=== PATIENT | female | born 1945 | race Caucasian/White ===

== ENCOUNTER 2024-08-15 17:37 | Inpatient (IN) | payer MEDICARE, SELFPAY ==
[2024-08-15] VITALS (21 sets, daily range): BP systolic 113–173; BP diastolic 64–103; PULSE 2–106; BMI 23.3
--- NOTE | 2024-08-15 14:10 | ED.GENMED ---
ED Provider Triage
<Arianna Albarado SPRING LAYER - Last Filed: 08/15/24 14:14>
-
Patient seen by provider in Triage?: Seen in Triage
Attestation: A medical screening examination has been initiated by a qualified medical provider. Based on the assessment performed at this time, it has been determined that an emergent medical condition may exist and the patient has been informed
that further medical evaluation and possible additional diagnostic testing may be needed.
HPI: 79-year-old female with history of COPD O2 4 L nasal cannula at home. Presents for shortness of breath over the past 2-3 weeks.
Pulse ox 95% at rest on 4 L. Moving from EMS stretcher to W/C desaturated to 80's
GENERAL: Alert , in no apparent distress
EYE: No visual abnormalities.
NECK: Trachea midline
ENT: No visible abnormalities.
LUNGS: Labored breathing. Lungs with diminished BS.
NEUROLOGICAL: Alert and oriented
SKIN: Skin intact. No visible changes.
MUSCULOSKELETAL: Moving extremities normally
PSYCH: Normal and appropriate interaction.
This is a medical evaluation conducted in person to initiate diagnostic evaluation and provide initial therapeutics. Please see further documentation by the treating clinician.
History of Present Illness
<Arianna Albarado SPRING LAYER - Last Filed: 08/15/24 14:14>
General
Chief Complaint: Breathing Problem
Time Seen by Provider: 08/15/24 14:31
<Petey Alcantar MD - Last Filed: 08/15/24 16:16>
General
Source: patient and family
Exam Limitations: clinical condition
Nursing documentation reviewed up to this point in time: agreed with
History of Present Illness
History of Present Illness:
79-year-old female with a past medical history of COPD, chronic respiratory failure on 4 L of home oxygen chronically presents to the emergency room for evaluation of shortness of breath. Patient reports progressive symptoms over the past 2 weeks.
Initially associated with cough but over the past few days increasing shortness of breath. Reports some tightness/heaviness in the chest as well. She also says she has had some mild dizziness. Apparently there was a plan to follow-up with PCP
today but daughter notes that she was markedly hypoxic which prompted ER visit.
Review of Systems
<Petey Alcantar MD - Last Filed: 08/15/24 16:16>
Review of Systems
Unable to obtain full review of systems at this time due to: due to acuity
All Other Systems: Not applicable
Phy Exam
<Petey Alcantar MD - Last Filed: 08/15/24 16:16>
Physical Exam
Physical Exam:
General: Awake, alert, anxious appearing and in moderate respiratory distress
Head: Normocephalic, atraumatic
Eyes: Conjunctiva normal
Throat: Airway intact, handling secretions
Neck: Trachea midline, supple without meningismus
Lungs: Patient is tachypneic speaking in one-word sentences, sitting straight upright, pursed lip breathing, tachypnea, hypoxic on normal 4 L; she diminished air movement, expiratory wheezing with prolonged expiratory phase
Heart: Tachycardia with regular rhythm, no murmurs, gallops, or rubs
Neuro: No gross deficits
Skin: no rash
Extremities: No edema in extremities, warm and well-perfused
Scores
<Petey Alcantar MD - Last Filed: 08/15/24 16:16>
Heart Failure Risk
Heart Failure Risk Score: Not Applicable
Heart Score for Chest Pain Patients
STEMI patient?: Not applicable
Withdrawal Assessment of Alcohol
Withdrawal Assessment Completed?: Not applicable
Course
<Arianna Albarado NP - Last Filed: 08/15/24 14:14>
Orders/Labs/Results
Orders:
Orders
08/15/24 14:10
Ipratropium/Albuterol Sulfate [Duoneb] 3 ml .ROUTE .STK-MED ONE
12/06/24 14:12
Electrocardiogram (*1) Urgent
Reason for Study: Shortness of Breath
EKG- Treatment ONCE
Ipratropium/Albuterol Sulfate [Duoneb] 3 ml INH R NOW STA
08/15/24 14:13
Ipratropium/Albuterol Sulfate [Duoneb] 3 ml INH R NOW ONE
08/15/24 14:32
MethylPREDNISolone PF [Solu-Medrol Pf] 125 mg IV NOW STA
CR Chest Portable - 1 View Urgent
Comment:
Reason For Exam: sob
Reason Study Needs to be Portable: Unable to Transport
Bipap [RESP] Urgent
Patient to use own unit?: No
Inspiratory Pressure (cm H2O): 12
Expiratory Pressure (cm H2O): 5
08/15/24 14:37
COVID-19 Antigen Urgent
Source: Nasal Swab
Complete Blood Count/With Diff Urgent
Comprehensive Metabolic Panel Urgent
Venous Blood Gas Urgent
%Oxygen/Room Air: 88
08/15/24 15:01
Influenza A+B Rapid Molecular Urgent
ALOK Source: Nasal Swab
Specimen Description:
08/15/24 15:12
Ipratropium/Albuterol Sulfate [Duoneb] 3 ml INH R NOW STA
08/15/24 15:18
Azithromycin 500 mg/250 ml [Zithromax Infusion] 500 mg in 250 ml IV NOW
CefTRIAXone [Rocephin] 1,000 mg IV NOW STA
Abnormal Lab Results
08/15/24
14:37
MCV 100.7 H fL
(81.0-99.0)
MCHC 30.3 L g/dL
(33.0-37.0)
Absolute Neuts (auto) 6.8 H 10^3/uL
(1.4-6.5)
Absolute Lymphs (auto) 1.0 L 10^3/uL
(1.2-3.4)
Absolute Monos (auto) 0.7 H 10^3/uL
(0.1-0.6)
Neutrophils % 76.7 H %
(42.2-75.2)
Lymphocytes % 11.6 L %
(20.5-51.1)
VBG pH 7.27 L
(7.32-7.43)
VBG pCO2 89 H* mmHg
(35-48)
VBG pO2 76 H mmHg
(30-50)
VBG HCO3 40.9 H mmol/L
(22-27)
Chloride 95 L mmol/L
(98-107)
Carbon Dioxide 36 H mmol/L
(22-30)
Creatinine 0.4 L mg/dL
(0.6-1.0)
Glucose 101 H mg/dl
(70-99)
08/15/24 14:37
08/15/24 14:37
Vital Signs
Initial and Last Documented VS:
Initial Vital Signs
Temp Pulse Resp BP Pulse Ox
36.8 C 123 26 134/85 96
08/15/24 14:04 08/15/24 14:04 08/15/24 14:04 08/15/24 14:04 08/15/24 14:04
Last Documented Vital Signs
Temp Pulse Resp BP Pulse Ox
36.8 C 101 20 125/66 94
08/15/24 14:04 08/15/24 16:00 08/15/24 16:00 08/15/24 15:01 08/15/24 16:00
<Petey Alcantar MD - Last Filed: 08/15/24 16:16>
Orders/Labs/Results
Orders:
Orders
08/15/24 14:10
Ipratropium/Albuterol Sulfate [Duoneb] 3 ml .ROUTE .STK-MED ONE
08/15/24 14:12
Electrocardiogram (*1) Urgent
Reason for Study: Shortness of Breath
EKG- Treatment ONCE
Ipratropium/Albuterol Sulfate [Duoneb] 3 ml INH R NOW STA
08/15/24 14:13
Ipratropium/Albuterol Sulfate [Duoneb] 3 ml INH R NOW ONE
08/15/24 14:32
MethylPREDNISolone PF [Solu-Medrol Pf] 125 mg IV NOW STA
CR Chest Portable - 1 View Urgent
Comment:
Reason For Exam: sob
Reason Study Needs to be Portable: Unable to Transport
Bipap [RESP] Urgent
Patient to use own unit?: No
Inspiratory Pressure (cm H2O): 12
Expiratory Pressure (cm H2O): 5
08/15/24 14:37
COVID-19 Antigen Urgent
Source: Nasal Swab
Complete Blood Count/With Diff Urgent
Comprehensive Metabolic Panel Urgent
Venous Blood Gas Urgent
%Oxygen/Room Air: 88
08/15/24 15:01
Influenza A+B Rapid Molecular Urgent
ALOK Source: Nasal Swab
Specimen Description:
08/15/24 15:12
Ipratropium/Albuterol Sulfate [Duoneb] 3 ml INH R NOW STA
08/15/24 15:18
Azithromycin 500 mg/250 ml [Zithromax Infusion] 500 mg in 250 ml IV NOW
CefTRIAXone [Rocephin] 1,000 mg IV NOW STA
Abnormal Lab Results
08/15/24
14:37
MCV 100.7 H fL
(81.0-99.0)
MCHC 30.3 L g/dL
(33.0-37.0)
Absolute Neuts (auto) 6.8 H 10^3/uL
(1.4-6.5)
Absolute Lymphs (auto) 1.0 L 10^3/uL
(1.2-3.4)
Absolute Monos (auto) 0.7 H 10^3/uL
(0.1-0.6)
Neutrophils % 76.7 H %
(42.2-75.2)
Lymphocytes % 11.6 L %
(20.5-51.1)
VBG pH 7.27 L
(7.32-7.43)
VBG pCO2 89 H* mmHg
(35-48)
VBG pO2 76 H mmHg
(30-50)
VBG HCO3 40.9 H mmol/L
(22-27)
Chloride 95 L mmol/L
(98-107)
Carbon Dioxide 36 H mmol/L
(22-30)
Creatinine 0.4 L mg/dL
(0.6-1.0)
Glucose 101 H mg/dl
(70-99)
08/15/24 14:37
08/15/24 14:37
Vital Signs
Initial and Last Documented VS:
Initial Vital Signs
Temp Pulse Resp BP Pulse Ox
36.8 C 123 26 134/85 96
08/15/24 14:04 08/15/24 14:04 08/15/24 14:04 08/15/24 14:04 08/15/24 14:04
Last Documented Vital Signs
Temp Pulse Resp BP Pulse Ox
36.8 C 101 20 125/66 94
08/15/24 14:04 08/15/24 16:00 08/15/24 16:00 08/15/24 15:01 08/15/24 16:00
<Petey Alcantar MD - Last Filed: 08/15/24 16:16>
MDM/Problems Addressed
Differential Diagnosis Includes:
COPD exacerbation, pneumonia, pneumothorax, PE
MDM/Problems Addressed:
79-year-old female presents for evaluation of progressive shortness of breath over the past 2 weeks. She presents in moderate respiratory distress as described above�tachycardia, tachypnea, increased work of breathing, increased oxygen requirement.
Exam as above. Call placed to respiratory to place patient on BiPAP. IV placed labs sent off including a CBC and a CMP, VBG. Swab for COVID and flu. Obtain stat chest x-ray and EKG. Treat with DuoNeb, steroids. Monitor very closely reassess
after the above.
Initial labs reviewed: CBC unremarkable, CMP shows hypercarbia; VBG shows respiratory acidosis with pCO2 of 89 and pH of 7.27. Fortunately patient is awake and alert and on clinical reassessment after BiPAP patient having increased air movement and
improved work of breathing. Will provide additional neb as she is still wheezing significantly. Chest x-ray reviewed and shows signs concerning for pneumonia on the left. Will cover with antibiotics. COVID and flu negative. Will admit for
continued treatment of acute on chronic respiratory failure with hypoxia and hypercarbia secondary to COPD exacerbation and pneumonia. Case discussed with hospitalist.
Chronic conditions affecting care:
COPD
Acute Exacerbation and/or Progression of Chronic Illness:
Acute COPD exacerbation managed as above
<Petey Alcantar MD - Last Filed: 08/15/24 16:16>
*Radiology
Radiology exam reviewed: preliminary read by ED provider and radiology read reviewed
*Pulse Oximetry
Patient hypoxic: yes
*EKG
Interpreted by ED Provider?: Yes
Heart Rate: 102
Rate: tachycardiac
Rhythm: sinus
Stephenson: normal axis
Interval: normal interval
QRS Pattern: normal QRS
Ischemia: no ischemia
*Critical Care Note
Total Time (30-74mins, 75-104mins- exclusive of procedures): 30
comment:
Critical care statement: A total of 30 minutes of critical care time was provided for this patient. This includes management of unstable vital signs, evaluation of the patient at bedside, frequent reassessment, discussion with
consultants/hospitalist, and review of pertinent medical records. This time was separate from time utilized to perform any aforementioned documented procedures
Data Reviewed
Source: patient, family and ambulance crew
<Petey Alcantar MD - Last Filed: 08/15/24 16:16>
Patient Management
Discussion with other providers: Hospitalist (Discussed with hospitalist)
Escalation/DeEscalation of care consider admission/obs:
Admission indicated
ED Attending Note
<Arianna Albarado NP - Last Filed: 08/15/24 14:14>
-
Portions of this chart may have been created with voice recognition software.� Occasional wrong word or��sound alike� substitutions may have occurred due to the inherent limitations of voice recognition software.
Discharge Plan
Departure
Patient Disposition: Admit
Date of Disposition: 08/15/24
Time of Disposition: 15:20
Admit to doctor: Jabier
Presentation/result/management discussed w/ accepting MD/DO: Hospitalist
Discharge Problem:
Acute respiratory failure with hypoxia and hypercapnia, Pneumonia, COPD exacerbation
Prescriptions:
No Action
aspirin 325 mg Tablet
650 mg PO TID
albuterol sulfate 90 mcg/actuation Hfa Aerosol Inhaler
2 puff INHALATION .SEE BELOW
Patient Comments:
08/15/2024: Per Pt and family, pt has been using Albuterol every 30 mins, and sometimes does 3-4 puffs at a time
fluticasone propionate [Flonase] 50 mcg/actuation Llewellyn,Suspension
2 spray INTRANASAL DAILY
Combivent Respimat 20-100 mcg/actuation Mist
1 puff INHALATION R QID
Patient Comments:
08/15/2024: Pt ran out of inhaler, physician gave her nebulizer (DuoNeb) in may, pt stated she did not like it. Began using rescue inhaler very often.
Interventions
Interventions:
*Risk Screen - Suicide Last Done: 08/15/24 14:04
*General Assessment Last Done: 08/15/24 15:02
*Neglect/Abuse Screening Last Done: 08/15/24 14:04
*ED COVID-19 Vaccine History Last Done: 08/15/24 15:02
ED- Cardiac Assessment Last Done: 08/15/24 14:43
ED- Pulmonary Assessment Last Done: 08/15/24 14:43
Discharge Date and Time
Print Language: UKRAINIAN
[2024-08-15] MEDS: DUONEB 3 ML INH ×3 (14:13→20:49)
[2024-08-15] MEDS: SOLU-MEDROL PF 125 MG IV (14:41)
[2024-08-15 14:59] LABS: % Basophils 0.4 % (0-2); % Eosinophils 2.8 % (0-6); % Immature Granulocytes 0.2 % (0-0.5); % Lymphocytes 11.6 % (20.5-51.1); % Monocytes 8.3 % (1.7-9.3); % Neutrophils 76.7 % (42.2-75.2); Absolute Eosinophils 0.3 10^3/uL (0-0.7); Absolute Monocytes 0.7 10^3/uL (0.1-0.6); Absolute Neutrophils 6.8 10^3/uL (1.4-6.5); Hematocrit 45.6 % (37.0-47.0); Hemoglobin 13.8 g/dL (12.0-16.0); Mean Corp Hgb Conc. 30.3 g/dL (33.0-37.0); Mean Corpuscular Hgb 30.5 pg (27.0-31.0); Mean Corpuscular Volume 100.7 fL (81.0-99.0); Mean Platelet Volume 9.4 fL (7.4-10.4); Nucleated Red Blood Cells % 0 %; Platelet Count 384 10^3/uL (130-400); Red Blood Cell Count 4.53 10^6/uL (4.20-5.40); Red Cell Dist. Width 13.2 % (11.5-14.5); Venous Blood Gas B.E. 9.9 mmol/L (-4 to +4); Venous Blood Gas HCO3 40.9 mmol/L (22-27); Venous Blood Gas O2 Sat % 96.2 %; Venous Blood Gas pH 7.27 (7.32-7.43); Venous Blood Gas pO2 76 mmHg (30-50); White Blood Cell Count 8.9 10^3/uL (4.8-10.8)
[2024-08-15 15:04] LABS: COVID-19 Antigen Negative (Negative); Venous Blood Gas O2 Therapy 88; Venous Blood Gas pCO2 89 mmHg (35-48)
[2024-08-15 15:06] LABS: ALT (SGPT) 12 U/L (0-35); AST (SGOT) 25 U/L (14-36); Albumin 3.7 g/dl (3.5-5.0); Alkaline Phosphatase 71 U/L (38-126); Blood Urea Nitrogen 12 mg/dl (7-17); Calcium 9.4 mg/dl (8.4-10.2); Chloride 95 mmol/L (98-107); Glucose 101 mg/dl (70-99); Potassium 4.1 mmol/L (3.5-5.1); Sodium 141 mmol/L (135-145); Total Bilirubin 0.2 mg/dl (0.2-1.3); Total Protein 7.1 g/dl (6.3-8.2); eGFR > 60.00
[2024-08-15 15:43] LABS: Carbon Dioxide 36 mmol/L (22-30)
[2024-08-15] MEDS: ROCEPHIN 1000 MG IV (15:48)
[2024-08-15] MEDS: ZITHROMAX INFUSION 250 IV (15:49)
--- NOTE | 2024-08-15 16:41 | CON.PUL ---
Addendum entered and electronically signed by Haja Oh MD 08/15/24 22:08:
Total time spent today was 78 minutes for this encounter. Time includes reviewing laboratory test/imaging results, reviewing pertinent medical records, obtaining and reviewing medical history, performing an appropriate exam, ordering medications,
tests and procedures. Time also includes documentation of this encounter, coordinating patient care and communicating with other healthcare professionals. Total time does not include separately billed tests performed on this date of service.
Original Note:
Consultation
Consultation Request
Date/Time Consultation Requested: 08/15/2024 - 1632
Date/Time Consultation Performed: 08/15/20241637
Requesting Provider: Dr. Morris
Performing Provider: Dr. Oh
Reason for Consultation: Acute hypoxia
Medical History
-
Chief Complaint: SOB + Cough
History of Present Illness:
79-year-old female with a past medical history of COPD on home oxygen at 4 L/min who presents with shortness of breath. SOB has been ongoing for about 2-3 weeks. Moving her from the EMS stretcher to the wheelchair resulted in desaturations to the
80s. She has been having a cough for the last few days and worsening SOB with chest tightness. She also has been having some dizziness. Her daughter recommended that the patient come to the ER. In the ER she was afebrile to 98.2 �F, tachycardic
to 123, tachypneic to 26 breaths/min, BP 134/85, and saturating 96% on 4 L/min. Blood gas showed acute on chronic respiratory failure with hypercapnia with pH 7.27 and pCO2 89. CXR shows a left lower lobe pneumonia with a suspected pleural
effusion. Patient was placed onto BiPAP in the ER, and was given ceftriaxone, Solu-Medrol 125 mg, DuoNebs and Zithromax. [facility] D[facility]/pulmonary service consulted to assess the patient and assist with disposition.
When I saw the patient she was resting in bed in no acute distress with her daughter, Emily, and her son-in-law, Eldon at bedside. Patient carries a history of COPD on 4-6 L/min [id number]. Her primary machine accountant is Dr. Romo with
[facility]. He also is acting as her PCP. She is currently on BiPAP 12/5cmH2O with VTe 350mL and PIP: 12 cmH2O.
The patient's been more short of breath since Thanksgiving with multiple other symptoms including lightheadedness, dizziness, headache, episodes of bladder incontinence, worsening nasal/chest congestion with increased cough for the last 2 days with
clear phlegm. Also not eating as much. At home her oxygen levels were 67% after Thanksgiving otherwise normally her saturations are in the high 80s/low 90s. She has nebulizers at home but apparently it was causing pain in her left mid scapular
region. She otherwise is on Trelegy 200mcg, and also is supposed to be using Combivent QID but it has been on backorder over the last few months. She also has prednisone at home if she needs it but she denies any recent use.
PMHx: COPD on home oxygen at 4 L/min, chronic rhinitis, eczema, multiple lung nodules (PET/CT was negative with no uptake in 2020), former tobacco smoker (last smoked a cigarette in April 2024)
PSHx: x 2
Past Medical History
Past Medical History: Other (Above as per HPI)
Past Surgical History: Other (Above as per HPI)
Social History
Tobacco: Former Smoker (Has still been smoking here in the air with last cigarette in April 2024; quit regularly smoking use in 2021 and previously was 1 PPD x 50 years; started smoking at age 16)
Alcohol: Occasional
Drug: None
Personal:
Living: Alone
Employment: Retired
Family History
Family History: Reviewed & Not Pertinent
Allergies / Home Medications
Allergies
Allergy/AdvReac Type Severity Reaction Status Date / Time
No Known Allergies Allergy Verified 08/15/24 14:06
Home Medications
�Medication �Instructions �Recorded �Confirmed �Last Taken �Type
albuterol sulfate 90 mcg/actuation 2 puff inhalation .SEE BELOW 08/15/24 08/15/24 Unknown History
aerosol inhaler
aspirin 325 mg tablet 650 mg PO TID 08/15/24 08/15/24 08/15/24 History
fluticasone propionate 50 2 spray intranasal DAILY 08/15/24 08/15/24 Unknown History
mcg/actuation nasal
spray,suspension
ipratropium 20 mcg-albuterol 100 1 puff inhalation R QID 08/15/24 08/15/24 2 Months Ago History
mcg/actuation mist for inhalation ~06/15/24
(Combivent Respimat)
Review of Systems
-
History Source: Patient
All other systems: Negative unless noted
Vitals / Labs / Diagnostic Testing
Vital Signs
Temp Pulse Resp BP Pulse Ox
98.2 F 105 20 118/68 94
08/15/24 14:04 08/15/24 16:32 08/15/24 16:00 08/15/24 16:32 08/15/24 16:00
Lab Data
08/15/24 14:37
08/15/24 14:37
Microbiology
08/15/24 15:01 Nasal Swab Influenza Types A & B (JOE) - Final
Negative for Influenza A & B, NAAT
Negative results must be combined with clinical observations
and patient history.
Nucleic Acid Amplification test (NAAT)performed on the
[employer] platform.
Diagnostic Testing:
Physical Exam
-
HEENT: Normocephalic and Anicteric
Cardiovascular: Rub (negative) and Peripheral Edema (negative)
Respiratory: Wheeze (negative), Rales (negative), Rhonchi (negative) and Other (On BiPAP via full facemask; grossly diminished breath sounds bilaterally)
GI: Soft, Non Distended, Non Tender and Normal Bowel Sounds
Neurology: AO x 3 and Tremors (negative)
Skin: Warm and Dry
General: Respiratory Distress (negative), Comfortable, Fever (negative) and Chills (negative)
Assessment
-
Assessment: 79-year-old female with a past medical history of COPD on home oxygen at 4 L/min who presents with shortness of breath. SOB has been ongoing for about 2-3 weeks. Moving her from the EMS stretcher to the wheelchair resulted in
desaturations to the 80s. She has been having a cough for the last few days and worsening SOB with chest tightness. She also has been having some dizziness. Her daughter recommended that the patient come to the ER. In the ER she was afebrile to
98.2 �F, tachycardic to 123, tachypneic to 26 breaths/min, BP 134/85, and saturating 96% on 4 L/min. Blood gas showed acute on chronic respiratory failure with hypercapnia with pH 7.27 and pCO2 89. CXR shows a left lower lobe pneumonia with a
suspected pleural effusion. Patient was placed onto BiPAP in the ER, and was given ceftriaxone, Solu-Medrol 125 mg, DuoNebs and Zithromax. [facility]/pulmonary service consulted to assess the patient and assist with disposition.
Chronic conditions SKIVER HEEL TAP: COPD on Trelegy 200mcg + home oxygen at 4-6 L/min ATC, chronic rhinitis, eczema, multiple lung nodules (PET/CT was negative with no uptake in 2020), former tobacco smoker (last smoked a cigarette in April 2024)
Impression:
#Acute COPD exacerbation due to a left lower lobe pneumonia
#Multifocal pneumonia involving LLL + ALONSO with a parapneumonic effusion with suspected loculation
#Acute on chronic respiratory failure with hypercapnia
#Acute on chronic respiratory failure with hypoxia due to above
#Elevated eosinophil count (mild at 300 from 08/15/2024)
#Metabolic alkalosis due to chronic hypercapnia
#Emphysema/COPD on Trelegy 200mcg at home + home O2 (4-6L/min ATC)
#History of multiple lung nodules with prior PET/CT negative with no uptake in 2020 (per her machine accountant's last office visit note on 05/22/2024)
Plan:
- Continue with BiPAP and trend pH + pCO2 to assure that it is improving
- Given that her blood gas shows improvement with pH improving from 7.27 --> 7.3, she can be managed in the IMU
- Continue to trend her blood gas
- Ok to take breaks from the BiPAP as long as she feels well with no worsening SOB in that interim period; she can eat clears + drink water but limit to small volumes in case she has to quikcly go back onto BiPAP
- Continue with broad-spectrum antibiotics with ceftriaxone/azithromycin --> would plan for total of 7 days ABx assuming she continues to clinically improve and remains afebrile for 48 hours prior to stopping antibiotics
- Trend QTc
- Check blood culture, urinalysis with reflex urine culture, urine antigens for Legionella/strep pneumonia and check sputum culture
- DuoNebs QID
- Given that she takes Trelegy at home, start Symbicort + Spiriva while hospitalized and then resume her Trelegy upon discharge
- Start systemic steroids with Solu-Medrol 40mg IV q8hr; maintain euglycemia while on high-dose steroids with goal BG 140�180; eventual prolonged steroid taper
- Maintain SpO2 88-95% with supplemental oxygen; check an ambulatory pulse oximetry prior to discharge
- Check CT chest to further assess her left sided loculated effusion and assess her degree of emphysema
- Mucolytics with chest PT if needed; Acapella
- Maintain MAP>65
- Replete electrolytes with K>4, Mg>2
- Trend H/H and transfuse if needed to keep Hb>7g/dL; keep plt>20k, unless there is concern for bleeding then keep plt>50k
- prn nebulized bronchodilators - not currently bronchospastic
- Incentive spirometer encouraged 10x per hour for at least 4 hrs a day
- DVT ppx: LMWH
Of note, the patient's daughter was able to access the portal connected to her machine accountant, Dr. Romo. I took this information into account from this last office visit on 05/22/2024. After discharge she should continue following up with this
machine accountant as she will need radiographic follow-up for this pneumonia and symptom checkup during prednisone tapering.
Patient is stable for admission to IMU and Pulmonary service will continue to follow along.
Data:
CXR 08/15/2024:
Evidence for small to moderate left pleural effusion with mild lateral loculation.
Patchy parenchymal opacity within the left mid to lower lung, suspicious for pneumonia, although there could also be a component of atelectasis. Also of note, underlying mass/neoplasia cannot be excluded radiographically and radiographic follow-up
is recommended.
[2024-08-15 16:48] LABS: Venous Blood Gas B.E. 10.4 mmol/L (-4 to +4); Venous Blood Gas HCO3 40.3 mmol/L (22-27); Venous Blood Gas O2 Sat % 86.8 %; Venous Blood Gas pO2 53 mmHg (30-50)
[2024-08-15 16:50] LABS: Venous Blood Gas pCO2 82 mmHg (35-48)
--- NOTE | 2024-08-15 17:03 | HPS.HSE ---
Addendum entered and electronically signed by Uriah Morris MD 08/15/24 17:46:
Acute on chronic hypoxic and hypercapnic respiratory failure secondary to likely copd exacterbation. Due to gradual progression over 2-3weeks unlikely PE, no fever nor white count unlikely PNA and no evidence of PNA on cxr. Likely has a component of
pHTN, would not be surprised if there was a component of Right sided heart failure due to poorly treated COPD.
-baseline: uses 4l o2
-per grandson use albuterol rescue quite frequently and trelegy up to twice a day
-poor airmovement on exam
-poor follow up, no pcp
-2-3weeks of sob, AM sputum - unchanged, no fever, no vaccines as she declines them
-duonebs q4h
-ivsteroid q12h with methylpred 40mg q12h
-repeat vbg
-continue NIPPV
-NPO while on NIPPV
-wean as tolerated
-continue azithro
-if become lethargic then will need to dc NIPPV
-if needs restraints then will need to dc NIPPV
-incentive pranav
-goal spo2 88-92%
-she is dnr/dni
-would avoid benzos
-flu/covid neg
-check 2d echo
Acute respiratory acidosis secondary to co2 retention
-Expect to improve while on NIPPV
Left sided pleural effusion
-will monitor, unlikely not able to tap
Original Note:
Family Physician
-
Family Physician: * NONE
Sees Sophia Romo Pulomonologist in [place], who also serves as primary.
Chief Complaint
-
Exertional shortness of breath x 2 weeks
History of Present Illness
79-year-old female with past medical history significant for COPD and smoking presents to the hospital for evaluation of gradually worsening shortness of breath x 2 weeks. Most of the history is provided by daughter and son-in-law on the bedside.
Patient is on BiPAP. Patient is visiting her daughter from [facility], about 2 weeks ago when she got down her car and walked her saturations were around 68% for about 2 minutes and the recovery time was prolonged as per family. Over the
last 3 days her shortness of breath became progressively worse, she experienced orthopnea, and had associated headaches, dizziness, chest pain since yesterday. Her chest pain is dull, aching located on left side, radiating into her back, 5/10 in
intensity, but not radiating into her jaw or left upper extremity. She also reports to have some associated urinary incontinence over the last 2 days. She denies having any dysuria, hesitancy, frequency, urgency or blood in her urine associated
with her urinary incontinence. Today family decided to take her to urgent care and at urgent care her pulse ox dropped to 58%, her heart rate was up in 130s and she was found to be tachypneic. Her daughter called EMS as a result.
Patient denies having any fevers, chills, sick contacts, difficulty swallowing, syncope or near syncopal episodes, palpitations, focal weakness, altered sensation in arms or limbs, or bowel incontinence.
Of note, she is home O2 dependent-4 L, and her ambulation is pretty independent. She does not have a primary care physician, but follows up with a lung doctor who also acts as her primary. Patient has greater than 89-mevj-kgrp smoking history and
quit smoking 2 years ago. Her last low-dose lung CT for lung cancer screening was in 2020.
Medical History
Past Medical History
Past Medical History: Reports COPD
Past Surgical History: Reports Other ( x 2)
Social History
Tobacco: Former Smoker (Quit smoking 2 years ago, started smoking at age 16, 1 pack a day, greater than 50 pack years)
Alcohol: Occasional
Drug: None
Personal:
Living: Alone
Employment: Retired
Family History
Family History: Not pertinent
Allergies / Home Medications
Allergies reflects when Allergies were last updated in [facility].
Home Medications with original date entered in [facility]
Allergy/Medication List:
Allergies
Allergy/AdvReac Type Severity Reaction Status Date / Time
No Known Allergies Allergy Verified 08/15/24 14:06
Home Medications
albuterol sulfate 90 mcg/actuation aerosol inhaler 2 puff inhalation .SEE BELOW 08/15/24
aspirin 325 mg tablet 650 mg PO TID 08/15/24
fluticasone propionate 50 mcg/actuation nasal spray,suspension 2 spray intranasal DAILY 08/15/24
ipratropium 20 mcg-albuterol 100 mcg/actuation mist for inhalation (Combivent Respimat) 1 puff inhalation R QID 08/15/24
Review of Systems
-
History Source: Patient
Constitutional: Reports Fatigue; Denies Fever, Weight Gain, Weight Loss, Night Sweats or Chills
EENT: Reports No Symptoms
Respiratory: Reports Cough and Trouble Breathing; Denies Hemoptysis
Cardiac: Reports Chest Pain; Denies Diaphoresis, Palpitations or Syncope
Abdomen/GI: Denies Abdominal Pain, Nausea, Vomiting, Diarrhea, Constipated or Bloody Stools
: Reports Incontinence
Musculoskeletal: Reports No Symptoms
Skin: Reports No Symptoms
Neurological: Reports Dizzy and Headache; Denies Weakness or Numbness
Endocrine: Reports No Symptoms
Hematologic/Lymphatic: Reports No Symptoms
Physical Exam
Vital Signs
Vital Signs
Temp Pulse Resp BP Pulse Ox
98.2 F 105 20 118/68 94
08/15/24 14:04 08/15/24 16:32 08/15/24 16:00 08/15/24 16:32 08/15/24 16:00
Physical Exam
General: No Apparent Distress and Comfortable
HEENT: Moist mucous membranes
Respiratory: Decreased Breath Sounds (Bilaterally across all lung lobes.)
Cardiac: S1/S2, Regular Rhythm and Tachycardia; No Murmur, Rub or Gallop
GI: Soft, Non Tender, Non Distended and Normal Bowel Sounds
Musculoskeletal: No Clubbing, No Cyanosis and Other (Bilateral 1+ pitting edema in lower extremities.)
Neuro: No Motor Deficits
Psych: Calm
Laboratory Results
-
08/15/24 14:37
08/15/24 14:37
Laboratory Results
Total Bilirubin 0.2 mg/dl (0.2-1.3) 08/15/24 14:37
AST 25 U/L (14-36) 08/15/24 14:37
ALT 12 U/L (0-35) 08/15/24 14:37
Alkaline Phosphatase 71 U/L (38-126) 08/15/24 14:37
Data Reviewed
-
Diagnostic Radiology: Image Personally Visualized and interpreted, Report Reviewed by me and Discussed with Physician
Lab Data: Labs Reviewed by me and Discussed with Physician
Impression/Plan
-
IMPRESSION: 79-year-old female with PMHx significant for COPD and smoking presents to the hospital for evaluation of gradually worsening shortness of breath, diagnosed with acute hypercapnic respiratory failure secondary to COPD exacerbation.
PLAN:
Acute hypercapnic respiratory failure -
Admit to IMU, pulmonology consulted, on board.
pH 7.24, pCO2 89, HCO3 40.9 upon admission.
Received Solu-Medrol 125, 2 rounds of DuoNebs and currently patient is on BiPAP.
Satting 89% on BiPAP with 90 degrees hide and elevation.
Baseline-on 4 L home O2.
Continue maintaining head and elevation,
IV steroids and DuoNebs.
Chest pain-
Blood pressure on bilateral arms-right 130/82, left 118/70s. In upper extremities.
Unlikely to be an aortic dissection.
Obtain proBNP in the a.m., if elevated would obtain echocardiogram and troponins.
No ST segment changes.
Former smoker
DVT prophylaxis-Lovenox.
CODE STATUS-
DNR.
No healthcare power of estate attorney.
--- NOTE | 2024-08-15 20:00 | PTCARENOTE ---
Received pt via transfer from ER. Patient AAOx3, able to HIRSCH. Sinus tach w/ trace edema in LE. Patient 93% tachypneic on Bipap 6L. Lung sounds coarse with crackles throughout. Hypoactive bowels sounds in all 4Q. Pt able to void on bedpan. Skin CDI.
Family and call yanez at bedside.
[2024-08-15] MEDS: LOVENOX 40 MG SC (20:26)
[2024-08-15] MEDS: SOLU-MEDROL PF 40 MG IV (20:27)
[2024-08-15 20:57] LABS: INR 0.94; PT 12.9 Sec (11.4-14.6)
[2024-08-15 20:58] LABS: APTT 33.1 Sec (23.4-35.0)
[2024-08-15 21:12] LABS: NT-proBNP 88.2 pg/ml; Troponin I 0.032 ng/ml
[2024-08-15 21:29] LABS: Venous Blood Gas B.E. 14.5 mmol/L (-4 to +4); Venous Blood Gas HCO3 43.2 mmol/L (22-27); Venous Blood Gas O2 Sat % 99.2 %; Venous Blood Gas pH 7.38 (7.32-7.43); Venous Blood Gas pO2 137 mmHg (30-50)
[2024-08-15 21:31] LABS: Venous Blood Gas pCO2 73 mmHg (35-48)
[2024-08-15 22:53] LABS: Magnesium 1.9 mg/dl (1.6-2.3); Phosphorus 3.4 mg/dl (2.5-4.5)
[2024-08-16] VITALS (18 sets, daily range): BP systolic 101–134; BP diastolic 54–81; PULSE 2–95; BMI 22.8
--- NOTE | 2024-08-16 00:30 | PTCARENOTE ---
Pt transported for CT on 6L midflow, labs drawn, hygiene performed. Call yanez at bedside.
[2024-08-16] MEDS: SOLU-MEDROL PF 40 MG IV ×3 (03:36→13:34)
--- NOTE | 2024-08-16 04:00 | PTCARENOTE ---
All systems reassessed, labs drawn, hygiene performed, purewick placed.
[2024-08-16 04:11] LABS: Hematocrit 40.6 % (37.0-47.0); Hemoglobin 12.6 g/dL (12.0-16.0); Mean Corpuscular Hgb 30.5 pg (27.0-31.0); Mean Corpuscular Volume 98.3 fL (81.0-99.0); Mean Platelet Volume 9.3 fL (7.4-10.4); Platelet Count 351 10^3/uL (130-400); Red Blood Cell Count 4.13 10^6/uL (4.20-5.40); Red Cell Dist. Width 13.2 % (11.5-14.5); Venous Blood Gas B.E. 14.6 mmol/L (-4 to +4); Venous Blood Gas HCO3 42.7 mmol/L (22-27); Venous Blood Gas O2 Sat % 99.9 %; Venous Blood Gas pCO2 69 mmHg (35-48); Venous Blood Gas pO2 153 mmHg (30-50)
[2024-08-16 04:16] LABS: Venous Blood Gas O2 Therapy 6L/min with BiPAP
[2024-08-16 04:33] LABS: ALT (SGPT) 13 U/L (0-35); AST (SGOT) 24 U/L (14-36); Albumin 3.6 g/dl (3.5-5.0); Alkaline Phosphatase 57 U/L (38-126); Blood Urea Nitrogen 18 mg/dl (7-17); Calcium 9.3 mg/dl (8.4-10.2); Carbon Dioxide 38 mmol/L (22-30); Chloride 96 mmol/L (98-107); Estimated Creatinine Clearance 71 ml/min; Glucose 136 mg/dl (70-99); Magnesium 1.9 mg/dl (1.6-2.3); Phosphorus 3.5 mg/dl (2.5-4.5); Potassium 4.5 mmol/L (3.5-5.1); Sodium 141 mmol/L (135-145); Total Bilirubin 0.3 mg/dl (0.2-1.3); Total Protein 6.8 g/dl (6.3-8.2); eGFR > 60.00
[2024-08-16 05:03] LABS: TSH 0.87 uIU/ml (0.47-4.68)
[2024-08-16] MEDS: DUONEB INH (07:30)
[2024-08-16] MEDS: VENTOLIN NEBULES 2.5 MG INH ×4 (07:30→20:32)
[2024-08-16] MEDS: SPIRIVA RESPIMAT 2.5 MCG 2 PUFF INH (07:30)
[2024-08-16] MEDS: SYMBICORT 160/4.5 MCG INHALER 2 PUFF INH ×2 (07:31→20:32)
--- NOTE | 2024-08-16 08:32 | W.PN.PUL3 ---
Addendum entered and electronically signed by Haja Oh MD 08/16/24 17:39:
Total time spent today was 37 minutes for this encounter. Time includes reviewing laboratory test/imaging results, reviewing pertinent medical records, obtaining and reviewing medical history, performing an appropriate exam, ordering medications,
tests and procedures. Time also includes documentation of this encounter, coordinating patient care and communicating with other healthcare professionals. Total time does not include separately billed tests performed on this date of service.
Original Note:
Today's Communication / Plan
-
Supplemental oxygen to maintain SpO2 goal 88-95%
Continue with nocturnal BiPAP, and trend blood gas to ensure pH + pCO2 are stable
Check ambulatory pulse oximetry prior to discharge although she does use 4-6 L/min at home, however she may have increased needs now given this new left-sided pneumonia
Continue with antibiotics
Check left-sided chest ultrasound and if amenable to thoracentesis would consult IR; if left effusion is loculated then she may benefit from a chest tube
Aspiration precautions
Solu-Medrol with wean as she clinically improves
[place] mist nasal spray for nasal congestion
Spiriva + Symbicort, and resume her Trelegy upon discharge
Eventual outpatient follow-up with her private collection systems worker in [place]
Patient stable for downgrade out of ICU to telemetry. Pulmonary service will continue to follow along.
Assessment
-
Assessment: 79-year-old female with a past medical history of COPD on home oxygen at 4 L/min who presents with shortness of breath. SOB has been ongoing for about 2-3 weeks. Moving her from the EMS stretcher to the wheelchair resulted in
desaturations to the 80s. She has been having a cough for the last few days and worsening SOB with chest tightness. She also has been having some dizziness. Her daughter recommended that the patient come to the ER. In the ER she was afebrile to
98.2 �F, tachycardic to 123, tachypneic to 26 breaths/min, BP 134/85, and saturating 96% on 4 L/min. Blood gas showed acute on chronic respiratory failure with hypercapnia with pH 7.27 and pCO2 89. CXR shows a left lower lobe pneumonia with a
suspected pleural effusion. Patient was placed onto BiPAP in the ER, and was given ceftriaxone, Solu-Medrol 125 mg, DuoNebs and Zithromax. Tobacco Sampler/pulmonary service consulted to assess the patient and assist with disposition.
Chronic conditions [employer]: COPD on Trelegy 200mcg + home oxygen at 4-6 L/min ATC, chronic rhinitis, eczema, multiple lung nodules (PET/CT was negative with no uptake in 2020), former tobacco smoker (last smoked a cigarette in April 2024)
Impression:
#Acute COPD exacerbation due to a left lower lobe pneumonia
#Multifocal pneumonia involving LLL + ALONSO with a parapneumonic effusion with suspected loculation
#Acute on chronic respiratory failure with hypercapnia
#Acute on chronic respiratory failure with hypoxia due to above
#Elevated eosinophil count (mild at 300 from 08/15/2024)
#Metabolic alkalosis due to chronic hypercapnia
#Emphysema/COPD on Trelegy 200mcg at home + home O2 (4-6L/min ATC)
#History of multiple lung nodules with prior PET/CT negative with no uptake in 2020 (per her collection systems worker's last office visit note on 05/22/2024)
Plan:
- Continue with BiPAP and trend pH + pCO2 to assure that it is improving
- Her blood gas has shown marked improvement of her pH + pCO2, now with pH 7.4, pCO2 69 on AM of 08/16. Continue with nocturnal BiPAP
- Continue to trend her blood gas
- Continue with broad-spectrum antibiotics with ceftriaxone/azithromycin --> would plan for total of 7 days ABx assuming she continues to clinically improve and remains afebrile for 48 hours prior to stopping antibiotics
- Trend QTc
- Follow up blood culture (collected 08/16), urinalysis with reflex urine culture, urine antigens for Legionella/strep pneumonia and check sputum culture (if she can produce a decent sample)
- DuoNebs QID
- Given that she takes Trelegy at home, start Symbicort + Spiriva while hospitalized and then resume her Trelegy upon discharge
- Continue systemic steroids with Solu-Medrol 40mg IV q8hr --> q12hr; maintain euglycemia while on high-dose steroids with goal BG 140�180; eventual prolonged steroid taper
- Maintain SpO2 88-95% with supplemental oxygen; check an ambulatory pulse oximetry prior to discharge
- CT chest performed showing moderate to advanced emphysema with a mild�moderate left-sided pleural effusion which appears to be loculated with masslike opacities in the lingula + left lower lobe --> check left-sided chest US to assess for
loculations and if large enough will c/s IR for thoracentesis vs chest tube
- Mucolytics with chest PT if needed; Acapella
- Maintain MAP>65
- Replete electrolytes with K>4, Mg>2
- Trend H/H and transfuse if needed to keep Hb>7g/dL; keep plt>20k, unless there is concern for bleeding then keep plt>50k
- prn nebulized bronchodilators - not currently bronchospastic
- Incentive spirometer encouraged 10x per hour for at least 4 hrs a day
- DVT ppx: LMWH
Of note, the patient's daughter was able to access the portal connected to her collection systems worker, Dr. Romo. I took this information into account from this last office visit on 05/22/2024. After discharge she should continue following up with this
collection systems worker as she will need radiographic follow-up for this pneumonia and symptom checkup during prednisone tapering.
Patient is stable for downgrade out of ICU to telemetry. Pulmonary service will continue to follow along.
Data:
CXR 08/15/2024:
Evidence for small to moderate left pleural effusion with mild lateral loculation.
Patchy parenchymal opacity within the left mid to lower lung, suspicious for pneumonia, although there could also be a component of atelectasis. Also of note, underlying mass/neoplasia cannot be excluded radiographically and radiographic follow-up
is recommended.
CT chest without contrast 08/15/2024:
Moderate to advanced emphysematous lung changes.
Mild to moderate left pleural effusion.
Masslike opacities in the lingula and left lower lobe. Probable round pneumonia. Follow-up recommended to assess for resolution.
Minor localized tree-in-bud attenuation in the superior segment of the right lower lobe, nonspecific bronchiolitis.
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
Subjective Data
-
Date of Service:
Date of Service: August 16, 2024
Chief Complaint: Pulmonary Follow Up
Subjective:
Patient was seen and evaluated today at bedside. Wore BiPAP overnight on 08/14 bled with 6 L/min. She does not like wearing the BiPAP mask but she is willing to use it again tonight. Of note, she does not have any CPAP or BiPAP at home. She is
currently saturating 95% with heart rate 111 and BP 120/58. She currently denies any chest pain, SOB, headache, fevers or chills.
Review of Systems
General: Other (Negative unless mentioned above)
Objective Data
Data Reviewed
Vital Signs / I&O / Oxygen:
Vital Signs
Temp Pulse Resp BP Pulse Ox
97.7 F 73 17 109/54 93
08/16/24 07:30 08/16/24 07:36 08/16/24 07:36 08/16/24 06:00 08/16/24 07:36
Intake and Output
08/15/24 08/16/24 08/17/24
06:59 06:59 06:59
Intake Total 360 / 360
Balance 360 / 360
SaO2 93
Nasal Cannula flow liters per 4
minute
Physical Exam
General: Respiratory Distress (negative), Comfortable, Chills (negative) and Sweats (negative)
HEENT: Normocephalic and Anicteric
Cardiovascular: Rub (negative) and Peripheral Edema (negative)
Respiratory: Wheeze (negative), Crackles (Left base), Rhonchi (negative), Non-Labored Respirations and Other (Diminished breath sounds bilaterally)
GI: Soft, Non Distended, Non Tender and Normal Bowel Sounds
Neurology: AO x 3 and Tremors (negative)
Skin: Warm, Dry, Cyanosis (negative) and Jaundice (negative)
Labs/Micro/Reports
Lab Data
08/16/24 03:54
08/16/24 03:54
Laboratory Results
08/15/24
20:23
PT 12.9
INR 0.94
APTT 33.1
Microbiology
08/15/24 15:01 Nasal Swab Influenza Types A & B (JOE) - Final
Negative for Influenza A & B, NAAT
Negative results must be combined with clinical observations
and patient history.
Nucleic Acid Amplification test (NAAT)performed on the
[employer] platform.
[2024-08-16] MEDS: ZITHROMAX 500 MG PO (09:35)
--- NOTE | 2024-08-16 10:22 | PTCARENOTE ---
pt aaox3. reviewed her condition lab results and plan of care. pt states no pain and breath feels better. nc 4l o2 sat 94%. pt lambert and orthopneic. breath sounds absent at base and diminished thru out. pure wick in place.
--- NOTE | 2024-08-16 12:25 | PTCARENOTE ---
no change in pt condition
--- NOTE | 2024-08-16 13:55 | W.PN.HOSP.TC ---
Today's Communication/Plan
-
Assessment / Plan
Assessment / Plan
Physical Exam
NAD, resting comfortably in bed, 4l nc, conversant
Scleral anicteric
Moist mucous membranes
No JVD
Poor air movmement bilaterally throughout all lung jones
Normal S1-S2 no murmurs
Soft nontender nondistended bowel sounds active
No peripheral pitting edema
Moves extremities spontaneously
AAOx3
Assessment and plan
Acute on chronic hypoxic and hypercapnic respiratory failure secondary to likely copd exacterbation. Due to gradual progression over 2-3weeks unlikely PE, no fever nor white count unlikely PNA and no evidence of PNA on cxr. Likely has a component of
pHTN, would not be surprised if there was a component of Right sided heart failure due to poorly treated COPD.
-baseline: uses 4l o2
-per grandson use albuterol rescue quite frequently and trelegy up to twice a day
-duonebs q4h
-ivsteroid q12h with methylpred 40mg q12h
-repeat vbg
-continue NIPPV
-NPO while on NIPPV
-wean as tolerated
-continue azithro
-if become lethargic then will need to dc NIPPV
-if needs restraints then will need to dc NIPPV
-incentive pranav
-goal spo2 88-92%
-she is dnr/dni
-would avoid benzos
-flu/covid neg
-check 2d echo
Acute respiratory acidosis secondary to co2 retention
-Expect to improve while on NIPPV
Left sided pleural effusion
-will monitor, unlikely not able to tap
Anticipated Discharge: > 48 hours
Subjective/Interval History
-
Date of Service: August 16, 2024
seen and examined. no new comapitns. no acure overnight evengts
Objective Data
-
Labs:
Laboratory Results
08/16/24
03:54
WBC 7.0
Hgb 12.6
Hct 40.6
Plt Count 351
Sodium 141
Potassium 4.5
Chloride 96 L
Carbon Dioxide 38 H
BUN 18 H
Creatinine 0.4 L
Glucose 136 H
Calcium 9.3
Total Bilirubin 0.3
AST 24
ALT 13
Alkaline Phosphatase 57
Vital Signs:
Vital Signs
Temp Pulse Resp BP Pulse Ox
98.7 F 110 16 119/62 93
08/16/24 11:30 08/16/24 12:19 08/16/24 12:19 08/16/24 10:00 08/16/24 12:19
I&O
08/15/24 08/16/24 08/17/24
06:59 06:59 06:59
Intake Total 360 / 360
Balance 360 / 360
--- NOTE | 2024-08-16 15:11 | CM ---
Chart reviewed. Patient is here for COPD exacerbation. She lives in [place]. She has a son and daughter for support. One of them will provide a ride for her, once she is discharged from the hospital. She has an active PCP and pharmacy. She is
independent. She lives in a 'senior' apartment building. She owns a walker, cane and wheelchair. 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 She denies any +SDOHs.
ANTICIPATED DISCHARGE PLAN: Home at apartment, once medically cleared.
[2024-08-16] MEDS: STERILE WATER FOR INJECTION 10 ML IV (15:46)
[2024-08-16] MEDS: ROCEPHIN 1000 MG IV (15:46)
[2024-08-16] MEDS: LOVENOX 40 MG SC (17:26)
--- NOTE | 2024-08-16 19:15 | PTCARENOTE ---
rec'd pt from IMU in the bed already. denies pain. maintained on 6L02.
[2024-08-16] MEDS: OCEAN, SALINE MIST NASAL (22:41)
[2024-08-17] MEDS: OCEAN, SALINE MIST NASAL ×2 (00:44→22:40)
[2024-08-17] MEDS: SOLU-MEDROL PF 40 MG IV ×2 (01:03→13:50)
[2024-08-17 02:12] VITALS: PULSE 2; PULSE 90
[2024-08-17 06:00] VITALS: BMI 24.5
[2024-08-17 06:52] LABS: Hemoglobin 12.3 g/dL (12.0-16.0); Mean Corp Hgb Conc. 30.8 g/dL (33.0-37.0); Mean Corpuscular Hgb 30.2 pg (27.0-31.0); Mean Corpuscular Volume 98.3 fL (81.0-99.0); Mean Platelet Volume 9.5 fL (7.4-10.4); Platelet Count 345 10^3/uL (130-400); Red Blood Cell Count 4.07 10^6/uL (4.20-5.40); Red Cell Dist. Width 13.4 % (11.5-14.5); White Blood Cell Count 13.6 10^3/uL (4.8-10.8)
[2024-08-17 07:07] LABS: Venous Blood Gas B.E. 17.8 mmol/L (-4 to +4); Venous Blood Gas HCO3 46.5 mmol/L (22-27); Venous Blood Gas pCO2 75 mmHg (35-48); Venous Blood Gas pO2 60 mmHg (30-50)
[2024-08-17 07:08] LABS: Blood Urea Nitrogen 20 mg/dl (7-17); Calcium 9.3 mg/dl (8.4-10.2); Chloride 93 mmol/L (98-107); Estimated Creatinine Clearance 71 ml/min; Glucose 127 mg/dl (70-99); Magnesium 2.2 mg/dl (1.6-2.3); Phosphorus 3.9 mg/dl (2.5-4.5); Potassium 4.3 mmol/L (3.5-5.1); Sodium 138 mmol/L (135-145); eGFR > 60.00
[2024-08-17 07:18] LABS: Carbon Dioxide 37 mmol/L (22-30)
[2024-08-17 07:40] VITALS: BP 124/64
[2024-08-17] MEDS: ZITHROMAX 500 MG PO (07:52)
[2024-08-17] MEDS: OCEAN, SALINE MIST 2 SPRAYS NASAL ×3 (07:54→17:27)
[2024-08-17] MEDS: SYMBICORT 160/4.5 MCG INHALER 2 PUFF INH ×2 (08:37→19:42)
[2024-08-17] MEDS: SPIRIVA RESPIMAT 2.5 MCG 2 PUFF INH (08:37)
[2024-08-17] MEDS: VENTOLIN NEBULES 2.5 MG INH ×4 (08:37→19:42)
--- NOTE | 2024-08-17 09:31 | W.PN.PUL3 ---
Today's Communication / Plan
-
Supplemental oxygen to maintain SpO2 goal 88-95%
Continue with nocturnal BiPAP, and trend blood gas to ensure pH + pCO2 are stable
Check ambulatory pulse oximetry prior to discharge although she does use 4-6 L/min at home, however she may have increased needs now given this new left-sided pneumonia
Continue with antibiotics
Consult IR for left-sided thoracentesis
Aspiration precautions
Solu-Medrol with wean as she clinically improves --> hopefully can TRX to OCS taper over next 24-48 hrs
Dorado mist nasal spray for nasal congestion
Spiriva + Symbicort, and resume her Trelegy upon discharge
Eventual outpatient follow-up with her private leaf stamper in [place]
Pulmonary service will continue to follow along.
Assessment
-
Assessment: 79-year-old female with a past medical history of COPD on home oxygen at 4 L/min who presents with shortness of breath. SOB has been ongoing for about 2-3 weeks. Moving her from the EMS stretcher to the wheelchair resulted in
desaturations to the 80s. She has been having a cough for the last few days and worsening SOB with chest tightness. She also has been having some dizziness. Her daughter recommended that the patient come to the ER. In the ER she was afebrile to
98.2 �F, tachycardic to 123, tachypneic to 26 breaths/min, BP 134/85, and saturating 96% on 4 L/min. Blood gas showed acute on chronic respiratory failure with hypercapnia with pH 7.27 and pCO2 89. CXR shows a left lower lobe pneumonia with a
suspected pleural effusion. Patient was placed onto BiPAP in the ER, and was given ceftriaxone, Solu-Medrol 125 mg, DuoNebs and Zithromax. Ion Implant Machine Operator/pulmonary service consulted to assess the patient and assist with disposition.
Chronic conditions RETENTION REPRESENTATIVE: COPD on Trelegy 200mcg + home oxygen at 4-6 L/min ATC, chronic rhinitis, eczema, multiple lung nodules (PET/CT was negative with no uptake in 2021), former tobacco smoker (last smoked a cigarette in April 2024)
Impression:
#Acute COPD exacerbation due to a left lower lobe pneumonia
#Multifocal pneumonia involving LLL + ALONSO with a parapneumonic effusion
#Acute on chronic respiratory failure with hypercapnia
#Acute on chronic respiratory failure with hypoxia due to above
#Elevated eosinophil count (mild at 300 from 08/15/2024)
#Metabolic alkalosis due to chronic hypercapnia
#Emphysema/COPD on Trelegy 200mcg at home + home O2 (4-6L/min ATC)
#History of multiple lung nodules with prior PET/CT negative with no uptake in 2020 (per her leaf stamper's last office visit note on 05/22/2024)
Plan:
- Continue with nocturnal BiPAP and trend pH + pCO2 to assure it is stable
- Would recommend trying a nasal PAP mask tonight to see if this improves the rash seen on her face today
- Continue with broad-spectrum antibiotics with ceftriaxone/azithromycin --> would plan for total of 7 days ABx assuming she continues to clinically improve and remains afebrile for 48 hours prior to stopping antibiotics
- Trend QTc
- Follow up blood culture (collected 08/16 - NGTD), urinalysis with reflex urine culture, urine antigens both negative for Legionella/strep pneumonia; check sputum culture (if she can produce a decent sample)
- Albuterol QID
- Given that she takes Trelegy at home, continue Symbicort + Spiriva while hospitalized and then resume her Trelegy upon discharge
- Continue systemic steroids with Solu-Medrol 40mg IV q8hr --> q12hr; maintain euglycemia while on high-dose steroids with goal BG 140�180; eventual prolonged steroid taper hopefully over next 1-2 days
- Maintain SpO2 88-95% with supplemental oxygen; check an ambulatory pulse oximetry prior to discharge
- CT chest performed showing moderate to advanced emphysema with a mild�moderate left-sided pleural effusion which appears to be loculated with masslike opacities in the lingula + left lower lobe --> left-sided chest US done 08/17 shows a moderate
size left pleural effusion --> c/s IR for thoracentesis
- Mucolytics with chest PT if needed; Acapella
- Maintain MAP>65
- Replete electrolytes with K>4, Mg>2
- Trend H/H and transfuse if needed to keep Hb>7g/dL; keep plt>20k, unless there is concern for bleeding then keep plt>50k
- prn nebulized bronchodilators - not currently bronchospastic
- Incentive spirometer encouraged 10x per hour for at least 4 hrs a day
- DVT ppx: LMWH
Of note, on admission, the patient's daughter was able to access the portal connected to her leaf stamper, Dr. Romo. I took this information into account from this last office visit on 05/22/2024. After discharge she should continue following
up with her leaf stamper as she will need radiographic follow-up for this pneumonia and symptom checkup during prednisone tapering, and management of BiPAP that we will be sending her home on.
Data:
CXR 08/15/2024:
Evidence for small to moderate left pleural effusion with mild lateral loculation.
Patchy parenchymal opacity within the left mid to lower lung, suspicious for pneumonia, although there could also be a component of atelectasis. Also of note, underlying mass/neoplasia cannot be excluded radiographically and radiographic follow-up
is recommended.
CT chest without contrast 08/15/2024:
Moderate to advanced emphysematous lung changes.
Mild to moderate left pleural effusion.
Masslike opacities in the lingula and left lower lobe. Probable round pneumonia. Follow-up recommended to assess for resolution.
Minor localized tree-in-bud attenuation in the superior segment of the right lower lobe, nonspecific bronchiolitis.
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
Left chest US 08/17/2024: Moderate left pleural effusion. Stable
Total time spent today was 38 minutes for this encounter. Time includes reviewing laboratory test/imaging results, reviewing pertinent medical records, obtaining and reviewing medical history, performing an appropriate exam, ordering medications,
tests and procedures. Time also includes documentation of this encounter, coordinating patient care and communicating with other healthcare professionals. Total time does not include separately billed tests performed on this date of service.
Subjective Data
-
Date of Service:
Date of Service: August 17, 2024
Chief Complaint: Pulmonary Follow Up
Subjective:
Patient seen and evaluated today at bedside. Still short of breath with activity. Wore BiPAP 12/5 cmH2O bled with 6 L/min overnight. Currently on 6 L/min and breathing comfortably. Son and other family members at bedside and all questions were
answered. She is getting a rash on her cheeks from the BiPAP mask overnight. She currently denies chest pain, [place], abdominal pain, nausea, fevers or chills.
Review of Systems
General: Other (Negative unless mentioned above)
Objective Data
Data Reviewed
Vital Signs / I&O / Oxygen:
Vital Signs
Temp Pulse Resp BP Pulse Ox
97.7 F 100 18 124/64 98
08/17/24 07:40 08/17/24 08:49 08/17/24 08:49 08/17/24 07:40 08/17/24 08:49
Intake and Output
08/16/24 08/17/24 08/18/24
06:59 06:59 06:59
Intake Total 360 / 360
Balance 360 / 360
SaO2 98
Nasal Cannula flow liters per 6
minute
Physical Exam
General: Respiratory Distress (negative), Comfortable, Chills (negative) and Sweats (negative)
HEENT: Normocephalic and Anicteric
Cardiovascular: S1-S2, Rub (negative) and Peripheral Edema (Trace lower extremity edema bilaterally)
Respiratory: Wheeze (negative), Crackles (Left base), Rhonchi (negative), Non-Labored Respirations and Other (Diminished breath sounds bilaterally (L>R))
GI: Soft, Non Distended, Non Tender and Normal Bowel Sounds
Neurology: AO x 3 and Tremors (negative)
Skin: Warm, Dry, Cyanosis (negative), Jaundice (negative) and Rash (Erythematous rash seen on face/cheeks (R>L))
Labs/Micro/Reports
Lab Data
08/17/24 06:36
08/17/24 06:36
Microbiology
08/16/24 16:19 Urine Legionella Urinary Antigen - Final
Negative for Legionella pneumophila Serogroup 1 antigen.
A negative result does not rule out the possiblity of
Legionella infection due to other serogroups or species of
Legionella. Clinical correlation is recommended.
08/16/24 16:19 Urine Streptococcus pneumoniae Antigen (M - Final
Negative for Streptococcus pneumoniae antigen.
A negative result does not exclude infection with
Streptococcus pneumoniae. Clinical correlation is
recommended.
08/16/24 03:54 Blood/Venous Blood Culture - Preliminary
No Growth in 24 hours- Final report to follow
08/15/24 15:01 Nasal Swab Influenza Types A & B (JOE) - Final
Negative for Influenza A & B, NAAT
Negative results must be combined with clinical observations
and patient history.
Nucleic Acid Amplification test (NAAT)performed on the
[employer] platform.
--- NOTE | 2024-08-17 13:56 | W.PN.HOSP.TC ---
Today's Communication/Plan
-
Assessment / Plan
Assessment / Plan
Physical Exam
NAD, resting comfortably in bed, 4l nc, conversant
Scleral anicteric
Moist mucous membranes
No JVD
Poor air movmement bilaterally throughout all lung jones, but improving
Normal S1-S2 no murmurs
Soft nontender nondistended bowel sounds active
No peripheral pitting edema
Moves extremities spontaneously
AAOx3
Assessment and plan
Acute on chronic hypoxic and hypercapnic respiratory failure secondary to likely copd exacterbation. Due to gradual progression over 2-3weeks unlikely PE, no fever nor white count unlikely PNA and no evidence of PNA on cxr. Likely has a component of
pHTN, would not be surprised if there was a component of Right sided heart failure due to poorly treated COPD.
-baseline: uses 4l o2
-duonebs q4h
-ivsteroid methylpred 40mg q12h
-hs/prn NIPPV
-wean as tolerated
-continue azithro
-incentive pranav
-goal spo2 88-92%
-she is dnr/dni
-would avoid benzos
-flu/covid neg
-check 2d echo
Acute respiratory acidosis secondary to co2 retention
-Expect to improve while on NIPPV
Left sided pleural effusion
-will monitor, unlikely not able to tap
Anticipated Discharge: > 48 hours
Subjective/Interval History
-
Date of Service: August 17, 2024
seen and examined. no new complaints. no acute ovenright evetns
Objective Data
-
Labs:
Laboratory Results
08/17/24
06:36
WBC 13.6 H
Hgb 12.3
Hct 40.0
Plt Count 345
Sodium 138
Potassium 4.3
Chloride 93 L
Carbon Dioxide 37 H
BUN 20 H
Creatinine 0.4 L
Glucose 127 H
Calcium 9.3
Vital Signs:
Vital Signs
Temp Pulse Resp BP Pulse Ox
97.7 F 100 18 124/64 98
08/17/24 07:40 08/17/24 12:20 08/17/24 12:20 08/17/24 07:40 08/17/24 08:49
I&O
08/16/24 08/17/24 08/18/24
06:59 06:59 06:59
Intake Total 360 / 360
Balance 360 / 360
[2024-08-17] MEDS: ROCEPHIN 1000 MG IV (16:04)
[2024-08-17] MEDS: STERILE WATER FOR INJECTION 10 ML IV (16:04)
[2024-08-17 16:55] VITALS: BP 115/67
[2024-08-17] MEDS: LOVENOX 40 MG SC (17:27)
[2024-08-17 22:52] VITALS: PULSE 2; PULSE 88
[2024-08-18] VITALS (7 sets, daily range): BP systolic 85–141; BP diastolic 60–77; PULSE 2–85; BMI 24.3
[2024-08-18] MEDS: SOLU-MEDROL PF 40 MG IV ×2 (02:43→13:12)
[2024-08-18] MEDS: SYMBICORT 160/4.5 MCG INHALER 2 PUFF INH ×2 (07:18→20:15)
[2024-08-18] MEDS: VENTOLIN NEBULES 2.5 MG INH ×4 (07:18→20:15)
[2024-08-18] MEDS: SPIRIVA RESPIMAT 2.5 MCG 2 PUFF INH (07:19)
[2024-08-18] MEDS: OCEAN, SALINE MIST 2 SPRAYS NASAL ×3 (09:27→17:19)
[2024-08-18] MEDS: ZITHROMAX 500 MG PO (09:28)
--- NOTE | 2024-08-18 10:12 | W.PN.PUL3 ---
Addendum entered and electronically signed by Socorro Beard DO 08/18/24 14:14:
Patient is a 79-year-old F with COPD, chronic hypercarbic respiratory failure. They have had multiple ER and hospital readmissions with a chief complaint of shortness of breath and respiratory failure. The patient has a PaCO2 of 89mmHg on 4 L of
oxygen. The patient reports they are on oxygen continuously. The patient reports they get short of breath with minimal exertion. They also report diffuse joint pain and is very limited because of breathing issues. Due to the patient's
comorbidities as noted above and hypoventilation, the patient is at risk for worsening chronic respiratory failure. I have considered bilevel, bilevel ST and bilevel VAPS therapy and they have all been ruled out due to the patient's worsening
clinical condition. The patient now requires a unique mode of ventilation not offered on less costly options. The patient requires a device that will not fail in the event of a power failure and is also portable for mobility within the home when
needed. Due to the patient's worsening condition, I am prescribing NIV therapy to decrease the chance of continued unexplained expensive medical encounters including physician office visits, emergency/urgent care treatment and hospital readmissions.
Original Note:
Today's Communication / Plan
-
s/p thora today, she does not feel less SOB, 450mL removed
Repeat CXR still with some residual fluid
FU lytes/culture/cyto
Continue PAP tonight
Wean O2 as tolerated
Continue nebs/inhalers
Encouraged OOB/IS/PT
Assessment
-
79-year-old female with a past medical history of COPD on home oxygen at 4 L/min who presents with shortness of breath. SOB has been ongoing for about 2-3 weeks. Moving her from the EMS stretcher to the wheelchair resulted in desaturations to the
80s. She has been having a cough for the last few days and worsening SOB with chest tightness. She also has been having some dizziness. Her daughter recommended that the patient come to the ER. In the ER she was afebrile to 98.2 �F, tachycardic
to 123, tachypneic to 26 breaths/min, BP 134/85, and saturating 96% on 4 L/min. Blood gas showed acute on chronic respiratory failure with hypercapnia with pH 7.27 and pCO2 89. CXR shows a left lower lobe pneumonia with a suspected pleural
effusion. Patient was placed onto BiPAP in the ER, and was given ceftriaxone, Solu-Medrol 125 mg, DuoNebs and Zithromax. Self Propelled Dredge Operator/pulmonary service consulted to assess the patient and assist with disposition.
#Acute COPD exacerbation due to a left lower lobe pneumonia
#Multifocal pneumonia involving LLL + ALONSO with a parapneumonic effusion
#Acute on chronic respiratory failure with hypercapnia
#Acute on chronic respiratory failure with hypoxia due to above
#Elevated eosinophil count (mild at 300 from 08/15/2024)
#Metabolic alkalosis due to chronic hypercapnia
#Emphysema/COPD on Trelegy 200mcg at home + home O2 (4-6L/min ATC)
#History of multiple lung nodules with prior PET/CT negative with no uptake in 2020 (per her ballet company member's last office visit note on 05/22/2024)
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
Plan:
Currently 95% on 5L
Continue with nocturnal BiPAP and trend pH + pCO2 to assure it is stable
Will need set up at home, we discussed using PAP therapy nightly
Continue with broad-spectrum antibiotics with ceftriaxone/azithromycin --> would plan for total of 7 days ABx assuming she continues to clinically improve and remains afebrile for 48 hours prior to stopping antibiotics
Cultures reviewed
Follow up blood culture (collected 08/16 - NGTD)
Urinalysis with reflex urine culture
Urine antigens both negative for Legionella/strep pneumonia;
Check sputum culture (if she can produce a decent sample)--unable
Continue Albuterol QID
Given that she takes Trelegy at home, continue Symbicort + Spiriva while hospitalized and then resume her Trelegy upon discharge
Continue systemic steroids with Solu-Medrol 40mg IV q8hr --> q12hr; maintain euglycemia while on high-dose steroids with goal BG 140�180; eventual prolonged steroid taper hopefully over next 1-2 days
Maintain SpO2 88-95% with supplemental oxygen; check an ambulatory pulse oximetry prior to discharge
CT chest performed showing moderate to advanced emphysema with a mild�moderate left-sided pleural effusion which appears to be loculated with masslike opacities in the lingula + left lower lobe
Left-sided chest US done 08/17 shows a moderate size left pleural effusion --> c/s IR for thoracentesis
450mL removed
Send for lytes/culture/cyto
Mucolytics with chest PT if needed; Acapella
- Maintain MAP>65
- Replete electrolytes with K>4, Mg>2
- Trend H/H and transfuse if needed to keep Hb>7g/dL; keep plt>20k, unless there is concern for bleeding then keep plt>50k
- prn nebulized bronchodilators - not currently bronchospastic
- Incentive spirometer encouraged 10x per hour for at least 4 hrs a day
- DVT ppx: LMWH
Of note, on admission, the patient's daughter was able to access the portal connected to her ballet company member, Dr. Romo. I took this information into account from this last office visit on 05/22/2024. After discharge she should continue following
up with her ballet company member as she will need radiographic follow-up for this pneumonia and symptom checkup during prednisone tapering, and management of BiPAP that we will be sending her home on.
Data:
CXR 08/15/2024: Evidence for small to moderate left pleural effusion with mild lateral loculation. Patchy parenchymal opacity within the left mid to lower lung, suspicious for pneumonia, although there could also be a component of atelectasis. Also
of note, underlying mass/neoplasia cannot be excluded radiographically and radiographic follow-up is recommended.
CT chest without contrast 08/15/2024: Moderate to advanced emphysematous lung changes. Mild to moderate left pleural effusion. Masslike opacities in the lingula and left lower lobe. Probable round pneumonia. Follow-up recommended to assess for
resolution. Minor localized tree-in-bud attenuation in the superior segment of the right lower lobe, nonspecific bronchiolitis. 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
Left chest US 08/17/2024: Moderate left pleural effusion. Stable
-----
Total time spent today was 50 minutes for this encounter. Time includes reviewing laboratory test/imaging results, reviewing pertinent medical records, obtaining and reviewing medical history, performing an appropriate exam, ordering medications,
tests and procedures. Time also includes documentation of this encounter, coordinating patient care and communicating with other healthcare professionals. Total time does not include separately billed tests performed on this date of service.
Subjective Data
-
Date of Service:
Date of Service: August 18, 2024
Chief Complaint: Pulmonary Follow Up
Subjective:
No acute events ON, remains on 5L NC
s/p thora today, she does not feel less SOB
Objective Data
Data Reviewed
Vital Signs / I&O / Oxygen:
Vital Signs
Temp Pulse Resp BP Pulse Ox
98.3 F 72 18 116/60 95
08/18/24 07:24 08/18/24 08:09 08/18/24 08:09 08/18/24 07:24 08/18/24 08:09
SaO2 95
Nasal Cannula flow liters per 5
minute
Physical Exam
General: Respiratory Distress (negative), Comfortable, Chills (negative) and Sweats (negative)
HEENT: Normocephalic and Anicteric
Cardiovascular: S1-S2, Rub (negative) and Peripheral Edema (Trace lower extremity edema bilaterally)
Respiratory: Wheeze (negative), Crackles (Left base), Rhonchi (negative), Non-Labored Respirations and Other (Diminished breath sounds bilaterally (L>R))
GI: Soft, Non Distended, Non Tender and Normal Bowel Sounds
Neurology: AO x 3 and Tremors (negative)
Skin: Warm, Dry, Cyanosis (negative), Jaundice (negative) and Rash (Erythematous rash seen on face/cheeks (R>L))
Labs/Micro/Reports
Lab Data
08/17/24 06:36
08/17/24 06:36
Microbiology
08/16/24 03:54 Blood/Venous Blood Culture - Preliminary
No Growth in 48 hours- Final report to follow
08/16/24 16:19 Urine Legionella Urinary Antigen - Final
Negative for Legionella pneumophila Serogroup 1 antigen.
A negative result does not rule out the possiblity of
Legionella infection due to other serogroups or species of
Legionella. Clinical correlation is recommended.
08/16/24 16:19 Urine Streptococcus pneumoniae Antigen (M - Final
Negative for Streptococcus pneumoniae antigen.
A negative result does not exclude infection with
Streptococcus pneumoniae. Clinical correlation is
recommended.
08/15/24 15:01 Nasal Swab Influenza Types A & B (JOE) - Final
Negative for Influenza A & B, NAAT
Negative results must be combined with clinical observations
and patient history.
Nucleic Acid Amplification test (NAAT)performed on the
[employer] platform.
--- NOTE | 2024-08-18 10:26 | W.PN.HOSP.TC ---
Today's Communication/Plan
-
Follow-up pulmonary
Wean oxygen as tolerated
Assessment / Plan
Assessment / Plan
Acute on chronic respiratory failure secondary d/t COPD exacerbation:
-Today is on 5 L nasal cannula, saturating 95%
-Patient is afebrile
-Decreased breath sounds bilaterally on physical examination
-pH 7.24, pCO2 89, HCO3 40.9 upon admission on venous blood gas - hypercapnic
-Continue Symbicort, Spiriva, Ventolin, Solu-Medrol
-Maintain oxygen saturation at 88 to 92%, and eventually wean as tolerated
-Asked patient to continue using incentive spirometry 10 times every hour to strengthen the lungs
-continue current antibiotics of ceftriaxone azithromycin
-Negative for flu and COVID
-Pulmonary is following
Left sided pleural effusion:
-Seen on CT of the chest, chest x-ray, chest ultrasound
-will monitor
Anticipated Discharge: 24 - 48 hours
Subjective/Interval History
-
Date of Service: August 18, 2024
Patient is DNR and presented to the emergency department on August 15 for worsening shortness of breath and chest pain since 2 to 3 weeks. She is on home oxygen 4 L. Had been feeling lightheaded, dizziness, cough, chest pain did not radiate to
the back. At first she was then taken to an urgent care then over there with a pulse ox showed that her oxygen dropped to 58 present when she normally saturates in the 80s to 90s, and from there she was presented to the ED.
Objective Data
-
Vital Signs:
Vital Signs
Temp Pulse Resp BP Pulse Ox
98 F 85 16 127/64 97
08/18/24 09:54 08/18/24 09:54 08/18/24 09:54 08/18/24 09:54 08/18/24 09:54
Review of Systems
-
History Source: Patient
Constitutional: Denies Fever or Chills
Respiratory: Denies Cough or Wheezing
Cardiac: Denies Chest Pain, Palpitations, Syncope or Orthopnea
Abdomen/GI: Denies Abdominal Pain, Nausea, Vomiting, Diarrhea or Constipated
Musculoskeletal: Denies Joint Pain or Muscle Pain
Neuro: Denies Dizzy, Headache, Weakness or Numbness
Physical Exam
-
HEENT: Oxygen
Respiratory: Decreased Breath Sounds (b/L)
Cardiac: Regular Rhythm and S1/S2
GI: Soft, Nontender, Nondistended and Normal Bowel Sounds
Musculoskeletal: Edema, Right Lower Extrem and Edema, Left Lower Extrem
Neuro: Awake, Alert, Oriented and AO x 3
Data Reviewed
-
Medical Tests (Nuc Med, Echo etc): Image personally visualized and interpreted and Discussed with Physician
Labs: Labs Reviewed by me and Discussed with Physician
[2024-08-18 10:41] LABS: Body Fluid pH 7.42
[2024-08-18 10:56] LABS: Body Fluid Glucose 106 mg/dl; Body Fluid LDH 133 U/L
[2024-08-18 10:58] LABS: Body Fluid Triglycerides < 30 mg/dl
[2024-08-18 11:05] LABS: Hematocrit 42.5 % (37.0-47.0); Hemoglobin 12.7 g/dL (12.0-16.0); Mean Corp Hgb Conc. 29.9 g/dL (33.0-37.0); Mean Corpuscular Hgb 30.1 pg (27.0-31.0); Mean Corpuscular Volume 100.7 fL (81.0-99.0); Mean Platelet Volume 9.5 fL (7.4-10.4); Platelet Count 354 10^3/uL (130-400); Red Blood Cell Count 4.22 10^6/uL (4.20-5.40); Red Cell Dist. Width 13.7 % (11.5-14.5)
[2024-08-18 11:25] LABS: Body Fluid Protein 4.2 g/dl
[2024-08-18 11:37] LABS: Body Fluid WBC 4361 /CUMM
[2024-08-18 11:54] LABS: Body Fluid Second Tech EF
[2024-08-18 13:10] LABS: LDH 108 U/L (120-246); Total Protein 6.9 g/dl (6.3-8.2)
--- NOTE | 2024-08-18 13:58 | W.PN.UPDATE ---
Update Note
Progress Note Update
I saw and evaluated the patient. I reviewed the resident�s note and agree with findings and plan as documented in the resident�s note.
No new complaints.
Gen: NAD, AAOx3, appears chronically ill, cachectic, malnourished.
Eyes: EOMI, PERRLA, no scleral icterus.
Neck: supple.
CV: RRR, +S1/S2, no m/r/g.
Resp: CTAB, no rales, wheezes, or rhonchi.
Abd: +BS, soft, NT, ND
Skin: No rashes.
Neuro: CN 2-12 intact, 5/5 strength x 4. Patellar tendons hyporeflexic.
Psych: Normal mood and affect.
08/18/24 10:24 Pleural Fluid Gram Stain - Preliminary
08/18/24 10:24 Pleural Fluid Fungal Culture - Preliminary
08/16/24 03:54 Blood/Venous Blood Culture - Preliminary
No Growth in 48 hours- Final report to follow
08/16/24 16:19 Urine Legionella Urinary Antigen - Final
Negative for Legionella pneumophila Serogroup 1 antigen.
A negative result does not rule out the possiblity of
Legionella infection due to other serogroups or species of
Legionella. Clinical correlation is recommended.
08/16/24 16:19 Urine Streptococcus pneumoniae Antigen (M - Final
Negative for Streptococcus pneumoniae antigen.
A negative result does not exclude infection with
Streptococcus pneumoniae. Clinical correlation is
recommended.
08/15/24 15:01 Nasal Swab Influenza Types A & B (JOE) - Final
Negative for Influenza A & B, NAAT
Negative results must be combined with clinical observations
and patient history.
Nucleic Acid Amplification test (NAAT)performed on the
[employer] platform.
CT chest 08/15/24: Moderate to advanced emphysematous lung changes. Mild to moderate left pleural effusion. Masslike opacities in the lingula and left lower lobe. Probable round pneumonia. Follow-up recommended to assess for resolution. Minor
localized tree-in-bud attenuation in the superior segment of the right lower lobe, nonspecific bronchiolitis. 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
CXR 08/18/24:
1. No pneumothorax post left thoracentesis.
2. Elevation left hemidiaphragm. Minimal residual left pleural fluid with adjacent atelectasis/consolidation. Patchy airspace consolidation over the left lower lung is either slightly increased or more conspicuous post thoracentesis.
3. Chronic obstructive pulmonary disease. Mild interstitial edema.
Acute on chronic hypoxemic respiratory failure due to acute COPD exacerbation due to left lower lobe and lingula pneumonia and L pleural effusion:
-h/o tobacco abuse disorder, quit 2 years ago after smoking 2-3 packs/day for 50-55 years
-s/p L thoracentesis for 450cc exudative fluid, follow FCx
-COVID/Flu NEG
-Urine Legionella and Strep pneumonia Ags NEG
-pulm following
-on 4L NC O2 at baseline, currently on 4-6L NC O2
-cont Rocephin/azithromycin/Solu-Medrol
-Continue Symbicort/Spiriva
-acute respiratory acidosis, now compensated
-Patient has pulmonary cachexia
Limited DNR/Lovenox
[2024-08-18] MEDS: STERILE WATER FOR INJECTION 10 ML IV (15:33)
[2024-08-18] MEDS: ROCEPHIN 1000 MG IV (15:33)
--- NOTE | 2024-08-18 16:41 | CM ---
Plan is for patient to return to home back to [place] when stable, per Madelin at [facility] plan is for BIPAP, copy of documentation that is required for insurance authorization sent to pulmonary. Physician will also need to sign a script.
Plan; Home alone with Bipap from [facility].
[2024-08-18] MEDS: LOVENOX 40 MG SC (17:19)
[2024-08-18] MEDS: OCEAN, SALINE MIST NASAL (22:09)
[2024-08-19] VITALS (9 sets, daily range): BP systolic 100–146; BP diastolic 60–85; PULSE 2–136; O2SAT 90; BMI 25.5
[2024-08-19] MEDS: SOLU-MEDROL PF 40 MG IV ×2 (01:52→13:29)
[2024-08-19 07:02] LABS: Hematocrit 39.1 % (37.0-47.0); Hemoglobin 11.9 g/dL (12.0-16.0); Mean Corp Hgb Conc. 30.4 g/dL (33.0-37.0); Mean Corpuscular Hgb 30.4 pg (27.0-31.0); Mean Platelet Volume 9.4 fL (7.4-10.4); Platelet Count 308 10^3/uL (130-400); Red Blood Cell Count 3.91 10^6/uL (4.20-5.40); Red Cell Dist. Width 13.4 % (11.5-14.5); White Blood Cell Count 9.7 10^3/uL (4.8-10.8)
[2024-08-19 07:23] LABS: Blood Urea Nitrogen 15 mg/dl (7-17); Calcium 9.3 mg/dl (8.4-10.2); Chloride 93 mmol/L (98-107); Estimated Creatinine Clearance 71 ml/min; Glucose 113 mg/dl (70-99); Potassium 4.7 mmol/L (3.5-5.1); Sodium 139 mmol/L (135-145); eGFR > 60.00
[2024-08-19 07:34] LABS: Carbon Dioxide 36 mmol/L (22-30)
[2024-08-19] MEDS: SPIRIVA RESPIMAT 2.5 MCG 2 PUFF INH (07:37)
[2024-08-19] MEDS: VENTOLIN NEBULES 2.5 MG INH ×4 (07:37→19:57)
[2024-08-19] MEDS: SYMBICORT 160/4.5 MCG INHALER 2 PUFF INH ×2 (07:37→19:56)
--- NOTE | 2024-08-19 08:59 | W.PN.PUL3 ---
Today's Communication / Plan
-
Back to baseline O2 requirements
Trilogy set up for home, we discussed follow up with OP Pulm in [place], she understands
Rehab likely needed, PT/OT evals
Transition IV steroids to PO taper
Abx to complete by tomorrow for 5 days (08/20)
Discharge planning in next 24 hours pending needs
Assessment
-
79-year-old female with a past medical history of COPD on home oxygen at 4 L/min who presents with shortness of breath. SOB has been ongoing for about 2-3 weeks. Moving her from the EMS stretcher to the wheelchair resulted in desaturations to the
80s. She has been having a cough for the last few days and worsening SOB with chest tightness. She also has been having some dizziness. Her daughter recommended that the patient come to the ER. In the ER she was afebrile to 98.2 �F, tachycardic
to 123, tachypneic to 26 breaths/min, BP 134/85, and saturating 96% on 4 L/min. Blood gas showed acute on chronic respiratory failure with hypercapnia with pH 7.27 and pCO2 89. CXR shows a left lower lobe pneumonia with a suspected pleural
effusion. Patient was placed onto BiPAP in the ER, and was given ceftriaxone, Solu-Medrol 125 mg, DuoNebs and Zithromax. Outreach Manager/pulmonary service consulted to assess the patient and assist with disposition.
#Acute COPD exacerbation due to a left lower lobe pneumonia
#Multifocal pneumonia involving LLL + ALONSO with a parapneumonic effusion
#Acute on chronic respiratory failure with hypercapnia
#Acute on chronic respiratory failure with hypoxia due to above
#Elevated eosinophil count (mild at 300 from 08/15/2024)
#Metabolic alkalosis due to chronic hypercapnia
#Emphysema/COPD on Trelegy 200mcg at home + home O2 (4-6L/min ATC)
#History of multiple lung nodules with prior PET/CT negative with no uptake in 2020 (per her assessment services manager's last office visit note on 05/22/2024)
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
Plan:
Currently 95% on 5L
Continue with nocturnal BiPAP and trend pH + pCO2 to assure it is stable
Will need set up at home, we discussed using PAP therapy nightly
Continue with broad-spectrum antibiotics with ceftriaxone/azithromycin --> would plan for total of 7 days ABx assuming she continues to clinically improve and remains afebrile for 48 hours prior to stopping antibiotics
Cultures reviewed
Follow up blood culture (collected 08/16 - NGTD)
Urinalysis with reflex urine culture
Urine antigens both negative for Legionella/strep pneumonia;
Check sputum culture (if she can produce a decent sample)--unable
Continue Albuterol QID
Given that she takes Trelegy at home, continue Symbicort + Spiriva while hospitalized and then resume her Trelegy upon discharge
Continue systemic steroids with Solu-Medrol 40mg IV q8hr --> q12hr; maintain euglycemia while on high-dose steroids with goal BG 140�180; eventual prolonged steroid taper hopefully over next 1-2 days
Maintain SpO2 88-95% with supplemental oxygen; check an ambulatory pulse oximetry prior to discharge
CT chest performed showing moderate to advanced emphysema with a mild�moderate left-sided pleural effusion which appears to be loculated with masslike opacities in the lingula + left lower lobe
Left-sided chest US done 08/17 shows a moderate size left pleural effusion --> c/s IR for thoracentesis
450mL removed
Send for lytes/culture/cyto
Mucolytics with chest PT if needed; Acapella
- Maintain MAP>65
- Replete electrolytes with K>4, Mg>2
- Trend H/H and transfuse if needed to keep Hb>7g/dL; keep plt>20k, unless there is concern for bleeding then keep plt>50k
- prn nebulized bronchodilators - not currently bronchospastic
- Incentive spirometer encouraged 10x per hour for at least 4 hrs a day
- DVT ppx: LMWH
Of note, on admission, the patient's daughter was able to access the portal connected to her assessment services manager, Dr. Romo. I took this information into account from this last office visit on 05/22/2024. After discharge she should continue following
up with her assessment services manager as she will need radiographic follow-up for this pneumonia and symptom checkup during prednisone tapering, and management of Trilogy that we will be sending her home on.
Data:
CXR 08/15/2024: Evidence for small to moderate left pleural effusion with mild lateral loculation. Patchy parenchymal opacity within the left mid to lower lung, suspicious for pneumonia, although there could also be a component of atelectasis. Also
of note, underlying mass/neoplasia cannot be excluded radiographically and radiographic follow-up is recommended.
CT chest without contrast 08/15/2024: Moderate to advanced emphysematous lung changes. Mild to moderate left pleural effusion. Masslike opacities in the lingula and left lower lobe. Probable round pneumonia. Follow-up recommended to assess for
resolution. Minor localized tree-in-bud attenuation in the superior segment of the right lower lobe, nonspecific bronchiolitis. 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
Left chest US 08/17/2024: Moderate left pleural effusion. Stable
-----
Total time spent today was 50 minutes for this encounter. Time includes reviewing laboratory test/imaging results, reviewing pertinent medical records, obtaining and reviewing medical history, performing an appropriate exam, ordering medications,
tests and procedures. Time also includes documentation of this encounter, coordinating patient care and communicating with other healthcare professionals. Total time does not include separately billed tests performed on this date of service.
Subjective Data
-
Date of Service:
Date of Service: August 19, 2024
Chief Complaint: Pulmonary Follow Up
Subjective:
Back to baseline, SOB is ongoing but she feels weak also
No new events
Objective Data
Data Reviewed
Vital Signs / I&O / Oxygen:
Vital Signs
Temp Pulse Resp BP Pulse Ox
97.9 F 72 14 100/66 96
08/19/24 07:33 08/19/24 07:59 08/19/24 07:59 08/19/24 07:33 08/19/24 07:59
Intake and Output
08/18/24 08/19/24 08/20/24
06:59 06:59 06:59
Intake Total 900 / 900
Output Total 300 / 300
Balance 600 / 600
SaO2 96
Nasal Cannula flow liters per 4
minute
Physical Exam
General: Respiratory Distress (negative), Comfortable, Chills (negative) and Sweats (negative)
HEENT: Normocephalic and Anicteric
Cardiovascular: S1-S2, Rub (negative) and Peripheral Edema (Trace lower extremity edema bilaterally)
Respiratory: Wheeze (negative), Crackles (Left base), Rhonchi (negative), Non-Labored Respirations and Other (Diminished breath sounds bilaterally (L>R))
GI: Soft, Non Distended, Non Tender and Normal Bowel Sounds
Neurology: AO x 3 and Tremors (negative)
Skin: Warm, Dry, Cyanosis (negative), Jaundice (negative) and Rash (Erythematous rash seen on face/cheeks (R>L))
Labs/Micro/Reports
Lab Data
08/19/24 06:41
08/19/24 06:41
Microbiology
08/16/24 03:54 Blood/Venous Blood Culture - Preliminary
No Growth in 72 hours- Final report to follow
08/18/24 15:43 Sputum Respiratory Culture - Final
08/18/24 15:43 Sputum Gram Stain - Final
08/18/24 10:24 Pleural Fluid Gram Stain - Preliminary
08/18/24 10:24 Pleural Fluid Fungal Culture - Preliminary
08/16/24 16:19 Urine Legionella Urinary Antigen - Final
Negative for Legionella pneumophila Serogroup 1 antigen.
A negative result does not rule out the possiblity of
Legionella infection due to other serogroups or species of
Legionella. Clinical correlation is recommended.
08/16/24 16:19 Urine Streptococcus pneumoniae Antigen (M - Final
Negative for Streptococcus pneumoniae antigen.
A negative result does not exclude infection with
Streptococcus pneumoniae. Clinical correlation is
recommended.
[2024-08-19] MEDS: OCEAN, SALINE MIST 2 SPRAYS NASAL ×3 (09:09→17:07)
[2024-08-19] MEDS: ZITHROMAX 500 MG PO (09:09)
--- NOTE | 2024-08-19 10:44 | W.PN.HOSP.TC ---
Today's Communication/Plan
-
- palliative care consult
Assessment / Plan
Assessment / Plan
Acute on chronic respiratory failure secondary d/t COPD exacerbation
End stage COPD:
- Consulted Palliative care for the patients end stage COPD
-Today is on 4 L nasal cannula, saturating 95%
-Patient is afebrile
-Decreased breath sounds bilaterally on physical examination
-pH 7.24, pCO2 89, HCO3 40.9 upon admission on venous blood gas - hypercapnic
-Continue Symbicort, Spiriva, Ventolin, Solu-Medrol
-Maintain oxygen saturation at 88 to 92%, and eventually wean as tolerated
-Asked patient to continue using incentive spirometry 10 times every hour to strengthen the lungs
-continue current antibiotics of ceftriaxone azithromycin
-Negative for flu and COVID
-Pulmonary is following
Left sided pleural effusion:
-Seen on CT of the chest, chest x-ray, chest ultrasound
-will monitor
Anticipated Discharge: 24 - 48 hours
Subjective/Interval History
-
Date of Service: August 19, 2024
No overnight events.
No acute medical events.
Objective Data
-
Labs:
Laboratory Results
08/19/24
06:41
WBC 9.7
Hgb 11.9 L
Hct 39.1
Plt Count 308
Sodium 139
Potassium 4.7
Chloride 93 L
Carbon Dioxide 36 H
BUN 15
Creatinine 0.5 L
Glucose 113 H
Calcium 9.3
Vital Signs:
Vital Signs
Temp Pulse Resp BP Pulse Ox
97.9 F 72 14 100/66 96
08/19/24 07:33 08/19/24 07:59 08/19/24 07:59 08/19/24 07:33 08/19/24 07:59
I&O
08/18/24 08/19/24 08/20/24
06:59 06:59 06:59
Intake Total 900 / 900
Output Total 300 / 300
Balance 600 / 600
Review of Systems
-
History Source: Patient
Constitutional: Denies Fever or Chills
Respiratory: Denies Cough or Wheezing
Cardiac: Denies Chest Pain, Palpitations, Syncope or Orthopnea
Abdomen/GI: Denies Abdominal Pain, Nausea, Vomiting, Diarrhea or Constipated
Musculoskeletal: Denies Joint Pain or Muscle Pain
Neuro: Denies Dizzy, Headache, Weakness or Numbness
Physical Exam
-
HEENT: Oxygen
Respiratory: Decreased Breath Sounds (b/L)
Cardiac: Regular Rhythm and S1/S2
GI: Soft, Nontender, Nondistended and Normal Bowel Sounds
Musculoskeletal: Edema, Right Lower Extrem and Edema, Left Lower Extrem
Neuro: Awake, Alert, Oriented and AO x 3
Data Reviewed
-
MRI: Image personally visualized and interpreted and Discussed with Physician
Medical Tests (Nuc Med, Echo etc): Image personally visualized and interpreted and Discussed with Physician
--- NOTE | 2024-08-19 11:15 | PTCARENOTE ---
Orthostatic VS taken as ordered. Pt was not orthostatic however, standing at the bedside, pt stated feeling dizzy. Assisted back to bed.
--- NOTE | 2024-08-19 11:59 | W.CON.PAL ---
Consultation
-
Date/Time Consultation Requested: 08/18
Date/Time Consultation Performed: 08/19
Requesting Provider: Wayne Selby
Performing Provider: Ashly Hooper
Reason for Consult: Goals of Care Discussion and Advanced Care Planning
Primary Diagnosis: end stage COPD
Reason for Admission
Illness Course/HPI
79 year old F with PMH of end stage COPD admitted with shortness of breath and hypoxia.
Upon admission was found to have COPD exacerbation, started on ABX and steroids.
Patient lives alone in [place], was visiting her daughter in [place] when she became ill. Pulm following with plans to start on NIV at home.
Patient seen at bedside with daughter present. States she has not been in and out of the hospital, this is her first exacerbation and daughter confirms this. States shes been doing overall well at home, living alone. Does have an aide for a few
hours one day a week to help with housework but is mostly independent with her ADLs/iADLs.
We discussed end stage nature of her lung condition. She understands it is progressive and will not get better over time, but overall feels well and has stayed out of the hospital. Daughter is interested in setting up home palliative care visits for
her.
Pain & Symptom Assessment
[place] Symptom Scale 0=none, 10=worst
Pain: 0
Shortness of Breath: 3
Objective Data
-
Objective Data:
Vital Signs
Temp Pulse Resp BP Pulse Ox
97.9 F 72 14 100/66 96
08/19/24 07:33 08/19/24 07:59 08/19/24 07:59 08/19/24 07:33 08/19/24 08:50
Laboratory Results
08/19/24 06:41
08/19/24 06:41
PT 12.9 Sec (11.4-14.6) 08/15/24 20:23
INR 0.94 08/15/24 20:23
APTT 33.1 Sec (23.4-35.0) 08/15/24 20:23
Total Protein 6.9 g/dl (6.3-8.2) 08/18/24 10:53
Albumin 3.6 g/dl (3.5-5.0) 08/16/24 03:54
TSH 0.87 uIU/ml (0.47-4.68) 08/16/24 03:54
Palliative Performance Scale
Palliative Performance Scale:
PPS Level Ambulation Activity & Evidence of Disease Self Care Intake Conscious Level
100% Full Normal Activity & Work; Full Intake Full
No Evidence of Disease
90% Full Normal Activity & Work; Full Normal Full
Some Evidence of Disease
80% Full Normal Activity with Effort Full Normal or Full
Some Evidence of Disease Reduced
70% Reduced Unable Normal Job/Work Full Normal or Full
Significant Disease Reduced
60% Reduced Unable Hobby/Housework Occasional Normal or Full or Confusion
Significant Disease Assistance Reduced
50% Mainly Sit/Lie Unable to do Any Work Considerable Normal or Full or Confusion
Extensive Disease Assistance Req'd Reduced
40% Mainly in Bed Unable to do Most Activity Mainly Assistance Normal or Full or Drowsy;
Extensive Disease Reduced +/- Confusion
30% Totally Bed Unable to do Any Activity Total Care Normal or Full or Drowsy;
Bound Extensive Disease Reduced +/- Confusion
20% Totally Bed Bound Unable to do Any Activity Total Care Minimal to Full or Drowsy;
Extensive Disease Sips +/- Confusion
10% Totally Bed Bound Unable to do Any Activity Total Care Mouth Care Drowsy or Coma;
Extensive Disease Only +/- Confusion
0%
PPS Score Level:
Physical Exam
-
General: Conversant and Appears Chronically Ill
HEENT: Normocephalic
Respiratory: Other (diminished b/l )
Cardiac: Regular Rhythm
Peripheral Vascular: No Edema
GI: Soft
Skin: Warm
Neuro: AO x 3
Psych: Calm
Assessment / Plan
-
Assessment/Plan:
79 year old F with end stage COPD
- patient interested in rehab placement, feels like she needs some rehab before she goes home alone. Have messaged CM about this.
- daughter interested in outpatient palliative visits. We do not cover [place] - have asked CM to send referral for [facility] for when she gets home.
- discussed with primary team
- DNR
Care Reviewed
Data Reviewed
Radiology procedure: Image Reviewed
Medical Tests: I reviewed
Reviewed with: Patient, Family and Physician
--- NOTE | 2024-08-19 12:39 | W.PN.UPDATE ---
Update Note
Progress Note Update
- Pt had a feeling of racing heartbeat so orthostatic vitals ordered as well as telemetry
--- NOTE | 2024-08-19 13:26 | W.PN.UPDATE ---
Update Note
Progress Note Update
I saw and evaluated the patient. I reviewed the resident�s note and agree with findings and plan as documented in the resident�s note.
Patient complains that she feels her heart is racing at times and she sometimes has lightheadedness.
Gen: NAD, Awake and alert, appears chronically ill, cachectic, malnourished.
Eyes: EOMI, PERRLA, no scleral icterus.
Neck: supple.
CV: Remains RRR, +S1/S2, no m/r/g.
Resp: Remains distant BS, CTAB, no rales, wheezes, or rhonchi.
Abd: Remains +BS, soft, NT, ND
Skin: No rashes.
Neuro: CN 2-12 intact, nonfocal
Psych: Normal mood and affect.
08/18/24 10:24 Pleural Fluid Body Fluid Culture - Preliminary
No Growth After 18-24 Hours
08/18/24 10:24 Pleural Fluid Gram Stain - Preliminary
08/16/24 03:54 Blood/Venous Blood Culture - Preliminary
No Growth in 72 hours- Final report to follow
08/18/24 15:43 Sputum Respiratory Culture - Final
08/18/24 15:43 Sputum Gram Stain - Final
08/18/24 10:24 Pleural Fluid Fungal Culture - Preliminary
08/16/24 16:19 Urine Legionella Urinary Antigen - Final
Negative for Legionella pneumophila Serogroup 1 antigen.
A negative result does not rule out the possiblity of
Legionella infection due to other serogroups or species of
Legionella. Clinical correlation is recommended.
08/16/24 16:19 Urine Streptococcus pneumoniae Antigen (M - Final
Negative for Streptococcus pneumoniae antigen.
A negative result does not exclude infection with
Streptococcus pneumoniae. Clinical correlation is
recommended.
08/15/24 15:01 Nasal Swab Influenza Types A & B (JOE) - Final
Negative for Influenza A & B, NAAT
Negative results must be combined with clinical observations
and patient history.
Nucleic Acid Amplification test (NAAT)performed on the
[employer] platform.
CT chest 08/15/24: Moderate to advanced emphysematous lung changes. Mild to moderate left pleural effusion. Masslike opacities in the lingula and left lower lobe. Probable round pneumonia. Follow-up recommended to assess for resolution. Minor
localized tree-in-bud attenuation in the superior segment of the right lower lobe, nonspecific bronchiolitis. 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
CXR 08/18/24:
1. No pneumothorax post left thoracentesis.
2. Elevation left hemidiaphragm. Minimal residual left pleural fluid with adjacent atelectasis/consolidation. Patchy airspace consolidation over the left lower lung is either slightly increased or more conspicuous post thoracentesis.
3. Chronic obstructive pulmonary disease. Mild interstitial edema.
Acute on chronic hypoxemic respiratory failure due to acute COPD exacerbation due to left lower lobe and lingula pneumonia and L pleural effusion:
-h/o tobacco abuse disorder, quit 2 years ago after smoking 2-3 packs/day for 50-55 years
-s/p L thoracentesis for 450cc exudative fluid, follow FCx
-COVID/Flu NEG
-Urine Legionella and Strep pneumonia Ags NEG
-pulm following
-on 4L NC O2 at baseline, currently on 4-6L NC O2
-cont Rocephin/azithromycin/Solu-Medrol
-Continue Symbicort/Spiriva
-acute respiratory acidosis, now compensated
-Patient has pulmonary cachexia
Lightheadedness and 'racing heartbeat:'
-Monitor on telemetry
-Check orthostatic vital signs
Limited DNR/Lovenox
--- NOTE | 2024-08-19 13:48 | CM ---
Addendum entered by Davida Ward 08/19/24 15:09:
Referrals sent to [facility] case skilled rehab is recommended.
Original Note:
transit manager reviewed patient's chart and met with patient. Physician has ordered PT/OT for patient for possible rehab. Will await recommendations, patient needs NIV at home per pulmonary, orders placed and referral sent to [facility], documentation
faxed, waiting on signature on script. Referral sent to Palliative care and patient resides in [place] and [facility] do not provide service in that area, manager rn case reached out to [facility] and they cannot see patient in [place]
[facility], per [facility] they do not provide palliative care at all in [place]. 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 Patient does not have a PCP. Patient also
only has Medicare, no secondary insurance.
Plan; Await PT/OT evaluations.
[2024-08-19] MEDS: ROCEPHIN 1000 MG IV (15:17)
[2024-08-19] MEDS: STERILE WATER FOR INJECTION 10 ML IV (15:17)
[2024-08-19] MEDS: LOVENOX 40 MG SC (17:05)
[2024-08-19] MEDS: OCEAN, SALINE MIST NASAL (23:30)
[2024-08-20 03:25] VITALS: BP 123/58
[2024-08-20 06:00] VITALS: BMI 22.7
[2024-08-20 07:45] VITALS: BP 133/55
[2024-08-20] MEDS: SYMBICORT 160/4.5 MCG INHALER 2 PUFF INH (08:01)
[2024-08-20] MEDS: SPIRIVA RESPIMAT 2.5 MCG 2 PUFF INH (08:01)
[2024-08-20] MEDS: VENTOLIN NEBULES 2.5 MG INH ×3 (08:01→15:09)
--- NOTE | 2024-08-20 08:10 | W.PN.HOSP.TC ---
Today's Communication/Plan
-
- follow up case managment
Assessment / Plan
Assessment / Plan
Acute on chronic respiratory failure secondary d/t COPD exacerbation
End stage COPD:
- Transition from Iv steroids to Po taper and trilegyh for home
- PT/OT set up for home
- Wheezing heard on physical exam of the lungs.
- Palliative care consulted, patient not interested in palliative care, hospice
-Today is on 4 L nasal cannula, saturating 95%
-Patient is afebrile
-pH 7.24, pCO2 89, HCO3 40.9 upon admission on venous blood gas - hypercapnic
-Continue Symbicort, Spiriva, Ventolin, Solu-Medrol
-Maintain oxygen saturation at 88 to 92%, and eventually wean as tolerated
-Asked patient to continue using incentive spirometry 10 times every hour to strengthen the lungs
-continue current antibiotics of ceftriaxone azithromycin
-Negative for flu and COVID
-Pulmonary is following
Tachycardia:
- Todays Hr is 89, highest last night was 120
- Pulse showed a range between 50-120
Left sided pleural effusion:
-Seen on CT of the chest, chest x-ray, chest ultrasound
-will monitor
Limited DNR/lovenox
Anticipated Discharge: Today
Subjective/Interval History
-
Date of Service: August 20, 2024
Patient has no felt racing heartbeat like she did yesterday.
Objective Data
-
Labs:
Laboratory Results
08/20/24
06:00
WBC Pending
Hgb Pending
Hct Pending
Plt Count Pending
Sodium Pending
Potassium Pending
Chloride Pending
Carbon Dioxide Pending
BUN Pending
Creatinine Pending
Glucose Pending
Calcium Pending
Vital Signs:
Vital Signs
Temp Pulse Resp BP Pulse Ox
98 F 89 18 133/55 97
08/20/24 07:45 08/20/24 08:05 08/20/24 08:05 08/20/24 07:45 08/20/24 08:05
I&O
08/19/24 08/20/24 08/21/24
06:59 06:59 06:59
Intake Total 900 / 900 720 / 720
Output Total 300 / 300
Balance 600 / 600 720 / 720
Review of Systems
-
History Source: Patient
Constitutional: Denies Fever or Chills
Respiratory: Denies Cough or Wheezing
Cardiac: Denies Chest Pain, Palpitations, Syncope or Orthopnea
Abdomen/GI: Denies Abdominal Pain, Nausea, Vomiting, Diarrhea or Constipated
Musculoskeletal: Denies Joint Pain or Muscle Pain
Neuro: Denies Dizzy, Headache, Weakness or Numbness
Physical Exam
-
HEENT: Oxygen
Respiratory: Wheezes (b/l lower lobe of lungs)
Cardiac: Regular Rhythm and S1/S2
GI: Soft, Nontender, Nondistended and Normal Bowel Sounds
Musculoskeletal: Edema, Right Lower Extrem and Edema, Left Lower Extrem
Neuro: Awake, Alert, Oriented and AO x 3
Data Reviewed
-
Medical Tests (Nuc Med, Echo etc): Image personally visualized and interpreted and Discussed with Physician
Labs: Labs Reviewed by me and Discussed with Physician
--- NOTE | 2024-08-20 08:18 | W.DCSUMMARY ---
Addendum entered and electronically signed by Wayne Selby MD 08/20/24 17:09:
Read, reviewed, and agree. See same day progress note for additional details.
Original Note:
Discharge Summary
Discharge Data
Date of Admission: 08/15/24
Date of Discharge: 08/20/24
-
Pending Results: No
Hospital Course
Discharging Physician : Dr. Wayne Selby
Disposition : SNF
Principal Discharge diagnosis : Acute on chronic exacerbation of COPD d/t left pleural effusion
Chronic Discharge diagnosis : Left pleural effusion
Hospital Course :
Patient is a 79-year-old female, DNR, with a past medical history of COPD who presents to the emergency room on August 15, 2024 for worsening shortness of breath and chest pain since 2 to 3 weeks. She is on home oxygen 4 L. Had been feeling
lightheaded, dizzy, had a cough, chest pain which did not radiate to the back. After she was taken to an urgent care center where they did a pulse oximetry on her and it showed that her oxygen was at 58% when she normally saturates in the 80s to
90s, from there she presented to the ED. she has been smoking 2 packs a day past 50 to 55 years. Initial venous blood gas showed a acute on chronic respiratory failure with hypercapnia. Xrays, Ct chest, and ultrasound of the chest showed findings
of end stage chronic COPD and emphysematous changes. EKG showed sinus tachycardia. Blood and urine cultures negative. Pulmonology is consulted. Patient is placed on nasal cannula ranging from 88-92 ranging between 4-6 liters ( baseline is 4),
placed on nocturnal Bipap, continued on symbicort + spiriva, Iv solumedrol, along with incentive spirometry. Hospice was consulted because of her end stage COPD but she was not interested. Once patient was stabilized for her discharge she is
continued on sybicort and spiriva, continued on rocephin/azithromycin PO, and her IV steroids are tapered to PO. She is to be discharged to an SNF. During her hospital course she also had an episode of ' racing' heartbeat and telemetry showed a
range of 50 to 120 with no accompanying symptoms, so left to observe and told to go to doctor if she feels worsening of the sensation. Her pleural effusion was drained and culture showed exudative pattern and plan is to observe with antibiotics.
Important imaging findings :
Chest xray 08/15/2024:
Evidence for small to moderate left pleural effusion with mild lateral loculation.
Chest CT 08/15/2024:
Moderate to advanced emphysematous lung changes.
Mild to moderate left pleural effusion.
Masslike opacities in the lingula and left lower lobe. Probable round pneumonia. Follow-up recommended to assess for resolution.
Minor localized tree-in-bud attenuation in the superior segment of the right lower lobe, nonspecific bronchiolitis.
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
Procedure findings :
Thoracocentesis:
Successful ultrasound-guided thoracentesis, yielding 450 cc of clear yellow pleural fluid.
Discharge Plan
-
Patient Disposition: Snf/SNF
Discharge Diagnosis/Procedures: Acute on chronic Hypoxemic respiratory failure due to COPD, tachycardia
Condition: Fair
Diet: Regular
Activity: With assistance and As tolerated
Driving Restrictions: No driving
Bathing Restrictions: None
Other Services: PT and OT
Activity Restrictions/Additional Instructions:
BMP in 1 week with PCP
Instructions: Chronic Obstructive Pulmonary Disease (COPD) (DC), Exacerbation of COPD, COPD Diet
Referrals:
Haja Oh MD [Active] - in three to four weeks (If patient wishes to see me in office instead of her usual neon tube bender, then she will need full PFTs on day of office visit)
NONE,* [Family Provider] - in less than 1 week
Prescriptions:
New
prednisone 10 mg tablet
10 mg PO DIRECTED Qty: 45 0RF
Rx Instructions:
Taper: 50mg daily x 3 days, 40mg daily x 3 days, 30mg daily x 3 days, 20mg daily x 3 days, 10mg daily x 3 days
Trelegy Ellipta 100-62.5-25 mcg blister with device
1 inh inhalation DAILY Qty: 28 0RF
Continued
aspirin 325 mg Tablet
650 mg PO TID
albuterol sulfate 90 mcg/actuation Hfa Aerosol Inhaler
2 puff INHALATION .SEE BELOW
Patient Comments:
08/15/2024: Per Pt and family, pt has been using Albuterol every 30 mins, and sometimes does 3-4 puffs at a time
fluticasone propionate 50 mcg/actuation [place],Suspension
2 spray INTRANASAL DAILY
Combivent Respimat 20-100 mcg/actuation Mist
1 puff INHALATION R QID
Patient Comments:
08/15/2024: Pt ran out of inhaler, physician gave her nebulizer (DuoNeb) in may, pt stated she did not like it. Began using rescue inhaler very often.
Discharge Orders:
Discharge Patient (As Directed); Ordered 08/20/24
Ordered By: Kleber Carranza
Discharge Date and Time
Print Language: BENINESE
[2024-08-20 09:01] LABS: Hematocrit 40.8 % (37.0-47.0); Hemoglobin 12.9 g/dL (12.0-16.0); Mean Corp Hgb Conc. 31.6 g/dL (33.0-37.0); Mean Corpuscular Hgb 31.3 pg (27.0-31.0); Platelet Count 340 10^3/uL (130-400); Red Blood Cell Count 4.12 10^6/uL (4.20-5.40); Red Cell Dist. Width 13.5 % (11.5-14.5); White Blood Cell Count 10.4 10^3/uL (4.8-10.8)
[2024-08-20] MEDS: ZITHROMAX 500 MG PO (09:03)
[2024-08-20] MEDS: OCEAN, SALINE MIST 2 SPRAYS NASAL ×2 (09:03→14:32)
[2024-08-20] MEDS: DELTASONE 50 MG PO (09:03)
--- NOTE | 2024-08-20 09:09 | W.PN.UPDATE ---
Update Note
Progress Note Update
I saw and evaluated the patient. I reviewed the resident�s note and agree with findings and plan as documented in the resident�s note.
SOB similar to yesterday.
Gen: NAD, Awake and alert, appears chronically ill, cachectic, malnourished.
Eyes: EOMI, PERRLA, no scleral icterus.
Neck: supple.
CV: tachy, reg rhythem, +S1/S2, no m/r/g.
Resp: continues to remain distant BS, CTAB, no rales, wheezes, or rhonchi.
Skin: No rashes.
Neuro: CN 2-12 intact, nonfocal
Psych: Normal mood and affect.
08/18/24 10:24 Pleural Fluid Body Fluid Culture - Preliminary
No Growth After 18-24 Hours
08/18/24 10:24 Pleural Fluid Gram Stain - Preliminary
08/16/24 03:54 Blood/Venous Blood Culture - Preliminary
No Growth in 72 hours- Final report to follow
08/18/24 15:43 Sputum Respiratory Culture - Final
08/18/24 15:43 Sputum Gram Stain - Final
08/18/24 10:24 Pleural Fluid Fungal Culture - Preliminary
08/16/24 16:19 Urine Legionella Urinary Antigen - Final
Negative for Legionella pneumophila Serogroup 1 antigen.
A negative result does not rule out the possiblity of
Legionella infection due to other serogroups or species of
Legionella. Clinical correlation is recommended.
08/16/24 16:19 Urine Streptococcus pneumoniae Antigen (M - Final
Negative for Streptococcus pneumoniae antigen.
A negative result does not exclude infection with
Streptococcus pneumoniae. Clinical correlation is
recommended.
08/15/24 15:01 Nasal Swab Influenza Types A & B (JOE) - Final
Negative for Influenza A & B, NAAT
Negative results must be combined with clinical observations
and patient history.
Nucleic Acid Amplification test (NAAT)performed on the
[employer] platform.
CT chest 08/15/24: Moderate to advanced emphysematous lung changes. Mild to moderate left pleural effusion. Masslike opacities in the lingula and left lower lobe. Probable round pneumonia. Follow-up recommended to assess for resolution. Minor
localized tree-in-bud attenuation in the superior segment of the right lower lobe, nonspecific bronchiolitis. 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
CXR 08/18/24:
1. No pneumothorax post left thoracentesis.
2. Elevation left hemidiaphragm. Minimal residual left pleural fluid with adjacent atelectasis/consolidation. Patchy airspace consolidation over the left lower lung is either slightly increased or more conspicuous post thoracentesis.
3. Chronic obstructive pulmonary disease. Mild interstitial edema.
Acute on chronic hypoxemic respiratory failure due to acute COPD exacerbation due to left lower lobe and lingula pneumonia and L pleural effusion:
-h/o tobacco abuse disorder, quit 2 years ago after smoking 2-3 packs/day for 50-55 years
-s/p L thoracentesis for 450cc exudative fluid, FCx NGTD
-COVID/Flu NEG
-Urine Legionella and Strep pneumonia Ags NEG
-pulm following
-on 4L NC O2 at baseline, currently on 4L midflow O2
-cont Rocephin/azithromycin, transition to PO abx on d/c
-was on Solu-Medrol, now transitioned to prednisone taper
-Continue Symbicort/Spiriva
-acute respiratory acidosis, now compensated
-Patient has pulmonary cachexia
-case discussed with Dr. Beard on 08/19/[address] Beard is OK with pt being discharged today
Lightheadedness and 'racing heartbeat:'
-tele with sinus tachy
-orthostatic VS POS but standing BPs acceptable
-tachycardia likely related to what is clearly end stage COPD
Limited DNR/Lovenox
Medically cleared for d/c. Overall prognosis is dismal.
Total time spent on d/c = 35 min. This included today's physical exam, progress note, review of laboratory and diagnostic data, preparation of discharge documents and prescriptions, and discussions about the pt's hospital course and discharge plan
with the patient and other medical billing manager involved in the patient's care.
[2024-08-20 09:36] LABS: Blood Urea Nitrogen 18 mg/dl (7-17); Calcium 9.2 mg/dl (8.4-10.2); Chloride 92 mmol/L (98-107); Estimated Creatinine Clearance 71 ml/min; Glucose 87 mg/dl (70-99); Potassium 3.8 mmol/L (3.5-5.1); Sodium 138 mmol/L (135-145); eGFR > 60.00
[2024-08-20 09:57] LABS: Carbon Dioxide 34 mmol/L (22-30)
[2024-08-20 10:41] VITALS: PULSE 115; PULSE 140; O2SAT 93
--- NOTE | 2024-08-20 10:49 | W.PN.PUL3 ---
Today's Communication / Plan
-
Transitioned to PO prednisone
Complete abx course for finite duration
Trilogy set up already underway, will need to F/U with her Pulm in [place]
Agree with discharge to SNF rehab per team
Assessment
-
79-year-old female with a past medical history of COPD on home oxygen at 4 L/min who presents with shortness of breath. SOB has been ongoing for about 2-3 weeks. Moving her from the EMS stretcher to the wheelchair resulted in desaturations to the
80s. She has been having a cough for the last few days and worsening SOB with chest tightness. She also has been having some dizziness. Her daughter recommended that the patient come to the ER. In the ER she was afebrile to 98.2 �F, tachycardic
to 123, tachypneic to 26 breaths/min, BP 134/85, and saturating 96% on 4 L/min. Blood gas showed acute on chronic respiratory failure with hypercapnia with pH 7.27 and pCO2 89. CXR shows a left lower lobe pneumonia with a suspected pleural
effusion. Patient was placed onto BiPAP in the ER, and was given ceftriaxone, Solu-Medrol 125 mg, DuoNebs and Zithromax. Periodontist/pulmonary service consulted to assess the patient and assist with disposition.
#Acute COPD exacerbation due to a left lower lobe pneumonia
#Multifocal pneumonia involving LLL + ALONSO with a parapneumonic effusion
#Acute on chronic respiratory failure with hypercapnia
#Acute on chronic respiratory failure with hypoxia due to above
#Elevated eosinophil count (mild at 300 from 08/15/2024)
#Metabolic alkalosis due to chronic hypercapnia
#Emphysema/COPD on Trelegy 200mcg at home + home O2 (4-6L/min ATC)
#History of multiple lung nodules with prior PET/CT negative with no uptake in 2020 (per her senior java developer's last office visit note on 05/22/2024)
Chronic conditions ST[employer]: COPD on Trelegy 200mcg + home oxygen at 4-6 L/min ATC, chronic rhinitis, eczema, multiple lung nodules (PET/CT was negative with no uptake in 2020), former tobacco smoker (last smoked a cigarette in April 2024)
Plan:
Currently 95% on 5L
Continue with nocturnal BiPAP and trend pH + pCO2 to assure it is stable
Process of Trilogy set up at home underway, we discussed using PAP therapy nightly
Continue with broad-spectrum antibiotics with ceftriaxone/azithromycin --> would plan for total of 7 days ABx assuming she continues to clinically improve and remains afebrile for 48 hours prior to stopping antibiotics
Cultures reviewed
Follow up blood culture (collected 08/16 - NGTD)
Urinalysis with reflex urine culture
Urine antigens both negative for Legionella/strep pneumonia;
Check sputum culture (if she can produce a decent sample)--unable
CT chest performed showing moderate to advanced emphysema with a mild�moderate left-sided pleural effusion which appears to be loculated with masslike opacities in the lingula + left lower lobe
Left-sided chest US done 08/17 shows a moderate size left pleural effusion --> c/s IR for thoracentesis
450mL removed
Send for lytes/culture/cyto--exudate by lights criteria possible parapneumonic, culture negative, cyto still pending
She is on IV abx, complete finite course
Mucolytics with chest PT if needed; Acapella
Continue Albuterol QID
Given that she takes Trelegy at home, continue Symbicort + Spiriva while hospitalized and then resume her Trelegy upon discharge
Continue systemic steroids with Solu-Medrol 40mg IV q8hr --> q12hr; transitioned to PO prednisone course
Maintain SpO2 88-95% with supplemental oxygen
- Maintain MAP>65
- Replete electrolytes with K>4, Mg>2
- Trend H/H and transfuse if needed to keep Hb>7g/dL; keep plt>20k, unless there is concern for bleeding then keep plt>50k
- prn nebulized bronchodilators - not currently bronchospastic
- Incentive spirometer encouraged 10x per hour for at least 4 hrs a day
- DVT ppx: LMWH
Of note, on admission, the patient's daughter was able to access the portal connected to her senior java developer, Dr. Romo. I took this information into account from this last office visit on 05/22/2024. After discharge she should continue following
up with her senior java developer as she will need radiographic follow-up for this pneumonia and symptom checkup during prednisone tapering, and management of Trilogy that we will be sending her home on.
Extensive discussion with her outpatient FU needed to transition her care to Pul in [place]
All questions answered today
Data:
CXR 08/15/2024: Evidence for small to moderate left pleural effusion with mild lateral loculation. Patchy parenchymal opacity within the left mid to lower lung, suspicious for pneumonia, although there could also be a component of atelectasis. Also
of note, underlying mass/neoplasia cannot be excluded radiographically and radiographic follow-up is recommended.
CT chest without contrast 08/15/2024: Moderate to advanced emphysematous lung changes. Mild to moderate left pleural effusion. Masslike opacities in the lingula and left lower lobe. Probable round pneumonia. Follow-up recommended to assess for
resolution. Minor localized tree-in-bud attenuation in the superior segment of the right lower lobe, nonspecific bronchiolitis. 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
Left chest US 08/17/2024: Moderate left pleural effusion. Stable
-----
Total time spent today was 51 minutes for this encounter. Time includes reviewing laboratory test/imaging results, reviewing pertinent medical records, obtaining and reviewing medical history, performing an appropriate exam, ordering medications,
tests and procedures. Time also includes documentation of this encounter, coordinating patient care and communicating with other healthcare professionals. Total time does not include separately billed tests performed on this date of service.
Subjective Data
-
Date of Service:
Date of Service: August 20, 2024
Chief Complaint: Pulmonary Follow Up
Subjective:
No new events, she feels the same
Ready to go to [facility]
Objective Data
Data Reviewed
Vital Signs / I&O / Oxygen:
Vital Signs
Temp Pulse Resp BP Pulse Ox
98 F 89 18 133/55 97
08/20/24 07:45 08/20/24 08:05 08/20/24 08:05 08/20/24 07:45 08/20/24 08:05
Intake and Output
08/19/24 08/20/24 08/21/24
06:59 06:59 06:59
Intake Total 900 / 900 720 / 720
Output Total 300 / 300
Balance 600 / 600 720 / 720
SaO2 97
Nasal Cannula flow liters per 4
minute
Physical Exam
General: Respiratory Distress (negative), Comfortable, Chills (negative) and Sweats (negative)
HEENT: Normocephalic and Anicteric
Cardiovascular: S1-S2, Rub (negative) and Peripheral Edema (Trace lower extremity edema bilaterally)
Respiratory: Wheeze (negative), Crackles (Left base), Rhonchi (negative), Non-Labored Respirations and Other (Diminished breath sounds bilaterally (L>R))
GI: Soft, Non Distended, Non Tender and Normal Bowel Sounds
Neurology: AO x 3 and Tremors (negative)
Skin: Warm, Dry, Cyanosis (negative), Jaundice (negative) and Rash (Erythematous rash seen on face/cheeks (R>L))
Labs/Micro/Reports
Lab Data
08/20/24 08:18
08/20/24 08:18
Microbiology
08/16/24 03:54 Blood/Venous Blood Culture - Preliminary
No Growth in 4 days- Final report to follow
08/18/24 10:24 Pleural Fluid Body Fluid Culture - Preliminary
No Growth After 18-24 Hours
08/18/24 10:24 Pleural Fluid Gram Stain - Preliminary
08/18/24 15:43 Sputum Respiratory Culture - Final
08/18/24 15:43 Sputum Gram Stain - Final
08/18/24 10:24 Pleural Fluid Fungal Culture - Preliminary
08/16/24 16:19 Urine Legionella Urinary Antigen - Final
Negative for Legionella pneumophila Serogroup 1 antigen.
A negative result does not rule out the possiblity of
Legionella infection due to other serogroups or species of
Legionella. Clinical correlation is recommended.
08/16/24 16:19 Urine Streptococcus pneumoniae Antigen (M - Final
Negative for Streptococcus pneumoniae antigen.
A negative result does not exclude infection with
Streptococcus pneumoniae. Clinical correlation is
recommended.
--- NOTE | 2024-08-20 10:58 | CM ---
Addendum entered by Avelina Albert 08/20/24 11:16:
per respiratory patient on bipap 12/5 with 6 liters of O2 and 4 liters during the day. CM spoke with Admissions and they have ordered the Bipap it is to arrive this pm. Patient aware and completed IMM and signed form placed on chart. Please call
report to [phone] and fax to [phone]. CM will continue to follow for discharge planning needs.
Plan; transfer to [facility] today.
Original Note:
Patient seen at bedside, patient requested CM call to patient daughter. [facility] has bed available today and is working on getting the BIPAP machine for her. Patient daughter indicated that she will be able to come after a work meeting and that patient
will need to transfer via ambulance due to Oxygen. Patient on bipap machine 12/5 on 6 liters and 4 liters O2 during the day. CM will update [facility] and await confirmation of machine availability. CM provided IMM to patient for signature. CM will
continue to follow for discharge planning needs.
Plan: transfer to SNF when confirmation of bed availability/Bipap machine
[2024-08-20 11:00] VITALS: BP 117/80
[2024-08-20 15:00] VITALS: BP 142/69
[2024-08-20] MEDS: STERILE WATER FOR INJECTION 10 ML IV (15:57)
[2024-08-20] MEDS: ROCEPHIN 1000 MG IV (15:57)
== END 2024-08-20 17:41 | DRG 193 ==
LOC: 4 WEST ACU 17:37
PROVIDERS: Radiology Vascular & Interventional Radiology; Registered Nurse; Student in an Organized Health Care Education/Training Program; ADMITTING PHYSICIAN Hospitalist; ATTENDING PHYSICIAN Internal Medicine; EMERGENCY PHYSICIAN Emergency Medicine; OTHER PHYSICIAN Internal Medicine Critical Care Medicine; OTHER PHYSICIAN Nurse Practitioner Gerontology
PROC: 5A09357 Assistance with Respiratory Ventilation, Less than 24 Consecutive Hours, Continuous Positive Airway Pressure (ICD-10-PCS; 2024-08-15)
PROC: 0W9B3ZZ Drainage of Left Pleural Cavity, Percutaneous Approach (ICD-10-PCS; 2024-08-18)
DX: J18.9 Pneumonia, unspecified organism (principal); J96.21 Acute and chronic respiratory failure with hypoxia; J96.22 Acute and chronic respiratory failure with hypercapnia; J44.1 Chronic obstructive pulmonary disease with (acute) exacerbation; E87.29 Other acidosis; J91.8 Pleural effusion in other conditions classified elsewhere; R64 Cachexia; J44.0 Chronic obstructive pulmonary disease with (acute) lower respiratory infection; Z66 Do not resuscitate; R00.0 Tachycardia, unspecified; R32 Unspecified urinary incontinence; Z99.81 Dependence on supplemental oxygen; Z79.899 Other long term (current) drug therapy; Z79.82 Long term (current) use of aspirin; Z79.51 Long term (current) use of inhaled steroids; Z87.891 Personal history of nicotine dependence; Z68.22 Body mass index [BMI] 22.0-22.9, adult
CPT/HCPCS: 88305; 32555; 71045; 71250; 76604; 80048; 80053; 82805; 82945; 83615; 83735; 83880; 83986; 84100; 84155; 84157; 84443; 84478; 84484; 85025; 85027; 85610; 85730; 87015; 87040; 87070; 87102; 87116; 87205; 87449; 87502; 87811; 87899; 88112; 88341; 88342; 88377; 89051; 93005; 94640; 94660; 96365; 96375; 97163; 97167; 99291; 99406

== ENCOUNTER → 2024-08-22 11:59 | Outpatient (REF) | payer OTHER, MEDICARE, SELFPAY ==
[2024-08-22 13:24] LABS: % Basophils 0.2 % (0-2); % Eosinophils 1.8 % (0-6); % Immature Granulocytes 0.6 % (0-0.5); % Lymphocytes 12.9 % (20.5-51.1); % Monocytes 10.8 % (1.7-9.3); % Neutrophils 73.7 % (42.2-75.2); Absolute Eosinophils 0.2 10^3/uL (0-0.7); Absolute Immature Granulocytes 0.1 10^3/uL (0-0.05); Absolute Lymphocytes 1.6 10^3/uL (1.2-3.4); Absolute Monocytes 1.4 10^3/uL (0.1-0.6); Absolute Neutrophils 9.3 10^3/uL (1.4-6.5); Hematocrit 38.7 % (37.0-47.0); Hemoglobin 11.7 g/dL (12.0-16.0); Mean Corp Hgb Conc. 30.2 g/dL (33.0-37.0); Mean Corpuscular Hgb 30.3 pg (27.0-31.0); Mean Corpuscular Volume 100.3 fL (81.0-99.0); Mean Platelet Volume 10.6 fL (7.4-10.4); Nucleated Red Blood Cells % 0 %; Platelet Count 335 10^3/uL (130-400); Red Blood Cell Count 3.86 10^6/uL (4.20-5.40); Red Cell Dist. Width 13.6 % (11.5-14.5); White Blood Cell Count 12.6 10^3/uL (4.8-10.8)
[2024-08-22 13:32] LABS: Blood Urea Nitrogen 21 mg/dl (7-17); Chloride 90 mmol/L (98-107); Glucose 67 mg/dl (70-99); Potassium 4.2 mmol/L (3.5-5.1); Sodium 135 mmol/L (135-145); eGFR > 60.00
[2024-08-22 13:44] LABS: Carbon Dioxide 35 mmol/L (22-30)
== END ==
LOC: OLABP 11:59
PROVIDERS: ATTENDING PHYSICIAN Family Medicine
DX: J44.1 Chronic obstructive pulmonary disease with (acute) exacerbation (principal); J18.9 Pneumonia, unspecified organism; R00.0 Tachycardia, unspecified; J90 Pleural effusion, not elsewhere classified; J96.22 Acute and chronic respiratory failure with hypercapnia; J96.21 Acute and chronic respiratory failure with hypoxia
CPT/HCPCS: 36415; 80048; 85025

== ENCOUNTER → 2024-09-08 09:51 | Outpatient (REF) | payer OTHER, MEDICARE, SELFPAY ==
[2024-09-08 12:10] LABS: % Basophils 0.4 % (0-2); % Eosinophils 5.9 % (0-6); % Immature Granulocytes 0.1 % (0-0.5); % Lymphocytes 13.9 % (20.5-51.1); % Monocytes 9.5 % (1.7-9.3); % Neutrophils 70.2 % (42.2-75.2); Absolute Eosinophils 0.4 10^3/uL (0-0.7); Absolute Monocytes 0.7 10^3/uL (0.1-0.6); Absolute Neutrophils 5.3 10^3/uL (1.4-6.5); Hematocrit 36.4 % (37.0-47.0); Mean Corp Hgb Conc. 30.2 g/dL (33.0-37.0); Mean Corpuscular Hgb 30.5 pg (27.0-31.0); Mean Corpuscular Volume 100.8 fL (81.0-99.0); Mean Platelet Volume 10.1 fL (7.4-10.4); Nucleated Red Blood Cells % 0 %; Platelet Count 231 10^3/uL (130-400); Red Blood Cell Count 3.61 10^6/uL (4.20-5.40); Red Cell Dist. Width 13.5 % (11.5-14.5); White Blood Cell Count 7.5 10^3/uL (4.8-10.8)
[2024-09-08 12:43] LABS: Blood Urea Nitrogen 11 mg/dl (7-17); Chloride 88 mmol/L (98-107); Glucose 93 mg/dl (70-99); Potassium 4.2 mmol/L (3.5-5.1); Sodium 133 mmol/L (135-145); eGFR > 60.00
[2024-09-08 13:06] LABS: Carbon Dioxide 39 mmol/L (22-30)
== END ==
LOC: OLABP 09:51
PROVIDERS: ATTENDING PHYSICIAN Family Medicine
DX: J44.1 Chronic obstructive pulmonary disease with (acute) exacerbation (principal); R64 Cachexia; R00.0 Tachycardia, unspecified; J18.9 Pneumonia, unspecified organism; J96.22 Acute and chronic respiratory failure with hypercapnia; E87.3 Alkalosis; R13.14 Dysphagia, pharyngoesophageal phase; R42 Dizziness and giddiness
CPT/HCPCS: 36415; 80048; 85025

== ENCOUNTER → 2024-09-11 09:33 | Outpatient (REF) | payer OTHER, MEDICARE, SELFPAY ==
[2024-09-11 12:09] LABS: TSH 3.79 uIU/ml (0.47-4.68)
[2024-09-11 12:12] LABS: Blood Urea Nitrogen 12 mg/dl (7-17); Chloride 91 mmol/L (98-107); Glucose 89 mg/dl (70-99); Potassium 4.5 mmol/L (3.5-5.1); Sodium 134 mmol/L (135-145); eGFR > 60.00
[2024-09-11 12:45] LABS: Carbon Dioxide 38 mmol/L (22-30)
[2024-09-11 16:25] LABS: Free T3 3.18 pg/ml (2.77-5.27); Total Thyroxine 7.19 ug/dl (5.5-11.0)
== END ==
LOC: OLABP 09:33
PROVIDERS: ATTENDING PHYSICIAN Family Medicine
DX: J44.1 Chronic obstructive pulmonary disease with (acute) exacerbation (principal); R64 Cachexia; J18.9 Pneumonia, unspecified organism; M62.81 Muscle weakness (generalized); J96.22 Acute and chronic respiratory failure with hypercapnia; E87.3 Alkalosis; R42 Dizziness and giddiness; R13.14 Dysphagia, pharyngoesophageal phase
CPT/HCPCS: 36415; 80048; 84436; 84443; 84481

== ENCOUNTER 2024-09-12 18:20 | Inpatient (IN) | payer MEDICARE, SELFPAY ==
[2024-09-12 15:49] VITALS: BP 139/78
--- NOTE | 2024-09-12 15:51 | ED.GENMED ---
ED Provider Triage
<Willian Dao PA-C - Last Filed: 09/12/24 15:53>
-
Patient seen by provider in Triage?: Seen in Triage
79 yo female presents from [facility] due to increased WOB and recurrent L pleural effusion. Outpatient doc unsuccessful at getting her scheduled with IR. Chronically on O2. Last tapped in August for 450cc. Not on thinners
Tachypneic with grossly diminished breath sounds.
Will contact IR for stat thora if possible. Obtain labs and CXR
History of Present Illness
<Willian Dao PA-C - Last Filed: 09/12/24 15:53>
General
Chief Complaint: Breathing Problem
Time Seen by Provider: 09/12/24 16:51
<Jacques Miller MD - Last Filed: 09/12/24 19:53>
General
Source: patient
Exam Limitations: none
Nursing documentation reviewed up to this point in time: agreed with
History of Present Illness
History of Present Illness:
Patient with history of oxygen dependent COPD, presents to ED secondary to worsening shortness of breath over the past 3 days. Outpatient chest x-ray revealed recurrent large, left pleural effusion. Denies chest pain. Denies nausea or vomiting.
Denies coughing. Denies fever or chills. Denies recent change in medications or diet.
Review of Systems
<Jacques Miller MD - Last Filed: 09/12/24 19:53>
Review of Systems
Allergies reviewed?: Yes
All Other Systems: ROS reviewed and negative except as documented in HPI and ROS
Constitutional: Reports no symptoms; Denies fever
Respiratory: Reports trouble breathing; Denies cough
ABD/GI: Reports no symptoms
Musculoskeletal: Reports no symptoms; Denies edema
Skin: Reports no symptoms
Neurological: Reports no symptoms
Phy Exam
<Jacques Miller MD - Last Filed: 09/12/24 19:53>
Physical Exam
Physical Exam:
Physical Exam
General: mild respiratory distress, not acutely ill. afebrile
Head: nc/at. eomi
Neck: supple. normal range of motion.
Heart: s1/s2 regular rate and rhythm, no murmur. equal radial pulses.
Lungs: mild respiratory distress. diminished breath sounds bilaterally
Abdomen: normal bowel sounds. not tender.
Neuro: alert and oriented x 3. no focal neurological deficits
Skin: no rash
Psychiatric: well kept. interactive and cooperative
Extremities: no edema. no calf tenderness.
Scores
<Jacques Miller MD - Last Filed: 09/12/24 19:53>
Heart Failure Risk
Heart Failure Risk Score: Not Applicable
Course
<Willian Dao PA-C - Last Filed: 09/12/24 15:53>
Orders/Labs/Results
Orders:
Orders
09/12/24 Breakfast
Regular
At Your Request: Limited Participation
Does patient need a safe tray?: No
09/12/24 15:48
CR Chest - 2 Views Urgent
Comment:
Reason For Exam: SOB, L pleural effusion
09/12/24 15:58
Complete Blood Count/With Diff Urgent
Comprehensive Metabolic Panel Urgent
Prothrombin Time Urgent
09/12/24 17:27
Admit/Transfer Patient As Directed
Co-Sign Provider:
Level of Care: Inpatient admission
Assign to:: Telemetry
Physician / Group: albert
Diagnosis: recurrent pleural effusion
Reason for Telemetry: Other
Other Reason for Telemetry: pleural effusion
Date to Stop Telemetry: 09/14/24
Time to Stop Telemetry: 11:00
Reason for Hospitalization: recurrent pleural effusion
Expected length of stay greater than two midnights?: Yes
ELOS- Estimated Length of Stay in days: 3
I certify the patient meets the requirements for IP care: Yes
09/12/24 17:28
PRN Pain Medication Management As Directed
May give lesser potent ordered pain med per pt: Yes
preference::
Protocol:: Medication orders for pain may be administered in a
manner that supports deferring to patient preference
when the pt is:
- Requesting an ordered lesser potent pain medication.
Least to most potent pain medications are defined
as: acetaminophen < NSAID < tramadol < opioids
(morphine, oxycodone, hydromorphone).
- Requesting a lesser dose of the same medication IF
ORDERED.
- Requesting a less intrusive route of administration
if both routes are prescribed by the provider (PO <
IV).
09/12/24 17:31
Code Status As Directed
Resuscitation Status: Do not resuscitate
Reached after discussion with pt or family/Healthcare POA: Yes
DNR Bracelet Application ONCE
09/12/24 17:36
HydrOXYZINE [Atarax] 12.5 mg PO NOW STA
09/12/24 19:00
Acetaminophen [Tylenol] 650 mg PO Q4HPRN PRN
Bisacodyl [Dulcolax] 10 mg RECTAL [id number] PRN
Docusate W/Senna [Senokot-S] 1 tablet PO BIDPRN PRN
Enoxaparin Sodium [Lovenox] 40 mg SC QPM
HydrOXYZINE [Atarax] 12.5 mg PO QIDPRN PRN
Ipratropium/Albuterol Sulfate [Duoneb] 3 ml INH R Q4HPRN PRN
Meclizine [Antivert] 12.5 mg PO TIDPRN PRN
Polyethylene Glycol Powder [Miralax] 17 grams PO DAILYPRN PRN
09/12/24 19:00
Add On- LAB Routine
Tests Added?: Body Fluid Triglycerides
IRAD CONSULT Routine
Consulting Provider: Dannie Malcolm
Was physician already notified: Yes
Reason for Consult/Procedure: thoracentesis
Acknowledgement that appropriate orders are entered: Yes
PULMONARY CONSULT Routine
Consulting Provider: Natalio Zavaleta
Was physician already notified: Yes
Acid Fast Culture & Smear Routine
ALOK Source: Pleural Fluid
Specimen Description:
Comment: post procedure
Body Fluid Amylase Routine
Fluid Source: Pleural
Body Fluid Cell Count Routine
What is the Body Fluid: pleural fluid
Comment: post procedure
Body Fluid Glucose Routine
Fluid Source: Pleural
Body Fluid LDH Routine
Fluid Source: Pleural
Body Fluid Protein Routine
Fluid Source: Pleural
Body Fluid Triglycerides Routine
Fluid Source: Pleural
Body Fluid pH Routine
Fluid Source: Pleural
Glucose Routine
Hematocrit Routine
LDH Routine
Comment: post procedure, add on to morning labs if already drawn
Total Protein Routine
Comment: post procedure, add on to morning labs if already drawn
Fluid Culture with Gram Stain Routine
LAOK Source: Pleural Fluid
Specimen Description:
Comment: post procedure
Fungus Culture Routine
ALOK Source: Pleural Fluid
Specimen Description:
Fungus Smear Routine
ALOK Source: Pleural Fluid
Specimen Description:
Gram Stain Routine
ALOK Source: Pleural Fluid
Specimen Description:
Comment: POST PROCEDURE
Activity As Directed
Activity Level: As Tolerated
Vital Signs As Directed
Frequency: Per unit guidelines
IRAD Cytology Routine
Source: Pleural Fluid, Left
Clinical Impression: re-current pleural effusion. Hx of tobacco abuse
O2 Therapy [RESP] Routine
Titrate/Wean O2 to maintain O2 sat greater than (%): 92
DX Deep Vein Thrombosis Video Routine
09/12/24 19:12
Sodium Chloride [[place], Saline Mist] See Dose Instructions NASAL Q6HPRN PRN
09/13/24 06:00
Comprehensive Metabolic Panel IN AM
09/13/24 08:00
Diltiazem Extended Release [Cardizem Cd] 120 mg PO DAILY
Pantoprazole [Protonix] 40 mg PO DAILY
sauwgpknxym-htobvfmbc-ojhvvaon [Trelegy Ellipta] 1 inh INH R DAILY
09/14/24 06:00
Comprehensive Metabolic Panel IN AM
09/14/24 11:00
DC Protocol for Telemetry ONCE
09/15/24 06:00
Comprehensive Metabolic Panel IN AM
Abnormal Lab Results
09/12/24
15:58
RBC 3.82 L 10^6/uL
(4.20-5.40)
Hgb 11.7 L g/dL
(12.0-16.0)
MCHC 31.5 L g/dL
(33.0-37.0)
Absolute Lymphs (auto) 0.9 L 10^3/uL
(1.2-3.4)
Absolute Monos (auto) 0.7 H 10^3/uL
(0.1-0.6)
Lymphocytes % 12.7 L %
(20.5-51.1)
Monocytes % 9.7 H %
(1.7-9.3)
Chloride 92 L mmol/L
(98-107)
Carbon Dioxide 38 H mmol/L
(22-30)
BUN 6 L mg/dl
(7-17)
Creatinine 0.4 L mg/dL
(0.6-1.0)
Glucose 102 H mg/dl
(70-99)
AST 49 H U/L
(14-36)
ALT 40 H U/L
(0-35)
09/12/24 15:58
09/12/24 15:58
Vital Signs
Initial and Last Documented VS:
Initial Vital Signs
Temp Pulse Resp BP Pulse Ox
97.9 F 106 25 139/78 93
09/12/24 15:49 09/12/24 15:49 09/12/24 15:49 09/12/24 15:49 09/12/24 15:49
Last Documented Vital Signs
Temp Pulse Resp BP Pulse Ox
97.8 F 95 32 143/72 93
09/12/24 19:00 09/12/24 19:00 09/12/24 19:00 09/12/24 19:00 09/12/24 19:00
<Jacques Miller MD - Last Filed: 09/12/24 19:53>
Orders/Labs/Results
Orders:
Orders
09/12/24 Breakfast
Regular
At Your Request: Limited Participation
Does patient need a safe tray?: No
09/12/24 15:48
CR Chest - 2 Views Urgent
Comment:
Reason For Exam: SOB, L pleural effusion
09/12/24 15:58
Complete Blood Count/With Diff Urgent
Comprehensive Metabolic Panel Urgent
Prothrombin Time Urgent
09/12/24 17:27
Admit/Transfer Patient As Directed
Co-Sign Provider:
Level of Care: Inpatient admission
Assign to:: Telemetry
Physician / Group: albert
Diagnosis: recurrent pleural effusion
Reason for Telemetry: Other
Other Reason for Telemetry: pleural effusion
Date to Stop Telemetry: 09/14/24
Time to Stop Telemetry: 11:00
Reason for Hospitalization: recurrent pleural effusion
Expected length of stay greater than two midnights?: Yes
ELOS- Estimated Length of Stay in days: 3
I certify the patient meets the requirements for IP care: Yes
09/12/24 17:28
PRN Pain Medication Management As Directed
May give lesser potent ordered pain med per pt: Yes
preference::
Protocol:: Medication orders for pain may be administered in a
manner that supports deferring to patient preference
when the pt is:
- Requesting an ordered lesser potent pain medication.
Least to most potent pain medications are defined
as: acetaminophen < NSAID < tramadol < opioids
(morphine, oxycodone, hydromorphone).
- Requesting a lesser dose of the same medication IF
ORDERED.
- Requesting a less intrusive route of administration
if both routes are prescribed by the provider (PO <
IV).
09/12/24 17:31
Code Status As Directed
Resuscitation Status: Do not resuscitate
Reached after discussion with pt or family/Healthcare POA: Yes
DNR Bracelet Application ONCE
09/12/24 17:36
HydrOXYZINE [Atarax] 12.5 mg PO NOW STA
09/12/24 19:00
Acetaminophen [Tylenol] 650 mg PO Q4HPRN PRN
Bisacodyl [Dulcolax] 10 mg RECTAL [id number] PRN
Docusate W/Senna [Senokot-S] 1 tablet PO BIDPRN PRN
Enoxaparin Sodium [Lovenox] 40 mg SC QPM
HydrOXYZINE [Atarax] 12.5 mg PO QIDPRN PRN
Ipratropium/Albuterol Sulfate [Duoneb] 3 ml INH R Q4HPRN PRN
Meclizine [Antivert] 12.5 mg PO TIDPRN PRN
Polyethylene Glycol Powder [Miralax] 17 grams PO DAILYPRN PRN
09/12/24 19:00
Add On- LAB Routine
Tests Added?: Body Fluid Triglycerides
IRAD CONSULT Routine
Consulting Provider: Dannie Malcolm
Was physician already notified: Yes
Reason for Consult/Procedure: thoracentesis
Acknowledgement that appropriate orders are entered: Yes
PULMONARY CONSULT Routine
Consulting Provider: Natalio Zavaleta
Was physician already notified: Yes
Acid Fast Culture & Smear Routine
ALOK Source: Pleural Fluid
Specimen Description:
Comment: post procedure
Body Fluid Amylase Routine
Fluid Source: Pleural
Body Fluid Cell Count Routine
What is the Body Fluid: pleural fluid
Comment: post procedure
Body Fluid Glucose Routine
Fluid Source: Pleural
Body Fluid LDH Routine
Fluid Source: Pleural
Body Fluid Protein Routine
Fluid Source: Pleural
Body Fluid Triglycerides Routine
Fluid Source: Pleural
Body Fluid pH Routine
Fluid Source: Pleural
Glucose Routine
Hematocrit Routine
LDH Routine
Comment: post procedure, add on to morning labs if already drawn
Total Protein Routine
Comment: post procedure, add on to morning labs if already drawn
Fluid Culture with Gram Stain Routine
ALOK Source: Pleural Fluid
Specimen Description:
Comment: post procedure
Fungus Culture Routine
ALOK Source: Pleural Fluid
Specimen Description:
Fungus Smear Routine
ALOK Source: Pleural Fluid
Specimen Description:
Gram Stain Routine
ALOK Source: Pleural Fluid
Specimen Description:
Comment: POST PROCEDURE
Activity As Directed
Activity Level: As Tolerated
Vital Signs As Directed
Frequency: Per unit guidelines
IRAD Cytology Routine
Source: Pleural Fluid, Left
Clinical Impression: re-current pleural effusion. Hx of tobacco abuse
O2 Therapy [RESP] Routine
Titrate/Wean O2 to maintain O2 sat greater than (%): 92
DX Deep Vein Thrombosis Video Routine
09/12/24 19:12
Sodium Chloride [[place], Saline Mist] See Dose Instructions NASAL Q6HPRN PRN
09/13/24 06:00
Comprehensive Metabolic Panel IN AM
09/13/24 08:00
Diltiazem Extended Release [Cardizem Cd] 120 mg PO DAILY
Pantoprazole [Protonix] 40 mg PO DAILY
[id number]-pehtjibdf-xypljpdh [Trelegy Ellipta] 1 inh INH R DAILY
09/14/24 06:00
Comprehensive Metabolic Panel IN AM
09/14/24 11:00
DC Protocol for Telemetry ONCE
09/15/24 06:00
Comprehensive Metabolic Panel IN AM
Abnormal Lab Results
09/12/24
15:58
RBC 3.82 L 10^6/uL
(4.20-5.40)
Hgb 11.7 L g/dL
(12.0-16.0)
MCHC 31.5 L g/dL
(33.0-37.0)
Absolute Lymphs (auto) 0.9 L 10^3/uL
(1.2-3.4)
Absolute Monos (auto) 0.7 H 10^3/uL
(0.1-0.6)
Lymphocytes % 12.7 L %
(20.5-51.1)
Monocytes % 9.7 H %
(1.7-9.3)
Chloride 92 L mmol/L
(98-107)
Carbon Dioxide 38 H mmol/L
(22-30)
BUN 6 L mg/dl
(7-17)
Creatinine 0.4 L mg/dL
(0.6-1.0)
Glucose 102 H mg/dl
(70-99)
AST 49 H U/L
(14-36)
ALT 40 H U/L
(0-35)
09/12/24 15:58
09/12/24 15:58
Vital Signs
Initial and Last Documented VS:
Initial Vital Signs
Temp Pulse Resp BP Pulse Ox
97.9 F 106 25 139/78 93
09/12/24 15:49 09/12/24 15:49 09/12/24 15:49 09/12/24 15:49 09/12/24 15:49
Last Documented Vital Signs
Temp Pulse Resp BP Pulse Ox
97.8 F 95 32 143/72 93
09/12/24 19:00 09/12/24 19:00 09/12/24 19:00 09/12/24 19:00 09/12/24 19:00
<Jacques Miller MD - Last Filed: 09/12/24 19:53>
MDM/Problems Addressed
MDM/Problems Addressed:
History and exam concerning for hypoxia and increased work of breathing, secondary to recurrent large left pleural effusion. Patient will be admitted for further evaluation and treatment, including thoracentesis.
<Jacques Miller MD - Last Filed: 09/12/24 19:53>
*Critical Care Note
Total Time (30-74mins, 75-104mins- exclusive of procedures): Not Applicable
ED Attending Note
<Willian Dao PA-C - Last Filed: 09/12/24 15:53>
-
Portions of this chart may have been created with voice recognition software.� Occasional wrong word or��sound alike� substitutions may have occurred due to the inherent limitations of voice recognition software.
Discharge Plan
Departure
Patient Disposition: Admit
Date of Disposition: 09/12/24
Time of Disposition: 17:14
Admit to: Telemetry
Presentation/result/management discussed w/ accepting MD/DO: Hospitalist
Discharge Problem:
Hypoxia, Pleural effusion
Interventions
Interventions:
*General Assessment Last Done: 09/12/24 15:49
ED- Fall Risk Assessment Last Done: 09/12/24 17:32
*ED COVID-19 Vaccine History Last Done: 09/12/24 17:32
*Nursing Disposition Last Done: 09/12/24 19:44
ED- Cardiac Assessment Last Done: 09/12/24 17:32
ED- Pulmonary Assessment Last Done: 09/12/24 17:32
Discharge Date and Time
Discharge Date/Time: 09/12/24 19:00
[2024-09-12 16:03] LABS: % Basophils 0.4 % (0-2); % Eosinophils 5.5 % (0-6); % Immature Granulocytes 0.3 % (0-0.5); % Lymphocytes 12.7 % (20.5-51.1); % Monocytes 9.7 % (1.7-9.3); % Neutrophils 71.4 % (42.2-75.2); Absolute Eosinophils 0.4 10^3/uL (0-0.7); Absolute Lymphocytes 0.9 10^3/uL (1.2-3.4); Absolute Monocytes 0.7 10^3/uL (0.1-0.6); Absolute Neutrophils 5.2 10^3/uL (1.4-6.5); Hematocrit 37.2 % (37.0-47.0); Hemoglobin 11.7 g/dL (12.0-16.0); Mean Corp Hgb Conc. 31.5 g/dL (33.0-37.0); Mean Corpuscular Hgb 30.6 pg (27.0-31.0); Mean Corpuscular Volume 97.4 fL (81.0-99.0); Mean Platelet Volume 9.2 fL (7.4-10.4); Nucleated Red Blood Cells % 0 %; Platelet Count 273 10^3/uL (130-400); Red Blood Cell Count 3.82 10^6/uL (4.20-5.40); Red Cell Dist. Width 13.5 % (11.5-14.5); White Blood Cell Count 7.2 10^3/uL (4.8-10.8)
[2024-09-12 16:13] LABS: INR 0.92; PT 12.7 Sec (11.4-14.6)
[2024-09-12 16:23] LABS: ALT (SGPT) 40 U/L (0-35); AST (SGOT) 49 U/L (14-36); Albumin 3.5 g/dl (3.5-5.0); Alkaline Phosphatase 71 U/L (38-126); Blood Urea Nitrogen 6 mg/dl (7-17); Calcium 9.4 mg/dl (8.4-10.2); Chloride 92 mmol/L (98-107); Glucose 102 mg/dl (70-99); Potassium 4.3 mmol/L (3.5-5.1); Sodium 138 mmol/L (135-145); Total Bilirubin 0.2 mg/dl (0.2-1.3); Total Protein 6.5 g/dl (6.3-8.2); eGFR > 60.00
[2024-09-12 16:29] LABS: Carbon Dioxide 38 mmol/L (22-30)
[2024-09-12 16:53] VITALS: BP 135/68
[2024-09-12 17:00] VITALS: BP 123/70
--- NOTE | 2024-09-12 17:09 | HPS.HSE ---
Addendum entered and electronically signed by Anmol Macedo MD 09/12/24 18:01:
I saw and examined the patient.
The GYROSCOPIC INSTRUMENT TESTER's note was reviewed and I agree with the note.
Comment:
79-year-old female past medical history of COPD, chronic hypoxic and hypercapnia respiratory failure, pulmonary cachexia, history of tobacco abuse, history of pleural effusion, tachycardia which presenting from [facility] with complaint of shortness
of breath. Upon admission patient was found to have a moderate to large left pleural effusion. Patient denies any productive cough. No recent fevers.
General: Well Developed, Well Nourished and No Apparent Distress
HEENT: NormoCephalic, Moist mucous membranes and Atraumatic
Respiratory: Decreased Breath Sounds, midflow 4L noted
Cardiac: S1/S2 and Regular Rhythm; No Murmur or Rub
GI: Soft, Non Tender, Non Distended and Normal Bowel Sounds; No Organomegaly
Rectal: Deferred by Provider
Musculoskeletal: No Clubbing, No Cyanosis and No Edema
Skin: No Rash
Neuro: AO x 3 and Nonfocal/grossly intact
Psych: Calm
A/P
Shortness of breath secondary to large pleural effusion
Chronic hypoxic and hypercapnic respiratory failure
History of COPD
History of severe tobacco abuse
History of pleural effusion status post recent thoracentesis
[facility] consulted for thoracentesis
Pulmonary evaluation for recurrent effusion
Monitor off antibiotics
Continue with bronchodilators
Tachycardia
Continue with Cardizem
Discussed with patient family member at bedside in detail
I spent a total of 78 minutes with the patient or on the floor. More than 50% of this time involved counseling and coordination of care.
Original Note:
Family Physician
-
Family Physician: NOT KNOW UNKNOWN - PT DOES
Chief Complaint
-
sob
History of Present Illness
9 yo female with PMH for COPD presents from [facility] due to increased SOB for past 3- 4 days. sob at all time. patient ordered thoracentesis but did not get an appointment.denied chest pain, fever, chills, runny nose,congestion and cough. denied
abdominal pain,n,v,d. denied dysuria or hematuria. Last tapped in August for 450cc. Not on thinners
admitting for further management.
Medical History
Past Medical History
Past Medical History: Reports Other
Additional Past Medical History:
COPD
Past Surgical History: Reports Other
Additional Past Surgical History:
Social History
Tobacco: Former Smoker
Alcohol: None
Drug: None
Personal: Single
Living: Assisted Living
Family History
Family History: Not pertinent
Allergies / Home Medications
Allergies reflects when Allergies were last updated in [facility].
Home Medications with original date entered in [facility]
Allergy/Medication List:
Allergies
Allergy/AdvReac Type Severity Reaction Status Date / Time
No Known Allergies Allergy Verified 09/12/24 15:48
Home Medications
albuterol sulfate 90 mcg/actuation aerosol inhaler 2 puff inhalation R Q4HPRN PRN sob/wheeze 08/15/24
fluticasone propionate 50 mcg/actuation nasal spray,suspension 2 spray intranasal DAILY Allergies 08/15/24
ipratropium 20 mcg-albuterol 100 mcg/actuation mist for inhalation (Combivent Respimat) 1 puff inhalation R Q6HPRN PRN sob/copd 08/15/24
acetaminophen 325 mg tablet (Tylenol) 650 mg PO Q4HPRN PRN mild pain/fever>100 09/12/24
bisacodyl 10 mg rectal suppository (Dulcolax (bisacodyl)) 10 mg MA DAILYPRN PRN day 5 no bm, mom ineffective 09/12/24
diltiazem HCl 120 mg capsule,24 hr,extended release 120 mg PO DAILY 09/12/24
fluticasone fur. 100 mcg-umeclid 62.5 mcg-vilant 25 mcg inhalat.powder (Trelegy Ellipta) 1 inh inhalation R DAILY 09/12/24
hydroxyzine HCl 25 mg tablet 12.5 mg PO QIDPRN PRN anxiety 09/12/24
ipratropium 0.5 mg-albuterol 3 mg (2.5 mg base)/3 mL nebulization soln 3 ml inhalation R QID 09/12/24
magnesium hydroxide 400 mg/5 mL oral suspension (Milk of Magnesia) 30 ml PO Q98H PRN On day 4 of no bm 09/12/24
meclizine 12.5 mg tablet 12.5 mg PO TIDPRN PRN dizziness 09/12/24
pantoprazole 40 mg tablet,delayed release 40 mg PO DAILY 09/12/24
sodium chloride 0.65 % nasal spray aerosol (Nasal Moisturizing) 2 spray intranasal Q6HPRN PRN nasal congestion 09/12/24
sodium phosphates 19 gram-7 gram/118 mL enema (Fleet Enema) 118 ml MA DAILYPRN PRN day 6 no bm, supp ineffective 09/12/24
Review of Systems
-
Constitutional: Reports No Symptoms
EENT: Reports No Symptoms
Respiratory: Reports Trouble Breathing
Cardiac: Reports No Symptoms
Abdomen/GI: Reports No Symptoms
: Reports No Symptoms
Musculoskeletal: Reports No Symptoms
Skin: Reports No Symptoms
Neurological: Reports No Symptoms
Endocrine: Reports No Symptoms
Hematologic/Lymphatic: Reports No Symptoms
Psych: Reports No Symptoms
Physical Exam
Vital Signs
Vital Signs
Temp Pulse Resp BP Pulse Ox
97.9 F 98 25 123/70 96
09/12/24 15:49 09/12/24 17:00 09/12/24 17:00 09/12/24 17:00 09/12/24 17:00
Physical Exam
General: Well Developed, Well Nourished and No Apparent Distress
HEENT: NormoCephalic, Moist mucous membranes and Atraumatic
Respiratory: Decreased Breath Sounds
Cardiac: S1/S2 and Regular Rhythm; No Murmur or Rub
GI: Soft, Non Tender, Non Distended and Normal Bowel Sounds; No Organomegaly
Rectal: Deferred by Provider
Musculoskeletal: No Clubbing, No Cyanosis and No Edema
Skin: No Rash
Neuro: AO x 3 and Nonfocal/grossly intact
Psych: Calm
Laboratory Results
-
09/12/24 15:58
09/12/24 15:58
Laboratory Results
PT 12.7 Sec (11.4-14.6) 09/12/24 15:58
INR 0.92 09/12/24 15:58
Total Bilirubin 0.2 mg/dl (0.2-1.3) 09/12/24 15:58
AST 49 U/L (14-36) H 09/12/24 15:58
ALT 40 U/L (0-35) H 09/12/24 15:58
Alkaline Phosphatase 71 U/L (38-126) 09/12/24 15:58
Data Reviewed
-
Lab Data: Labs Reviewed by me
Impression/Plan
-
#acute on chronic hypoxic respiratory failure likely from recurrent large pleural effusion
-Patient requiring mid flow oxygen
-Interventional radiology consulted for thoracentesis
-Continue supplemental oxygen to keep sat greater than 92
-Wean as tolerated
-pulmonology consulted
# Transaminitis
-AST 49, ALT 40
-Patient denied any abdominal pain
-Continue to monitor
#DVT prophylaxis
-Lovenox
#CODE status
-DNR
[2024-09-12] MEDS: ATARAX 12.5 MG PO (18:11)
[2024-09-12 19:00] VITALS: BP 143/72; BMI 23.7
[2024-09-12] MEDS: LOVENOX SC (20:13)
[2024-09-12] MEDS: SYMBICORT 80/4.5 MCG INHALER 2 PUFF INH (20:35)
[2024-09-12] MEDS: DUONEB 3 ML INH (20:39)
--- NOTE | 2024-09-12 21:10 | PTCARENOTE ---
Receive pt from ER. Pt alert oriented X3, in no resp distress. Pt pulled over to her bed from ER stretcher. Pt oriented to the room, call yanez within reach. Pt w/mild dyspnea at rest and in exertion, SpO2=93-95% on 4L NC. Pt has a moist productive
cough of white/yellow sputum. Pt on NSR on telemonitor. GD=656/72, HR=95, T=97.8. Will keep monitoring the pt.
[2024-09-12 22:42] LABS: LDH 115 U/L (120-246)
[2024-09-12 23:30] VITALS: BP 116/58
[2024-09-13] VITALS (8 sets, daily range): BP systolic 90–125; BP diastolic 50–68
[2024-09-13] MEDS: TYLENOL 650 MG PO (02:46)
[2024-09-13] MEDS: DUONEB 3 ML INH ×5 (03:09→19:50)
[2024-09-13] MEDS: PROTONIX 40 MG PO (08:52)
[2024-09-13] MEDS: CARDIZEM CD 120 MG PO (08:53)
[2024-09-13] MEDS: OCEAN, SALINE MIST 2 SPRAYS NASAL (08:53)
[2024-09-13] MEDS: SYMBICORT 80/4.5 MCG INHALER 2 PUFF INH ×2 (09:04→18:12)
[2024-09-13] MEDS: SPIRIVA RESPIMAT 2.5 MCG 2 PUFF INH (09:04)
[2024-09-13] MEDS: ATARAX 12.5 MG PO ×2 (09:37→17:55)
[2024-09-13 09:38] LABS: ALT (SGPT) 44 U/L (0-35); AST (SGOT) 51 U/L (14-36); Albumin 3.2 g/dl (3.5-5.0); Alkaline Phosphatase 64 U/L (38-126); Blood Urea Nitrogen 9 mg/dl (7-17); Calcium 9.2 mg/dl (8.4-10.2); Chloride 90 mmol/L (98-107); Estimated Creatinine Clearance 71 ml/min; Glucose 77 mg/dl (70-99); Potassium 4.1 mmol/L (3.5-5.1); Sodium 136 mmol/L (135-145); Total Bilirubin 0.3 mg/dl (0.2-1.3); Total Protein 5.9 g/dl (6.3-8.2); eGFR > 60.00
[2024-09-13 09:47] LABS: Carbon Dioxide 37 mmol/L (22-30)
[2024-09-13 12:31] LABS: Body Fluid pH 7.44
[2024-09-13 12:44] LABS: Body Fluid WBC 3906 /CUMM
[2024-09-13 12:45] LABS: Body Fluid Mononuclear 91.6 %; Body Fluid Polymorphonuclear 8.4 %
[2024-09-13 12:51] LABS: Body Fluid Second Tech CMB
[2024-09-13 13:16] LABS: Body Fluid Amylase 41 U/L; Body Fluid Glucose 116 mg/dl; Body Fluid LDH 143 U/L; Body Fluid Triglycerides < 30 mg/dl
--- NOTE | 2024-09-13 13:43 | W.PN.HOSP.TC ---
Today's Communication/Plan
-
IRAD for thora
Pulm eval
cont bronchodilators
Assessment / Plan
Assessment / Plan
A/P
#Shortness of breath secondary to large LEFT sided pleural effusion
#Chronic hypoxic and hypercapnic respiratory failure
#History of COPD
#History of severe tobacco abuse
#History of pleural effusion status post recent thoracentesis-which was deemed parapneumonic
[facility] consulted for thoracentesis
Pulmonary evaluation for recurrent effusion
Monitor off antibiotics
Continue with bronchodilators
Tachycardia
Continue with Cardizem
Transaminitis
could be from recent infection
trend for now. If uptrended check US.
Hx of Dizziness/?vertig-meclizine prn
Severe anxiety-cont atarax
dvt ppx-lovenox
Anticipated Discharge: 24 - 48 hours
Subjective/Interval History
-
Date of Service: September 13, 2024
states feeling sob
remains on midflow 4L
Objective Data
-
Labs:
Laboratory Results
09/13/24 09/13/24
00:09 06:57
Hct Cancelled
Sodium 136
Potassium 4.1
Chloride 90 L
Carbon Dioxide 37 H
BUN 9
Creatinine 0.4 L
Glucose 77
Calcium 9.2
Total Bilirubin 0.3
AST 51 H
ALT 44 H
Alkaline Phosphatase 64
Vital Signs:
Vital Signs
Temp Pulse Resp BP Pulse Ox
97.8 F 88 20 114/61 95
09/13/24 11:55 09/13/24 11:55 09/13/24 11:55 09/13/24 11:55 09/13/24 11:55
Physical Exam
-
General: Appears in Distress and Appears Chronically Ill
HEENT: Normocephalic, Atraumatic, Moist Mucous Membranes and Oxygen
Respiratory: Decreased Breath Sounds
Cardiac: Regular Rhythm and S1/S2
GI: Soft, Nontender, Nondistended and Normal Bowel Sounds
Neuro: Awake, Alert, Oriented and AO x 3
Psych: Calm
[2024-09-13] MEDS: LOVENOX 40 MG SC (17:10)
--- NOTE | 2024-09-13 18:01 | CON.PUL ---
Consultation
Consultation Request
Date/Time Consultation Requested: 09/13/2024
Date/Time Consultation Performed: 09/13/2023
Requesting Provider: Dr. Macedo
Performing Provider: Dr. Natalio Reyez
Reason for Consultation: Shortness of breath/large pleural effusion
Medical History
-
History of Present Illness:
79-year-old woman with history of COPD, home oxygen 4 L who presented with shortness of breath. Discharged from the hospital 08/20/2024 after treated with pneumonia, left-sided parapneumonic effusion s/p thoracentesis. Negative cytology and
cultures.
Patient has pulmonary cachexia, prior tobacco abuse, presented for [facility] with worsening shortness of breath. Denies productive coughing or wheezing.
Past Medical History
Past Medical History: Other (See assessment and plan)
Social History
Tobacco: Former Smoker
Alcohol: None
Drug: None
Living: Other ([facility] facility)
Family History
Family History: Reviewed & Not Pertinent
Allergies / Home Medications
Allergies
Allergy/AdvReac Type Severity Reaction Status Date / Time
No Known Allergies Allergy Verified 09/12/24 15:48
Home Medications
�Medication �Instructions �Recorded �Confirmed �Last Taken �Type
albuterol sulfate 90 mcg/actuation 2 puff inhalation R Q4HPRN PRN 08/15/24 09/12/24 Unknown History
aerosol inhaler sob/wheeze
fluticasone propionate 50 2 spray intranasal DAILY Allergies 08/15/24 09/12/24 Unknown History
mcg/actuation nasal
spray,suspension
ipratropium 20 mcg-albuterol 100 1 puff inhalation R Q6HPRN PRN 08/15/24 09/12/24 2 Months Ago History
mcg/actuation mist for inhalation sob/copd ~06/15/24
(Combivent Respimat)
acetaminophen 325 mg tablet 650 mg PO Q4HPRN PRN mild 09/12/24 09/12/24 Unknown History
(Tylenol) pain/fever>100
bisacodyl 10 mg rectal suppository 10 mg MI DAILYPRN PRN day 5 no bm, 09/12/24 09/12/24 Unknown History
(Dulcolax (bisacodyl)) mom ineffective
diltiazem HCl 120 mg capsule,24 120 mg PO DAILY Rate control 09/12/24 09/12/24 Unknown History
hr,extended release
fluticasone fur. 100 mcg-umeclid 1 inh inhalation R DAILY 09/12/24 09/12/24 Unknown History
62.5 mcg-vilant 25 mcg Lung/Breathing Issues
inhalat.powder (Trelegy Ellipta)
hydroxyzine HCl 25 mg tablet 12.5 mg PO QIDPRN PRN anxiety 09/12/24 09/12/24 Unknown History
ipratropium 0.5 mg-albuterol 3 mg 3 ml inhalation R QID 09/12/24 09/12/24 Unknown History
(2.5 mg base)/3 mL nebulization Lung/Breathing Issues
soln
magnesium hydroxide 400 mg/5 mL 30 ml PO Q98H PRN On day 4 of no bm 09/12/24 09/12/24 Unknown History
oral suspension (Milk of Magnesia)
meclizine 12.5 mg tablet 12.5 mg PO TIDPRN PRN dizziness 09/12/24 09/12/24 Unknown History
pantoprazole 40 mg tablet,delayed 40 mg PO DAILY Gastrointestinal 09/12/24 09/12/24 Unknown History
release Issue
sodium chloride 0.65 % nasal spray 2 spray intranasal Q6HPRN PRN 09/12/24 09/12/24 Unknown History
aerosol (Nasal Moisturizing) nasal congestion
sodium phosphates 19 gram-7 118 ml MI DAILYPRN PRN day 6 no 09/12/24 09/12/24 Unknown History
gram/118 mL enema (Fleet Enema) bm, supp ineffective
Review of Systems
-
History Source: Patient
All other systems: Negative unless noted
Vitals / Labs / Diagnostic Testing
Vital Signs
Temp Pulse Resp BP Pulse Ox
98.0 F 91 16 114/52 94
09/13/24 15:30 09/13/24 15:41 09/13/24 15:41 09/13/24 15:30 09/13/24 15:41
Lab Data
09/13/24 00:09
09/13/24 06:57
Microbiology
09/13/24 11:52 Pleural Fluid Gram Stain - Preliminary
09/13/24 11:52 Pleural Fluid Fungal Culture - Preliminary
Culture in progress.
Positive cultures are reported as soon as detected.
Final report to follow in four to five weeks.
Diagnostic Testing:
Physical Exam
-
HEENT: Normocephalic
Cardiovascular: S1/S2
Respiratory: Other (Decreased breath sounds on the left)
GI: Soft and Non Distended
Neurology: Awake, Alert and No Motor Deficits
Skin: Warm
General: Comfortable
Assessment
-
Shortness of breath/hypoxemic respiratory failure due to large left pleural effusion-recurrent
Chest x-ray showed large left pleural effusion-repeat thoracentesis 09/13/2024: 650 cc straw-colored fluid. Severe pain after fluid drainage.
Status post thoracentesis 08/20/2024-exudative with negative culture
--
Discharged from the [id number]24 with acute exacerbation of COPD and pneumonia and left pleural effusion
CT chest performed showing moderate to advanced emphysema with a mild�moderate left-sided pleural effusion which appears to be loculated with masslike opacities in the lingula + left lower lobe
Ultrasound showed moderate size left pleural effusion 08/17/2020 24-450 mL. Exudate/culture negative/cytology atypical mesothelial cells. Favoring reactive process
#Chronic respiratory failure with hypercapnia
Discharged on trilogy ventilator 08/20/2024
Latest ABG 7.4/75/60 08/17/2024
#Acute on chronic respiratory failure with hypoxia due to above
#Elevated eosinophil count (mild at 300 from 08/15/2024)
#Metabolic alkalosis due to chronic hypercapnia
#Emphysema/COPD on Trelegy 200mcg at home + home O2 (4-6L/min ATC)
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
Assessment and plan:
Status post repeat left thoracentesis 09/13/2024-patient developed pain and thoracentesis was aborted after 650 cc of straw-colored fluid were drained
pH 7.44/white blood cell 3906/mononuclears 91%/fluid glucose 116/total protein/LDH 143/ambulates 4100/triglycerides less than 30
Exudative
Unclear whether this is residual from pneumonia
Wait for repeat cytology-still could be malignant. Prior cytology with atypical cells.
No indication for antibiotics there is no evidence for empyema or signs of complicated effusion.
Prior CT chest noted-left lower lobe masslike opacity possibly from pneumonia. Cannot rule out lung mass.
If there is rapid recurrence and/or patient remains symptomatic with residual pleural effusion, will recommend placing a chest tube.
Will obtain a sed rate, CRP CONRAD, rheumatoid factor and [id number]-[id number] rheumatologic disease at this point but since the effusion is exudate we will complete workup
-----
From a COPD perspective: Not bronchospastic but still short of breath. Unclear if her inhalers have been effective.
Continue albuterol HFA as needed and nebulizers.
Patient continues to report shortness of breath-underlying severe COPD with hyperinflation suspected. Chronic hypercapnic respiratory failure.
-
Given that she takes Trelegy at home, continue Symbicort + Spiriva while hospitalized and then resume her Trelegy upon discharge.
No need for systemic corticosteroids at this point.
Given ongoing shortness of breath will transition to nebulized therapy as a trial. Discussed with patient. If she feels better we will transition to nebulized therapy upon discharge. DuoNebs 4 times a day plus Pulmicort twice a day.
Hold inhalers
Maintain SpO2 88-95% with supplemental oxygen
- Replete electrolytes with K>4, Mg>2
- Trend H/H and transfuse if needed to keep Hb>7g/dL; keep plt>20k, unless there is concern for bleeding then keep plt>50k
- Incentive spirometer encouraged 10x per hour for at least 4 hrs a day
- DVT ppx: LMWH
Of note, on admission, the patient's daughter was able to access the portal connected to her fruit press operator, Dr. Romo.

Data:
CXR 08/15/2024: Evidence for small to moderate left pleural effusion with mild lateral loculation. Patchy parenchymal opacity within the left mid to lower lung, suspicious for pneumonia, although there could also be a component of atelectasis. Also
of note, underlying mass/neoplasia cannot be excluded radiographically and radiographic follow-up is recommended.
CT chest without contrast 08/15/2024: Moderate to advanced emphysematous lung changes. Mild to moderate left pleural effusion. Masslike opacities in the lingula and left lower lobe. Probable round pneumonia. Follow-up recommended to assess for
resolution. Minor localized tree-in-bud attenuation in the superior segment of the right lower lobe, nonspecific bronchiolitis. 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
Left chest US 08/17/2024: Moderate left pleural effusion. Stable
[2024-09-13] MEDS: PULMICORT 0.5 MG INH (19:50)
[2024-09-14] MEDS: DUONEB 3 ML INH ×6 (00:06→23:54)
[2024-09-14 03:40] VITALS: BP 106/52
[2024-09-14] MEDS: PULMICORT 0.5 MG INH ×2 (07:52→19:16)
[2024-09-14 07:55] VITALS: BP 110/58
[2024-09-14 08:53] LABS: ALT (SGPT) 40 U/L (0-35); AST (SGOT) 39 U/L (14-36); Albumin 3.2 g/dl (3.5-5.0); Alkaline Phosphatase 61 U/L (38-126); Blood Urea Nitrogen 10 mg/dl (7-17); Calcium 8.9 mg/dl (8.4-10.2); Chloride 89 mmol/L (98-107); Estimated Creatinine Clearance 71 ml/min; Glucose 91 mg/dl (70-99); Potassium 4.1 mmol/L (3.5-5.1); Sodium 136 mmol/L (135-145); Total Bilirubin 0.3 mg/dl (0.2-1.3); Total Protein 5.8 g/dl (6.3-8.2); eGFR > 60.00
[2024-09-14 09:02] LABS: Carbon Dioxide 38 mmol/L (22-30)
--- NOTE | 2024-09-14 09:04 | PTOTSP ---
Speech Pathology: Clinical Swallow Evaluation
79F with admission from [facility] for large left pleural effusion and SOB p/w s/s concerning for acute on chronic oropharyngeal dysphagia. Aspiration risk increased at this time given tenuous respiratory status and multiple comorbidities (COPD,
recurrent pleural effusions, baseline O2 use). Had a script for an OP video swallow study from [facility] to rule out silent aspiration, hopes to complete this study prior to discharge.
Recommendations:
1. Continue with baseline diet at this time given no overt s/s of aspiration this date - Regular textures (IDDSI 7), thin liquids (IDDSI 0)
2. Meds as tolerated
3. Safe swallowing strategies: small bites, single sips, slow rate
4. Video swallow study to r/o silent aspiration and determine safest and least restrictive diet level
[2024-09-14] MEDS: PROTONIX 40 MG PO (09:23)
[2024-09-14 09:27] VITALS: BP 102/51
[2024-09-14] MEDS: CARDIZEM CD 120 MG PO (10:54)
[2024-09-14 10:57] LABS: Erythrocyte Sed Rate 51 mm/hour (0-20)
--- NOTE | 2024-09-14 12:54 | W.PN.HOSP.TC ---
Today's Communication/Plan
-
VSE in am
CXR in am
Assessment / Plan
Assessment / Plan
A/P
#Shortness of breath secondary to large LEFT sided pleural effusion
#Chronic hypoxic and hypercapnic respiratory failure
#History of COPD
#History of severe tobacco abuse
#History of pleural effusion status post recent thoracentesis-which was deemed parapneumonic
[facility] consulted for thoracentesis status post thoracentesis 650 cc of straw-colored pleural fluid removed. Further fluid removal was stopped as patient complained of pain.
Fluid culture is negative so far.
Will need telemetry for further cytology results. Previous cytology results with atypical cells. possibly reactive.
Doubt fungal infection-fluid in lab
Repeat two-view chest x-ray tomorrow to assess for pleural effusion.
Pulmonary evaluation for recurrent effusion
Monitor off antibiotics
ESR/CRP elevated. ANCA pending
If persistent pleural effusion may require Chest tube
Continue with bronchodilators
Tachycardia
Continue with Cardizem
Transaminitis
could be from recent infection
trend for now. If uptrended check US.
Suspected dysphagia
Video swallow eval in the morning
PT eval
Hx of Dizziness/?vertig-meclizine prn
Severe anxiety-cont atarax
dvt ppx-lovenox
Anticipated Discharge: > 48 hours
Subjective/Interval History
-
Date of Service: September 14, 2024
states breathing has improved
thoracentesis stopped yesterday as complained of pain
Objective Data
-
Labs:
Laboratory Results
09/14/24
06:51
Sodium 136
Potassium 4.1
Chloride 89 L
Carbon Dioxide 38 H
BUN 10
Creatinine 0.4 L
Glucose 91
Calcium 8.9
Total Bilirubin 0.3
AST 39 H
ALT 40 H
Alkaline Phosphatase 61
Vital Signs:
Vital Signs
Temp Pulse Resp BP Pulse Ox
97.8 F 88 16 121/60 94
09/14/24 11:30 09/14/24 12:06 09/14/24 12:06 09/14/24 10:54 09/14/24 11:30
I&O
09/13/24 09/14/24 09/15/24
06:59 06:59 06:59
Intake Total 1440 / 1440
Balance 1440 / 1440
Physical Exam
-
General: Appears in Distress and Appears Chronically Ill
HEENT: Normocephalic, Atraumatic, Moist Mucous Membranes and Oxygen
Respiratory: Decreased Breath Sounds
Cardiac: Regular Rhythm and S1/S2
GI: Soft, Nontender, Nondistended and Normal Bowel Sounds
Neuro: Awake, Alert, Oriented, AO x 3 and No Motor Deficits; Negative Tremors, Slurred Speech or Facial Droop
Psych: Calm
[2024-09-14 15:30] VITALS: BP 109/48
[2024-09-14] MEDS: ATARAX 12.5 MG PO ×2 (16:30→23:50)
[2024-09-14] MEDS: LOVENOX 40 MG SC (17:11)
--- NOTE | 2024-09-14 18:11 | W.PN.PUL3 ---
Today's Communication / Plan
-
Follow cytology
Chest x-ray tomorrow
Video barium swallow tomorrow
Follow serology
Assessment
-
Shortness of breath/hypoxemic respiratory failure due to large left pleural effusion-recurrent
Chest x-ray showed large left pleural effusion-repeat thoracentesis 09/13/2024: 650 cc straw-colored fluid. Severe pain after fluid drainage.
Status post thoracentesis 08/20/2024-exudative with negative culture
--
Discharged from the [id number]2024 with acute exacerbation of COPD and pneumonia and left pleural effusion
CT chest performed showing moderate to advanced emphysema with a mild�moderate left-sided pleural effusion which appears to be loculated with masslike opacities in the lingula + left lower lobe
Ultrasound showed moderate size left pleural effusion 08/17/2020 24-450 mL. Exudate/culture negative/cytology atypical mesothelial cells. Favoring reactive process
#Chronic respiratory failure with hypercapnia
Discharged on trilogy ventilator 08/20/2024
Latest ABG 7.4/75/60 08/17/2024
#Acute on chronic respiratory failure with hypoxia due to above
#Elevated eosinophil count (mild at 300 from 08/15/2024)
#Metabolic alkalosis due to chronic hypercapnia
#Emphysema/COPD on Trelegy 200mcg at home + home O2 (4-6L/min ATC)
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
Assessment and plan:
Status post repeat left thoracentesis 09/13/2024-patient developed pain and thoracentesis was aborted after 650 cc of straw-colored fluid were drained
pH 7.44/white blood cell 3906/mononuclears 91%/fluid glucose 116/total protein/LDH 143/ambulates 4100/triglycerides less than 30
Exudative
Unclear whether this is residual from pneumonia
Wait for repeat cytology-still could be malignant. Prior cytology with atypical cells.
No indication for antibiotics there is no evidence for empyema or signs of complicated effusion.
Prior CT chest noted-left lower lobe masslike opacity possibly from pneumonia. Cannot rule out lung mass.
If there is rapid recurrence and/or patient remains symptomatic with residual pleural effusion, will recommend placing a chest tube.
-
Sedimentation rate and 51-not significantly elevated.
CRP 41-not significantly elevated
Will obtain CONRAD, rheumatoid factor and wmsd-SVO-vebux rheumatologic disease at this point but since the effusion is exudate we will complete workup
-
Repeat chest x-ray 09/15/2024.
-----
From a COPD perspective: Not bronchospastic but still short of breath. Unclear if her inhalers have been effective.
Continue albuterol HFA as needed and nebulizers.
Patient continues to report shortness of breath-underlying severe COPD with hyperinflation suspected. Chronic hypercapnic respiratory failure.
-
Given that she takes Trelegy at home, continue Symbicort + Spiriva while hospitalized and then resume her Trelegy upon discharge.
No need for systemic corticosteroids at this point.
Given ongoing shortness of breath will transition to nebulized therapy as a trial. Discussed with patient. If she feels better we will transition to nebulized therapy upon discharge. DuoNebs 4 times a day plus Pulmicort twice a day.
Hold inhalers
Maintain SpO2 88-95% with supplemental oxygen
Speech evaluation ongoing
For barium swallow in the morning
- Incentive spirometer encouraged 10x per hour for at least 4 hrs a day
- DVT ppx: LMWH
Of note, on prior admission, the patient's daughter was able to access the portal connected to her chemical process equipment operator, Dr. Romo.

Data:
CXR 08/15/2024: Evidence for small to moderate left pleural effusion with mild lateral loculation. Patchy parenchymal opacity within the left mid to lower lung, suspicious for pneumonia, although there could also be a component of atelectasis. Also
of note, underlying mass/neoplasia cannot be excluded radiographically and radiographic follow-up is recommended.
CT chest without contrast 08/15/2024: Moderate to advanced emphysematous lung changes. Mild to moderate left pleural effusion. Masslike opacities in the lingula and left lower lobe. Probable round pneumonia. Follow-up recommended to assess for
resolution. Minor localized tree-in-bud attenuation in the superior segment of the right lower lobe, nonspecific bronchiolitis. 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
Left chest US 08/17/2024: Moderate left pleural effusion. Stable
Subjective Data
-
Date of Service:
Date of Service: September 14, 2024
Objective Data
Data Reviewed
Vital Signs / I&O / Oxygen:
Vital Signs
Temp Pulse Resp BP Pulse Ox
98.1 F 91 20 109/48 93
09/14/24 15:30 09/14/24 15:30 09/14/24 15:30 09/14/24 15:30 09/14/24 15:30
Intake and Output
09/13/24 09/14/24 09/15/24
06:59 06:59 06:59
Intake Total 1440 / 1440
Balance 1440 / 1440
SaO2 93
Nasal Cannula flow liters per 4
minute
Labs/Micro/Reports
Lab Data
09/13/24 00:09
09/14/24 06:51
Microbiology
09/13/24 11:52 Pleural Fluid Body Fluid Culture - Preliminary
No Growth After 18-24 Hours
09/13/24 11:52 Pleural Fluid Gram Stain - Preliminary
09/13/24 11:52 Pleural Fluid Fungal Culture - Preliminary
Culture in progress.
Positive cultures are reported as soon as detected.
Final report to follow in four to five weeks.
[2024-09-14 19:44] VITALS: BP 105/50
[2024-09-14 23:50] VITALS: BP 111/51
[2024-09-14] MEDS: TYLENOL 650 MG PO (23:50)
[2024-09-15 03:35] VITALS: BP 104/53
[2024-09-15 06:53] VITALS: BP 108/49
[2024-09-15] MEDS: PULMICORT 0.5 MG INH ×2 (08:21→20:32)
[2024-09-15] MEDS: DUONEB 3 ML INH ×5 (08:21→23:54)
[2024-09-15 09:05] LABS: ALT (SGPT) 40 U/L (0-35); AST (SGOT) 38 U/L (14-36); Albumin 3.3 g/dl (3.5-5.0); Alkaline Phosphatase 66 U/L (38-126); Blood Urea Nitrogen 9 mg/dl (7-17); Chloride 87 mmol/L (98-107); Estimated Creatinine Clearance 71 ml/min; Glucose 82 mg/dl (70-99); Sodium 135 mmol/L (135-145); Total Bilirubin 0.3 mg/dl (0.2-1.3); Total Protein 6.1 g/dl (6.3-8.2); eGFR > 60.00
[2024-09-15] MEDS: ATARAX 12.5 MG PO ×3 (09:26→23:55)
[2024-09-15] MEDS: PROTONIX 40 MG PO (09:26)
[2024-09-15] MEDS: FLUSH (NSS) 1 FLUSH IV (09:26)
[2024-09-15] MEDS: CARDIZEM CD 120 MG PO (09:26)
--- NOTE | 2024-09-15 10:00 | PTOTSP ---
Speech Language Pathology
VIDEOFLUOROSCOPIC SWALLOWING EXAMINATION (VSE) completed. Oropharyngeal swallow WFL. Only trace intermittent pharyngeal residue. Transient supraglottic penetration (PAS 2) noted with consecutive straw sips of thin liquids. No other penetration or
any aspiration noted during study.
Recommend:
(1) Regular solids/thin liquids
(2) General aspiration precautions
(3) Meds as tolerated
(4) COSMETIC ACCOUNT COORDINATOR to sign off. Please reconsult as indicated.
[2024-09-15 10:53] LABS: Carbon Dioxide 40 mmol/L (22-30)
--- NOTE | 2024-09-15 11:14 | W.PN.PUL.V3 ---
Today's Communication / Plan
-
Await cytology.
Continue nebulizers.
Wean oxygen.
Check cytology.
Monitor for pleural fluid reaccumulation-suspect will be fairly rapid-consider chest tube
Assessment
-
Shortness of breath/hypoxemic respiratory failure due to large left pleural effusion-recurrent
Chest x-ray showed large left pleural effusion-repeat thoracentesis 09/13/2024: 650 cc straw-colored fluid. Severe pain after fluid drainage.
Status post thoracentesis 08/20/2024-exudative with negative culture
Discharged from the [id number]24 with acute exacerbation of COPD and pneumonia and left pleural effusion
CT chest performed showing moderate to advanced emphysema with a mild�moderate left-sided pleural effusion which appears to be loculated with masslike opacities in the lingula + left lower lobe
Ultrasound showed moderate size left pleural effusion 08/17/2020 24-450 mL. Exudate/culture negative/cytology atypical mesothelial cells. Favoring reactive process
#Chronic respiratory failure with hypercapnia
Discharged on trilogy ventilator 08/20/2024
Latest ABG 7.4/75/60 08/17/2024
#Acute on chronic respiratory failure with hypoxia due to above
#Elevated eosinophil count (mild at 300 from 08/15/2024)
#Metabolic alkalosis due to chronic hypercapnia
#Emphysema/COPD on Trelegy 200mcg at home + home O2 (4-6L/min ATC)
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
Assessment and plan:
Respiratory status tenuous with anxiety playing a significant contributing role.
Supplemental oxygen as needed.
Nebulizers-DuoNeb's and budesonide.
Consider Symbicort and Spiriva-takes Trelogy at home--resume the time of discharge
Aspiration precautions.
Speech therapy following-correspondence reviewed.
Video swallow 09/15/24-recommend regular solids and thin liquids
Mucolytic as needed
Chest x-ray 09/15/2406-[id number]-ncama left pleural effusion, mildly increased following thoracentesis, large left lower airspace disease and severe hyperinflation of the right
Status post repeat left thoracentesis 09/13/2024-patient developed pain and thoracentesis was aborted after 650 cc of straw-colored fluid were drained
pH 7.44/white blood cell 3906/mononuclears 91%/fluid glucose 116/total protein/LDH 143/ambulates 4100/triglycerides less than 30
Exudative
Cytology-pending- could be malignant, prior cytology with atypical cells
If there is rapid recurrence and/or patient remains symptomatic with residual pleural effusion, will recommend placing a chest tube
DVT prophylaxis-on Lovenox.
GI prophylaxis-on pantoprazole.
Will obtain CONRAD, rheumatoid factor and yfto-FBH-vipfy rheumatologic disease at this point but since the effusion is exudate we will complete workup
Of note, on prior admission, the patient's daughter was able to access the portal connected to her supervisor slitting and shipping, Dr. Romo.
Data:
CXR 08/15/2024: Evidence for small to moderate left pleural effusion with mild lateral loculation. Patchy parenchymal opacity within the left mid to lower lung, suspicious for pneumonia, although there could also be a component of atelectasis. Also
of note, underlying mass/neoplasia cannot be excluded radiographically and radiographic follow-up is recommended.
CT chest without contrast 08/15/2024: Moderate to advanced emphysematous lung changes. Mild to moderate left pleural effusion. Masslike opacities in the lingula and left lower lobe. Probable round pneumonia. Follow-up recommended to assess for
resolution. Minor localized tree-in-bud attenuation in the superior segment of the right lower lobe, nonspecific bronchiolitis. 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
Left chest US 08/17/2024: Moderate left pleural effusion. Stable
Subjective Data
-
Date of Service:
Date of Service: September 15, 2024
Chief Complaint: Pulmonary Follow Up and Dyspnea Follow Up
Subjective:
Complains of anxiety, no increased shortness of breath,, has chronic dyspnea exertion, no chest pain or abdominal pain
Review of Systems
General: Other ( per HPI)
Objective Data
Data Reviewed
Vital Signs / I&O:
Vital Signs
Temp Pulse Resp BP Pulse Ox
98.1 F 77 22 108/49 96
09/15/24 06:53 09/15/24 09:26 09/15/24 08:25 09/15/24 09:26 09/15/24 09:23
Intake and Output
09/14/24 09/15/24 09/16/24
06:59 06:59 06:59
Intake Total 1440 / 1440 960 / 960
Balance 1440 / 1440 960 / 960
SaO2: 96
Nasal Cannula flow liters per minute: 4
Physical Exam
General: Respiratory Distress (n) and Comfortable
HEENT: Normocephalic and Anicteric
Cardiovascular: Regular Rhythm and Murmur
Respiratory: Clear ( diminished throughout, hyperinflation, prolonged expiratory time), Wheeze ( Few expiratory), Crackles (. Rare basilar), Rhonchi (n), Non-Labored Respirations and Accessory Resp Muscle Use (n)
GI: Soft
Neurology: Awake, Alert and No Motor Deficits
Skin: Warm, Good Color and Cyanosis
Labs/Micro/Reports
Lab Data
09/13/24 00:09
09/15/24 07:20
Microbiology
09/13/24 11:52 Pleural Fluid Body Fluid Culture - Preliminary
No Growth After 48 Hours
09/13/24 11:52 Pleural Fluid Gram Stain - Preliminary
09/13/24 11:52 Pleural Fluid Fungal Culture - Preliminary
Culture in progress.
Positive cultures are reported as soon as detected.
Final report to follow in four to five weeks.
[2024-09-15 11:25] VITALS: BP 97/49
--- NOTE | 2024-09-15 14:58 | W.PN.HOSP.TC ---
Today's Communication/Plan
-
await decision on chest tube vs repeat CT scan
Assessment / Plan
Assessment / Plan
A/P
#Shortness of breath secondary to large LEFT sided pleural effusion
fluid is an exudate. Reviewed with Dr Gómez
#Chronic hypoxic and hypercapnic respiratory failure
#History of COPD
#History of severe tobacco abuse
#History of pleural effusion status post recent thoracentesis-which was deemed parapneumonic
[facility] consulted for thoracentesis status post thoracentesis 650 cc of straw-colored pleural fluid removed. Further fluid removal was stopped as patient complained of pain.
Fluid culture is negative so far.
Await further cytology results. Previous cytology results with atypical cells. possibly reactive.
Doubt fungal infection-fluid in lab
Repeat two-view chest x-ray tomorrow to assess for pleural effusion.
Pulmonary evaluation for recurrent effusion
Monitor off antibiotics
ESR/CRP elevated. ANCA pending
If persistent pleural effusion may require Chest tube. Consider repeat CT scan after fluid drained (?post chest tube)
Continue with bronchodilators
Tachycardia
Continue with Cardizem
Transaminitis
could be from recent infection
trend for now. If uptrended check US.
Suspected dysphagia
Video swallow eval in the morning
PT eval
Hx of Dizziness/?vertig-meclizine prn
Severe anxiety-cont atarax
Call placed and reviewed with Emily hope, 25 minutes
total time 60 minutes
dvt ppx-lovenox
Anticipated Discharge: > 48 hours
Subjective/Interval History
-
Date of Service: September 15, 2024
Awake, alert, conversant
Objective Data
-
Labs:
Laboratory Results
09/15/24
07:20
Sodium 135
Potassium 4.0
Chloride 87 L
Carbon Dioxide 40 H
BUN 9
Creatinine 0.4 L
Glucose 82
Calcium 9.0
Total Bilirubin 0.3
AST 38 H
ALT 40 H
Alkaline Phosphatase 66
Vital Signs:
Vital Signs
Temp Pulse Resp BP Pulse Ox
98.2 F 84 20 97/49 98
09/15/24 11:25 09/15/24 11:25 09/15/24 11:25 09/15/24 11:25 09/15/24 11:25
I&O
09/14/24 09/15/24 09/16/24
06:59 06:59 06:59
Intake Total 1440 / 1440 960 / 960
Balance 1440 / 1440 960 / 960
Review of Systems
-
History Source: Patient and Family (reviewed with Emily hope)
Constitutional: Denies Fever
Respiratory: Reports Trouble Breathing
Physical Exam
-
General: Well Developed, Well Nourished and No Apparent Distress
HEENT: Normocephalic, Atraumatic and Moist Mucous Membranes
Respiratory: Decreased Breath Sounds (bilateral decreased BS)
Cardiac: Regular Rhythm and S1/S2
GI: Soft, Nontender and Nondistended
Musculoskeletal: No Clubbing, No Cyanosis and No Edema
Neuro: Awake, Alert and Oriented
[2024-09-15 15:27] VITALS: BP 121/54
--- NOTE | 2024-09-15 16:49 | PTCARENOTE ---
Pt AAO x3, HIRSCH. Can position self in bed; refuses offers of OOB activity. Pt anxious at times. VSS. Maintained on 4 lpm/midflow O2; (+) MURPHY/tachypnea; occ productive cough- clear mucus. Abd soft, rounded, karishma PO. Voids on bedpan, refuses offers
of BSC.. Resting in bed at present; napping for long intervals. Will continue to monitor.
[2024-09-15] MEDS: TYLENOL 650 MG PO (16:58)
[2024-09-15] MEDS: LOVENOX 40 MG SC (18:27)
[2024-09-15 19:39] VITALS: BP 108/54
[2024-09-15 23:55] VITALS: BP 104/55
[2024-09-16] MEDS: DUONEB 3 ML INH ×6 (03:47→23:22)
[2024-09-16 03:59] VITALS: BP 109/55
[2024-09-16] MEDS: OCEAN, SALINE MIST 2 SPRAYS NASAL ×2 (05:50→16:26)
[2024-09-16 07:47] VITALS: BP 109/58
[2024-09-16] MEDS: PROTONIX 40 MG PO (07:48)
[2024-09-16] MEDS: CARDIZEM CD PO (07:48)
[2024-09-16] MEDS: ATARAX 12.5 MG PO ×2 (07:51→16:29)
[2024-09-16] MEDS: PULMICORT 0.5 MG INH ×2 (08:04→20:21)
[2024-09-16] MEDS: TYLENOL 650 MG PO ×2 (09:26→22:18)
--- NOTE | 2024-09-16 10:39 | W.PN.PUL.V3 ---
Today's Communication / Plan
-
.
Chest tube placement-Dr. Gómez consulted and called interventional radiology.
Complete fluid evacuation.
Recheck cytology.
Subsequent CT chest.
Dr. Gómez updated daughter, Emily
Assessment
-
Shortness of breath/hypoxemic respiratory failure due to large left pleural effusion-recurrent
Chest x-ray showed large left pleural effusion-repeat thoracentesis 09/13/2024: 650 cc straw-colored fluid. Severe pain after fluid drainage.
Status post thoracentesis 08/20/2024-exudative with negative culture
Discharged from the [id number]2024 with acute exacerbation of COPD and pneumonia and left pleural effusion
CT chest performed showing moderate to advanced emphysema with a mild�moderate left-sided pleural effusion which appears to be loculated with masslike opacities in the lingula + left lower lobe
Ultrasound showed moderate size left pleural effusion 08/17/2020 24-450 mL. Exudate/culture negative/cytology atypical mesothelial cells. Favoring reactive process
#Chronic respiratory failure with hypercapnia
Discharged on trilogy ventilator 08/20/2024
Latest ABG 7.4/75/60 08/17/2024
#Acute on chronic respiratory failure with hypoxia due to above
#Elevated eosinophil count (mild at 300 from 08/15/2024)
#Metabolic alkalosis due to chronic hypercapnia
#Emphysema/COPD on Trelegy 200mcg at home + home O2 (4-6L/min ATC)
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
Plan
Respiratory status tenuous with anxiety playing a significant contributing role.
Supplemental oxygen as needed.
Nebulizers-DuoNeb's and budesonide.
Consider Symbicort and Spiriva-takes Trelogy at home--resume the time of discharge
Aspiration precautions.
Speech therapy following-correspondence reviewed.
Video swallow 09/15/24-recommend regular solids and thin liquids
Mucolytic as needed
Chest x-ray 09/15/2434-[id number] left pleural effusion, mildly increased following thoracentesis, large left lower airspace disease and severe hyperinflation of the right
Status post repeat left thoracentesis 09/13/2024-patient developed pain and thoracentesis was aborted after 650 cc of straw-colored fluid were drained
pH 7.44/white blood cell 3906/mononuclears 91%/fluid glucose 116/total protein/LDH 143/ambulates 4100/triglycerides less than 30
Exudative
Cytology-pending- could be malignant, prior cytology with atypical mesothelialcells
Repeat chest x-ray with moderate persistent left pleural effusion.
Recommend chest tube placement and complete pleural fluid evacuation with subsequent CT chest to assess left sided lower lobe pulmonary parenchyma.
Dr. Gómez called [facility] [phone]-explained current clinical situation, potential etiologies, need for chest tube placement for pleural fluid evacuation with subsequent CT chest, also discussed pathology/cytology that is
pending-she is in agreement with chest tube placement-Dr. Gómez called interventional radiology and placed consult-we'll repeat cytology on additional fluid removed
DVT prophylaxis-on Lovenox.
GI prophylaxis-on pantoprazole.
Will obtain CONRAD, rheumatoid factor and vdsx-DSR-rfjyf rheumatologic disease at this point but since the effusion is exudate we will complete workup
Of note, on prior admission, the patient's daughter was able to access the portal connected to her signal integrity engineer, Dr. Romo.
Data:
CXR 08/15/2024: Evidence for small to moderate left pleural effusion with mild lateral loculation. Patchy parenchymal opacity within the left mid to lower lung, suspicious for pneumonia, although there could also be a component of atelectasis. Also
of note, underlying mass/neoplasia cannot be excluded radiographically and radiographic follow-up is recommended.
CT chest without contrast 08/15/2024: Moderate to advanced emphysematous lung changes. Mild to moderate left pleural effusion. Masslike opacities in the lingula and left lower lobe. Probable round pneumonia. Follow-up recommended to assess for
resolution. Minor localized tree-in-bud attenuation in the superior segment of the right lower lobe, nonspecific bronchiolitis. 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
Left chest US 08/17/2024: Moderate left pleural effusion. Stable
Subjective Data
-
Date of Service:
Date of Service: September 16, 2024
Chief Complaint: Pulmonary Follow Up and Dyspnea Follow Up
Subjective:
Still with some shortness of breath, no chest pain or abdominal pain
Review of Systems
General: Other ( per HPI)
Objective Data
Data Reviewed
Vital Signs / I&O:
Vital Signs
Temp Pulse Resp BP Pulse Ox
98.1 F 96 22 109/58 94
09/16/24 07:47 09/16/24 08:08 09/16/24 08:08 09/16/24 07:48 09/16/24 10:05
Intake and Output
09/15/24 09/16/24 09/17/24
06:59 06:59 06:59
Intake Total 960 / 960 720 / 720
Balance 960 / 960 720 / 720
SaO2: 94
Nasal Cannula flow liters per minute: 4
Physical Exam
General: Respiratory Distress (n) and Comfortable
HEENT: Normocephalic and Anicteric
Cardiovascular: Regular Rhythm and Murmur
Respiratory: Clear ( diminished throughout, hyperinflation, prolonged expiratory time), Wheeze ( Few expiratory), Crackles (. Rare basilar), Rhonchi (n), Non-Labored Respirations and Accessory Resp Muscle Use (n)
GI: Soft
Neurology: Awake, Alert and No Motor Deficits
Skin: Warm, Good Color and Cyanosis
Labs/Micro/Reports
Lab Data
09/13/24 00:09
09/15/24 07:20
Microbiology
09/13/24 11:52 Pleural Fluid Body Fluid Culture - Final
No Growth After 72 Hours
09/13/24 11:52 Pleural Fluid Gram Stain - Final
09/13/24 11:52 Pleural Fluid Acid Fast Bacilli Smear - Preliminary
09/13/24 11:52 Pleural Fluid Acid Fast Bacilli Culture - Preliminary
09/13/24 11:52 Pleural Fluid Fungal Smear - Final
No yeast or fungal elements seen.
09/13/24 11:52 Pleural Fluid Fungal Culture - Preliminary
Culture in progress.
Positive cultures are reported as soon as detected.
Final report to follow in four to five weeks.
[2024-09-16 12:13] VITALS: BP 109/58
--- NOTE | 2024-09-16 14:48 | CM ---
BALTAZAR met with Dolores to complete IA. She lives alone in a senior apartment complex in [place]. Her son and daughter are supportive and will provide transport home at discharge.
[employer] she reports being independent; has a walker, cane and wheelchair for use as needed based on her activity.
Plan: Discharge home once medically cleared. No needs identified at this time.
--- NOTE | 2024-09-16 16:07 | W.PN.HOSP.TC ---
Today's Communication/Plan
-
chest tube placement
repeat CT scan post fluid removal
Assessment / Plan
Assessment / Plan
A/P
#Shortness of breath secondary to large LEFT sided pleural effusion
fluid is an exudate. Reviewed with Dr Gómez, plan is to place chest tube, drain fluid completely and then do repeat CT scan
#Chronic hypoxic and hypercapnic respiratory failure
#History of COPD
#History of severe tobacco abuse
#History of pleural effusion status post recent thoracentesis-which was deemed parapneumonic
iRad consulted for thoracentesis status post thoracentesis 650 cc of straw-colored pleural fluid removed. Further fluid removal was stopped as patient complained of pain.
Fluid culture remains negative
Await further cytology results. Previous cytology results with atypical cells. possibly reactive.
Doubt fungal infection-fluid in lab
Pulmonary evaluation for recurrent effusion
Monitor off antibiotics
ESR/CRP elevated. ANCA pending
Continue with bronchodilators
Tachycardia
Continue with Cardizem
Transaminitis
could be from recent infection
trend for now. If uptrended check US.
Suspected dysphagia
Video swallow eval in the morning
PT eval
Hx of Dizziness/?vertigo-meclizine prn
Severe anxiety-cont atarax
Call placed and reviewed with Emily hope, 25 minutes 09/15
dvt ppx-lovenox
Anticipated Discharge: > 48 hours
Subjective/Interval History
-
Date of Service: September 16, 2024
Concerned about diagnostic work up
Objective Data
-
Vital Signs:
Vital Signs
Temp Pulse Resp BP Pulse Ox
97.9 F 102 22 109/58 93
09/16/24 12:13 09/16/24 15:51 09/16/24 15:51 09/16/24 12:13 01/07/25 15:51
I&O
09/15/24 09/16/24 09/17/24
06:59 06:59 06:59
Intake Total 960 / 960 720 / 720
Balance 960 / 960 720 / 720
Review of Systems
-
History Source: Patient and Physician (reviewed with Dr. Gómez)
Constitutional: Denies Fever
EENT: Reports No Symptoms Reported
Respiratory: Reports Cough and Trouble Breathing
Cardiac: Reports No Symptoms; Denies Chest Pain
Abdomen/GI: Reports No Symptoms
Genitourinary: Reports No Symptoms
Physical Exam
-
General: Well Developed, Well Nourished and No Apparent Distress
HEENT: Normocephalic, Atraumatic and Moist Mucous Membranes
Respiratory: Decreased Breath Sounds (bilateral decreased BS)
Cardiac: Regular Rhythm and S1/S2
GI: Soft, Nontender and Nondistended
Musculoskeletal: No Clubbing, No Cyanosis and No Edema
Neuro: Awake, Alert and Oriented
[2024-09-16 16:25] VITALS: BP 108/61
[2024-09-16] MEDS: LOVENOX 40 MG SC (18:10)
[2024-09-16 19:35] VITALS: BP 105/51
[2024-09-16 23:19] VITALS: BP 102/50
[2024-09-16 23:40] LABS: CCP Antibody IgG/IgA 78 Units (0-19)
[2024-09-17] VITALS (14 sets, daily range): BP systolic 89–141; BP diastolic 57–78
[2024-09-17 01:55] LABS: ANA, IgG Reflex to HEp-2 None Detected (None Detected)
[2024-09-17] MEDS: DUONEB 3 ML INH ×5 (03:32→23:35)
[2024-09-17] MEDS: PULMICORT 0.5 MG INH ×2 (07:42→19:46)
[2024-09-17] MEDS: PROTONIX 40 MG PO (08:54)
[2024-09-17] MEDS: CARDIZEM CD 120 MG PO (08:54)
[2024-09-17] MEDS: FLUSH (NSS) 1 FLUSH IV (08:54)
[2024-09-17] MEDS: ATARAX 12.5 MG PO ×2 (08:54→14:33)
[2024-09-17] MEDS: TYLENOL 650 MG PO ×2 (09:04→20:16)
--- NOTE | 2024-09-17 10:10 | W.PN.PUL.V3 ---
Today's Communication / Plan
-
.
Wean oxygen.
Chest tube placement
Assessment
-
Shortness of breath/hypoxemic respiratory failure due to large left pleural effusion-recurrent
Chest x-ray showed large left pleural effusion-repeat thoracentesis 09/13/2024: 650 cc straw-colored fluid. Severe pain after fluid drainage.
Status post thoracentesis 08/20/2024-exudative with negative culture
Discharged from the [id number]/11/2024 with acute exacerbation of COPD and pneumonia and left pleural effusion
CT chest performed showing moderate to advanced emphysema with a mild�moderate left-sided pleural effusion which appears to be loculated with masslike opacities in the lingula + left lower lobe
Ultrasound showed moderate size left pleural effusion 08/17/2020 24-450 mL. Exudate/culture negative/cytology atypical mesothelial cells. Favoring reactive process
#Chronic respiratory failure with hypercapnia
Discharged on trilogy ventilator 08/20/2024
Latest ABG 7.4/75/60 08/17/2024
#Acute on chronic respiratory failure with hypoxia due to above
#Elevated eosinophil count (mild at 300 from 08/15/2024)
#Metabolic alkalosis due to chronic hypercapnia
#Emphysema/COPD on Trelegy 200mcg at home + home O2 (4-6L/min ATC)
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
Plan
Respiratory status tenuous with anxiety playing a significant contributing role.
Supplemental oxygen as needed-4 L-97% saturation
Nebulizers-DuoNeb's and budesonide.
Symbicort and Spiriva-takes Trelogy at home--resume the time of discharge
Aspiration precautions.
Speech therapy following-correspondence reviewed.
Video swallow 09/15/24-recommend regular solids and thin liquids
Mucolytic as needed
Chest x-ray 09/15/2473-[id number] left pleural effusion, mildly increased following thoracentesis, large left lower airspace disease and severe hyperinflation of the right
Status post repeat left thoracentesis 09/13/2024-patient developed pain and thoracentesis was aborted after 650 cc of straw-colored fluid were drained
pH 7.44/white blood cell 3906/mononuclears 91%/fluid glucose 116/total protein/LDH 143/ambulates 4100/triglycerides less than 30
Exudative
Cytology-pending- could be malignant, prior cytology with atypical mesothelial cells
Repeat chest x-ray with moderate persistent left pleural effusion.
Recommend chest tube placement 09/17/24 and complete pleural fluid evacuation with subsequent CT chest to assess left sided lower lobe pulmonary parenchyma.
Anti- CCP IgG/IgA Ab elevated 78-can be elevated with rheumatoid arthritis-CONRAD negative
Dr. Gómez called [facility] [phone]- on 09/16/24-explained current clinical situation, potential etiologies, need for chest tube placement for pleural fluid evacuation with subsequent CT chest, also discussed pathology/cytology
that is pending-she is in agreement with chest tube placement-Dr. Gómez called interventional radiology and placed consult-we'll repeat cytology on additional fluid removed
DVT prophylaxis-on Lovenox.
GI prophylaxis-on pantoprazole.
Will obtain CONRAD, rheumatoid factor and vavn-BCY-wlvzd rheumatologic disease at this point but since the effusion is exudate we will complete workup
Of note, on prior admission, the patient's daughter was able to access the portal connected to her coconut candy maker, Dr. Romo.
Data:
CXR 08/15/2024: Evidence for small to moderate left pleural effusion with mild lateral loculation. Patchy parenchymal opacity within the left mid to lower lung, suspicious for pneumonia, although there could also be a component of atelectasis. Also
of note, underlying mass/neoplasia cannot be excluded radiographically and radiographic follow-up is recommended.
CT chest without contrast 08/15/2024: Moderate to advanced emphysematous lung changes. Mild to moderate left pleural effusion. Masslike opacities in the lingula and left lower lobe. Probable round pneumonia. Follow-up recommended to assess for
resolution. Minor localized tree-in-bud attenuation in the superior segment of the right lower lobe, nonspecific bronchiolitis. 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
Left chest US 08/17/2024: Moderate left pleural effusion. Stable
Subjective Data
-
Date of Service:
Date of Service: September 17, 2024
Chief Complaint: Pulmonary Follow Up and Dyspnea Follow Up
Subjective:
No complaints of worsening shortness breath, chest pain or abdominal pain,
Review of Systems
General: Other ( per HPI)
Objective Data
Data Reviewed
Vital Signs / I&O:
Vital Signs
Temp Pulse Resp BP Pulse Ox
97.9 F 100 20 125/69 97
09/17/24 08:20 09/17/24 08:54 09/17/24 08:20 09/17/24 08:54 09/17/24 08:47
Intake and Output
09/16/24 09/17/24 09/18/24
06:59 06:59 06:59
Intake Total 720 / 720 240 / 240
Balance 720 / 720 240 / 240
SaO2: 97
Nasal Cannula flow liters per minute: 4
Physical Exam
General: Respiratory Distress (n) and Comfortable
HEENT: Normocephalic and Anicteric
Cardiovascular: Regular Rhythm and Murmur
Respiratory: Clear ( diminished throughout, hyperinflation, prolonged expiratory time), Wheeze ( Few expiratory), Crackles (. Rare basilar), Rhonchi (n), Non-Labored Respirations and Accessory Resp Muscle Use (n)
GI: Soft
Neurology: Awake, Alert and No Motor Deficits
Skin: Warm, Good Color and Cyanosis
Labs/Micro/Reports
Lab Data
09/13/24 00:09
09/15/24 07:20
Microbiology
09/13/24 11:52 Pleural Fluid Body Fluid Culture - Final
No Growth After 72 Hours
09/13/24 11:52 Pleural Fluid Gram Stain - Final
09/13/24 11:52 Pleural Fluid Acid Fast Bacilli Smear - Preliminary
09/13/24 11:52 Pleural Fluid Acid Fast Bacilli Culture - Preliminary
09/13/24 11:52 Pleural Fluid Fungal Smear - Final
No yeast or fungal elements seen.
09/13/24 11:52 Pleural Fluid Fungal Culture - Preliminary
Culture in progress.
Positive cultures are reported as soon as detected.
Final report to follow in four to five weeks.
--- NOTE | 2024-09-17 13:58 | W.PN.HOSP.TC ---
Today's Communication/Plan
-
await cytology
for chest tube
Assessment / Plan
Assessment / Plan
A/P
#Shortness of breath secondary to large LEFT sided pleural effusion
fluid is an exudate. Reviewed with Dr Gómez, plan is to place chest tube, drain fluid completely and then do repeat CT scan
#Chronic hypoxic and hypercapnic respiratory failure
#History of COPD
#History of severe tobacco abuse
#History of pleural effusion status post recent thoracentesis-which was deemed parapneumonic
iRad consulted for thoracentesis status post thoracentesis 650 cc of straw-colored pleural fluid removed. Further fluid removal was stopped as patient complained of pain.
Fluid culture remains negative
Await further cytology results. Previous cytology results with atypical cells. possibly reactive.
Doubt fungal infection-fluid in lab
Pulmonary evaluation for recurrent effusion
Monitor off antibiotics
ESR/CRP elevated. CONRAD neg, CCP IgG/IgA Ab 78 (nl 0-19)
Continue with bronchodilators
Tachycardia
Continue with Cardizem
Transaminitis
could be from recent infection
trend for now. If uptrended check US.
Suspected dysphagia
Video swallow eval in the morning
PT eval
Hx of Dizziness/?vertigo-meclizine prn
Severe anxiety-cont atarax
Call placed and reviewed with Emily hope, 25 minutes 09/15
dvt ppx-lovenox
Anticipated Discharge: > 48 hours
Subjective/Interval History
-
Date of Service: September 17, 2024
Pt seen earlier today and was awaiting to go down for chest tube placement
Objective Data
-
Vital Signs:
Vital Signs
Temp Pulse Resp BP Pulse Ox
97.8 F 98 20 118/71 97
09/17/24 11:52 09/17/24 11:52 09/17/24 11:52 09/17/24 11:52 09/17/24 11:52
I&O
09/16/24 09/17/24 09/18/24
06:59 06:59 06:59
Intake Total 720 / 720 240 / 240
Balance 720 / 720 240 / 240
Review of Systems
-
History Source: Patient and Physician (reviewed with Dr. Gómez)
Constitutional: Denies Fever
EENT: Reports No Symptoms Reported
Respiratory: Reports Cough and Trouble Breathing
Cardiac: Reports No Symptoms; Denies Chest Pain
Abdomen/GI: Reports No Symptoms
Genitourinary: Reports No Symptoms
Physical Exam
-
General: Well Developed, Well Nourished and No Apparent Distress
HEENT: Normocephalic, Atraumatic and Moist Mucous Membranes
Respiratory: Decreased Breath Sounds (bilateral decreased BS)
Cardiac: Regular Rhythm and S1/S2
GI: Soft, Nontender and Nondistended
Musculoskeletal: No Clubbing, No Cyanosis and No Edema
Neuro: Awake, Alert and Oriented
[2024-09-17] MEDS: DUONEB INH (15:42)
--- NOTE | 2024-09-17 16:09 | PTCARENOTE ---
Pt AAO x3, anxious; requesting prn Atarax. Irritable at times. HIRSCH; refuses any oOB activity. VSS. Telemetry:NSR . Maintained on mid-flow O2/4 lpm; pt with (+) MURPHY/tachypnea; frequent harsh cough. Abd soft, rounded, NPO for shift for IR
procedure. Voids clear yellow urine on bedpan. Pt currently off unit for CT placement in IR. Will continue to monitor.
--- NOTE | 2024-09-17 18:30 | PTCARENOTE ---
Pt returned from IR via stretcher, accompanied by PCT Ross Fair. Pt AAO x3, HIRSCH; weak; transferred to bed with assist x2. VSS. Telemetry: NSR. On midflow O2/4 lpm- pulse ox 92%, pt with (+) tachypnea/orthopnea/MURPHY. Lungs with coarse BS Lt
base, decreased BS Rt side. Lt lateral CT to 20 cm wall suction draining light serosanginous fluid; dsg D/I, no crepitus/drainage/bruising noted. Resting comfortably at present. Will continue to monitor.
[2024-09-17] MEDS: LOVENOX 40 MG SC (18:41)
[2024-09-17] MEDS: TORADOL 10 MG IV (21:53)
--- NOTE | 2024-09-17 22:00 | PTCARENOTE ---
Pt received Tylenol at 815pm for complaint of pain at left chest tube site. At 2145 pt complained of pain 10/. Carleen FOWLER aware and ordered one time dose of Toradol 10mg. Pt's daughter at bedside and updated on new medication.
[2024-09-18] MEDS: DUONEB 3 ML INH ×5 (03:38→19:48)
[2024-09-18 03:45] VITALS: BP 105/56
[2024-09-18 07:50] VITALS: BP 101/57
[2024-09-18] MEDS: PULMICORT 0.5 MG INH ×2 (08:21→19:48)
[2024-09-18 08:56] LABS: % Basophils 0.3 % (0-2); % Immature Granulocytes 0.3 % (0-0.5); % Lymphocytes 12.8 % (20.5-51.1); % Monocytes 11.7 % (1.7-9.3); % Neutrophils 67.9 % (42.2-75.2); Absolute Eosinophils 0.5 10^3/uL (0-0.7); Absolute Lymphocytes 0.8 10^3/uL (1.2-3.4); Absolute Monocytes 0.8 10^3/uL (0.1-0.6); Absolute Neutrophils 4.4 10^3/uL (1.4-6.5); Hematocrit 37.7 % (37.0-47.0); Hemoglobin 11.9 g/dL (12.0-16.0); Mean Corp Hgb Conc. 31.6 g/dL (33.0-37.0); Mean Corpuscular Hgb 30.5 pg (27.0-31.0); Mean Corpuscular Volume 96.7 fL (81.0-99.0); Mean Platelet Volume 9.4 fL (7.4-10.4); Nucleated Red Blood Cells % 0 %; Platelet Count 411 10^3/uL (130-400); Red Cell Dist. Width 13.3 % (11.5-14.5); White Blood Cell Count 6.4 10^3/uL (4.8-10.8)
[2024-09-18] MEDS: PROTONIX 40 MG PO (09:01)
[2024-09-18] MEDS: CARDIZEM CD 120 MG PO (09:01)
[2024-09-18] MEDS: ATARAX 12.5 MG PO ×2 (09:04→20:24)
[2024-09-18] MEDS: TYLENOL 650 MG PO ×3 (09:04→22:00)
[2024-09-18 10:12] LABS: ALT (SGPT) 26 U/L (0-35); AST (SGOT) 29 U/L (14-36); Albumin 3.2 g/dl (3.5-5.0); Alkaline Phosphatase 64 U/L (38-126); Blood Urea Nitrogen 16 mg/dl (7-17); Calcium 8.9 mg/dl (8.4-10.2); Chloride 88 mmol/L (98-107); Estimated Creatinine Clearance 71 ml/min; Glucose 72 mg/dl (70-99); Potassium 4.6 mmol/L (3.5-5.1); Sodium 134 mmol/L (135-145); Total Bilirubin 0.3 mg/dl (0.2-1.3); Total Protein 5.9 g/dl (6.3-8.2); eGFR > 60.00
[2024-09-18 10:21] LABS: Erythrocyte Sed Rate 53 mm/hour (0-20)
[2024-09-18 10:33] LABS: Carbon Dioxide 38 mmol/L (22-30)
[2024-09-18 11:57] VITALS: BP 105/55
--- NOTE | 2024-09-18 14:31 | W.PN.PUL.V3 ---
Today's Communication / Plan
-
.
Wean oxygen.
And methylprednisolone.
Continue nebulizers.
Monitor chest tube output.
Follow-up CT chest to assess pulmonary parenchyma when pleural fluid drained and lung reexpanded to the best of our ability
Assessment
-
Shortness of breath/hypoxemic respiratory failure due to large left pleural effusion-recurrent
Chest x-ray showed large left pleural effusion-
repeat thoracentesis 09/13/2024: 650 cc straw-colored fluid. Severe pain after fluid drainage.
history of thoracentesis 08/20/2024-exudative with negative culture
Chest tube, left side
Discharged from the [id number]24 with acute exacerbation of COPD and pneumonia and left pleural effusion
CT chest performed showing moderate to advanced emphysema with a mild�moderate left-sided pleural effusion which appears to be loculated with masslike opacities in the lingula + left lower lobe
Ultrasound showed moderate size left pleural effusion 08/17/2020 24-450 mL. Exudate/culture negative/cytology atypical mesothelial cells. Favoring reactive process
#Chronic respiratory failure with hypercapnia
Discharged on trilogy ventilator 08/20/2024
Latest ABG 7.4/75/60 08/17/2024
#Acute on chronic respiratory failure with hypoxia due to above
#Elevated eosinophil count (mild at 300 from 08/15/2024)
#Metabolic alkalosis due to chronic hypercapnia
#Emphysema/COPD on Trelegy 200mcg at home + home O2 (4-6L/min ATC)
#History of multiple lung nodules with prior PET/CT negative with no uptake in 2020 (per her triage rn's last office visit note on 05/22/2024)
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
Plan
Respiratory status tenuous with anxiety playing a significant contributing role.
Supplemental oxy, left side % saturation
Nebulizers-DuoNeb's and budesonide.
Symbicort and Spiriva-takes Trelogy at home--resume the time of discharge
Aspiration precautions.
Speech therapy following-correspondence reviewed.
Video swallow 09/15/24-recommend regular solids and thin liquids
Mucolytic as needed
Chest x-ray 09/15/2452-[id number] left pleural effusion, mildly increased following thoracentesis, large left lower airspace disease and severe hyperinflation of the right.
And steroids with persistent hypoxemia, prolonged exit 3 time and wheezing
Status post repeat left thoracentesis 09/13/2024-patient developed pain and thoracentesis was aborted after 650 cc of straw-colored fluid were drained
pH 7.44/white blood cell 3906/mononuclears 91%/fluid glucose 116/total protein/LDH 143/ambulates 4100/triglycerides less than 30
Exudative
Cytology-pending- could be malignant, prior cytology with atypical mesothelial cells
Status post left chest tube 09/17/24-cytology pending.
Monitor output--675 mL on 09/18/24,
CT chest with IV dye when majority of pleural fluid evacuated, lung reexpanded-assess left lower lobe pulmonary parenchyma.
Cytology pending from thoracentesis 09/13/24 and chest tube drainage 09/17/24
Anti- CCP IgG/IgA Ab elevated 78-can be elevated with rheumatoid arthritis-CONRAD negatiDrGenoveva Gómez called [phone] on 09/16/24-explained current clinical situation, potential etiologies, need for chest tube placement for pleural fluid
evacuation with subsequent CT chest, also discussed pathology/cytology that is pending-she is in agreement with chest tube placement-Dr. Gómez called interventional radiology and placed consult-we'll repeat cytology on additional fluid removed
DVT prophylaxis-on Lovenox.
GI prophylaxis-on pantoprazole..
Nutrition
Early mobilization
Reviewed with nursing and respiratory therapy
Family discussions:
Dr. Gómez called [phone] on 09/16/24-explained current clinical situation, potential etiologies, need for chest tube placement for pleural fluid evacuation with subsequent CT chest, also discussed pathology/cytology that is
pending-she is in agreement with chest tube placement-Dr. Gómez called interventional radiology and placed consult-we'll repeat cytology on additional fluid removed
Data:
CXR 08/15/2024: Evidence for small to moderate left pleural effusion with mild lateral loculation. Patchy parenchymal opacity within the left mid to lower lung, suspicious for pneumonia, although there could also be a component of atelectasis. Also
of note, underlying mass/neoplasia cannot be excluded radiographically and radiographic follow-up is recommended.
CT chest without contrast 08/15/2024: Moderate to advanced emphysematous lung changes. Mild to moderate left pleural effusion. Masslike opacities in the lingula and left lower lobe. Probable round pneumonia. Follow-up recommended to assess for
resolution. Minor localized tree-in-bud attenuation in the superior segment of the right lower lobe, nonspecific bronchiolitis. 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
Left chest US 08/17/2024: Moderate left pleural effusion. Stable
Subjective Data
-
Date of Service:
Date of Service: September 18, 2024
Chief Complaint: Pulmonary Follow Up and Dyspnea Follow Up
Subjective:
Still with significant shortness of breath, chest tube helped somewhat, no productive cough or abdominal pain
Review of Systems
General: Other ( per HPI)
Objective Data
Data Reviewed
Vital Signs / I&O:
Vital Signs
Temp Pulse Resp BP Pulse Ox
98 F 96 20 105/55 92
09/18/24 11:57 09/18/24 11:57 09/18/24 11:57 09/18/24 11:57 09/18/24 11:57
Intake and Output
0109/18/24 09/19/24
06:59 06:59 06:59
Intake Total 240 / 240 120 / 120
Output Total 675 / 675
Balance 240 / 240 -555 / -555
SaO2: 92
Nasal Cannula flow liters per minute: 4
Physical Exam
General: Respiratory Distress (n) and Comfortable
HEENT: Normocephalic and Anicteric
Cardiovascular: Regular Rhythm and Murmur
Respiratory: Clear ( diminished throughout, hyperinflation, prolonged expiratory time), Wheeze ( Few expiratory), Crackles (. Rare basilar), Rhonchi (n), Non-Labored Respirations, Accessory Resp Muscle Use (n) and Chest Tube ( left side)
GI: Soft
Neurology: Awake, Alert and No Motor Deficits
Skin: Warm, Good Color and Cyanosis
Labs/Micro/Reports
Lab Data
09/18/24 07:36
09/18/24 07:36
Microbiology
09/13/24 11:52 Pleural Fluid Body Fluid Culture - Final
No Growth After 72 Hours
09/13/24 11:52 Pleural Fluid Gram Stain - Final
09/13/24 11:52 Pleural Fluid Acid Fast Bacilli Smear - Preliminary
09/13/24 11:52 Pleural Fluid Acid Fast Bacilli Culture - Preliminary
09/13/24 11:52 Pleural Fluid Fungal Smear - Final
No yeast or fungal elements seen.
09/13/24 11:52 Pleural Fluid Fungal Culture - Preliminary
Culture in progress.
Positive cultures are reported as soon as detected.
Final report to follow in four to five weeks.
[2024-09-18 15:29] VITALS: BP 116/53
[2024-09-18] MEDS: FLUSH (NSS) 1 FLUSH IV (15:45)
[2024-09-18] MEDS: SOLU-MEDROL PF 40 MG IV (15:45)
--- NOTE | 2024-09-18 16:40 | PTCARENOTE ---
Pt AAO x3, HIRSCH; refuses any OOB activity. VSS. Telemetry:NSR with PAC's. maintained on nc 4l/high floe O2; pt witl (+) tachypnea/MURPHY; occ harsh, non-productive cough. Abd large, soft, karishma PO well. Voids clear yellow urine on bedpan; incont large
amts at times. Lt CT draining mod amts light serosanguinous fluid; dsg D/I. Resting in bed at present. Will continue to monitor.
--- NOTE | 2024-09-18 16:46 | W.PN.HOSP.TC ---
Today's Communication/Plan
-
chest tube fluid drainage
Assessment / Plan
Assessment / Plan
A/P
#Shortness of breath secondary to large LEFT sided pleural effusion
fluid is an exudate. Reviewed with Dr Gómez, placed chest tube, drain fluid completely and then do repeat CT scan
#Chronic hypoxic and hypercapnic respiratory failure
#History of COPD
#History of severe tobacco abuse
#History of pleural effusion status post recent thoracentesis-which was deemed parapneumonic
iRad consulted for thoracentesis status post thoracentesis 650 cc of straw-colored pleural fluid removed. Further fluid removal was stopped as patient complained of pain.
Fluid culture remains negative
Await further cytology results. Previous cytology results with atypical cells. possibly reactive.
Doubt fungal infection-fluid in lab
Pulmonary evaluation for recurrent effusion
Monitor off antibiotics
ESR/CRP elevated. CONRAD neg, CCP IgG/IgA Ab 78 (nl 0-19)
Continue with bronchodilators
Tachycardia
Continue with Cardizem
Transaminitis
could be from recent infection
trend for now. If uptrended check US.
Suspected dysphagia
Video swallow eval in the morning
PT eval
Hx of Dizziness/?vertigo-meclizine prn
Severe anxiety-cont atarax
Call placed and reviewed with Emily hope, 25 minutes 09/15
dvt ppx-lovenox
Anticipated Discharge: > 48 hours
Subjective/Interval History
-
Date of Service: September 18, 2024
chest tube has been placed
Objective Data
-
Labs:
Laboratory Results
09/18/24
07:36
WBC 6.4
Hgb 11.9 L
Hct 37.7
Plt Count 411 H D
Sodium 134 L
Potassium 4.6
Chloride 88 L
Carbon Dioxide 38 H
BUN 16
Creatinine 0.5 L
Glucose 72
Calcium 8.9
Total Bilirubin 0.3
AST 29
ALT 26
Alkaline Phosphatase 64
Vital Signs:
Vital Signs
Temp Pulse Resp BP Pulse Ox
98.1 F 85 20 116/53 4
09/18/24 15:29 09/18/24 15:38 09/18/24 15:38 09/18/24 15:29 09/18/24 16:39
I&O
09/17/24 09/18/24 09/19/24
06:59 06:59 06:59
Intake Total 240 / 240 120 / 120
Output Total 675 / 675
Balance 240 / 240 -555 / -555
Review of Systems
-
History Source: Patient and Physician (reviewed with Dr. Gómez)
Constitutional: Denies Fever
EENT: Reports No Symptoms Reported
Respiratory: Reports Cough and Trouble Breathing
Cardiac: Reports No Symptoms; Denies Chest Pain
Abdomen/GI: Reports No Symptoms
Genitourinary: Reports No Symptoms
Physical Exam
-
General: Well Developed, Well Nourished and No Apparent Distress
HEENT: Normocephalic, Atraumatic and Moist Mucous Membranes
Respiratory: Decreased Breath Sounds (bilateral decreased BS, improved since chest tube placed)
Cardiac: Regular Rhythm and S1/S2
GI: Soft, Nontender and Nondistended
Musculoskeletal: No Clubbing, No Cyanosis and No Edema
Neuro: Awake, Alert and Oriented
[2024-09-18] MEDS: LOVENOX 40 MG SC (18:09)
[2024-09-18 19:30] VITALS: BP 127/66
[2024-09-18] MEDS: OCEAN, SALINE MIST 2 SPRAYS NASAL (20:19)
[2024-09-18 23:18] VITALS: BP 122/69
[2024-09-19] MEDS: DUONEB 3 ML INH ×7 (00:14→23:03)
[2024-09-19] MEDS: SOLU-MEDROL PF 40 MG IV ×2 (03:18→15:50)
[2024-09-19 03:51] VITALS: BP 132/81
[2024-09-19] MEDS: TYLENOL 650 MG PO ×3 (04:28→22:09)
[2024-09-19 07:18] VITALS: BP 110/61
[2024-09-19] MEDS: PULMICORT 0.5 MG INH ×2 (07:40→19:13)
[2024-09-19] MEDS: PROTONIX 40 MG PO (08:39)
[2024-09-19] MEDS: CARDIZEM CD 120 MG PO (08:40)
[2024-09-19] MEDS: ATARAX 12.5 MG PO ×3 (08:46→22:10)
--- NOTE | 2024-09-19 10:20 | W.PN.PUL.V3 ---
Today's Communication / Plan
-
.
Continue chest tube drainage.
No change in methylprednisolone or nebulizers.
Cytology pending from thoracentesis and from chest tube drainage.
Check CT chest with contrast now that left lung partially reexpanded-also evaluate residual fluid, loculations
Assessment
-
Shortness of breath/hypoxemic respiratory failure due to large left pleural effusion-recurrent
Chest x-ray showed large left pleural effusion-
repeat thoracentesis 09/13/2024: 650 cc straw-colored fluid. Severe pain after fluid drainage.
history of thoracentesis 08/20/2024-exudative with negative culture
Chest tube, left side
Discharged from the [facility]24 with acute exacerbation of COPD and pneumonia and left pleural effusion
CT chest performed showing moderate to advanced emphysema with a mild�moderate left-sided pleural effusion which appears to be loculated with masslike opacities in the lingula + left lower lobe
Ultrasound showed moderate size left pleural effusion 08/17/2020 24-450 mL. Exudate/culture negative/cytology atypical mesothelial cells. Favoring reactive process
#Chronic respiratory failure with hypercapnia
Discharged on trilogy ventilator 08/20/2024
Latest ABG 7.4/75/60 08/17/2024
#Acute on chronic respiratory failure with hypoxia due to above
#Elevated eosinophil count (mild at 300 from 08/15/2024)
#Metabolic alkalosis due to chronic hypercapnia
#Emphysema/COPD on Trelegy 200mcg at home + home O2 (4-6L/min ATC)
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
Plan
Respiratory status tenuous with anxiety playing a significant contributing role.
Supplemental oxy, left side % saturation
Nebulizers-DuoNeb's and budesonide.
Symbicort and Spiriva-takes Trelogy at home--resume the time of discharge
Aspiration precautions.
Speech therapy following-correspondence reviewed.
Video swallow 09/15/24-recommend regular solids and thin liquids
Mucolytic as needed
Chest x-ray 09/15/2461-[id number] left pleural effusion, mildly increased following thoracentesis, large left lower airspace disease and severe hyperinflation of the right..
Steroids added 09/18/24, with persistent wheezing and hypoxemia-methylprednisolone 40 mg IV every 12 hours
Status post repeat left thoracentesis 09/13/2024-patient developed pain and thoracentesis was aborted after 650 cc of straw-colored fluid were drained
pH 7.44/white blood cell 3906/mononuclears 91%/fluid glucose 116/total protein/LDH 143/ambulates 4100/triglycerides less than 30
Exudative
Cytology-pending- could be malignant, prior cytology with atypical mesothelial cells
Status post left chest tube 09/17/24-cytology pending.
Monitor output--675 mL on 09/18/24, -220 mL on 09/19/24,
CT chest with IV dye will be obtained 09/19/24, now that pleural fluid is evacuated-improved evaluation of left lower lobe
Cytology pending from thoracentesis 09/13/24 and chest tube drainage 09/17/24
Anti- CCP IgG/IgA Ab elevated 78-can be elevated with rheumatoid arthritis-CONRAD Negative
iDr. Gómez called [id number]-[phone]- on 09/16/24-explained current clinical situation, potential etiologies, need for chest tube placement for pleural fluid evacuation with subsequent CT chest, also discussed pathology/cytology that is
pending-she is in agreement with chest tube placement-Dr. Gómez called interventional radiology and placed consult-we'll repeat cytology on additional fluid removed
DVT prophylaxis-on Lovenox.
GI prophylaxis-on pantoprazole..
Nutrition
Early mobilization
Reviewed with nursing and respiratory therapy
Family discussions:
Dr. Gómez called [phone]- on 09/16/24-explained current clinical situation, potential etiologies, need for chest tube placement for pleural fluid evacuation with subsequent CT chest, also discussed pathology/cytology that is
pending-she is in agreement with chest tube placement-Dr. Gómez called interventional radiology and placed consult-we'll repeat cytology on additional fluid removed
Data:
CXR 08/15/2024: Evidence for small to moderate left pleural effusion with mild lateral loculation. Patchy parenchymal opacity within the left mid to lower lung, suspicious for pneumonia, although there could also be a component of atelectasis. Also
of note, underlying mass/neoplasia cannot be excluded radiographically and radiographic follow-up is recommended.
CT chest without contrast 08/15/2024: Moderate to advanced emphysematous lung changes. Mild to moderate left pleural effusion. Masslike opacities in the lingula and left lower lobe. Probable round pneumonia. Follow-up recommended to assess for
resolution. Minor localized tree-in-bud attenuation in the superior segment of the right lower lobe, nonspecific bronchiolitis. 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
Left chest US 08/17/2024: Moderate left pleural effusion. Stable
Subjective Data
-
Date of Service:
Date of Service: September 19, 2024
Chief Complaint: Pulmonary Follow Up and Dyspnea Follow Up
Subjective:
Feels a little better, chest tube drainage, no chest pain, productive cough or increased wheezing
Review of Systems
General: Other ( per HPI)
Objective Data
Data Reviewed
Vital Signs / I&O:
Vital Signs
Temp Pulse Resp BP Pulse Ox
97.7 F 85 20 110/61 96
09/19/24 07:18 09/19/24 08:40 09/19/24 07:43 09/19/24 08:40 09/19/24 07:43
Intake and Output
09/18/24 09/19/24 09/20/24
06:59 06:59 06:59
Intake Total 120 / 120 1020 / 1020
Output Total 675 / 675 220 / 220
Balance -555 / -555 800 / 800
SaO2: 96
Nasal Cannula flow liters per minute: 4
Physical Exam
General: Respiratory Distress (n) and Comfortable
HEENT: Normocephalic and Anicteric
Cardiovascular: Regular Rhythm and Murmur
Respiratory: Clear ( diminished throughout, hyperinflation, prolonged expiratory time), Wheeze ( Few expiratory), Crackles (. Rare basilar), Rhonchi (n), Non-Labored Respirations, Accessory Resp Muscle Use (n) and Chest Tube ( left side)
GI: Soft
Neurology: Awake, Alert and No Motor Deficits
Skin: Warm, Good Color and Cyanosis
Labs/Micro/Reports
Lab Data
09/18/24 07:36
09/18/24 07:36
Microbiology
09/13/24 11:52 Pleural Fluid Body Fluid Culture - Final
No Growth After 72 Hours
09/13/24 11:52 Pleural Fluid Gram Stain - Final
[2024-09-19 11:47] VITALS: BP 108/62
--- NOTE | 2024-09-19 14:10 | W.PN.HOSP.TC ---
Today's Communication/Plan
-
CXR today
labs in AM
await cytology
Pt wants Saline nasal spray to be kept at bedside. Marques MURILLO told and request it be allowed
Assessment / Plan
Assessment / Plan
A/P
#Shortness of breath secondary to large LEFT sided pleural effusion
fluid is an exudate. Reviewed with Dr Gómez, placed chest tube, drain fluid completely and then do repeat CT scan
#Chronic hypoxic and hypercapnic respiratory failure
#History of COPD
#History of severe tobacco abuse
#History of pleural effusion status post recent thoracentesis-which was deemed parapneumonic
iRad consulted for thoracentesis status post thoracentesis 650 cc of straw-colored pleural fluid removed. Further fluid removal was stopped as patient complained of pain.
Fluid culture remains negative
Await further cytology results. Previous cytology results with atypical cells. possibly reactive.
Doubt fungal infection-fluid in lab
Pulmonary evaluation for recurrent effusion
Monitor off antibiotics
ESR/CRP elevated. CONRAD neg, CCP IgG/IgA Ab 78 (nl 0-19)
Continue with bronchodilators
routine CXR ordered
as per nursing ~900 cc removed since chest tube placed
Tachycardia
Continue with Cardizem
Transaminitis
could be from recent infection
trend for now. If uptrended check US.
Suspected dysphagia
Video swallow eval in the morning
PT eval
Hx of Dizziness/?vertigo-meclizine prn
Severe anxiety-cont atarax
Call placed and reviewed with Emily hope, 25 minutes 09/15
dvt ppx-lovenox
Anticipated Discharge: > 48 hours
Subjective/Interval History
-
Date of Service: September 19, 2024
Believes she maybe slightly less sob
Objective Data
-
Vital Signs:
Vital Signs
Temp Pulse Resp BP Pulse Ox
97.9 F 94 20 108/62 98
09/19/24 11:47 09/19/24 11:47 09/19/24 11:47 09/19/24 11:47 09/19/24 11:47
I&O
09/18/24 09/19/24 09/20/24
06:59 06:59 06:59
Intake Total 120 / 120 1020 / 1020
Output Total 675 / 675 220 / 220
Balance -555 / -555 800 / 800
Review of Systems
-
History Source: Patient and Physician (reviewed with Dr. Gómez)
Constitutional: Denies Fever
EENT: Reports No Symptoms Reported
Respiratory: Reports Cough and Trouble Breathing
Cardiac: Reports No Symptoms; Denies Chest Pain
Abdomen/GI: Reports No Symptoms
Genitourinary: Reports No Symptoms
Physical Exam
-
General: Well Developed, Well Nourished and No Apparent Distress
HEENT: Normocephalic, Atraumatic and Moist Mucous Membranes
Respiratory: Decreased Breath Sounds (bilateral decreased BS, improved since chest tube placed)
Cardiac: Regular Rhythm and S1/S2
GI: Soft, Nontender and Nondistended
Musculoskeletal: No Clubbing, No Cyanosis and No Edema
Neuro: Awake, Alert and Oriented
[2024-09-19 15:02] VITALS: BP 116/64
[2024-09-19] MEDS: LOVENOX 40 MG SC (17:10)
[2024-09-19 19:30] VITALS: BP 119/59
[2024-09-19 23:46] VITALS: BP 125/69
[2024-09-20] MEDS: DUONEB 3 ML INH ×6 (03:25→23:49)
[2024-09-20] MEDS: SOLU-MEDROL PF 40 MG IV ×2 (03:26→15:40)
[2024-09-20 03:45] VITALS: BP 117/64
[2024-09-20] MEDS: PULMICORT 0.5 MG INH ×2 (07:35→19:30)
[2024-09-20 08:26] VITALS: BP 123/63
[2024-09-20] MEDS: CARDIZEM CD 120 MG PO (08:50)
[2024-09-20] MEDS: PROTONIX 40 MG PO (08:50)
[2024-09-20] MEDS: ATARAX 12.5 MG PO ×3 (08:54→23:12)
[2024-09-20 11:53] VITALS: BP 124/69
--- NOTE | 2024-09-20 13:47 | W.PN.PUL3 ---
Today's Communication / Plan
-
Chest tube with minimal output in last 24 hours, but will need to continue to monitor in next 24-48 hours to ensure output stays minimal
Wean O2 as tolerated, encouraged OOB
Transition IV steroids to PO course
Will need OP FU for repeat imaging to follow opacities in lung, this was discussed in detail with family
Continue observation
Assessment
-
79-year-old woman with history of COPD, home oxygen 4 L who presented with shortness of breath. Discharged from the hospital 08/20/2024 after treated with pneumonia, left-sided parapneumonic effusion s/p thoracentesis. Negative cytology and
cultures.
Patient has pulmonary cachexia, prior tobacco abuse, presented for [facility] with worsening shortness of breath.
Shortness of breath/hypoxemic respiratory failure due to large left pleural effusion-recurrent
Chest x-ray showed large left pleural effusion-
repeat thoracentesis 09/13/2024: 650 cc straw-colored fluid. Severe pain after fluid drainage.
history of thoracentesis 08/20/2024-exudative with negative culture
Chest tube, left side 09/17/24
Discharged from the hospital 08/20/2024 with acute exacerbation of COPD and pneumonia and left pleural effusion
CT chest performed showing moderate to advanced emphysema with a mild�moderate left-sided pleural effusion which appears to be loculated with masslike opacities in the lingula + left lower lobe
Ultrasound showed moderate size left pleural effusion 08/17/2020 24-450 mL. Exudate/culture negative/cytology atypical mesothelial cells. Favoring reactive process
#Chronic respiratory failure with hypercapnia
Discharged on trilogy ventilator 08/20/2024
Latest ABG 7.4/75/60 08/17/2024
#Acute on chronic respiratory failure with hypoxia due to above
#Elevated eosinophil count (mild at 300 from 08/15/2024)
#Metabolic alkalosis due to chronic hypercapnia
#Emphysema/COPD on Trelegy 200mcg at home + home O2 (4-6L/min ATC)
#History of multiple lung nodules with prior PET/CT negative with no uptake in 2020 (per her health program specialist's last office visit note on 05/22/2024)
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
Plan
Respiratory status tenuous with anxiety playing a significant contributing role.
Supplemental O2, left side chest tube placed 09/17/24--95% saturation on 4L NC
Nebulizers-DuoNeb's and budesonide.
Symbicort and Spiriva-takes Trelegy at home--resume the time of discharge
Steroids added 09/18/24, with persistent wheezing and hypoxemia-methylprednisolone 40 mg IV every 12 hours
Improved examination today--will transition to PO course today
Aspiration precautions.
Speech therapy following-correspondence reviewed.
Video swallow 09/15/24-recommend regular solids and thin liquids
Mucolytic as needed
Prior history of L thora 08/18/24--cyto + atypical meso cells
Chest x-ray 09/15/2440-[id number] left pleural effusion, mildly increased following thoracentesis, large left lower airspace disease and severe hyperinflation of the right.
Status post repeat left thoracentesis 09/13/2024-patient developed pain and thoracentesis was aborted after 650 cc of straw-colored fluid were drained
pH 7.44/wbc 3906/mononuclears 91%/glucose 116/total protein/LDH 143/amylase 41/triglycerides less than 30
Exudative
Cytology-pending- could be malignant, prior cytology with atypical mesothelial cells
Status post left chest tube 09/17/24-cytology pending.
Monitor output--675 mL on 09/18/24, -220 mL on 09/19/24 -> 160mL -> 60mL
CT chest with IV dye will be obtained 09/19/24, now that pleural fluid is evacuated-improved evaluation of left lower lobe
1.7 cm opacity posterior left lower lobe, 5cm ALONSO mass
May need OP biopsy if patient desires to move forward
Anti- CCP IgG/IgA Ab elevated 78-can be elevated with rheumatoid arthritis-CONRAD Negative
DVT prophylaxis-on Lovenox.
GI prophylaxis-on pantoprazole..
Nutrition
Early mobilization
Reviewed with nursing and respiratory therapy
Family discussions:
Dr. Gómez called [phone] on 09/16/24-explained current clinical situation, potential etiologies, need for chest tube placement for pleural fluid evacuation with subsequent CT chest, also discussed pathology/cytology that is
pending-she is in agreement with chest tube placement-Dr. Gómez called interventional radiology and placed consult-we'll repeat cytology on additional fluid removed
Data:
CXR 08/15/2024: Evidence for small to moderate left pleural effusion with mild lateral loculation. Patchy parenchymal opacity within the left mid to lower lung, suspicious for pneumonia, although there could also be a component of atelectasis. Also
of note, underlying mass/neoplasia cannot be excluded radiographically and radiographic follow-up is recommended.
CT chest 09/20/24-1. Smallbore left chest tube in position. Trace residual left pleural fluid.
2. Complete atelectasis of the left lower lobe. Left lower lobe bronchi filled with secretions. In addition to this, approximately 1.7 cm area of abnormally decreased attenuation in the posterior left lower lobe as above for this area, infectious
etiology considered most likely. Neoplasm cannot be definitively excluded.
3. Persistent area of masslike consolidation in the inferior left upper lobe measuring up to 5 cm in diameter. Given the remainder of the findings and absence of adenopathy, also favored to have infectious etiology. Neoplasm cannot be excluded,
follow-up to resolution is recommended.
4. Emphysema.
5. Coronary and aortic atherosclerosis.
CT chest without contrast 08/15/2024: Moderate to advanced emphysematous lung changes. Mild to moderate left pleural effusion. Masslike opacities in the lingula and left lower lobe. Probable round pneumonia. Follow-up recommended to assess for
resolution. Minor localized tree-in-bud attenuation in the superior segment of the right lower lobe, nonspecific bronchiolitis. 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
Left chest US 08/17/2024: Moderate left pleural effusion. Stable
Total time spent on this consultation/encounter __53__ minutes which includes review of history, physical exam, medications, laboratory data, personal review of imaging, extensive review of outpatient records, discussion with care team and
respiratory therapy. Updated family as well at bedside
Subjective Data
-
Date of Service:
Date of Service: September 20, 2024
Chief Complaint: Pulmonary Follow Up and Dyspnea Follow Up
Subjective:
Remains stable today, SOB about the same
Chest tube in place
Family at bedside
Objective Data
Data Reviewed
Vital Signs / I&O / Oxygen:
Vital Signs
Temp Pulse Resp BP Pulse Ox
97.8 F 90 20 124/69 97
09/20/24 11:53 09/20/24 11:53 09/20/24 11:53 09/20/24 11:53 09/20/24 11:53
Intake and Output
09/19/24 09/20/24 09/21/24
06:59 06:59 06:59
Intake Total 1020 / 1020 1100 / 1100
Output Total 220 / 220
Balance 800 / 800 1100 / 1100
SaO2 97
Nasal Cannula flow liters per 4
minute
Physical Exam
General: Respiratory Distress (n) and Comfortable
HEENT: Normocephalic and Anicteric
Cardiovascular: Regular Rhythm and Murmur
Respiratory: Clear ( diminished throughout, hyperinflation, prolonged expiratory time), Wheeze ( Few expiratory), Crackles (. Rare basilar), Rhonchi (n), Non-Labored Respirations, Accessory Resp Muscle Use (n) and Chest Tube ( left side)
GI: Soft, Non Distended and Non Tender
Neurology: Awake, Alert, Oriented and No Motor Deficits
Skin: Warm, Good Color and Cyanosis
Labs/Micro/Reports
Lab Data
09/18/24 07:36
09/18/24 07:36
--- NOTE | 2024-09-20 14:06 | W.PN.HOSP.TC ---
Today's Communication/Plan
-
await decision at to timing of chest tube removal
Assessment / Plan
Assessment / Plan
A/P
#Shortness of breath secondary to large LEFT sided pleural effusion
fluid is an exudate. Reviewed with Dr Gómez, placed chest tube, drain fluid completely and then do repeat CT scan
#Chronic hypoxic and hypercapnic respiratory failure
#History of COPD
#History of severe tobacco abuse
#History of pleural effusion status post recent thoracentesis-which was deemed parapneumonic
[facility] consulted for thoracentesis status post thoracentesis 650 cc of straw-colored pleural fluid removed. Further fluid removal was stopped as patient complained of pain.
Fluid culture remains negative
Await further cytology results. Previous cytology results with atypical cells. possibly reactive.
Doubt fungal infection-fluid in lab
Pulmonary evaluation for recurrent effusion
Monitor off antibiotics
ESR/CRP elevated. CONRAD neg, CCP IgG/IgA Ab 78 (nl 0-19)
Continue with bronchodilators
routine CXR ordered
as per nursing ~900 cc removed since chest tube placed
repeat CT scan 09/20: 1. Smallbore left chest tube in position. Trace residual left pleural fluid.
2. Complete atelectasis of the left lower lobe. Left lower lobe bronchi filled with secretions. In addition to this, approximately 1.7 cm area of abnormally decreased attenuation in the posterior left lower lobe as above for this area, infectious
etiology considered most likely. Neoplasm cannot be definitively excluded.
3. Persistent area of masslike consolidation in the inferior left upper lobe measuring up to 5 cm in diameter. Given the remainder of the findings and absence of adenopathy, also favored to have infectious etiology. Neoplasm cannot be excluded,
follow-up to resolution is recommended.
4. Emphysema.
5. Coronary and aortic atherosclerosis.
Tachycardia
Continue with Cardizem
Transaminitis
could be from recent infection
trend for now. If uptrended check US.
Suspected dysphagia
Video swallow eval in the morning
PT eval
Hx of Dizziness/?vertigo-meclizine prn
Severe anxiety-cont atarax
Call placed and reviewed with Emily hope, 25 minutes 09/20
total time 60 minutes
dvt ppx-lovenox
Anticipated Discharge: > 48 hours
Subjective/Interval History
-
Date of Service: September 20, 2024
sitting up, breathing ~same
Objective Data
-
Vital Signs:
Vital Signs
Temp Pulse Resp BP Pulse Ox
97.8 F 90 20 124/69 97
09/20/24 11:53 09/20/24 11:53 09/20/24 11:53 09/20/24 11:53 09/20/24 11:53
I&O
09/19/24 09/20/24 09/21/24
06:59 06:59 06:59
Intake Total 1020 / 1020 1100 / 1100
Output Total 220 / 220
Balance 800 / 800 1100 / 1100
Review of Systems
-
History Source: Patient
Constitutional: Denies Fever
EENT: Reports No Symptoms Reported
Respiratory: Reports Cough and Trouble Breathing
Cardiac: Reports No Symptoms; Denies Chest Pain
Abdomen/GI: Reports No Symptoms
Genitourinary: Reports No Symptoms
Physical Exam
-
General: Well Developed, Well Nourished and No Apparent Distress
HEENT: Normocephalic, Atraumatic and Moist Mucous Membranes
Respiratory: Decreased Breath Sounds (bilateral decreased BS, improved since chest tube placed)
Cardiac: Regular Rhythm and S1/S2
GI: Soft, Nontender and Nondistended
Musculoskeletal: No Clubbing, No Cyanosis and No Edema
Neuro: Awake, Alert and Oriented
[2024-09-20 15:51] VITALS: BP 123/64
[2024-09-20] MEDS: LOVENOX 40 MG SC (17:33)
[2024-09-20] MEDS: TYLENOL 650 MG PO ×2 (18:46→23:12)
[2024-09-20 19:22] VITALS: BP 122/65
[2024-09-20 23:49] VITALS: BP 124/65
[2024-09-21] VITALS (7 sets, daily range): BP systolic 103–145; BP diastolic 53–82; O2SAT 91
[2024-09-21] MEDS: DUONEB 3 ML INH ×6 (03:34→23:56)
[2024-09-21] MEDS: PULMICORT 0.5 MG INH (07:33)
[2024-09-21] MEDS: DELTASONE 50 MG PO (08:26)
[2024-09-21] MEDS: PROTONIX 40 MG PO (08:26)
[2024-09-21] MEDS: CARDIZEM CD 120 MG PO (08:26)
[2024-09-21] MEDS: ATARAX 12.5 MG PO ×3 (08:27→21:55)
[2024-09-21] MEDS: TYLENOL 650 MG PO ×2 (08:29→12:47)
--- NOTE | 2024-09-21 10:56 | W.PN.HOSP.TC ---
Today's Communication/Plan
-
add Mucinex
PT/OT
continue chest tube for now
Assessment / Plan
Assessment / Plan
A/P
#Shortness of breath secondary to large LEFT sided pleural effusion
fluid is an exudate. Reviewed with Dr Gómez, placed chest tube, drain fluid completely and then did repeat CT scan (see below)
#Chronic hypoxic and hypercapnic respiratory failure
#History of COPD
#History of severe tobacco abuse
#History of pleural effusion status post recent thoracentesis-which was deemed parapneumonic
i[facility] consulted for thoracentesis status post thoracentesis 650 cc of straw-colored pleural fluid removed. Further fluid removal was stopped as patient complained of pain.
Fluid culture remains negative
Await further cytology results. Previous cytology results with atypical cells. possibly reactive.
Doubt fungal infection-fluid in lab
Pulmonary evaluation for recurrent effusion appreciated
Monitor off antibiotics
ESR/CRP elevated. CONRAD neg, CCP IgG/IgA Ab 78 (nl 0-19)
Continue with bronchodilators
as per nursing ~1200 cc total removed since chest tube placed
repeat CT scan 09/20: 1. Smallbore left chest tube in position. Trace residual left pleural fluid.
2. Complete atelectasis of the left lower lobe. Left lower lobe bronchi filled with secretions. In addition to this, approximately 1.7 cm area of abnormally decreased attenuation in the posterior left lower lobe as above for this area, infectious
etiology considered most likely. Neoplasm cannot be definitively excluded.
3. Persistent area of masslike consolidation in the inferior left upper lobe measuring up to 5 cm in diameter. Given the remainder of the findings and absence of adenopathy, also favored to have infectious etiology. Neoplasm cannot be excluded,
follow-up to resolution is recommended.
4. Emphysema.
5. Coronary and aortic atherosclerosis.
Tachycardia
Continue with Cardizem
Transaminitis
could be from recent infection
trend for now. If uptrended check US.
Suspected dysphagia
Video swallow eval in the morning
PT eval
Hx of Dizziness/?vertigo-meclizine prn
Severe anxiety-cont atarax
Call placed and reviewed with Emily hope, 25 minutes 09/20
await pulmonary further input as to timing of chest tube removal/further evaluation
dvt ppx-lovenox
Anticipated Discharge: > 48 hours
Subjective/Interval History
-
Date of Service: September 21, 2024
In better spirits, less sob
Objective Data
-
Vital Signs:
Vital Signs
Temp Pulse Resp BP Pulse Ox
97.8 F 84 22 139/74 98
09/21/24 07:40 09/21/24 07:40 09/21/24 07:40 09/21/24 07:40 09/21/24 08:25
I&O
09/20/24 09/21/24 09/22/24
06:59 06:59 06:59
Intake Total 1200 / 1200 1495 / 1495 240 / 240
Balance 1200 / 1200 1495 / 1495 240 / 240
Review of Systems
-
History Source: Patient
Constitutional: Denies Fever
EENT: Reports No Symptoms Reported
Respiratory: Reports Cough and Trouble Breathing
Cardiac: Reports No Symptoms; Denies Chest Pain
Abdomen/GI: Reports No Symptoms
Genitourinary: Reports No Symptoms
Physical Exam
-
General: Well Developed, Well Nourished and No Apparent Distress
HEENT: Normocephalic, Atraumatic and Moist Mucous Membranes
Respiratory: Decreased Breath Sounds (bilateral decreased BS, improved since chest tube placed)
Cardiac: Regular Rhythm and S1/S2
GI: Soft, Nontender and Nondistended
Musculoskeletal: No Clubbing, No Cyanosis and No Edema
Neuro: Awake, Alert and Oriented
--- NOTE | 2024-09-21 11:28 | W.PN.PUL3 ---
Today's Communication / Plan
-
Remains on low O2, wean as tolerated
Prednisone course
Chest tube output remains low, can consider discontinuation in AM if remains low
Discussed with patient today plan of care
Assessment
-
79-year-old woman with history of COPD, home oxygen 4 L who presented with shortness of breath. Discharged from the hospital 08/20/2024 after treated with pneumonia, left-sided parapneumonic effusion s/p thoracentesis. Negative cytology and
cultures.
Patient has pulmonary cachexia, prior tobacco abuse, presented for [facility] with worsening shortness of breath.
Shortness of breath/hypoxemic respiratory failure due to large left pleural effusion-recurrent
Chest x-ray showed large left pleural effusion-
repeat thoracentesis 09/13/2024: 650 cc straw-colored fluid. Severe pain after fluid drainage.
history of thoracentesis 08/20/2024-exudative with negative culture
Chest tube, left side 09/17/24
Discharged from the hospital 08/20/2024 with acute exacerbation of COPD and pneumonia and left pleural effusion
CT chest performed showing moderate to advanced emphysema with a mild�moderate left-sided pleural effusion which appears to be loculated with masslike opacities in the lingula + left lower lobe
Ultrasound showed moderate size left pleural effusion 08/17/2020 24-450 mL. Exudate/culture negative/cytology atypical mesothelial cells. Favoring reactive process
#Chronic respiratory failure with hypercapnia
Discharged on trilogy ventilator 08/20/2024
Latest ABG 7.4/75/60 08/17/2024
#Acute on chronic respiratory failure with hypoxia due to above
#Elevated eosinophil count (mild at 300 from 08/15/2024)
#Metabolic alkalosis due to chronic hypercapnia
#Emphysema/COPD on Trelegy 200mcg at home + home O2 (4-6L/min ATC)
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
Plan
Respiratory status tenuous with anxiety playing a significant contributing role.
Supplemental O2, left side chest tube placed 09/17/24--95% saturation on 4L NC
Nebulizers-DuoNeb's and budesonide.
Symbicort and Spiriva-takes Trelegy at home--resume the time of discharge
Steroids added 09/18/24, with persistent wheezing and hypoxemia-methylprednisolone 40 mg IV every 12 hours
Improved examination today--transitioned to PO course
Aspiration precautions.
Speech therapy following-correspondence reviewed.
Video swallow 09/15/24-recommend regular solids and thin liquids
Mucolytic as needed
Prior history of L thora 08/18/24--cyto + atypical meso cells
Chest x-ray 09/15/2433-[id number] left pleural effusion, mildly increased following thoracentesis, large left lower airspace disease and severe hyperinflation of the right.
Status post repeat left thoracentesis 09/13/2024-patient developed pain and thoracentesis was aborted after 650 cc of straw-colored fluid were drained
pH 7.44/wbc 3906/mononuclears 91%/glucose 116/total protein/LDH 143/amylase 41/triglycerides less than 30
Exudative
Cytology-pending- could be malignant, prior cytology with atypical mesothelial cells
Status post left chest tube 09/17/24-cytology pending.
Monitor output--675 mL on 09/18/24, -220 mL on 09/19/24 -> 160mL -> 60mL
Today appears around 60-70mL so far
Can assess for removal tomorrow if remains low
CT chest with IV dye will be obtained 09/19/24, now that pleural fluid is evacuated-improved evaluation of left lower lobe
1.7 cm opacity posterior left lower lobe, 5cm ALONSO mass
May need OP biopsy if patient desires to move forward
Anti- CCP IgG/IgA Ab elevated 78-can be elevated with rheumatoid arthritis-CONRAD Negative
DVT prophylaxis-on Lovenox.
GI prophylaxis-on pantoprazole..
Nutrition
Early mobilization
Reviewed with nursing and respiratory therapy
Family discussions:
Dr. Gómez called [facility][phone] on 09/16/24-explained current clinical situation, potential etiologies, need for chest tube placement for pleural fluid evacuation with subsequent CT chest, also discussed pathology/cytology that is
pending-she is in agreement with chest tube placement-Dr. Gómez called interventional radiology and placed consult-we'll repeat cytology on additional fluid removed
Data:
CXR 08/15/2024: Evidence for small to moderate left pleural effusion with mild lateral loculation. Patchy parenchymal opacity within the left mid to lower lung, suspicious for pneumonia, although there could also be a component of atelectasis. Also
of note, underlying mass/neoplasia cannot be excluded radiographically and radiographic follow-up is recommended.
CT chest 09/20/24-1. Smallbore left chest tube in position. Trace residual left pleural fluid.
2. Complete atelectasis of the left lower lobe. Left lower lobe bronchi filled with secretions. In addition to this, approximately 1.7 cm area of abnormally decreased attenuation in the posterior left lower lobe as above for this area, infectious
etiology considered most likely. Neoplasm cannot be definitively excluded.
3. Persistent area of masslike consolidation in the inferior left upper lobe measuring up to 5 cm in diameter. Given the remainder of the findings and absence of adenopathy, also favored to have infectious etiology. Neoplasm cannot be excluded,
follow-up to resolution is recommended.
4. Emphysema.
5. Coronary and aortic atherosclerosis.
CT chest without contrast 08/15/2024: Moderate to advanced emphysematous lung changes. Mild to moderate left pleural effusion. Masslike opacities in the lingula and left lower lobe. Probable round pneumonia. Follow-up recommended to assess for
resolution. Minor localized tree-in-bud attenuation in the superior segment of the right lower lobe, nonspecific bronchiolitis. 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
Left chest US 08/17/2024: Moderate left pleural effusion. Stable
Total time spent on this consultation/encounter __51__ minutes which includes review of history, physical exam, medications, laboratory data, personal review of imaging, extensive review of outpatient records, discussion with care team and
respiratory therapy. Updated family as well at bedside
Subjective Data
-
Date of Service:
Date of Service: September 21, 2024
Chief Complaint: Pulmonary Follow Up and Dyspnea Follow Up
Subjective:
no new events, remains on 4L
no new complaints
Objective Data
Data Reviewed
Vital Signs / I&O / Oxygen:
Vital Signs
Temp Pulse Resp BP Pulse Ox
97.8 F 75 16 139/74 98
09/21/24 07:40 09/21/24 11:15 09/21/24 11:15 09/21/24 07:40 09/21/24 08:25
Intake and Output
09/20/24 09/21/24 09/22/24
06:59 06:59 06:59
Intake Total 1200 / 1200 1495 / 1495 240 / 240
Balance 1200 / 1200 1495 / 1495 240 / 240
SaO2 98
Nasal Cannula flow liters per 4
minute
Physical Exam
General: Respiratory Distress (n) and Comfortable
HEENT: Normocephalic and Anicteric
Cardiovascular: Regular Rhythm and Murmur
Respiratory: Clear ( diminished throughout, hyperinflation, prolonged expiratory time), Wheeze ( Few expiratory), Crackles (. Rare basilar), Rhonchi (n), Non-Labored Respirations, Accessory Resp Muscle Use (n) and Chest Tube ( left side)
GI: Soft, Non Distended and Non Tender
Neurology: Awake, Alert, Oriented and No Motor Deficits
Skin: Warm, Good Color and Cyanosis
Labs/Micro/Reports
Lab Data
09/18/24 07:36
09/18/24 07:36
[2024-09-21] MEDS: MUCINEX 600 MG PO ×2 (11:51→19:48)
[2024-09-21] MEDS: LOVENOX 40 MG SC (17:09)
[2024-09-22] VITALS (7 sets, daily range): BP systolic 103–137; BP diastolic 54–74; PULSE 91; O2SAT 91
[2024-09-22] MEDS: TYLENOL 650 MG PO ×2 (03:19→09:58)
[2024-09-22] MEDS: DUONEB 3 ML INH ×6 (04:00→23:19)
--- NOTE | 2024-09-22 08:10 | W.PN.PUL3 ---
Today's Communication / Plan
-
Remains on low O2, wean as tolerated
Walking pulse oximetry prior to discharge
Add nebulized 3% to help improve expectoration; if needs additional assistance then will trial vest therapy, celio once chest tube has been removed
Prednisone course with prolonged taper
Chest tube output remains low --> will likely remove today
Resume budesonide
Discussed with patient today plan of care
Assessment
-
79-year-old woman with history of COPD, home oxygen 4 L who presented with shortness of breath. Discharged from the hospital 08/20/2024 after treated with pneumonia, left-sided parapneumonic effusion s/p thoracentesis. Negative cytology and
cultures.
Patient has pulmonary cachexia, prior tobacco abuse, presented for [email or web address] with worsening shortness of breath.
Impression:
Shortness of breath/hypoxemic respiratory failure due to large left pleural effusion-recurrent
Chest x-ray showed large left pleural effusion-
repeat thoracentesis 09/13/2024: 650 cc straw-colored fluid. Severe pain after fluid drainage.
history of thoracentesis 08/18/2024-exudative with negative culture
Chest tube, left side 09/17/24
Discharged from the hospital 08/20/2024 with acute exacerbation of COPD and pneumonia and left pleural effusion
CT chest performed showing moderate to advanced emphysema with a mild�moderate left-sided pleural effusion which appears to be loculated with masslike opacities in the lingula + left lower lobe
Ultrasound showed moderate size left pleural effusion 08/17/2020 24-450 mL. Exudate/culture negative/cytology atypical mesothelial cells. Favoring reactive process
#Chronic respiratory failure with hypercapnia
Discharged on trilogy ventilator 08/20/2024
Latest ABG 7.4/75/60 08/17/2024
#Acute on chronic respiratory failure with hypoxia due to above
#Elevated eosinophil count (mild at 500 from 09/18/2024)
#Metabolic alkalosis due to chronic hypercapnia
#Emphysema/COPD on Trelegy 200mcg at home + home O2 (4-6L/min ATC)
#History of multiple lung nodules with prior PET/CT negative with no uptake in 2020 (per her rotary shear cutter's last office visit note on 05/22/2024)
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
Plan
Respiratory status tenuous with anxiety playing a significant contributing role.
Supplemental O2, left side chest tube placed 09/17/24--95% saturation on 6L NC
Nebulizers-DuoNebs; was on budesonide from 09/13 - 09/21/2024 --> resume today (it likely fell off the NOV and was not renewed)
Symbicort and Spiriva-takes Trelegy at home--resume the time of discharge
Steroids added 09/18/24, with persistent wheezing and hypoxemia-methylprednisolone 40 mg IV every 12 hours
Improved and transitioned to PO course on 09/21
Aspiration precautions.
Speech therapy following-correspondence reviewed.
Video swallow 09/15/24-recommend regular solids and thin liquids
Mucolytic as needed
Add nebulized 3% as she is having difficulty with expectoration; if she still needs additional assistance then will trial vest therapy
Prior history of L thora 08/18/24--cyto + atypical meso cells
Chest x-ray 09/15/2462-[id number] left pleural effusion, mildly increased following thoracentesis, large left lower airspace disease and severe hyperinflation of the right.
Status post repeat left thoracentesis 09/13/2024-patient developed pain and thoracentesis was aborted after 650 cc of straw-colored fluid were drained
pH 7.44/wbc 3906/mononuclears 91%/glucose 116/total protein/LDH 143/amylase 41/triglycerides less than 30
Exudative
Cytology-pending- could be malignant, prior cytology with atypical mesothelial cells
Status post left chest tube 09/17/24-cytology pending.
Monitor output--675 mL on 09/18/24, -220 mL on 09/19/24 -> 160mL -> 60mL
Yesterday (09/21) appears around 60-70mL so far --> today there is minimal output --> will likely remove chest tube today
CT chest with IV dye will be obtained 09/19/24, now that pleural fluid is evacuated-improved evaluation of left lower lobe
1.7 cm opacity posterior left lower lobe, 5cm ALONSO mass at inferior lingula
May need OP biopsy if patient desires to move forward
Anti- CCP IgG/IgA Ab elevated 78-can be elevated with rheumatoid arthritis-CONRAD Negative
DVT prophylaxis-on Lovenox.
GI prophylaxis-on pantoprazole..
Nutrition
Early mobilization
Reviewed with nursing and respiratory therapy
Family discussions:
Dr. Gómez called [phone] on 09/16/24-explained current clinical situation, potential etiologies, need for chest tube placement for pleural fluid evacuation with subsequent CT chest, also discussed pathology/cytology that is
pending-she is in agreement with chest tube placement-Dr. Gómez called interventional radiology and placed consult-we'll repeat cytology on additional fluid removed
Data:
CXR 08/15/2024: Evidence for small to moderate left pleural effusion with mild lateral loculation. Patchy parenchymal opacity within the left mid to lower lung, suspicious for pneumonia, although there could also be a component of atelectasis. Also
of note, underlying mass/neoplasia cannot be excluded radiographically and radiographic follow-up is recommended.
CT chest 09/20/24-1. Smallbore left chest tube in position. Trace residual left pleural fluid.
2. Complete atelectasis of the left lower lobe. Left lower lobe bronchi filled with secretions. In addition to this, approximately 1.7 cm area of abnormally decreased attenuation in the posterior left lower lobe as above for this area, infectious
etiology considered most likely. Neoplasm cannot be definitively excluded.
3. Persistent area of masslike consolidation in the inferior left upper lobe measuring up to 5 cm in diameter. Given the remainder of the findings and absence of adenopathy, also favored to have infectious etiology. Neoplasm cannot be excluded,
follow-up to resolution is recommended.
4. Emphysema.
5. Coronary and aortic atherosclerosis.
CT chest without contrast 08/15/2024: Moderate to advanced emphysematous lung changes. Mild to moderate left pleural effusion. Masslike opacities in the lingula and left lower lobe. Probable round pneumonia. Follow-up recommended to assess for
resolution. Minor localized tree-in-bud attenuation in the superior segment of the right lower lobe, nonspecific bronchiolitis. 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
Left chest US 08/17/2024: Moderate left pleural effusion. Stable
Total time spent today was 37 minutes for this encounter. Time includes reviewing laboratory test/imaging results, reviewing pertinent medical records, obtaining and reviewing medical history, performing an appropriate exam, ordering medications,
tests and procedures. Time also includes documentation of this encounter, coordinating patient care and communicating with other healthcare professionals. Total time does not include separately billed tests performed on this date of service.
Subjective Data
-
Date of Service:
Date of Service: September 22, 2024
Chief Complaint: Pulmonary Follow Up and Dyspnea Follow Up
Subjective:
Pt seen and evaluated this AM. Currently on 6L/min. Still coughing and having difficulty bringing up her phlegm. Chest tube in place with minimal output. She denies chest pain, DEL TORO, abd pain, N/V/f/c.
Objective Data
Data Reviewed
Vital Signs / I&O / Oxygen:
Vital Signs
Temp Pulse Resp BP Pulse Ox
97.5 F 81 18 112/54 96
09/22/24 03:16 09/22/24 07:21 09/22/24 07:21 09/22/24 03:16 09/22/24 03:16
Intake and Output
01/09/0309/22/24 09/23/24
06:59 06:59 06:59
Intake Total 1495 / 1495 985 / 985
Output Total 0 / 0
Balance 1495 / 1495 985 / 985
SaO2 96
Nasal Cannula flow liters per 4
minute
Physical Exam
General: Respiratory Distress (n), Comfortable, Chills (n) and Sweats (n)
HEENT: Normocephalic and Anicteric
Cardiovascular: S1-S2, Peripheral Edema (n) and Other (Distant cardiac sounds)
Respiratory: Wheeze (n), Crackles (n), Rhonchi (n), Non-Labored Respirations, Accessory Resp Muscle Use (n), Chest Tube (left side) and Other (Diminished BS bilaterally)
GI: Soft, Non Distended, Non Tender and Normal Bowel Sounds
Neurology: Awake, Alert, Oriented and No Motor Deficits
Skin: Warm, Dry, Cyanosis (n) and Jaundice (n)
Labs/Micro/Reports
Lab Data
09/18/24 07:36
09/18/24 07:36
[2024-09-22] MEDS: PROTONIX 40 MG PO (09:36)
[2024-09-22] MEDS: MUCINEX 600 MG PO (09:36)
[2024-09-22] MEDS: DELTASONE 50 MG PO (09:36)
[2024-09-22] MEDS: CARDIZEM CD PO (09:37)
[2024-09-22] MEDS: ATARAX 12.5 MG PO ×2 (09:59→18:52)
--- NOTE | 2024-09-22 12:55 | W.PN.HOSP.TC ---
Today's Communication/Plan
-
Pulm recs
cont with home meds
?CT removal
PT/OT/OOB
Assessment / Plan
Assessment / Plan
A/P
#Shortness of breath secondary to large LEFT sided pleural effusion
fluid is an exudate. Reviewed with Dr Gómez, placed chest tube, drain fluid completely and then did repeat CT scan (see below)
# Acute on chronic chronic hypoxic respiratory failure
# Chronic hypercapnic respiratory failure
#History of COPD/emphysema
#History of severe tobacco abuse
#History of pleural effusion status post recent thoracentesis-which was deemed parapneumonic
# History of lung nodules
iRad consulted for thoracentesis status post thoracentesis 650 cc of straw-colored pleural fluid removed. Further fluid removal was stopped as patient complained of pain.
Fluid culture remains negative
Await further cytology results. Previous cytology results with atypical cells. possibly reactive.
Doubt fungal infection-fluid in lab
Pulmonary evaluation for recurrent effusion appreciated
Monitor off antibiotics
ESR/CRP elevated. CONRAD neg, CCP IgG/IgA Ab 78 (nl 0-19)
Continue with bronchodilators
as per nursing ~1200 cc total removed since chest tube placed
repeat CT scan 09/20: 1. Smallbore left chest tube in position. Trace residual left pleural fluid.
2. Complete atelectasis of the left lower lobe. Left lower lobe bronchi filled with secretions. In addition to this, approximately 1.7 cm area of abnormally decreased attenuation in the posterior left lower lobe as above for this area, infectious
etiology considered most likely. Neoplasm cannot be definitively excluded.
3. Persistent area of masslike consolidation in the inferior left upper lobe measuring up to 5 cm in diameter. Given the remainder of the findings and absence of adenopathy, also favored to have infectious etiology. Neoplasm cannot be excluded,
follow-up to resolution is recommended.
4. Emphysema.
5. Coronary and aortic atherosclerosis.
Not much output from CT.
Await Pulm recs-possible CT removal.
Cytology pending from 09/15 and 09/18
anxiety playing a huge role
Tachycardia
Continue with Cardizem
Transaminitis
could be from recent infection
trend for now. If uptrended check US.
resolved.
Hx of Dizziness/?vertigo-meclizine prn
Severe anxiety-cont atarax
dvt ppx-lovenox
Anticipated Discharge: > 48 hours
Subjective/Interval History
-
Date of Service: September 22, 2024
was tachypneic with movement
not much output from CT last 24h
Objective Data
-
Vital Signs:
Vital Signs
Temp Pulse Resp BP Pulse Ox
98.4 F 95 20 124/59 96
09/22/24 11:29 09/22/24 11:29 09/22/24 11:29 09/22/24 11:29 09/22/24 11:29
I&O
09/21/24 09/22/24 09/23/24
06:59 06:59 06:59
Intake Total 1495 / 1495 985 / 985
Output Total 0 / 0
Balance 1495 / 1495 985 / 985
Physical Exam
-
General: No Apparent Distress and Appears Chronically Ill
HEENT: Normocephalic, Atraumatic and Moist Mucous Membranes
Respiratory: Decreased Breath Sounds (bilateral decreased BS, improved since chest tube placed)
Cardiac: Regular Rhythm and S1/S2
GI: Soft, Nontender and Nondistended
Musculoskeletal: No Clubbing, No Cyanosis and No Edema
Neuro: Awake, Alert and Oriented
Psych: Anxious
[2024-09-22] MEDS: LOVENOX 40 MG SC (17:11)
--- NOTE | 2024-09-22 19:14 | W.PN.UPDATE ---
Update Note
Progress Note Update
Left sided chest tube removed without event. Insertion site covered with 4x4 gauze and tegaderm. Pt in no acute distress and saturating 90% on 6L/min.
[2024-09-22] MEDS: SODIUM CHLORIDE 3% FOR INHALATION 1 VIAL INH (19:23)
[2024-09-22] MEDS: PULMICORT 0.5 MG INH (19:23)
--- NOTE | 2024-09-22 20:15 | PTCARENOTE ---
Patient c/o difficulty breathing and shortness of breath 20 minutes after Chest Tube was removed by Dr Fuller. HR 128-132, Resp 20-35, BP 171/91 POX 96-97% 4lMidflow. Respiratory at bedside to give scheduled breathing tx. Dr fuller and COMMODITIES REQUIREMENTS ANALYST
Scammaohrn notified via tiger text. CXR ordered stat and patient placed on 6LMF.
--- NOTE | 2024-09-22 21:00 | PTCARENOTE ---
CXR completed as per order. HR 114, Resp 20-28, BP 137/79, POX 96%. Pt appears less distressed and stated ' I am feeling a little better.' . CXR IMPRESSION: Interval removal of left chest tube.No findings to confirm pneumothorax. Dr Herrera
notified of results and patients condition. CUTTING AND PRINTING MACHINE OPERATOR Scammahorn at bedside to assess and update patient and family. No new orders given at this time. Will continue to monitor.
[2024-09-22] MEDS: MUCINEX PO (22:52)
[2024-09-23 03:16] VITALS: BP 111/64
[2024-09-23] MEDS: DUONEB 3 ML INH ×6 (03:26→23:48)
[2024-09-23] MEDS: SODIUM CHLORIDE 3% FOR INHALATION 1 VIAL INH ×2 (07:39→20:02)
[2024-09-23] MEDS: PULMICORT 0.5 MG INH ×2 (07:39→20:02)
[2024-09-23 08:34] VITALS: BP 134/75
--- NOTE | 2024-09-23 09:22 | W.PN.PUL3 ---
Today's Communication / Plan
-
Remains on low O2, wean as tolerated
Walking pulse oximetry prior to discharge
Continue nebulized 3% to help improve expectoration; add vest and raise 3% from BID to QID as she feels a benefit with this medication
Prednisone course with prolonged taper
Removed chest tube yesterday
Continue budesonide
Discussed with patient today plan of care
Assessment
-
79-year-old woman with history of COPD, home oxygen 4 L who presented with shortness of breath. Discharged from the hospital 08/20/2024 after treated with pneumonia, left-sided parapneumonic effusion s/p thoracentesis. Negative cytology and
cultures.
Patient has pulmonary cachexia, prior tobacco abuse, presented for [employer] with worsening shortness of breath.
Impression:
Shortness of breath/hypoxemic respiratory failure due to large left pleural effusion-recurrent
Chest x-ray showed large left pleural effusion-
repeat thoracentesis 09/13/2024: 650 cc straw-colored fluid. Severe pain after fluid drainage.
history of thoracentesis 08/18/2024-exudative with negative culture
Chest tube, left side 09/17/24 --> removed 09/22/2024
Discharged from the hospital 08/20/2024 with acute exacerbation of COPD and pneumonia and left pleural effusion
CT chest performed showing moderate to advanced emphysema with a mild�moderate left-sided pleural effusion which appears to be loculated with masslike opacities in the lingula + left lower lobe
Ultrasound showed moderate size left pleural effusion 08/17/2020 24-450 mL. Exudate/culture negative/cytology atypical mesothelial cells. Favoring reactive process
#Chronic respiratory failure with hypercapnia
Discharged on trilogy ventilator 08/20/2024
Latest ABG 7.4/75/60 08/17/2024
#Acute on chronic respiratory failure with hypoxia due to above
#Elevated eosinophil count (mild at 500 from 09/18/2024)
#Metabolic alkalosis due to chronic hypercapnia
#Emphysema/COPD on Trelegy 200mcg at home + home O2 (4-6L/min ATC)
#History of multiple lung nodules with prior PET/CT negative with no uptake in 2020 (per her collar closer lockstitch's last office visit note on 05/22/2024)
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
Plan
Respiratory status tenuous with anxiety playing a significant contributing role.
Supplemental O2, left side chest tube placed 09/17/24--> removed 09/22/2024
Nebulizers-DuoNebs; was on budesonide from 09/13 - 09/21/2024 --> resume today (it likely fell off the NOV and was not renewed)
Takes Trelegy at home--resume Symbicort and Spiriva at the time of discharge
Steroids added 09/18/24, with persistent wheezing and hypoxemia-methylprednisolone 40 mg IV every 12 hours
Improved and transitioned to PO course on 09/21 --> taper by 10mg every 5th day until off
Aspiration precautions.
Speech therapy following-correspondence reviewed.
Video swallow 09/15/24-recommend regular solids and thin liquids
Mucolytic as needed
On 09/22/2024 I started nebulized 3% as she is having difficulty with expectoration; raise from BID to QID as she feels a benefit with the medication; also start vest therapy after the 3% is given to help with expectoration
Case management consult to see if they can get her the vest at home
Prior history of L thora 08/18/24--cyto + atypical meso cells
Chest x-ray 09/15/2459-[id number] left pleural effusion, mildly increased following thoracentesis, large left lower airspace disease and severe hyperinflation of the right.
Status post repeat left thoracentesis 09/13/2024-patient developed pain and thoracentesis was aborted after 650 cc of straw-colored fluid were drained
pH 7.44/wbc 3906/mononuclears 91%/glucose 116/total protein/LDH 143/amylase 41/triglycerides less than 30
Exudative
Cytology-pending- could be malignant, prior cytology with atypical mesothelial cells
Status post left chest tube 09/17/24-cytology pending.
Chest tube removed on 09/22/2024 as there was minimal output and recent CT chest from 09/20/2024 showed that the tip of the chest tube was no longer and a pocket of fluid and there was a small amount of residual left-sided pleural effusion
CT chest with IV dye will be obtained 09/19/24, now that pleural fluid is evacuated-improved evaluation of left lower lobe
1.7 cm opacity posterior left lower lobe, 5cm ALONSO mass at inferior lingula
May need OP biopsy if patient desires to move forward --> I advised her to discuss this with her private collar closer lockstitch
Anti- CCP IgG/IgA Ab elevated 78-can be elevated with rheumatoid arthritis-CONRAD Negative
DVT prophylaxis-on Lovenox.
GI prophylaxis-on pantoprazole..
Nutrition
Early mobilization
Reviewed with nursing and respiratory therapy
Family discussions:
Dr. Gómez called [phone] on 09/16/24-explained current clinical situation, potential etiologies, need for chest tube placement for pleural fluid evacuation with subsequent CT chest, also discussed pathology/cytology that is
pending-she is in agreement with chest tube placement-Dr. Gómez called interventional radiology and placed consult-we'll repeat cytology on additional fluid removed
Data:
CXR 08/15/2024: Evidence for small to moderate left pleural effusion with mild lateral loculation. Patchy parenchymal opacity within the left mid to lower lung, suspicious for pneumonia, although there could also be a component of atelectasis. Also
of note, underlying mass/neoplasia cannot be excluded radiographically and radiographic follow-up is recommended.
CT chest 09/20/24-1. Smallbore left chest tube in position. Trace residual left pleural fluid.
2. Complete atelectasis of the left lower lobe. Left lower lobe bronchi filled with secretions. In addition to this, approximately 1.7 cm area of abnormally decreased attenuation in the posterior left lower lobe as above for this area, infectious
etiology considered most likely. Neoplasm cannot be definitively excluded.
3. Persistent area of masslike consolidation in the inferior left upper lobe measuring up to 5 cm in diameter. Given the remainder of the findings and absence of adenopathy, also favored to have infectious etiology. Neoplasm cannot be excluded,
follow-up to resolution is recommended.
4. Emphysema.
5. Coronary and aortic atherosclerosis.
CT chest without contrast 08/15/2024: Moderate to advanced emphysematous lung changes. Mild to moderate left pleural effusion. Masslike opacities in the lingula and left lower lobe. Probable round pneumonia. Follow-up recommended to assess for
resolution. Minor localized tree-in-bud attenuation in the superior segment of the right lower lobe, nonspecific bronchiolitis. 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
Left chest US 08/17/2024: Moderate left pleural effusion. Stable
Total time spent today was 36 minutes for this encounter. Time includes reviewing laboratory test/imaging results, reviewing pertinent medical records, obtaining and reviewing medical history, performing an appropriate exam, ordering medications,
tests and procedures. Time also includes documentation of this encounter, coordinating patient care and communicating with other healthcare professionals. Total time does not include separately billed tests performed on this date of service.
Subjective Data
-
Date of Service:
Date of Service: September 23, 2024
Chief Complaint: Pulmonary Follow Up and Dyspnea Follow Up
Subjective:
Patient seen today at bedside. She says that the nebulized hypertonic saline is helping her with her cough. She would like it more often. Currently on 4 L/min nasal cannula breathing comfortably. She denies chest pain, DEL TORO, nausea, fevers or
chills.
Review of Systems
General: Other (Negative unless mentioned above)
Objective Data
Data Reviewed
Vital Signs / I&O / Oxygen:
Vital Signs
Temp Pulse Resp BP Pulse Ox
97.8 F 85 20 134/75 100
09/23/24 08:34 09/23/24 09:33 09/23/24 08:34 09/23/24 09:33 09/23/24 09:28
Intake and Output
09/22/24 09/23/24 09/24/24
06:59 06:59 06:59
Intake Total 985 / 985 720 / 720
Output Total 0 / 0
Balance 985 / 985 720 / 720
SaO2 100
Nasal Cannula flow liters per 4
minute
Physical Exam
General: Respiratory Distress (n), Comfortable, Chills (n) and Sweats (n)
HEENT: Normocephalic and Anicteric
Cardiovascular: S1-S2, Peripheral Edema (n) and Other (Distant cardiac sounds)
Respiratory: Wheeze (n), Crackles (Left base), Rhonchi (n), Non-Labored Respirations, Accessory Resp Muscle Use (n) and Other (Diminished BS bilaterally)
GI: Soft, Non Distended, Non Tender and Normal Bowel Sounds
Neurology: AO x 3 and Tremors (n)
Skin: Warm, Dry, Cyanosis (n) and Jaundice (n)
Labs/Micro/Reports
Lab Data
09/23/24 08:38
Microbiology
09/13/24 11:52 Pleural Fluid Fungal Smear - Final
No yeast or fungal elements seen.
09/13/24 11:52 Pleural Fluid Fungal Culture - Preliminary
Culture in progress.
Positive cultures are reported as soon as detected.
Final report to follow in four to five weeks.
[2024-09-23] MEDS: PROTONIX 40 MG PO (09:32)
[2024-09-23] MEDS: MUCINEX 600 MG PO ×2 (09:33→20:45)
[2024-09-23] MEDS: DELTASONE 50 MG PO (09:33)
[2024-09-23] MEDS: FLUSH (NSS) 1 FLUSH IV (09:33)
[2024-09-23] MEDS: CARDIZEM CD 120 MG PO (09:33)
[2024-09-23] MEDS: ATARAX 12.5 MG PO ×3 (09:40→20:45)
[2024-09-23 09:44] LABS: Blood Urea Nitrogen 14 mg/dl (7-17); Calcium 9.6 mg/dl (8.4-10.2); Chloride 87 mmol/L (98-107); Estimated Creatinine Clearance 71 ml/min; Glucose 92 mg/dl (70-99); Potassium 4.7 mmol/L (3.5-5.1); Sodium 133 mmol/L (135-145); eGFR > 60.00
[2024-09-23 10:25] LABS: Carbon Dioxide 42 mmol/L (22-30)
[2024-09-23 11:07] LABS: % Basophils 0.5 % (0-2); % Immature Granulocytes 1.7 % (0-0.5); % Lymphocytes 7.7 % (20.5-51.1); % Monocytes 8.6 % (1.7-9.3); % Neutrophils 81.5 % (42.2-75.2); Absolute Basophils 0.1 10^3/uL (0-0.2); Absolute Immature Granulocytes 0.2 10^3/uL (0-0.05); Absolute Lymphocytes 0.8 10^3/uL (1.2-3.4); Absolute Monocytes 0.9 10^3/uL (0.1-0.6); Absolute Neutrophils 8.3 10^3/uL (1.4-6.5); Hematocrit 39.8 % (37.0-47.0); Hemoglobin 12.4 g/dL (12.0-16.0); Mean Corp Hgb Conc. 31.2 g/dL (33.0-37.0); Mean Corpuscular Volume 96.4 fL (81.0-99.0); Nucleated Red Blood Cells % 0 %; Platelet Count 503 10^3/uL (130-400); Red Blood Cell Count 4.13 10^6/uL (4.20-5.40); Red Cell Dist. Width 13.3 % (11.5-14.5); White Blood Cell Count 10.2 10^3/uL (4.8-10.8)
--- NOTE | 2024-09-23 11:45 | W.PN.HOSP.TC ---
Today's Communication/Plan
-
Pulm recs
Prednisone
encourage IS
Assessment / Plan
Assessment / Plan
A/P
#Shortness of breath secondary to large LEFT sided pleural effusion
fluid is an exudate. Reviewed with Dr Gómez, placed chest tube, drain fluid completely and then did repeat CT scan (see below)
# Acute on chronic chronic hypoxic respiratory failure
# Chronic hypercapnic respiratory failure
#History of COPD/emphysema
#History of severe tobacco abuse
#History of pleural effusion status post recent thoracentesis-which was deemed parapneumonic
# History of lung nodules
iRad consulted for thoracentesis status post thoracentesis 650 cc of straw-colored pleural fluid removed. Further fluid removal was stopped as patient complained of pain.
Fluid culture remains negative
Await further cytology results. Previous cytology results with atypical cells. possibly reactive.
Doubt fungal infection-fluid in lab
Pulmonary evaluation for recurrent effusion appreciated
Monitor off antibiotics
ESR/CRP elevated. CONRAD neg, CCP IgG/IgA Ab 78 (nl 0-19)
Continue with bronchodilators
CT was removed on 09/22 as not much output was noted
Cytology pending from 09/15 and 09/18
anxiety playing a huge role
Repeat CXR with Moderate loculated left pleural effusion. Rounded opacification in the left lower lung field possibly loculated fluid versus pneumonia or pulmonary masses. Stable
3% neb seems to be helping. Cont with Pulmicort. Plan for prolonged steroid slow taper regimen.
Tachycardia
Continue with Cardizem
Transaminitis
could be from recent infection
trend for now.
resolved.
Hx of Dizziness/?vertigo-meclizine prn
Severe anxiety-cont atarax
Mild hyponatremia
-?SIADH due to recent pain from CT.
-Monitor for now.
dvt ppx-lovenox
Anticipated Discharge: 24 - 48 hours
Subjective/Interval History
-
Date of Service: September 23, 2024
states breathing has improved
cough with intermittent phelgm production
Objective Data
-
Labs:
Laboratory Results
09/23/24
08:38
WBC 10.2
Hgb 12.4
Hct 39.8
Plt Count 503 H D
Sodium 133 L
Potassium 4.7
Chloride 87 L
Carbon Dioxide 42 H
BUN 14
Creatinine 0.4 L
Glucose 92
Calcium 9.6
Vital Signs:
Vital Signs
Temp Pulse Resp BP Pulse Ox
97.8 F 100 18 134/75 94
09/23/24 08:34 09/23/24 11:17 09/23/24 11:17 09/23/24 09:33 09/23/24 11:17
I&O
09/22/24 09/23/24 09/24/24
06:59 06:59 06:59
Intake Total 985 / 985 720 / 720
Output Total 0 / 0
Balance 985 / 985 720 / 720
Physical Exam
-
General: No Apparent Distress and Appears Chronically Ill
HEENT: Normocephalic, Atraumatic, Moist Mucous Membranes and Oxygen
Respiratory: Decreased Breath Sounds (bilateral decreased BS, )
Cardiac: Regular Rhythm and S1/S2
GI: Soft, Nontender and Nondistended
Musculoskeletal: No Clubbing, No Cyanosis and No Edema
Neuro: Awake, Alert, Oriented, AO x 3 and No Motor Deficits; Negative Slurred Speech or Facial Droop
Psych: Anxious
[2024-09-23 12:08] VITALS: BP 128/66
--- NOTE | 2024-09-23 15:17 | CM ---
Addendum entered by Melissa Vallejo 09/25/24 12:59:
Late note from 09/24/2023: Dr. Oh has ordered AFLO vest for patient at discharge. [facility] can provide this, however will need Rx and documentation entered in EMR to support same.
CM to follow up on 09/25/2024.
Original Note:
CM continues to follow for discharge planning. Pt has been refusing therapy the past few days. Support and encouragement provided today.
CM will continue to follow to coordinate discharge needs as hospitalization progresses.
[2024-09-23 15:36] VITALS: BP 139/74
--- NOTE | 2024-09-23 15:41 | PTCARENOTE ---
Pt AAO x3, HIRSCH; weak; refuses offers of OOB activity. VSS. On midflow O2/4 lpm- pt with (+) tachypnea/MURPHY; frequent harsh, productive cough. Pt not using IS despite encouragement to do so. Abd soft, rounded, karishma PO well. Incont urine. Lt lateral
CT site dsg D/I. Resting in bed at present. Will continue to monitor.
[2024-09-23] MEDS: LOVENOX 40 MG SC (17:11)
[2024-09-23 19:55] VITALS: BP 122/62
[2024-09-23 23:13] VITALS: BP 104/55
[2024-09-24] MEDS: DUONEB 3 ML INH ×5 (03:01→19:28)
[2024-09-24 03:41] VITALS: BP 108/60
[2024-09-24] MEDS: SODIUM CHLORIDE 3% FOR INHALATION 1 VIAL INH ×4 (07:18→19:29)
[2024-09-24] MEDS: PULMICORT 0.5 MG INH ×2 (07:19→19:29)
[2024-09-24 07:25] VITALS: BP 117/61
[2024-09-24] MEDS: ATARAX 12.5 MG PO ×3 (08:49→20:33)
[2024-09-24] MEDS: DELTASONE 50 MG PO (08:50)
[2024-09-24] MEDS: PROTONIX 40 MG PO (08:50)
[2024-09-24] MEDS: MUCINEX 600 MG PO ×2 (08:50→20:33)
[2024-09-24] MEDS: CARDIZEM CD 120 MG PO (08:51)
--- NOTE | 2024-09-24 09:33 | W.PN.PUL3 ---
Today's Communication / Plan
-
Wean O2 as tolerated while keeping SpO2 88-95%
Walking pulse oximetry prior to discharge
PT/OT - will likely need skilled rehab after discharge (rec'd by OT)
Continue nebulized 3% to help improve expectoration and vest
Prednisone course with prolonged taper
Removed chest tube on 09/22/2024
Continue budesonide
Consult oncology; consider inpatient IR TTNA of lingula mass for additional tissue to help make a diagnosis of where this adenocarcinoma is coming from
Pulmonary service will continue to follow along
Assessment
-
79-year-old woman with history of COPD, home oxygen 4 L who presented with shortness of breath. Discharged from the hospital 08/20/2024 after treated with pneumonia, left-sided parapneumonic effusion s/p thoracentesis. Negative cytology and
cultures.
Patient has pulmonary cachexia, prior tobacco abuse, presented for [employer] with worsening shortness of breath.
Impression:
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
Chest x-ray showed large left pleural effusion-repeat thoracentesis 09/13/2024: 650 cc straw-colored fluid. Severe pain after fluid drainage.
history of thoracentesis 08/18/2024-exudative with negative culture
Chest tube, left side 09/17/24 --> removed 09/22/2024
Discharged from the hospital 08/20/2024 with acute exacerbation of COPD and pneumonia and left pleural effusion
CT chest performed showing moderate to advanced emphysema with a mild�moderate left-sided pleural effusion which appears to be loculated with masslike opacities in the lingula + left lower lobe - suspected lung cancer
Ultrasound showed moderate size left pleural effusion 08/17/2020 24-450 mL. Exudate/culture negative/cytology atypical mesothelial cells. Favoring reactive process
#Chronic respiratory failure with hypercapnia
Discharged on trilogy ventilator 08/20/2024
Latest ABG 7.4/75/60 08/17/2024
#Acute on chronic respiratory failure with hypoxia due to above
#Elevated eosinophil count (mild at 500 from 09/18/2024)
#Metabolic alkalosis due to chronic hypercapnia
#Emphysema/COPD on Trelegy 200mcg at home + home O2 (4-6L/min ATC)
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
Plan
Respiratory status tenuous with anxiety playing a significant contributing role.
Supplemental O2, left side chest tube placed 09/17/24--> removed 09/22/2024
Nebulizers-DuoNebs; was on budesonide from 09/13 - 09/21/2024 --> resumed 09/23/2024
Takes Trelegy at home--resume Symbicort and Spiriva at the time of discharge
Steroids added 09/18/24, with persistent wheezing and hypoxemia-methylprednisolone 40 mg IV every 12 hours
Improved and transitioned to PO course on 09/21 --> taper by 10mg every 5th day until off
Aspiration precautions.
Speech therapy following-correspondence reviewed.
Video swallow 09/15/24-recommend regular solids and thin liquids
Mucolytic as needed
On 09/22/2024 I started nebulized 3% as she is having difficulty with expectoration; raised from BID to QID as she feels a benefit with the medication; continue vest therapy after the 3% is given to help with expectoration
Case management consulted to see if they can get her the vest at home
Prior history of L thora 08/18/24--cyto + atypical meso cells
Chest x-ray 09/15/2466-[id number] left pleural effusion, mildly increased following thoracentesis, large left lower airspace disease and severe hyperinflation of the right.
Status post repeat left thoracentesis 09/13/2024-patient developed pain and thoracentesis was aborted after 650 cc of straw-colored fluid were drained
pH 7.44/wbc 3906/mononuclears 91%/glucose 116/total protein/LDH 143/amylase 41/triglycerides less than 30
Exudative
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
- consult oncology; consider IR TTNA of L-lingula mass to prove that this is primary lung adenocarcinoma
Status post left chest tube 09/17/24-cytology also showed metastatic adenocarcinoma
Chest tube removed on 09/22/2024 as there was minimal output and recent CT chest from 09/20/2024 showed that the tip of the chest tube was no longer and a pocket of fluid and there was a small amount of residual left-sided pleural effusion
CT chest with IV dye will be obtained 09/19/24, now that pleural fluid is evacuated-improved evaluation of left lower lobe
1.7 cm opacity posterior left lower lobe, 5cm ALONSO mass at inferior lingula
Given the concern for stage IV lung adenocarcinoma, would favor her getting IR transthoracic needle aspiration while she is currently inpatient; otherwise she would need OP biopsy if patient desires to move forward; if she does not want treatment,
which she may not be able to tolerate regardless given her significant deconditioning and poor clinical status, then would defer any additional procedures and would instead consult hospice
Anti- CCP IgG/IgA Ab elevated 78-can be elevated with rheumatoid arthritis-CONRAD Negative
DVT prophylaxis-on Lovenox.
GI prophylaxis-on pantoprazole..
Nutrition
Early mobilization
PT/OT --> OT rec'd skilled rehab upon discharge; PT had rec'd SNF vs home PT during eval from 09/21/2024
Reviewed with nursing and respiratory therapy
Pulmonary service will continue to follow along.
Family discussions:
Dr. Gómez called [phone] on 09/16/24-explained current clinical situation, potential etiologies, need for chest tube placement for pleural fluid evacuation with subsequent CT chest, also discussed pathology/cytology that is
pending-she is in agreement with chest tube placement-Dr. Gómez called interventional radiology and placed consult-we'll repeat cytology on additional fluid removed
Data:
CXR 08/15/2024: Evidence for small to moderate left pleural effusion with mild lateral loculation. Patchy parenchymal opacity within the left mid to lower lung, suspicious for pneumonia, although there could also be a component of atelectasis. Also
of note, underlying mass/neoplasia cannot be excluded radiographically and radiographic follow-up is recommended.
CT chest 09/20/24-1. Smallbore left chest tube in position. Trace residual left pleural fluid.
2. Complete atelectasis of the left lower lobe. Left lower lobe bronchi filled with secretions. In addition to this, approximately 1.7 cm area of abnormally decreased attenuation in the posterior left lower lobe as above for this area, infectious
etiology considered most likely. Neoplasm cannot be definitively excluded.
3. Persistent area of masslike consolidation in the inferior left upper lobe measuring up to 5 cm in diameter. Given the remainder of the findings and absence of adenopathy, also favored to have infectious etiology. Neoplasm cannot be excluded,
follow-up to resolution is recommended.
4. Emphysema.
5. Coronary and aortic atherosclerosis.
CT chest without contrast 08/15/2024: Moderate to advanced emphysematous lung changes. Mild to moderate left pleural effusion. Masslike opacities in the lingula and left lower lobe. Probable round pneumonia. Follow-up recommended to assess for
resolution. Minor localized tree-in-bud attenuation in the superior segment of the right lower lobe, nonspecific bronchiolitis. 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
Left chest US 08/17/2024: Moderate left pleural effusion. Stable
Total time spent today was 38 minutes for this encounter. Time includes reviewing laboratory test/imaging results, reviewing pertinent medical records, obtaining and reviewing medical history, performing an appropriate exam, ordering medications,
tests and procedures. Time also includes documentation of this encounter, coordinating patient care and communicating with other healthcare professionals. Total time does not include separately billed tests performed on this date of service.
Subjective Data
-
Date of Service:
Date of Service: September 24, 2024
Chief Complaint: Pulmonary Follow Up and Dyspnea Follow Up
Subjective:
Patient seen and evaluated today at bedside. Pleural fluid studies from 09/17/2024 + 09/13/2024 both have shown metastatic adenocarcinoma on cytopathology. Pt says that the 3% NS and vest therapy are helping her greatly. She does not feel like she is
ready to go home yet due to significant SOB with activity. She is on 4L/min and breathing comfortably at rest. Denies chest pain, [place] TORO, N/V/f/c.
Review of Systems
General: Other (Negative unless mentioned above)
Objective Data
Data Reviewed
Vital Signs / I&O / Oxygen:
Vital Signs
Temp Pulse Resp BP Pulse Ox
97.8 F 105 22 112/61 92
09/24/24 11:25 09/24/24 11:31 09/24/24 11:31 09/24/24 11:25 09/24/24 11:31
Intake and Output
09/23/24 09/24/24 09/25/24
06:59 06:59 06:59
Intake Total 720 / 720 1380 / 1380
Balance 720 / 720 1380 / 1380
SaO2 92
Nasal Cannula flow liters per 4
minute
Physical Exam
General: Respiratory Distress (n), Comfortable, Chills (n) and Sweats (n)
HEENT: Normocephalic and Anicteric
Cardiovascular: S1-S2, Peripheral Edema (n) and Other (Distant cardiac sounds)
Respiratory: Wheeze (n), Crackles (Bibasilar (L>R)), Rhonchi (n), Non-Labored Respirations, Accessory Resp Muscle Use (n) and Other (Diminished BS bilaterally)
GI: Soft, Non Distended, Non Tender and Normal Bowel Sounds
Neurology: AO x 3 and Tremors (n)
Skin: Warm, Dry, Cyanosis (n) and Jaundice (n)
Labs/Micro/Reports
Lab Data
09/23/24 08:38
09/23/24 08:38
Microbiology
09/13/24 11:52 Pleural Fluid Fungal Smear - Final
No yeast or fungal elements seen.
09/13/24 11:52 Pleural Fluid Fungal Culture - Preliminary
Culture in progress.
Positive cultures are reported as soon as detected.
Final report to follow in four to five weeks.
[2024-09-24 10:15] VITALS: BP 119/57; O2SAT 93
[2024-09-24 11:25] VITALS: BP 112/61
--- NOTE | 2024-09-24 12:12 | PTCARENOTE ---
pt refusing to get oob. Therapy and nursing attempted x2. CB in reach encouraged to use.
--- NOTE | 2024-09-24 12:20 | W.PN.HOSP.TC ---
Addendum entered and electronically signed by Anmol Macedo MD 09/24/24 12:23:
General: No Apparent Distress and Appears Chronically Ill, mouth breathing
HEENT: Normocephalic, Atraumatic, Moist Mucous Membranes and Oxygen midflow 4L
Respiratory: Decreased Breath Sounds (bilateral decreased BS, )
Cardiac: Regular Rhythm and S1/S2
GI: Soft, Nontender and Nondistended
Musculoskeletal: No Clubbing, No Cyanosis and No Edema
Neuro: Awake, Alert, Oriented, AO x 3 and No Motor Deficits; Negative Slurred Speech or Facial Droop
Psych: Anxious
Original Note:
Today's Communication/Plan
-
Oncology consult
Pulmonary recs
Continue with bronchodilators
Continue with steroids
Assessment / Plan
Assessment / Plan
A/P
#Shortness of breath secondary to large LEFT sided pleural effusion likely 2/2 Adenocarcinoma
fluid is an exudate. Reviewed with Dr Gómez, placed chest tube, drain fluid completely and then did repeat CT scan (see below)
# Acute on chronic chronic hypoxic respiratory failure
# Chronic hypercapnic respiratory failure
#History of COPD/emphysema
#History of severe tobacco abuse
#History of pleural effusion status post recent thoracentesis-which was deemed parapneumonic
# History of lung nodules
iRad consulted for thoracentesis status post thoracentesis 650 cc of straw-colored pleural fluid removed. Further fluid removal was stopped as patient complained of pain.
Fluid culture remains negative
Await further cytology results. Previous cytology results with atypical cells. possibly reactive.
Doubt fungal infection-fluid in lab
Pulmonary evaluation for recurrent effusion appreciated
Monitor off antibiotics
ESR/CRP elevated. CONRAD neg, CCP IgG/IgA Ab 78 (nl 0-19)
Continue with bronchodilators
CT was removed on 09/22 as not much output was noted
Cytology pending from 09/15 and 09/18 and resulted with adenocarcinoma
anxiety playing a huge role. Encourage patient to use incentive spirometry. Refusing at times.
Repeat CXR with Moderate loculated left pleural effusion. Rounded opacification in the left lower lung field possibly loculated fluid versus pneumonia or pulmonary masses. Stable
3% neb seems to be helping. Cont with Pulmicort. Plan for prolonged steroid slow taper regimen.
Discussed with pulmonary cell cytology finding. Oncology consulted. Patient states has questions for oncology.
Will await further oncology recs
Tachycardia
Continue with Cardizem
Transaminitis
could be from recent infection
trend for now.
resolved.
Hx of Dizziness/?vertigo-meclizine prn
Severe anxiety-cont atarax
Mild hyponatremia
-?SIADH due to recent pain from CT.
-Monitor for now.
dvt ppx-lovenox
Discussed with pulmonary
Anticipated Discharge: > 48 hours
Subjective/Interval History
-
Date of Service: September 24, 2024
remains on 4L
States 3% nebs helping
Pt was informed of pleural fluid cytology finding of adenocarcinoma.
Objective Data
-
Vital Signs:
Vital Signs
Temp Pulse Resp BP Pulse Ox
97.8 F 105 22 112/61 92
09/24/24 11:25 09/24/24 11:31 09/24/24 11:31 09/24/24 11:25 09/24/24 11:31
I&O
09/23/24 09/24/24 09/25/24
06:59 06:59 06:59
Intake Total 720 / 720 1380 / 1380
Balance 720 / 720 1380 / 1380
Data Reviewed
-
Total Time Spent with Patient (in minutes): 55
[2024-09-24 15:19] VITALS: BP 115/58
[2024-09-24] MEDS: LOVENOX 40 MG SC (17:13)
[2024-09-24 23:58] VITALS: BP 131/67
[2024-09-25] VITALS (73 sets, daily range): BP systolic 79–170; BP diastolic 49–102
[2024-09-25] MEDS: DUONEB 3 ML INH ×2 (00:09→02:59)
[2024-09-25] MEDS: MIRALAX 17 GRAMS PO (00:52)
--- NOTE | 2024-09-25 03:11 | W.PN.UPDATE ---
Update Note
Progress Note Update
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 RN reported 88% on 4 L, increased to 6 L 94% 120's, 170/90, 30's, 96.8, Patient reports 'SOB', denies chest pain. Lungs
diminished, mild rales at bases, HR RRR, Morphine 1mg IV stat, ABG stat, Chest Xray stat, labs and EKG ordered, RN gave Hydroxyzine PO for anxiety.
recent diagnoses of Adenocarcinoma noted.
Oxygen 92% Venti mask, HR 130's. EKG result noted. BP 170's/100, Telemetry placed. Cardizem 5mg Iv x1.
ABG result noted
pending Chest Xray
WBC elevated, will order UA, Blood Cx
Patient feels the same without much improvement, Will transfer patient to IMU for higflow.
[2024-09-25] MEDS: MORPHINE SULFATE 1 MG IV ×2 (03:20→04:36)
[2024-09-25] MEDS: ATARAX 12.5 MG PO ×2 (03:31→15:31)
[2024-09-25 03:33] LABS: B.E. 14.3 mmol/L; O2 Saturation % 94.8 % (94-98); PO2 98 mmHg (83-108); pH 7.36 (7.35-7.45)
[2024-09-25 03:41] LABS: HCO3 43.5 mmol/L (21-28); PCO2 77 mmHg (32-35)
[2024-09-25] MEDS: CARDIZEM 5 MG IV (03:53)
[2024-09-25 04:29] LABS: Hematocrit 44.9 % (37.0-47.0); Hemoglobin 14.4 g/dL (12.0-16.0); Mean Corp Hgb Conc. 32.1 g/dL (33.0-37.0); Mean Corpuscular Hgb 30.3 pg (27.0-31.0); Mean Corpuscular Volume 94.3 fL (81.0-99.0); Mean Platelet Volume 9.3 fL (7.4-10.4); Platelet Count 477 10^3/uL (130-400); Red Blood Cell Count 4.76 10^6/uL (4.20-5.40); Red Cell Dist. Width 13.3 % (11.5-14.5); White Blood Cell Count 20.4 10^3/uL (4.8-10.8)
[2024-09-25 04:51] LABS: Blood Urea Nitrogen 19 mg/dl (7-17); Calcium 9.4 mg/dl (8.4-10.2); Chloride 86 mmol/L (98-107); Estimated Creatinine Clearance 71 ml/min; Glucose 142 mg/dl (70-99); Magnesium 1.9 mg/dl (1.6-2.3); Potassium 4.7 mmol/L (3.5-5.1); Sodium 133 mmol/L (135-145); eGFR > 60.00
[2024-09-25 05:01] LABS: Carbon Dioxide 36 mmol/L (22-30)
[2024-09-25 05:39] LABS: Lactic Acid 0.8 mmol/L (0.7-2.0)
[2024-09-25 06:09] LABS: Urine Albumin Negative (Neg - Trace); Urine Bilirubin Negative (Negative); Urine Character Clear (Clear); Urine Color Yellow; Urine Glucose Negative (Negative); Urine Ketone Negative (Negative); Urine Leukocyte Negative (Negative); Urine Nitrite Negative (Negative); Urine Occult Blood Negative (Negative); Urine Specific Gravity 1.005 (<1.030); Urine Urobilinogen Negative (Neg - 1+)
[2024-09-25] MEDS: NSS (PRESERVATIVE FREE) 0.125 ML IV (06:13)
[2024-09-25] MEDS: ATIVAN 0.25 MG IV (06:14)
--- NOTE | 2024-09-25 06:18 | PTCARENOTE ---
received pt in bed with care transport nurse. Pt anxious and tachypneic. Received order for high flow. pt provided ativan as ordered. appears calmer now. no open areas on skin check noted. HR 130's and sats 91% with pt on 15L midflow.
--- NOTE | 2024-09-25 06:22 | PTCARENOTE ---
At approximately 0300, patient began to desat to low-mid 80s on 4LNC midflow, along with tachycardia in 130s, BP 170/102, and RR in 30s. RT and [employer]AL[employer] SUPERVISOR TRIM came to bedside to assess. Patient increased to 10L ventrimask, bringing oxygen saturation up to 92%.
Patient given two x1 doses of morphine 1mg IV and 1 x1 dose of 5mg cardizem IV push. BP improved to 130/81, but no change in HR or work of breathing. EKG completed. No complaints of pain. Blood cultures, lactic acid, labs, and blood gases drawn.
Patient was straight cathed to obtain UA. Order made to transfer patient to IMU level of care. Report given to LIDIA العلي. Patient transferred to room 3365.
[2024-09-25] MEDS: PULMICORT 0.5 MG INH ×2 (07:24→20:03)
[2024-09-25] MEDS: XOPENEX 0.63 MG INHALANT SOLUTION INH ×3 (07:25→20:03)
[2024-09-25] MEDS: SODIUM CHLORIDE 3% FOR INHALATION 1 VIAL INH ×4 (07:25→20:03)
[2024-09-25] MEDS: DELTASONE 50 MG PO (07:35)
[2024-09-25] MEDS: PROTONIX 40 MG PO (07:35)
[2024-09-25] MEDS: MUCINEX 600 MG PO (07:35)
--- NOTE | 2024-09-25 07:47 | W.PN.PUL.V3 ---
Today's Communication / Plan
-
Increased FiO2
Consider V60
Follow VBG
Continue prednisone
Xopenex continues in addition to budesonide
Oncology evaluation
Prognosis guarded
DNR
Assessment
-
79-year-old woman with history of COPD, home oxygen 4 L who presented with shortness of breath. Discharged from the hospital 08/20/2024 after treated with pneumonia, left-sided parapneumonic effusion s/p thoracentesis. Negative cytology and
cultures.
Patient has pulmonary cachexia, prior tobacco abuse, presented for [employer] with worsening shortness of breath.
Impression:
Shortness of breath/hypoxemic respiratory failure due to large left pleural effusion-recurrent due to malignant pleural effusion-metastatic lung cancer-adenocarcinoma
Chest x-ray showed large left pleural effusion-repeat thoracentesis 09/13/2024: 650 cc straw-colored fluid. Severe pain after fluid drainage.
History of thoracentesis 08/18/2024-exudative with negative culture
Chest tube, left side 09/17/24 --> removed 09/22/2024
Discharged from the hospital 08/20/2024 with acute exacerbation of COPD and pneumonia and left pleural effusion
CT chest performed showing moderate to advanced emphysema with a mild�moderate left-sided pleural effusion which appears to be loculated with masslike opacities in the lingula + left lower lobe - suspected lung cancer
Ultrasound showed moderate size left pleural effusion 08/17/2020 24-450 mL. Exudate/culture negative/cytology atypical mesothelial cells. Favoring reactive process
#Chronic respiratory failure with hypercapnia
Discharged on trilogy ventilator 08/20/2024
Latest ABG 7.4/75/60 08/17/2024
#Acute on chronic respiratory failure with hypoxia due to above
#Elevated eosinophil count (mild at 500 from 09/18/2024)
#Metabolic alkalosis due to chronic hypercapnia
#Emphysema/COPD on Trelegy 200mcg at home + home O2 (4-6L/min ATC)
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
DNR
Chronic conditions [employer]: COPD on Trelegy 200mcg + home oxygen at 4-6 L/min ATC, chronic rhinitis, eczema, multiple lung nodules (PET/CT was negative with no uptake in 2020), former tobacco smoker (last smoked a cigarette in April 2024)
Plan
Respiratory status tenuous with significant increase in FiO2 requirements
Supplemental O2,
Xopenex and budesonide nebulizers
Mucinex
Prednisone 50 mg daily with slow taper
Left side chest tube placed 09/17/24--> removed 09/22/2024
Nebulizers-DuoNebs; was on budesonide from 09/13 - 09/21/2024 --> resumed 09/23/2024
Takes Trelegy at home--resume Symbicort and Spiriva at the time of discharge
Steroids added 09/18/24, with persistent wheezing and hypoxemia-methylprednisolone 40 mg IV every 12 hours
Improved and transitioned to p.o. prednisone 50 mg daily
Follow-up VBG or ABG
Consider V60 for BiPAP
DO NOT INTUBATE
Chest x-ray 09/25/2024-elevation left hemidiaphragm, small left pleural effusion, slight improvement in atelectasis
Aspiration precautions.
Speech therapy following-correspondence reviewed.
Video swallow 09/15/24-recommend regular solids and thin liquids
Mucolytic as needed
On 09/22/2024 I started nebulized 3% as she is having difficulty with expectoration; raised from BID to QID as she feels a benefit with the medication; continue vest therapy after the 3% is given to help with expectoration
Case management consulted to see if they can get her the vest at home
Prior history of L [facility] 08/18/24--cyto + atypical meso cells
Chest x-ray 09/15/2451-[id number] left pleural effusion, mildly increased following thoracentesis, large left lower airspace disease and severe hyperinflation of the right.
Status post repeat left thoracentesis 09/13/2024-patient developed pain and thoracentesis was aborted after 650 cc of straw-colored fluid were drained
pH 7.44/wbc 3906/mononuclears 91%/glucose 116/total protein/LDH 143/amylase 41/triglycerides less than 30
Exudative
Cytology from [facility] on 09/13/2024 shows metastatic adenocarcinoma with suspected lung primary- prior cytology with atypical mesothelial cells
Left pleural fluid cytology 09/15/2024-metastatic adenocarcinoma
Left pleural fluid cytology 09/18/2024-metastatic adenocarcinoma
Oncology consultation pending
Respiratory status too tenuous for any type of biopsy at this point
Chest tube removed on 09/22/2024 as there was minimal output and recent CT chest from 09/20/2024 showed that the tip of the chest tube was no longer and a pocket of fluid and there was a small amount of residual left-sided pleural effusion
CT chest with IV dye obtained 09/19/24, now that pleural fluid is evacuated-improved evaluation of left lower lobe
1.7 cm opacity posterior left lower lobe, 5cm ALONSO mass at inferior lingula
Anti- CCP IgG/IgA Ab elevated 78-can be elevated with rheumatoid arthritis-CONRAD Negative
DVT prophylaxis-on Lovenox.
GI prophylaxis-on pantoprazole..
Nutrition
Bedside range of motion
PT/OT --> OT rec'd skilled rehab upon discharge; PT had rec'd SNF vs home PT during eval from 09/21/2024
Prognosis unfortunately poor with metastatic probable lung cancer and poor performance status
A total of 50 minutes of critical care time was provided for this patient today. This includes management of unstable vital signs, evaluation of the patient at bedside, reviewing the patient's pertinent medical records including radiographs,
microbiology, laboratory evaluations, and discussion with primary team, consultants, pharmacy, nutrition, physical therapy, case management, charge nurse, critical care nursing, and respiratory therapy.
Family discussions:
Dr. Gómez called [phone] on 09/16/24-explained current clinical situation, potential etiologies, need for chest tube placement for pleural fluid evacuation with subsequent CT chest, also discussed pathology/cytology that is
pending-she is in agreement with chest tube placement-Dr. Gómez called interventional radiology and placed consult-we'll repeat cytology on additional fluid removed
Data:
CXR 08/15/2024: Evidence for small to moderate left pleural effusion with mild lateral loculation. Patchy parenchymal opacity within the left mid to lower lung, suspicious for pneumonia, although there could also be a component of atelectasis. Also
of note, underlying mass/neoplasia cannot be excluded radiographically and radiographic follow-up is recommended.
CT chest 09/20/24-1. Smallbore left chest tube in position. Trace residual left pleural fluid.
2. Complete atelectasis of the left lower lobe. Left lower lobe bronchi filled with secretions. In addition to this, approximately 1.7 cm area of abnormally decreased attenuation in the posterior left lower lobe as above for this area, infectious
etiology considered most likely. Neoplasm cannot be definitively excluded.
3. Persistent area of masslike consolidation in the inferior left upper lobe measuring up to 5 cm in diameter. Given the remainder of the findings and absence of adenopathy, also favored to have infectious etiology. Neoplasm cannot be excluded,
follow-up to resolution is recommended.
4. Emphysema.
5. Coronary and aortic atherosclerosis.
CT chest without contrast 08/15/2024: Moderate to advanced emphysematous lung changes. Mild to moderate left pleural effusion. Masslike opacities in the lingula and left lower lobe. Probable round pneumonia. Follow-up recommended to assess for
resolution. Minor localized tree-in-bud attenuation in the superior segment of the right lower lobe, nonspecific bronchiolitis. 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
Left chest US 08/17/2024: Moderate left pleural effusion. Stable
Total time spent today was 38 minutes for this encounter. Time includes reviewing laboratory test/imaging results, reviewing pertinent medical records, obtaining and reviewing medical history, performing an appropriate exam, ordering medications,
tests and procedures. Time also includes documentation of this encounter, coordinating patient care and communicating with other healthcare professionals. Total time does not include separately billed tests performed on this date of service.
Subjective Data
-
Date of Service:
Date of Service: September 25, 2024
Chief Complaint: Pulmonary Follow Up and Dyspnea Follow Up
Subjective:
Patient transferred to IMU because of increased oxygen requirements, patient is arousable, admits to shortness of breath, some chest congestion, difficulties mobilizing secretions but denies any chest pain, abdominal pain
Review of Systems
General: Other (Per HPI)
Objective Data
Data Reviewed
Vital Signs / I&O:
Vital Signs
Temp Pulse Resp BP Pulse Ox
97.7 F 123 30 130/81 94
09/25/24 06:08 09/25/24 07:30 09/25/24 07:30 09/25/24 04:29 09/25/24 07:35
Intake and Output
09/24/24 09/25/24 09/26/24
06:59 06:59 06:59
Intake Total 1380 / 1380 960 / 960
Output Total 1350 / 1350
Balance 1380 / 1380 -390 / -390
SaO2: 94
Nasal Cannula flow liters per minute: 50
Physical Exam
General: Respiratory Distress (n), Comfortable, Chills (n) and Sweats (n)
HEENT: Normocephalic and Anicteric
Cardiovascular: Regular Rhythm, Peripheral Edema (n) and Other (Distant cardiac sounds)
Respiratory: Wheeze (n), Crackles (Bibasilar (L>R)), Rhonchi (n), Non-Labored Respirations, Accessory Resp Muscle Use (n) and Other (Diminished BS bilaterally)
GI: Soft, Non Distended, Non Tender and Normal Bowel Sounds
Neurology: Awake, Alert and Tremors (n)
Skin: Warm, Good Color, Cyanosis (n) and Jaundice (n)
Labs/Micro/Reports
Lab Data
09/25/24 03:41
09/25/24 03:41
Laboratory Results
09/25/24
03:16
pH 7.36
pCO2 77 H*
pO2 98
HCO3 43.5 H*
O2 Delivery Level
Microbiology
09/13/24 11:52 Pleural Fluid Fungal Smear - Final
No yeast or fungal elements seen.
09/13/24 11:52 Pleural Fluid Fungal Culture - Preliminary
Culture in progress.
Positive cultures are reported as soon as detected.
Final report to follow in four to five weeks.
[2024-09-25] MEDS: CARDIZEM CD 120 MG PO (08:04)
[2024-09-25 08:20] LABS: Venous Blood Gas B.E. 16.7 mmol/L (-4 to +4); Venous Blood Gas HCO3 46.1 mmol/L (22-27); Venous Blood Gas O2 Sat % 99.2 %; Venous Blood Gas pH 7.38 (7.32-7.43); Venous Blood Gas pO2 166 mmHg (30-50)
[2024-09-25 08:22] LABS: Venous Blood Gas pCO2 78 mmHg (35-48)
--- NOTE | 2024-09-25 09:41 | CON.ONC ---
Addendum entered and electronically signed by Anish Rm DO, Resident 09/26/24 11:01:
Per current staging AJCC eighth edition guidelines patient is a stage IV non-small cell adenocarcinoma, she has metastatic disease in her pleural fluid.
Original Note:
Impression
Impression
Recurrent pleural effusion are likely secondary to metastatic adenocarcinoma and or left upper lobe lobulated mass
As patient has positive adenocarcinoma in her pleural fluid she would be a wet stage IIIb, treatment would be systemic if applicable
No need for biopsy as we have positive adenocarcinoma cells in pleural fluid. Patient also is not a good candidate for biopsy at this point as she is requiring high flow O2
Spoke to head pathologist, confirmed that they have enough volume of cytologic tissue to perform PD-L1 and NGS testing on the adenocarcinoma in the pleural fluid
Results currently pending, may be an actionable target based on results
Patient is currently very sick with a KPS of 20 and ECOG performance score 4
Of note patient has no focal neurologic deficits or neurologic symptoms on exam
Plan
Plan
Supportive measures per bank cashier, and primary
Believe patient is a poor candidate for biopsy currently. However there is no need for biopsy at this point as we have positive cells in pleural fluid
Check cytology of pleural fluid for PD-L1 and NGS histopathology for actionable mutation. Confirmed with pathology there is sufficient cytologic tissue to run these tests
Patient has no focal neurologic deficits and reports no neurologic symptoms. No need for head imaging at this time. If patient develops any focal deficits, head imaging to rule out mets would be appropriate
Patient History
History of Present Illness
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 On her last admission she had a left-sided thoracentesis in which her cytology was negative.
During this admission she had a repeat thoracentesis which did demonstrate metastatic adenocarcinoma cells in the pleural fluid. She had a CT scan showing 5 x 2.7 cm left upper lobe lobulated mass. Oncology was consulted regarding the metastatic
adenocarcinoma in the pleural fluid and the lung mass.
Patient Medication
�Medication �Instructions �Recorded �Confirmed �Last Taken �Type
albuterol sulfate 90 mcg/actuation 2 puff inhalation R Q4HPRN PRN 08/15/24 09/12/24 Unknown History
aerosol inhaler sob/wheeze
fluticasone propionate 50 2 spray intranasal DAILY Allergies 08/15/24 09/12/24 Unknown History
mcg/actuation nasal
spray,suspension
ipratropium 20 mcg-albuterol 100 1 puff inhalation R Q6HPRN PRN 08/15/24 09/12/24 2 Months Ago History
mcg/actuation mist for inhalation sob/copd ~06/15/24
(Combivent Respimat)
acetaminophen 325 mg tablet 650 mg PO Q4HPRN PRN mild 09/12/24 09/12/24 Unknown History
(Tylenol) pain/fever>100
bisacodyl 10 mg rectal suppository 10 mg FL DAILYPRN PRN day 5 no bm, 09/12/24 09/12/24 Unknown History
(Dulcolax (bisacodyl)) mom ineffective
diltiazem HCl 120 mg capsule,24 120 mg PO DAILY Rate control 09/12/24 09/12/24 Unknown History
hr,extended release
fluticasone fur. 100 mcg-umeclid 1 inh inhalation R DAILY 09/12/24 09/12/24 Unknown History
62.5 mcg-vilant 25 mcg Lung/Breathing Issues
inhalat.powder (Trelegy Ellipta)
hydroxyzine HCl 25 mg tablet 12.5 mg PO QIDPRN PRN anxiety 09/12/24 09/12/24 Unknown History
ipratropium 0.5 mg-albuterol 3 mg 3 ml inhalation R QID 09/12/24 09/12/24 Unknown History
(2.5 mg base)/3 mL nebulization Lung/Breathing Issues
soln
magnesium hydroxide 400 mg/5 mL 30 ml PO Q98H PRN On day 4 of no bm 09/12/24 09/12/24 Unknown History
oral suspension (Milk of Magnesia)
meclizine 12.5 mg tablet 12.5 mg PO TIDPRN PRN dizziness 09/12/24 09/12/24 Unknown History
pantoprazole 40 mg tablet,delayed 40 mg PO DAILY Gastrointestinal 09/12/24 09/12/24 Unknown History
release Issue
sodium chloride 0.65 % nasal spray 2 spray intranasal Q6HPRN PRN 09/12/24 09/12/24 Unknown History
aerosol (Nasal Moisturizing) nasal congestion
sodium phosphates 19 gram-7 118 ml FL DAILYPRN PRN day 6 no 09/12/24 09/12/24 Unknown History
gram/118 mL enema (Fleet Enema) bm, supp ineffective
Active Medications
Generic Name Dose Route Start Last Admin
Trade Name Freq PRN Reason Stop Dose Admin
Acetaminophen 650 mg 09/12/24 19:00 09/22/24 09:58
Acetaminophen 325 Mg Tablet PO 10/10/24 18:59 650 mg
Q4HPRN PRN Administration
mild pain/DEL TORO/temp> 100.4F
Bisacodyl 10 mg 09/12/24 19:00
Bisacodyl 10 Mg Rectal Suppository RECTAL 10/10/24 18:59
[id number] PRN
constipation
Budesonide 0.5 mg 09/22/24 20:00 09/25/24 07:24
Budesonide (Pulmicort Respules) 0.5 Mg/2 Ml INH 0.5 mg
R BID KALEB Administration
Protocol
Diltiazem HCl 120 mg 09/13/24 08:00 09/25/24 08:04
Diltiazem 120 Mg Extended Release (24 H) Capsule PO 10/11/24 07:59 120 mg
DAILY KALEB Administration
Enoxaparin Sodium 40 mg 09/12/24 19:00 09/24/24 17:13
Enoxaparin Sodium 40 Mg/0.4 Ml Syringe SC 10/10/24 18:59 40 mg
QPM KALEB Administration
Guaifenesin 600 mg 09/21/24 11:00 09/25/24 07:35
Guaifenesin 600 Mg Extended Release Tablet PO 10/19/24 10:59 600 mg
Q12 KALEB Administration
Hydroxyzine HCl 12.5 mg 09/12/24 19:00 09/25/24 03:31
Hydroxyzine 25 Mg Tablet PO 10/10/24 18:59 12.5 mg
QIDPRN PRN Administration
anxiety
Levalbuterol HCl 0.63 mg 09/25/24 03:53
Levalbuterol 0.63 Mg/3 Ml Ampul INH
R Q6HPRN PRN
SOB Wheeze
Protocol
Levalbuterol HCl 0.63 mg 09/25/24 08:00 09/25/24 07:25
Levalbuterol 0.63 Mg/3 Ml Ampul INH 0.63 mg
R TID KALEB Administration
Protocol
Meclizine HCl 12.5 mg 09/12/24 19:00
Meclizine 12.5 Mg Tablet PO 10/10/24 18:59
TIDPRN PRN
dizziness
Pantoprazole Sodium 40 mg 09/13/24 08:00 09/25/24 07:35
Pantoprazole 40 Mg Delayed Release Tablet PO 10/11/24 07:59 40 mg
DAILY KALEB Administration
Polyethylene Glycol 17 grams 09/12/24 19:00 09/25/24 00:52
Polyethylene Glycol Powder 17 Grams Packet PO 10/10/24 18:59 17 grams
DAILYPRN PRN Administration
constipation
Prednisone 50 mg 09/21/24 08:00 09/25/24 07:35
Prednisone 50 Mg Tablet PO 10/19/24 07:59 50 mg
DAILY KALEB Administration
Senna/Docusate Sodium 1 tablet 09/12/24 19:00
Docusate W/Senna (Lian-Colace) Tablet PO 10/10/24 18:59
BIDPRN PRN
constipation
Sodium Chloride 0 flush 09/12/24 20:00 09/23/24 09:33
Sodium Chloride 0.9% (Flush) Syringe IV 10/10/24 19:59 1 flush
PER PROTOCOL KALEB Administration
Sodium Chloride 0 sprays 09/16/24 18:04 09/18/24 20:19
Sodium Chloride 0.65% Nasal [place] 45 Ml Bottle NASAL 10/14/24 18:03 2 sprays
Q2HPRN PRN Administration
nasal congestion
Sodium Chloride 1 vial 09/23/24 20:00 09/25/24 07:25
Sodium Chloride 3% For Inhalation 4 Ml Vial INH 1 vial
R QID KALEB Administration
Review of Systems
-
Unable to obtain full review of systems at this time due to: Other (Patient requiring high flow O2, only nodded to questions)
Respiratory: Reports Trouble Breathing
Neuro: Denies Headache or Weakness
Physical Exam
-
General: Appears Chronically Ill
Pulmonary: Other (Decreased lung sounds left side at base)
Neurology: Other (No focal neurologic deficits. Patient has equal strength and sensation of bilateral upper and lower extremities.)
Labs
Lab Results
WBC 20.4 10^3/uL (4.8-10.8) H 09/25/24 03:41
RBC 4.76 10^6/uL (4.20-5.40) 09/25/24 03:41
Hgb 14.4 g/dL (12.0-16.0) 09/25/24 03:41
Hct 44.9 % (37.0-47.0) 09/25/24 03:41
MCV 94.3 fL (81.0-99.0) 09/25/24 03:41
MCH 30.3 pg (27.0-31.0) 09/25/24 03:41
MCHC 32.1 g/dL (33.0-37.0) L 09/25/24 03:41
RDW 13.3 % (11.5-14.5) 09/25/24 03:41
Plt Count 477 10^3/uL (130-400) H 09/25/24 03:41
MPV 9.3 fL (7.4-10.4) 09/25/24 03:41
Abs Immat Gran (auto) 0.2 10^3/uL (0-0.05) H 09/23/24 08:38
Absolute Neuts (auto) 8.3 10^3/uL (1.4-6.5) H 09/23/24 08:38
Absolute Lymphs (auto) 0.8 10^3/uL (1.2-3.4) L 09/23/24 08:38
Absolute Monos (auto) 0.9 10^3/uL (0.1-0.6) H 09/23/24 08:38
Absolute Eos (auto) 0.0 10^3/uL (0-0.7) 09/23/24 08:38
Absolute Basos (auto) 0.1 10^3/uL (0-0.2) 09/23/24 08:38
Immature Gran % 1.7 % (0-0.5) H 09/23/24 08:38
Neutrophils % 81.5 % (42.2-75.2) H 09/23/24 08:38
Lymphocytes % 7.7 % (20.5-51.1) L 09/23/24 08:38
Monocytes % 8.6 % (1.7-9.3) 09/23/24 08:38
Eosinophils % 0.0 % (0-6) 09/23/24 08:38
Basophils % 0.5 % (0-2) 09/23/24 08:38
Creatinine 0.3 mg/dL (0.6-1.0) L 09/25/24 03:41
Vital Signs
Vital Signs
Temp Pulse Resp BP Pulse Ox
97.6 F 123 30 130/81 95
09/25/24 08:50 09/25/24 07:30 09/25/24 07:30 09/25/24 04:29 09/25/24 08:08
--- NOTE | 2024-09-25 10:07 | PTCARENOTE ---
Pt received in bed @ 0700. Drowsy and lethargic. Oriented to self. Unable to recall hospitalization. Asking, 'Why am I here? What happened?' Unable to orient to hospital. SaO2 94% on High Flow NC 50L/60%. RR 30s. Left lung diminished with fine
crackles. Right lung with scattered crackles. Expiratory wheeze. Sinus tach with PAC's on monitoring and evaluation advisor. HR 100s - 130s. Scheduled Cardizem Cd 120mg PO administered. Trace LE edema. Palpable pedal pulses. Pt able to tolerate PO intake for
scheduled medications. Expressing lack of appetite for breakfast. Schedule VBG drawn and sent.
--- NOTE | 2024-09-25 12:49 | CM ---
CM following re: discharge planning.
Discussed in rounds, reviewed pt's chart met with pt. Per Rounds meeting, pt requires 50 L HFNC with FIO2 60%, prognosis poor with metastatic probable lung cancer and poor performance status, goals of care discussed by MD with family, continue
supportive care.
Per CM note, pt lives alone in a senior apartment complex in [place], has supportive daughter and a son, ambulated with a walker at baseline.
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
PT and OT have been recommended SNF vs home PT on 09/21/24.
D/C plan: uncertain at this time and will depend on pt's progress.
CM will follow with discharger plan updates as hospitalization progresses
--- NOTE | 2024-09-25 12:58 | W.PN.HOSP.TC ---
Addendum entered and electronically signed by Anmol Macedo MD 09/25/24 14:24:
Leukocytosis likely secondary to steroids. UA was found to be negative. Blood cultures in lab.
Original Note:
Today's Communication/Plan
-
Wean oxygen as tolerated
Continue to encourage increased nutrition intake
PT and OT as tolerated
Pulmonary rec.
Await oncology eval
Assessment / Plan
Assessment / Plan
A/P
#Shortness of breath secondary to large LEFT sided pleural effusion likely 2/2 Adenocarcinoma
# Acute on chronic chronic hypoxic respiratory failure
# Chronic hypercapnic respiratory failure
#History of COPD/emphysema
#History of severe tobacco abuse
#History of pleural effusion status post recent thoracentesis-which was deemed parapneumonic
# History of lung nodules
iRad consulted for thoracentesis status post thoracentesis 650 cc of straw-colored pleural fluid removed. Further fluid removal was stopped as patient complained of pain.
Fluid culture remains negative
Await further cytology results. Previous cytology results with atypical cells. possibly reactive.
Doubt fungal infection-fluid in lab
Pulmonary evaluation for recurrent effusion appreciated
Monitor off antibiotics
ESR/CRP elevated. CONRAD neg, CCP IgG/IgA Ab 78 (nl 0-19)
Continue with bronchodilators
CT was removed on 09/22 as not much output was noted
Cytology pending from 09/15 and 09/18 and resulted with adenocarcinoma
anxiety playing a huge role. Encourage patient to use incentive spirometry. Refusing at times.
Repeat CXR with Moderate loculated left pleural effusion. Rounded opacification in the left lower lung field possibly loculated fluid versus pneumonia or pulmonary masses. Stable
3% neb seems to be helping. Cont with Pulmicort. Plan for prolonged steroid slow taper regimen.
Repeat chest x-ray with improvement
Now transition to high flow nasal cannula. Currently on 50% FiO2. Wean O2 as tolerated
# Stage III lung adenocarcinoma
Oncology consulted await further recommendation
# Mild hospital-acquired delirium likely secondary to hypoxemia and decreasing overnight sleep
Continue to monitor mentation closely
Avoid benzos and opiates if possible
Recommend rest and sleep overnight
Tachycardia
Continue with Cardizem
Transaminitis
could be from recent infection
trend for now.
resolved.
Hx of Dizziness/?vertigo-meclizine prn
Severe anxiety-cont atarax
Mild hyponatremia
-?SIADH due to recent pain from CT.
-Monitor for now.
dvt ppx-lovenox
updated patient daughter over the phone in details for prolonged period of time and daughter was also informed about malignancy.
PT/OT
Prognosis poor.
Anticipated Discharge: > 48 hours
Subjective/Interval History
-
Date of Service: September 25, 2024
Patient overnight events were noted
Patient with severe tachypnea and shortness of breath and was transitioned to IMU level of care on high flow nasal cannula.
This morning patient mildly confused but did states she is endorsed on hospital and is hungry
Did not get much sleep overnight
Objective Data
-
Labs:
Laboratory Results
09/25/24 09/25/24
03:16 03:41
WBC 20.4 H
Hgb 14.4
Hct 44.9
Plt Count 477 H
HCO3 43.5 H*
Sodium 133 L
Potassium 4.7
Chloride 86 L
Carbon Dioxide 36 H
BUN 19 H
Creatinine 0.3 L
Glucose 142 H
Calcium 9.4
Vital Signs:
Vital Signs
Temp Pulse Resp BP Pulse Ox
97.6 F 118 23 92/57 94
09/25/24 08:50 09/25/24 11:26 09/25/24 11:26 09/25/24 11:15 09/25/24 11:40
I&O
09/24/24 09/25/24 09/26/24
06:59 06:59 06:59
Intake Total 1380 / 1380 960 / 960
Output Total 1350 / 1350
Balance 1380 / 1380 -390 / -390
Data Reviewed
-
Total Time Spent with Patient (in minutes): 55
[2024-09-25] MEDS: LR 1000 IV ×2 (13:40→21:30)
--- NOTE | 2024-09-25 14:19 | W.PN.UPDATE ---
Addendum entered and electronically signed by Anmol Macedo MD 09/25/24 14:51:
Patient started on noninvasive and per the protocol upgraded to ICU level of care. Electroplating Laborer updated.
Original Note:
Update Note
Progress Note Update
Discussed with patient daughter Emily at bedside. Patient with hypotension and was started on IV fluid resuscitation. Patient also with worsening hypoxemia and mentation changes and plan to start patient on noninvasive ventilation. This was also
discussed with Emily's over the phone. Explained to both of them that patient had critical stage with hypotension, worsening hypoxemia, hypercapnic respiratory failure now requiring noninvasive ventilation. Prognosis remains guarded. If no
improvement may need to consider hospice.
--- NOTE | 2024-09-25 15:13 | PTCARENOTE ---
Pt reassessed. Remains lethargic. Arouses shortly to verbal stimuli. Able to communicate that she is at [facility] but still closing eyes. Unable to remain awake for lunch. Becoming hypotensive. Dr. Corea and Dr. Gómez notified. New
orders for LR @ 125 ml/hr, Levophed gtt with goal MAP > 65, Noninvasive ventilation, and transfer to ICU. Levophed gtt titrated to 2 mcg/min and MAP became > 65.
[2024-09-25 15:16] LABS: Phosphorus 3.9 mg/dl (2.5-4.5)
[2024-09-25] MEDS: ZOFRAN 4 MG IV (15:32)
[2024-09-25] MEDS: LOVENOX 40 MG SC (19:26)
[2024-09-25] MEDS: MUCINEX PO (20:21)
[2024-09-25 22:46] LABS: Venous Blood Gas B.E. 12.2 mmol/L (-4 to +4); Venous Blood Gas O2 Sat % 99.1 %; Venous Blood Gas pCO2 66 mmHg (35-48); Venous Blood Gas pH 7.39 (7.32-7.43); Venous Blood Gas pO2 163 mmHg (30-50)
[2024-09-25] MEDS: LEVOPHED 250 IV (23:19)
[2024-09-26] VITALS (61 sets, daily range): BP systolic 73–123; BP diastolic 50–78; BMI 23.3
[2024-09-26 04:12] LABS: % Basophils 0.4 % (0-2); % Immature Granulocytes 2.1 % (0-0.5); % Lymphocytes 2.6 % (20.5-51.1); % Monocytes 1.7 % (1.7-9.3); % Neutrophils 93.2 % (42.2-75.2); Absolute Basophils 0.1 10^3/uL (0-0.2); Absolute Immature Granulocytes 0.3 10^3/uL (0-0.05); Absolute Lymphocytes 0.4 10^3/uL (1.2-3.4); Absolute Monocytes 0.3 10^3/uL (0.1-0.6); Absolute Neutrophils 14.4 10^3/uL (1.4-6.5); Hematocrit 39.4 % (37.0-47.0); Hemoglobin 12.5 g/dL (12.0-16.0); Mean Corp Hgb Conc. 31.7 g/dL (33.0-37.0); Mean Corpuscular Volume 94.5 fL (81.0-99.0); Mean Platelet Volume 9.5 fL (7.4-10.4); Nucleated Red Blood Cells % 0 %; Platelet Count 409 10^3/uL (130-400); Red Blood Cell Count 4.17 10^6/uL (4.20-5.40); Red Cell Dist. Width 13.5 % (11.5-14.5); White Blood Cell Count 15.4 10^3/uL (4.8-10.8)
[2024-09-26 04:37] LABS: Blood Urea Nitrogen 31 mg/dl (7-17); Calcium 7.8 mg/dl (8.4-10.2); Chloride 87 mmol/L (98-107); Estimated Creatinine Clearance 71 ml/min; Glucose 138 mg/dl (70-99); Magnesium 1.7 mg/dl (1.6-2.3); Phosphorus 3.1 mg/dl (2.5-4.5); Potassium 4.6 mmol/L (3.5-5.1); Sodium 132 mmol/L (135-145); eGFR > 60.00
[2024-09-26 04:52] LABS: Carbon Dioxide 36 mmol/L (22-30)
[2024-09-26] MEDS: LR 1000 IV (05:31)
[2024-09-26] MEDS: MAGNESIUM SULFATE 102 GRAMS IV (06:39)
[2024-09-26] MEDS: SODIUM CHLORIDE 3% FOR INHALATION 1 VIAL INH ×3 (07:27→20:25)
[2024-09-26] MEDS: XOPENEX 0.63 MG INHALANT SOLUTION INH ×4 (07:27→20:25)
[2024-09-26] MEDS: PULMICORT 0.5 MG INH ×2 (07:27→20:25)
--- NOTE | 2024-09-26 07:43 | W.PN.INTV ---
Today's Communication / Plan
Recommendations
Wean noninvasive ventilation
Decrease IV fluids
Wean norepinephrine
Low threshold for antibiotic reinitiation
Monitor for pleural fluid reaccumulation
Assessment
-
79-year-old woman with history of COPD, home oxygen 4 L who presented with shortness of breath. Discharged from the hospital 08/20/2024 after treated with pneumonia, left-sided parapneumonic effusion s/p thoracentesis. Negative cytology and
cultures.
Patient has pulmonary cachexia, prior tobacco abuse, presented for [employer] with worsening shortness of breath.
Impression:
Shortness of breath/hypoxemic respiratory failure due to large left pleural effusion-recurrent due to malignant pleural effusion-metastatic lung cancer-adenocarcinoma
Chest x-ray showed large left pleural effusion-repeat thoracentesis 09/13/2024: 650 cc straw-colored fluid. Severe pain after fluid drainage.
History of thoracentesis 08/18/2024-exudative with negative culture
Chest tube, left side 09/17/24 --> removed 09/22/2024
Discharged from the hospital 08/20/2024 with acute exacerbation of COPD and pneumonia and left pleural effusion
CT chest performed showing moderate to advanced emphysema with a mild�moderate left-sided pleural effusion which appears to be loculated with masslike opacities in the lingula + left lower lobe - suspected lung cancer
Ultrasound showed moderate size left pleural effusion 08/17/2020 24-450 mL. Exudate/culture negative/cytology atypical mesothelial cells. Favoring reactive process
#Chronic respiratory failure with hypercapnia
Discharged on trilogy ventilator 08/20/2024
Latest ABG 7.4/75/60 08/17/2024
#Acute on chronic respiratory failure with hypoxia due to above
#Elevated eosinophil count (mild at 500 from 09/18/2024)
#Metabolic alkalosis due to chronic hypercapnia
#Emphysema/COPD on Trelegy 200mcg at home + home O2 (4-6L/min ATC)
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
DNR
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
Plan
Respiratory status improved overnight on noninvasive ventilation
Supplemental O2-high flow if needed-attempt to wean
V60-NIV continues as tolerated-attempt to liberate
Xopenex and budesonide nebulizers
Mucinex
Vest therapy
Prednisone 50 mg daily-decrease to 40 mg daily
Left side chest tube placed 09/17/24--> removed 09/22/2024
Nebulizers-DuoNebs; was on budesonide from 09/13 - 09/21/2024 --> resumed 09/23/2024
Takes Trelegy at home--resume Symbicort and Spiriva at the time of discharge
Steroids added 09/18/24, with persistent wheezing and hypoxemia-methylprednisolone 40 mg IV every 12 hours-subsequently transitioned to prednisone
Follow-up VBG or ABG
DO NOT INTUBATE
Chest x-ray 09/25/2024-elevation left hemidiaphragm, small left pleural effusion, slight improvement in atelectasis
Check cultures
Finished a course of antibiotics
Low threshold for antibiotic reinitiation if clinically indicated
Norepinephrine-attempt to wean
Decrease IV fluids
Aspiration precautions.
Speech therapy following-correspondence reviewed.
Video swallow 09/15/24-recommend regular solids and thin liquids
Mucolytic as needed
On 09/22/2024 I started nebulized 3% as she is having difficulty with expectoration; raised from BID to QID as she feels a benefit with the medication; continue vest therapy after the 3% is given to help with expectoration
Case management consulted to see if they can get her the vest at home
Prior history of L thoracentesis 08/18/24--cyto + atypical meso cells
Chest x-ray 09/15/2454-[id number] left pleural effusion, mildly increased following thoracentesis, large left lower airspace disease and severe hyperinflation of the right.
Status post repeat left thoracentesis 09/13/2024-patient developed pain and thoracentesis was aborted after 650 cc of straw-colored fluid were drained
pH 7.44/wbc 3906/mononuclears 91%/glucose 116/total protein/LDH 143/amylase 41/triglycerides less than 30
Exudative
Cytology from [facility] on 09/13/2024 shows metastatic adenocarcinoma with suspected lung primary- prior cytology with atypical mesothelial cells
Left pleural fluid cytology 09/15/2024-metastatic adenocarcinoma
Left pleural fluid cytology 09/18/2024-metastatic adenocarcinoma
Oncology consultation following-correspondence reviewed-no need for additional biopsies, performance status currently too poor for therapeutics
Respiratory status too tenuous for any type of biopsy at this point
Chest tube removed on 09/22/2024 as there was minimal output and recent CT chest from 09/20/2024 showed that the tip of the chest tube was no longer and a pocket of fluid and there was a small amount of residual left-sided pleural effusion
High risk for pleural fluid reaccumulation-discussed with daughter potential need for Pleurx catheter if reoccurs
Anti- CCP IgG/IgA Ab elevated 78-can be elevated with rheumatoid arthritis-CONRAD Negative
DVT prophylaxis-on Lovenox.
GI prophylaxis-on pantoprazole..
Nutrition
Bedside range of motion
PT/OT --> OT rec'd skilled rehab upon discharge; PT had rec'd SNF vs home PT during eval from 09/21/2024
Prognosis unfortunately poor with metastatic probable lung cancer and poor performance status
Dr. Gómez had lengthy discussion with daughter 09/26/2024 who joined on multidisciplinary rounds-told overall declining pulmonary status, metastatic lung cancer, likelihood of pleural fluid reaccumulation, options including palliation/comfort
care/hospice
A total of 45 minutes of critical care time was provided for this patient today. This includes management of unstable vital signs, evaluation of the patient at bedside, reviewing the patient's pertinent medical records including radiographs,
microbiology, laboratory evaluations, and discussion with primary team, consultants, pharmacy, nutrition, physical therapy, case management, charge nurse, critical care nursing, and respiratory therapy.
Family discussions:
Dr. Gómez called [phone] on 09/16/24-explained current clinical situation, potential etiologies, need for chest tube placement for pleural fluid evacuation with subsequent CT chest, also discussed pathology/cytology that is
pending-she is in agreement with chest tube placement-Dr. Gómez called interventional radiology and placed consult-we'll repeat cytology on additional fluid removed
Dr. Gómez had lengthy discussion with daughter 09/26/2024 who joined on multidisciplinary rounds-told overall declining pulmonary status, metastatic lung cancer, likelihood of pleural fluid reaccumulation, options including palliation/comfort
care/hospice
Data:
CXR 08/15/2024: Evidence for small to moderate left pleural effusion with mild lateral loculation. Patchy parenchymal opacity within the left mid to lower lung, suspicious for pneumonia, although there could also be a component of atelectasis. Also
of note, underlying mass/neoplasia cannot be excluded radiographically and radiographic follow-up is recommended.
CT chest 09/20/24-1. Smallbore left chest tube in position. Trace residual left pleural fluid.
2. Complete atelectasis of the left lower lobe. Left lower lobe bronchi filled with secretions. In addition to this, approximately 1.7 cm area of abnormally decreased attenuation in the posterior left lower lobe as above for this area, infectious
etiology considered most likely. Neoplasm cannot be definitively excluded.
3. Persistent area of masslike consolidation in the inferior left upper lobe measuring up to 5 cm in diameter. Given the remainder of the findings and absence of adenopathy, also favored to have infectious etiology. Neoplasm cannot be excluded,
follow-up to resolution is recommended.
4. Emphysema.
5. Coronary and aortic atherosclerosis.
CT chest without contrast 08/15/2024: Moderate to advanced emphysematous lung changes. Mild to moderate left pleural effusion. Masslike opacities in the lingula and left lower lobe. Probable round pneumonia. Follow-up recommended to assess for
resolution. Minor localized tree-in-bud attenuation in the superior segment of the right lower lobe, nonspecific bronchiolitis. 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
Left chest US 08/17/2024: Moderate left pleural effusion. Stable
Subjective Dataa
Subjective Data
Date of Service:
Date of Service: September 26, 2024
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
Subjective:
Improved overnight on noninvasive ventilation, more alert, oxygenation improved, no chest pain, some chest congestion
Review of Systems
General: Other (Per HPI)
Objective Data
Data Reviewed
Vital Signs / I&O / Oxygen:
Vital Signs
Temp Pulse Resp BP Pulse Ox
97.7 F 72 20 116/63 95
09/26/24 04:34 09/26/24 07:28 09/26/24 07:28 09/26/24 04:01 09/26/24 07:28
Intake and Output
09/25/24 09/26/24 09/27/24
06:59 06:59 06:59
Intake Total 960 / 960
Output Total 1350 / 1350
Balance -390 / -390
SaO2 [NIV (Non Invasive 94
Ventilation)]
SaO2 95
Nasal Cannula flow liters per 50
minute
Physical Exam
General: Respiratory Distress (n) and Comfortable
HEENT: Normocephalic and Anicteric
Cardiovascular: Regular Rhythm
Respiratory: Wheeze (n), Crackles (Basilar), Rhonchi, Non-Labored Respirations, Accessory Resp Muscle Use (n) and Stridor
GI: Soft, Non Distended and Non Tender
Neurology: Awake, Alert and No Motor Deficits
Skin: Warm, Good Color, Cyanosis (n) and Jaundice (n)
Labs/Micro/Reports
Lab Data
09/26/24 03:31
09/26/24 03:31
Microbiology
09/25/24 05:03 Blood/Venous Blood Culture - Preliminary
No Growth in 24 hours- Final report to follow
[2024-09-26] MEDS: PROTONIX 40 MG PO (08:34)
[2024-09-26] MEDS: MUCINEX 600 MG PO ×2 (08:34→19:30)
[2024-09-26] MEDS: DELTASONE 50 MG PO (08:35)
[2024-09-26] MEDS: ATARAX 12.5 MG PO ×3 (08:38→21:17)
[2024-09-26] MEDS: LEVOPHED 250 IV (09:24)
--- NOTE | 2024-09-26 09:44 | PTCARENOTE ---
report [id number], assessments per work list. 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 placed on 4 liters by RT. patient c/o bridge of nose discomfort from mask, relieved when mask removed. see wound documentarian. lungs with coarse diminished breath
sounds, moist productive cough for moderate amount thick yellow white sputum. monitor nsr, Levophed per work list. abdomen soft, distended. incontinent yellow karla urine. PVR per work list. straight cath completed, difficult. required 2 associates
attempting. call yanez in reach. daughter at bedside. updated with plan of care.
--- NOTE | 2024-09-26 10:43 | W.PN.HOSP.TC ---
Today's Communication/Plan
-
None invasive per envelope folder
DC fluid
Try to wean off Levophed as tolerated
Out of bed with PT
Long-term prognosis guarded
Assessment / Plan
Assessment / Plan
A/P
#Shortness of breath secondary to large LEFT sided pleural effusion likely 2/2 Adenocarcinoma
# Acute on chronic chronic hypoxic respiratory failure
# Chronic hypercapnic respiratory failure
#History of COPD/emphysema
#History of severe tobacco abuse
#History of pleural effusion status post recent thoracentesis-which was deemed parapneumonic
# History of lung nodules
iRad consulted for thoracentesis status post thoracentesis 650 cc of straw-colored pleural fluid removed. Further fluid removal was stopped as patient complained of pain.
Fluid culture remains negative
Doubt fungal infection-fluid in lab
Monitor off antibiotics
ESR/CRP elevated. CONRAD neg, CCP IgG/IgA Ab 78 (nl 0-19)
Continue with bronchodilators
CT was removed on 09/22 as not much output was noted
Cytology from 09/15 and 09/18 and resulted with adenocarcinoma
anxiety playing a huge role. Encourage patient to use incentive spirometry. Refusing at times.
Repeat CXR with Moderate loculated left pleural effusion. Rounded opacification in the left lower lung field possibly loculated fluid versus pneumonia or pulmonary masses. Stable
3% neb seems to be helping. Cont with Pulmicort. Plan for prolonged steroid slow taper regimen.
Off high flow nasal cannula to noninvasive. Patient back to baseline 4 L oxygen. May require NIV intermittently.
# Leukocytosis likely secondary to steroids
Remains afebrile. UA negative. C blood cultures remains negative. Monitor for now. WBC downtrending.
# Stage III lung adenocarcinoma
Oncology consulted and they requested further testing on cytologic tissue. No other biopsy required per oncology.
# Urinary retention status post straight catheterization x 1
Continue with protocol. If with persistent retention required Ventura catheter placement
# Toxic metabolic encephalopathy likely secondary to chronic hypercapnic respiratory failure versus delirium
Continue to monitor mentation closely
Avoid benzos and opiates if possible
Improvement in mentation and seems back to baseline
# Hypertension
Currently on 2 of Levophed. Tolerating diet. DC fluids and observe
#Tachycardia
Hold Cardizem as with hypotension
Transaminitis
could be from recent infection
trend for now.
resolved.
Hx of Dizziness/?vertigo-meclizine prn
Severe anxiety-cont atarax
Mild hyponatremia
-?SIADH due to recent pain from CT.
-Monitor for now.
dvt ppx-lovenox
Updated patient daughter at bedside in detail
PT/OT
Prognosis poor.
Anticipated Discharge: > 48 hours
Subjective/Interval History
-
Date of Service: September 26, 2024
Patient of noninvasive ventilation
More awake
Tolerated breakfast
Required straight catheterization x 1
Objective Data
-
Labs:
Laboratory Results
09/26/24
03:31
WBC 15.4 H
Hgb 12.5
Hct 39.4
Plt Count 409 H
Sodium 132 L
Potassium 4.6
Chloride 87 L
Carbon Dioxide 36 H
BUN 31 H
Creatinine 0.4 L
Glucose 138 H
Calcium 7.8 L D
Vital Signs:
Vital Signs
Temp Pulse Resp BP Pulse Ox
97.9 F 77 20 103/60 93
09/26/24 07:57 09/26/24 09:30 09/26/24 09:30 09/26/24 09:30 09/26/24 09:30
I&O
09/25/24 09/26/24 09/27/24
06:59 06:59 06:59
Intake Total 960 / 960 438.8 / 438.8
Output Total 1350 / 1350
Balance -390 / -390 438.8 / 438.8
Physical Exam
-
General: No Apparent Distress and Appears Chronically Ill
HEENT: Normocephalic, Atraumatic, Moist Mucous Membranes and Oxygen
Respiratory: Wheezes and Decreased Breath Sounds (bilateral decreased BS, )
Cardiac: Regular Rhythm and S1/S2
GI: Soft, Nontender and Nondistended
Musculoskeletal: No Clubbing, No Cyanosis and No Edema
Neuro: Awake, Alert, Oriented, AO x 3 and No Motor Deficits; Negative Slurred Speech or Facial Droop
Psych: Calm and Anxious
Data Reviewed
-
Total Time Spent with Patient (in minutes): 55
--- NOTE | 2024-09-26 11:49 | RESPNOTE ---
Respiratory: patient refused CPT-vest.
--- NOTE | 2024-09-26 12:53 | PTCARENOTE ---
patient reassessed, Levophed weaned to off. sleeping for long periods. requesting to continue her nap. refusing lunch and to get out of bed at this time. no void since am straight cath completed. call yanez in reach
--- NOTE | 2024-09-26 13:33 | CM ---
CM following re: discharge planning.
Discussed in rounds, reviewed pt's chart met with pt. Per Rounds meeting, pt requires non invasive ventilator treatment, prognosis poor with metastatic probable lung cancer and poor performance status, goals of care discussed by MD with family,
continue supportive care.
Per CM note, pt lives alone in a senior apartment complex in [place], has supportive daughter and a son, ambulated with a walker at baseline.
PT and OT have been recommended SNF vs home PT on 09/21/24.
CM has AfloVest order form and will be completed and ordered if needed.
D/C plan: uncertain at this time and will depend on pt's progress.
CM will follow with discharger plan updates as hospitalization progresses
--- NOTE | 2024-09-26 14:39 | WOUNDNOTE ---
WOC RN NOTE: Patient visited for possible device related PI on bridge of nose from non-invasive ventilator. At time of assessment, area non-blanchable red and tender when touched. LIDIA Lovelace had appropriately covered area with hydrocolloid and will
add foam dressing over nose before re-applying non-invasive ventilator tonight. Will continue to follow as needed.
[2024-09-26] MEDS: SODIUM CHLORIDE 3% FOR INHALATION INH (15:26)
--- NOTE | 2024-09-26 15:40 | PTCARENOTE ---
patient reassessed.lungs with crackles, expiratory wheezes bilaterally. moist nonproductive cough. RT in to admin nebulizer. assisted out of bed to bedside commode. c/o dizziness during transfer, blood pressure as noted. voided dark karla urine, had
large soft bowel movement. very dyspneic with minimal [id number], desaturated to the 70's with activity, after period of rest, pulse oximeter back to baseline of 93. post void residual ad per work list
[2024-09-26] MEDS: LOVENOX 40 MG SC (17:49)
--- NOTE | 2024-09-26 18:38 | PTCARENOTE ---
patient with self limited burst atrial tach while eating dinner. patient without complaints
[2024-09-26] MEDS: MAG-TAB SR 84 MG PO (19:30)
--- NOTE | 2024-09-26 20:00 | PTCARENOTE ---
Resumed care of pt this evening. Received pt off pressors and fluids. 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 Pt is A&Ox3, can move all 4 extremities and can make needs known. Pt is NSR on tele monitor, has no edema, and + pedal
pulses. Received pt on 4L of O2 and is satting at 96% pulse ox. On auscultation pt lungs sound coarse and diminished TO. Pt's abdomen is round w/ active BS. Pt has purewick in place, is connected to suction, and is voiding karla colored urine. Pt
has bandaged on nose bridge related NIV device pressure injury.
[2024-09-27] VITALS (17 sets, daily range): BP systolic 91–137; BP diastolic 52–84; PULSE 2–78; BMI 23.1
--- NOTE | 2024-09-27 00:30 | PTCARENOTE ---
Pt placed on NIV for HS. Pt is tolerating NIV settings and is satting at 96%.
[2024-09-27] MEDS: XOPENEX 0.63 MG INHALANT SOLUTION INH ×4 (01:57→19:48)
--- NOTE | 2024-09-27 05:00 | PTCARENOTE ---
Pt requested NIV off. Respiratory therapist removed NIV and placed pt on 4L O2 at approx. 0400.
[2024-09-27 05:35] LABS: Blood Urea Nitrogen 15 mg/dl (7-17); Calcium 7.9 mg/dl (8.4-10.2); Chloride 88 mmol/L (98-107); Estimated Creatinine Clearance 71 ml/min; Glucose 92 mg/dl (70-99); Potassium 4.6 mmol/L (3.5-5.1); Sodium 129 mmol/L (135-145); eGFR > 60.00
[2024-09-27 05:45] LABS: % Basophils 0.3 % (0-2); % Immature Granulocytes 1.6 % (0-0.5); % Lymphocytes 7.9 % (20.5-51.1); % Monocytes 9.6 % (1.7-9.3); % Neutrophils 80.6 % (42.2-75.2); Absolute Immature Granulocytes 0.2 10^3/uL (0-0.05); Absolute Lymphocytes 0.8 10^3/uL (1.2-3.4); Absolute Monocytes 0.9 10^3/uL (0.1-0.6); Absolute Neutrophils 7.8 10^3/uL (1.4-6.5); Carbon Dioxide 35 mmol/L (22-30); Hematocrit 36.8 % (37.0-47.0); Hemoglobin 11.7 g/dL (12.0-16.0); Mean Corp Hgb Conc. 31.8 g/dL (33.0-37.0); Mean Corpuscular Hgb 29.8 pg (27.0-31.0); Mean Corpuscular Volume 93.9 fL (81.0-99.0); Mean Platelet Volume 9.3 fL (7.4-10.4); Nucleated Red Blood Cells % 0 %; Platelet Count 313 10^3/uL (130-400); Red Blood Cell Count 3.92 10^6/uL (4.20-5.40); Red Cell Dist. Width 13.3 % (11.5-14.5); White Blood Cell Count 9.6 10^3/uL (4.8-10.8)
[2024-09-27] MEDS: PULMICORT 0.5 MG INH ×2 (07:42→19:47)
[2024-09-27] MEDS: SODIUM CHLORIDE 3% FOR INHALATION 1 VIAL INH ×4 (07:42→19:47)
[2024-09-27] MEDS: ATARAX 12.5 MG PO ×3 (08:06→20:31)
[2024-09-27] MEDS: DELTASONE 40 MG PO (08:07)
[2024-09-27] MEDS: MUCINEX 600 MG PO ×2 (08:07→20:31)
[2024-09-27] MEDS: MAG-TAB SR 84 MG PO ×2 (08:07→20:31)
[2024-09-27] MEDS: PROTONIX 40 MG PO (08:07)
--- NOTE | 2024-09-27 08:27 | W.PN.INTV ---
Today's Communication / Plan
Recommendations
Change from NIV to BiPAP 22/01
Trend blood gas to assure that pCO2 remains stable
patient is DNR/DNI
Repeat CXR tomorrow to reassess left-sided pleural fluid status
If left-sided pleural fluid seems to be enlarging then check chest ultrasound to see if she is a candidate for a Pleurx, which she is currently thinking about and discussing with her daughter
If Pleurx is inserted then pulmonary office will manage
Oncology consulted on 09/25/2024, and recommendations appreciated
If additional tissue is needed then could always consider IR transthoracic needle aspiration of her lingula mass
Patient is stable for downgrade out of ICU to IMU; pulmonary service will continue to follow along
Assessment
-
79-year-old woman with history of COPD, home oxygen 4 L who presented with shortness of breath. Discharged from the hospital 08/20/2024 after treated with pneumonia, left-sided parapneumonic effusion s/p thoracentesis. Negative cytology and
cultures.
Patient has pulmonary cachexia, prior tobacco abuse, presented for [facility] with worsening shortness of breath.
Impression:
Shortness of breath/hypoxemic respiratory failure due to large left pleural effusion-recurrent due to malignant pleural effusion-metastatic lung cancer-adenocarcinoma
Chest x-ray showed large left pleural effusion-repeat thoracentesis 09/13/2024: 650 cc straw-colored fluid. Severe pain after fluid drainage.
History of thoracentesis 08/18/2024-exudative with negative culture
Chest tube, left side 09/17/24 --> removed 09/22/2024
Discharged from the hospital 08/20/2024 with acute exacerbation of COPD and pneumonia and left pleural effusion
CT chest performed showing moderate to advanced emphysema with a mild�moderate left-sided pleural effusion which appears to be loculated with masslike opacities in the lingula + left lower lobe - suspected lung cancer
Ultrasound showed moderate size left pleural effusion 08/17/2020 24-450 mL. Exudate/culture negative/cytology atypical mesothelial cells. Favoring reactive process
#Chronic respiratory failure with hypercapnia
Discharged on trilogy ventilator 08/20/2024
Latest ABG 7.4/75/60 08/17/2024
#Acute on chronic respiratory failure with hypoxia due to above
#Elevated eosinophil count (mild at 500 from 09/18/2024)
#Metabolic alkalosis due to chronic hypercapnia
#Emphysema/COPD on Trelegy 200mcg at home + home O2 (4-6L/min ATC)
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
DNR
Chronic conditions [employer]: COPD on Trelegy 200mcg + home oxygen at 4-6 L/min ATC, chronic rhinitis, eczema, multiple lung nodules (PET/CT was negative with no uptake in 2020), former tobacco smoker (last smoked a cigarette in April 2024)
Plan
Respiratory status improved since being here in ICU on noninvasive ventilation
Can change from NIV to BiPAP 15/5 at night and continue trending pCO2
Supplemental O2 while keeping SpO2 88-95%
Xopenex and budesonide nebulizers
Mucinex
Vest therapy prn - pt afraid to use it again as she is afraid that she will bring up lots of phlegm and then get SOB
Prednisone 50 mg daily-decrease to 40 mg daily
Left side chest tube placed 09/17/24--> removed 09/22/2024
Nebulized budesonide - was on from 09/13 - 09/21/2024 --> resumed 09/23/2024
Takes Trelegy at home--resume Symbicort and Spiriva at the time of discharge
Steroids added 09/18/24, with persistent wheezing and hypoxemia-methylprednisolone 40 mg IV every 12 hours-subsequently transitioned to prednisone 40mg daily this AM (09/27)
Follow-up VBG or ABG
DNR/DNI
Chest x-ray 09/25/2024-elevation left hemidiaphragm, small left pleural effusion, slight improvement in atelectasis
Blood cultures rechecked on 09/25/2024 (shows NGTD)
Low threshold for antibiotics if clinically indicated
Levophed weaned off and she remains HDN stable
Aspiration precautions.
Speech therapy following-correspondence reviewed.
Video swallow 09/15/24-recommend regular solids and thin liquids
Mucolytics with mucinex 600mg PO q12hr
On 09/22/2024, Dr. Oh started nebulized 3% as she is having difficulty with expectoration; raised from BID to QID as she feels a benefit with the medication; continue vest therapy prn after the 3% is given to help with expectoration
Case management consulted to see if they can get her the vest at home
Prior history of L thoracentesis 08/18/24--cyto + atypical meso cells
Chest x-ray 09/15/2430-[id number] left pleural effusion, mildly increased following thoracentesis, large left lower airspace disease and severe hyperinflation of the right.
Status post repeat left thoracentesis 09/13/2024-patient developed pain and thoracentesis was aborted after 650 cc of straw-colored fluid were drained
pH 7.44/wbc 3906/mononuclears 91%/glucose 116/total protein/LDH 143/amylase 41/triglycerides less than 30
Exudative
Cytology from [facility] on 09/13/2024 shows metastatic adenocarcinoma with suspected lung primary- prior cytology with atypical mesothelial cells
Left pleural fluid cytology 09/15/2024-metastatic adenocarcinoma
Left pleural fluid cytology 09/18/2024-metastatic adenocarcinoma
Oncology consultation following-correspondence reviewed-no need for additional biopsies, performance status currently too poor for therapeutics
Respiratory status too tenuous for any type of biopsy at this point
Chest tube removed on 09/22/2024 as there was minimal output and recent CT chest from 09/20/2024 showed that the tip of the chest tube was no longer and a pocket of fluid and there was a small amount of residual left-sided pleural effusion
High risk for pleural fluid reaccumulation-Dr. Gómez discussed with daughter potential need for Pleurx catheter if reoccurs --> re-check CXR tomorrow to re-assess L-pleural fluid status
Anti- CCP IgG/IgA Ab elevated 78-can be elevated with rheumatoid arthritis-CONRAD Negative
DVT prophylaxis-on Lovenox.
GI prophylaxis-on pantoprazole..
Nutrition
Bedside range of motion
PT/OT --> OT rec'd skilled rehab upon discharge; PT had rec'd SNF vs home PT during eval from 09/21/2024
Prognosis unfortunately poor with metastatic probable lung cancer and poor performance status
Dr. Gómez had lengthy discussion with daughter 09/26/2024 who joined on multidisciplinary rounds-told overall declining pulmonary status, metastatic lung cancer, likelihood of pleural fluid reaccumulation, options including palliation/comfort
care/hospice
Patient is stable for downgrade out of ICU to IMU. Pulmonary service will continue to follow along.
Total time spent today was 57 minutes for this encounter. Time includes reviewing laboratory test/imaging results, reviewing pertinent medical records, obtaining and reviewing medical history, performing an appropriate exam, ordering medications,
tests and procedures. Time also includes documentation of this encounter, coordinating patient care and communicating with other healthcare professionals. Total time does not include separately billed tests performed on this date of service.
Family discussions:
Dr. Gómez called [phone] on 09/16/24-explained current clinical situation, potential etiologies, need for chest tube placement for pleural fluid evacuation with subsequent CT chest, also discussed pathology/cytology that is
pending-she is in agreement with chest tube placement-Dr. Gómez called interventional radiology and placed consult-we'll repeat cytology on additional fluid removed
Dr. Gómez had lengthy discussion with daughter 09/26/2024 who joined on multidisciplinary rounds-told overall declining pulmonary status, metastatic lung cancer, likelihood of pleural fluid reaccumulation, options including palliation/comfort
care/hospice
Data:
CXR 08/15/2024: Evidence for small to moderate left pleural effusion with mild lateral loculation. Patchy parenchymal opacity within the left mid to lower lung, suspicious for pneumonia, although there could also be a component of atelectasis. Also
of note, underlying mass/neoplasia cannot be excluded radiographically and radiographic follow-up is recommended.
CT chest 09/20/24-1. Smallbore left chest tube in position. Trace residual left pleural fluid.
2. Complete atelectasis of the left lower lobe. Left lower lobe bronchi filled with secretions. In addition to this, approximately 1.7 cm area of abnormally decreased attenuation in the posterior left lower lobe as above for this area, infectious
etiology considered most likely. Neoplasm cannot be definitively excluded.
3. Persistent area of masslike consolidation in the inferior left upper lobe measuring up to 5 cm in diameter. Given the remainder of the findings and absence of adenopathy, also favored to have infectious etiology. Neoplasm cannot be excluded,
follow-up to resolution is recommended.
4. Emphysema.
5. Coronary and aortic atherosclerosis.
CT chest without contrast 08/15/2024: Moderate to advanced emphysematous lung changes. Mild to moderate left pleural effusion. Masslike opacities in the lingula and left lower lobe. Probable round pneumonia. Follow-up recommended to assess for
resolution. Minor localized tree-in-bud attenuation in the superior segment of the right lower lobe, nonspecific bronchiolitis. 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
Left chest US 08/17/2024: Moderate left pleural effusion. Stable
Subjective Dataa
Subjective Data
Date of Service:
Date of Service: September 27, 2024
Chief Complaint: Production Counter Follow Up and Pulmonary Follow Up
Subjective:
Patient seen and evaluated today at bedside. Patient's daughter, Emily, at bedside and all questions were answered. Patient currently breathing comfortably on 4 L/min, saturating 97% with heart rate 78 and BP 137/69. Patient not using the vest as
she is afraid that she is going to bring up too much phlegm and choke on it which seem to have happened the other day when she was transferred to the ICU. Patient currently denies chest pain, DEL TORO, nausea, vomiting, fevers or chills. Use the NIV
overnight on 15/5cmH2O at 40% FiO2.
Review of Systems
General: Other (Negative unless mentioned above)
Objective Data
Data Reviewed
Vital Signs / I&O / Oxygen:
Vital Signs
Temp Pulse Resp BP Pulse Ox
97.8 F 88 20 126/68 92
09/27/24 07:33 09/27/24 09:15 09/27/24 09:15 09/27/24 09:00 09/27/24 09:15
Intake and Output
09/26/24 09/27/24 09/28/24
06:59 06:59 06:59
Intake Total 891.3 / 891.3
Output Total 1525 / 1525
Balance -633.7 / -633.7
SaO2 [NIV (Non Invasive 95
Ventilation)]
SaO2 92
Nasal Cannula flow liters per 4
minute
Physical Exam
General: Respiratory Distress (n), Comfortable, Chills (n) and Sweats (n)
HEENT: Normocephalic and Anicteric
Cardiovascular: S1-S2 and Peripheral Edema (n)
Respiratory: Wheeze (n), Crackles (bibasilar), Rhonchi (bibasilar), Non-Labored Respirations, Accessory Resp Muscle Use (n), Stridor (n) and Other (Greatly diminished breath sounds bilaterally)
GI: Soft, Non Distended, Non Tender and Normal Bowel Sounds
Neurology: AO x 3 and Tremors (n)
Skin: Warm, Dry, Cyanosis (n) and Jaundice (n)
Labs/Micro/Reports
Lab Data
09/27/24 04:46
09/27/24 04:46
Microbiology
09/25/24 05:03 Blood/Venous Blood Culture - Preliminary
No Growth in 48 hours- Final report to follow
--- NOTE | 2024-09-27 10:00 | PTCARENOTE ---
report received@0700. patient c/o anxiety, medicated with atarax per prn order. assessments per work list. lungs with diminished breath sounds, crackles throughout. voiding via pure wick, PVR 200. am care provided. assisted out of bed to reclining
chair. patient very dyspneic with minimal exertion. pulse oximeter dropped to 80 with transfer. recovered slowly. call yanez in reach. safe environment maintained. report to oncoming RN
--- NOTE | 2024-09-27 12:23 | W.PN.HOSP.TC ---
Today's Communication/Plan
-
May need to consider transitioning to IV steroids
Noninvasive ventilation
ICU recommendation
Out of bed
Trend BMP
Assessment / Plan
Assessment / Plan
General: No Apparent Distress and Appears Chronically Ill
HEENT: Normocephalic, Atraumatic, Moist Mucous Membranes and Oxygen
Respiratory: Wheezes and Decreased Breath Sounds (bilateral aeration)
Cardiac: Regular Rhythm and S1/S2
GI: Soft, Nontender and Nondistended
Musculoskeletal: No Clubbing, No Cyanosis and No Edema
Neuro: Awake, Alert, Oriented, AO x 3 and No Motor Deficits; Negative Slurred Speech or Facial Droop
Psych: Calm and Anxious
A/P
#Shortness of breath secondary to large LEFT sided pleural effusion likely 2/2 Adenocarcinoma
# Acute on chronic chronic hypoxic respiratory failure
# Chronic hypercapnic respiratory failure
#History of COPD/emphysema
#History of severe tobacco abuse
#History of pleural effusion status post recent thoracentesis-which was deemed parapneumonic
# History of lung nodules
iRad consulted for thoracentesis status post thoracentesis 650 cc of straw-colored pleural fluid removed. Further fluid removal was stopped as patient complained of pain.
Fluid culture remains negative
Doubt fungal infection-fluid in lab
Monitor off antibiotics
ESR/CRP elevated. CONRAD neg, CCP IgG/IgA Ab 78 (nl 0-19)
Continue with bronchodilators
CT was removed on 09/22 as not much output was noted
Cytology from 09/15 and 09/18 and resulted with adenocarcinoma
anxiety playing a huge role. Encourage patient to use incentive spirometry. Refusing at times.
Repeat CXR with Moderate loculated left pleural effusion. Rounded opacification in the left lower lung field possibly loculated fluid versus pneumonia or pulmonary masses. Stable
3% neb seems to be helping. Cont with Pulmicort. Plan for prolonged steroid slow taper regimen.
Off high flow nasal cannula to noninvasive. Patient back to baseline 4 L oxygen. May require NIV intermittently.
May need to consider transition to high-dose steroids
# Leukocytosis likely secondary to steroids
Remains afebrile. UA negative. blood cultures remains negative. Monitor for now. WBC downtrending.
# Stage III lung adenocarcinoma
Oncology consulted and they requested further testing on cytologic tissue. No other biopsy required per oncology.
# Urinary retention status post straight catheterization x 1
Continue with protocol. If with persistent retention required Vent[place] catheter placement
# Toxic metabolic encephalopathy likely secondary to chronic hypercapnic respiratory failure versus delirium
Continue to monitor mentation closely
Avoid benzos and opiates if possible
Improvement in mentation and seems back to baseline
# Hypotension
Status post Levophed. tolerating diet. DC fluids and observe
#Tachycardia
Hold Cardizem as with hypotension
Transaminitis
could be from recent infection
trend for now.
resolved.
Hx of Dizziness/?vertigo-meclizine prn
Severe anxiety-cont atarax
Mild hyponatremia
-Likely secondary to decreased p.o. intake
-Monitor for now.
dvt ppx-lovenox
Updated patient daughter at bedside in detail on 09/26/24
PT/OT
Prognosis poor.
Anticipated Discharge: > 48 hours
Subjective/Interval History
-
Date of Service: September 27, 2024
States of discomfort with NIV at times
mentation has improved
Objective Data
-
Labs:
Laboratory Results
09/27/24
04:46
WBC 9.6
Hgb 11.7 L
Hct 36.8 L
Plt Count 313 D
Sodium 129 L
Potassium 4.6
Chloride 88 L
Carbon Dioxide 35 H
BUN 15
Creatinine 0.3 L
Glucose 92
Calcium 7.9 L
Vital Signs:
Vital Signs
Temp Pulse Resp BP Pulse Ox
97.8 F 88 20 126/68 95
09/27/24 07:33 09/27/24 11:15 09/27/24 11:15 09/27/24 09:00 09/27/24 11:15
I&O
09/26/24 09/27/24 09/28/24
06:59 06:59 06:59
Intake Total 891.3 / 891.3 240 / 240
Output Total 1525 / 1525 300 / 300
Balance -633.7 / -633.7 -60 / -60
Physical Exam
-
General: No Apparent Distress and Appears Chronically Ill
HEENT: Normocephalic, Atraumatic, Moist Mucous Membranes and Oxygen
Respiratory: Wheezes and Decreased Breath Sounds (bilateral decreased BS, )
Cardiac: Regular Rhythm and S1/S2
GI: Soft, Nontender and Nondistended
Musculoskeletal: No Clubbing, No Cyanosis and No Edema
Neuro: Awake, Alert, Oriented, AO x 3 and No Motor Deficits; Negative Slurred Speech or Facial Droop
Psych: Calm and Anxious
Data Reviewed
-
Total Time Spent with Patient (in minutes): 55
[2024-09-27] MEDS: LOVENOX 40 MG SC (17:20)
--- NOTE | 2024-09-27 20:00 | PTCARENOTE ---
Cannot verify accuracy of captured vital signs prior to 1900.
[2024-09-28] VITALS (18 sets, daily range): BP systolic 92–130; BP diastolic 48–87; PULSE 2–83; BMI 22.6
[2024-09-28] MEDS: XOPENEX 0.63 MG INHALANT SOLUTION INH ×5 (01:34→19:36)
[2024-09-28 05:44] LABS: % Basophils 0.5 % (0-2); % Eosinophils 0.1 % (0-6); % Immature Granulocytes 2.1 % (0-0.5); % Lymphocytes 13.4 % (20.5-51.1); % Neutrophils 70.9 % (42.2-75.2); Absolute Immature Granulocytes 0.2 10^3/uL (0-0.05); Absolute Lymphocytes 1.2 10^3/uL (1.2-3.4); Absolute Monocytes 1.1 10^3/uL (0.1-0.6); Absolute Neutrophils 6.1 10^3/uL (1.4-6.5); Hematocrit 35.6 % (37.0-47.0); Hemoglobin 11.6 g/dL (12.0-16.0); Mean Corp Hgb Conc. 32.6 g/dL (33.0-37.0); Mean Corpuscular Hgb 30.6 pg (27.0-31.0); Mean Corpuscular Volume 93.9 fL (81.0-99.0); Mean Platelet Volume 9.2 fL (7.4-10.4); Nucleated Red Blood Cells % 0 %; Platelet Count 299 10^3/uL (130-400); Red Blood Cell Count 3.79 10^6/uL (4.20-5.40); Red Cell Dist. Width 13.1 % (11.5-14.5); White Blood Cell Count 8.7 10^3/uL (4.8-10.8)
[2024-09-28 06:04] LABS: Blood Urea Nitrogen 12 mg/dl (7-17); Calcium 8.1 mg/dl (8.4-10.2); Chloride 89 mmol/L (98-107); Estimated Creatinine Clearance 71 ml/min; Glucose 81 mg/dl (70-99); Sodium 131 mmol/L (135-145); eGFR > 60.00
[2024-09-28 06:30] LABS: Carbon Dioxide 36 mmol/L (22-30); Potassium 4.2 mmol/L (3.5-5.1)
--- NOTE | 2024-09-28 08:20 | W.PN.INTV ---
Today's Communication / Plan
Recommendations
Changed from NIV to BiPAP 22/01 -patient only tolerated bipap last night for few hours
Trend blood gas to assure that pCO2 remains stable - VBG tomorrow AM
patient is DNR/DNI
Check L-sided chest US tomorrow to reassess left-sided pleural fluid status and see if large enough for PleurX
She is currently thinking about the PleurX and discussing with her daughter
If Pleurx is inserted then pulmonary office will manage
Oncology consulted on 09/25/2024, and recommendations appreciated
If additional tissue is needed then could always consider IR transthoracic needle aspiration of her lingula mass; she is too chronically ill and high risk for a bronchoscopy
Patient is stable for downgrade out of ICU to IMU; pulmonary service will continue to follow along
Assessment
-
79-year-old woman with history of COPD, home oxygen 4 L who presented with shortness of breath. Discharged from the hospital 08/20/2024 after treated with pneumonia, left-sided parapneumonic effusion s/p thoracentesis. Negative cytology and
cultures.
Patient has pulmonary cachexia, prior tobacco abuse, presented for 500px with worsening shortness of breath.
Impression:
Shortness of breath/hypoxemic respiratory failure due to large left pleural effusion-recurrent due to malignant pleural effusion-metastatic lung cancer-adenocarcinoma
Chest x-ray showed large left pleural effusion-repeat thoracentesis 09/13/2024: 650 cc straw-colored fluid. Severe pain after fluid drainage.
History of thoracentesis 08/18/2024-exudative with negative culture
Chest tube, left side 09/17/24 --> removed 09/22/2024
Discharged from the hospital 08/20/2024 with acute exacerbation of COPD and pneumonia and left pleural effusion
CT chest performed showing moderate to advanced emphysema with a mild�moderate left-sided pleural effusion which appears to be loculated with masslike opacities in the lingula + left lower lobe - suspected lung cancer
Ultrasound showed moderate size left pleural effusion 08/17/2020 24-450 mL. Exudate/culture negative/cytology atypical mesothelial cells. Favoring reactive process
#Chronic respiratory failure with hypercapnia
Discharged on trilogy ventilator 08/20/2024
Latest ABG 7.4/75/60 08/17/2024
#Acute on chronic respiratory failure with hypoxia due to above
#Elevated eosinophil count (mild at 500 from 09/18/2024)
#Metabolic alkalosis due to chronic hypercapnia
#Emphysema/COPD on Trelegy 200mcg at home + home O2 (4-6L/min ATC)
#History of multiple lung nodules with prior PET/CT negative with no uptake in 2020 (per her supervisor [employer]'s last office visit note on 05/22/2024)
DNR
Chronic conditions [employer]: COPD on Trelegy 200mcg + home oxygen at 4-6 L/min ATC, chronic rhinitis, eczema, multiple lung nodules (PET/CT was negative with no uptake in 2020), former tobacco smoker (last smoked a cigarette in April 2024)
Plan
Respiratory status improved since being here in ICU on noninvasive ventilation
On 09/27 I changed her from NIV to BiPAP --> she only tolerated BiPAP last night for few hours, and this is with her own mask from home that her daughter brought in
Continue trending pCO2 --> check VBG tomorrow AM
Supplemental O2 while keeping SpO2 88-95%
Xopenex and budesonide nebulizers
Mucinex
Vest therapy prn - pt afraid to use it again as she is afraid that she will bring up lots of phlegm and then get SOB
Prednisone 50 mg daily-decreased to 40 mg daily
Left side chest tube placed 09/17/24--> removed 09/22/2024
Nebulized budesonide - was on from 09/13 - 09/21/2024 --> resumed 09/23/2024
Takes Trelegy at home--resume Symbicort and Spiriva at the time of discharge
Steroids added 09/18/24, with persistent wheezing and hypoxemia-methylprednisolone 40 mg IV every 12 hours-subsequently transitioned to prednisone 40mg daily on 09/27
Follow-up VBG or ABG
DNR/DNI
Chest x-ray 09/25/2024-elevation left hemidiaphragm, small left pleural effusion, slight improvement in atelectasis
Chest x-ray 09/28/2024- increased opacity again demonstrated left lung base. Obscuration left diaphragm. Blunting the lateral costophrenic angle. When correlated with previous imaging studies, increased opacity in this location was associated with
parenchymal consolidation and small pleural effusion. Overall, the appearance is stable.
Blood cultures rechecked on 09/25/2024 (shows NGTD)
Low threshold for antibiotics if clinically indicated
Levophed weaned off and she remains HDN stable
Aspiration precautions.
Speech therapy following-correspondence reviewed.
Video swallow 09/15/24-recommend regular solids and thin liquids
Mucolytics with mucinex 600mg PO q12hr
On 09/22/2024, Dr. Oh started nebulized 3% as she is having difficulty with expectoration; raised from BID to QID as she feels a benefit with the medication; continue vest therapy prn after the 3% is given to help with expectoration
Case management consulted to see if they can get her the vest at home
Prior history of L thoracentesis 08/18/24--cyto + atypical meso cells
Chest x-ray 09/15/2497-godkntnp-[id number] left pleural effusion, mildly increased following thoracentesis, large left lower airspace disease and severe hyperinflation of the right.
Status post repeat left thoracentesis 09/13/2024-patient developed pain and thoracentesis was aborted after 650 cc of straw-colored fluid were drained
pH 7.44/wbc 3906/mononuclears 91%/glucose 116/total protein/LDH 143/amylase 41/triglycerides less than 30
Exudative
Cytology from [facility] on 09/13/2024 shows metastatic adenocarcinoma with suspected lung primary- prior cytology with atypical mesothelial cells
Left pleural fluid cytology 09/15/2024-metastatic adenocarcinoma
Left pleural fluid cytology 09/18/2024-metastatic adenocarcinoma
Oncology consultation following-correspondence reviewed-no need for additional biopsies, performance status currently too poor for therapeutics
Chest tube removed on 09/22/2024 as there was minimal output and recent CT chest from 09/20/2024 showed that the tip of the chest tube was no longer and a pocket of fluid and there was a small amount of residual left-sided pleural effusion
High risk for pleural fluid reaccumulation-Dr. Gómez discussed with daughter potential need for Pleurx catheter if reoccurs --> CXR this AM (09/28) shows stable size of L-effusion --> check chest US tomorrow to re-assess size of L effusion and see
if large enough for PleurX
Anti- CCP IgG/IgA Ab elevated 78-can be elevated with rheumatoid arthritis-CONRAD Negative
DVT prophylaxis-on Lovenox.
GI prophylaxis-on pantoprazole..
Nutrition
Bedside range of motion
PT/OT --> OT rec'd skilled rehab upon discharge; PT had rec'd SNF vs home PT during eval from 09/21/2024
Prognosis unfortunately poor with metastatic probable lung cancer and poor performance status
Dr. Gómez had lengthy discussion with daughter 09/26/2024 who joined on multidisciplinary rounds-told overall declining pulmonary status, metastatic lung cancer, likelihood of pleural fluid reaccumulation, options including palliation/comfort
care/hospice
Patient is stable for downgrade out of ICU to IMU. Pulmonary service will continue to follow along.
Total time spent today was 36 minutes for this encounter. Time includes reviewing laboratory test/imaging results, reviewing pertinent medical records, obtaining and reviewing medical history, performing an appropriate exam, ordering medications,
tests and procedures. Time also includes documentation of this encounter, coordinating patient care and communicating with other healthcare professionals. Total time does not include separately billed tests performed on this date of service.
Family discussions:
Dr. Gómez called [phone] on 09/16/24-explained current clinical situation, potential etiologies, need for chest tube placement for pleural fluid evacuation with subsequent CT chest, also discussed pathology/cytology that is
pending-she is in agreement with chest tube placement-Dr. Gómez called interventional radiology and placed consult-we'll repeat cytology on additional fluid removed
Dr. Gómez had lengthy discussion with daughter 09/26/2024 who joined on multidisciplinary rounds-told overall declining pulmonary status, metastatic lung cancer, likelihood of pleural fluid reaccumulation, options including palliation/comfort
care/hospice
Data:
CXR 08/15/2024: Evidence for small to moderate left pleural effusion with mild lateral loculation. Patchy parenchymal opacity within the left mid to lower lung, suspicious for pneumonia, although there could also be a component of atelectasis. Also
of note, underlying mass/neoplasia cannot be excluded radiographically and radiographic follow-up is recommended.
CT chest 09/20/24-1. Smallbore left chest tube in position. Trace residual left pleural fluid.
2. Complete atelectasis of the left lower lobe. Left lower lobe bronchi filled with secretions. In addition to this, approximately 1.7 cm area of abnormally decreased attenuation in the posterior left lower lobe as above for this area, infectious
etiology considered most likely. Neoplasm cannot be definitively excluded.
3. Persistent area of masslike consolidation in the inferior left upper lobe measuring up to 5 cm in diameter. Given the remainder of the findings and absence of adenopathy, also favored to have infectious etiology. Neoplasm cannot be excluded,
follow-up to resolution is recommended.
4. Emphysema.
5. Coronary and aortic atherosclerosis.
CT chest without contrast 08/15/2024: Moderate to advanced emphysematous lung changes. Mild to moderate left pleural effusion. Masslike opacities in the lingula and left lower lobe. Probable round pneumonia. Follow-up recommended to assess for
resolution. Minor localized tree-in-bud attenuation in the superior segment of the right lower lobe, nonspecific bronchiolitis. 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
Left chest US 08/17/2024: Moderate left pleural effusion. Stable
Subjective Dataa
Subjective Data
Date of Service:
Date of Service: September 28, 2024
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
Subjective:
Patient seen and evaluated today at bedside. Only tolerated her BiPAP 15/5cmH2O (bled with 4 L/min) for about 2 hours before removing it. She says that she was 'so tired and she just did not want to wear it.' She currently feels okay with her
breathing. CXR this AM shows stable left-sided pleural effusion. Currently, heart rate 75, BP 105/52 and saturating 96% on 4 L/min. She denies worsening SOB, denies cough, [place], nausea, fevers or chills.
Review of Systems
General: Other (Negative unless mentioned above)
Objective Data
Data Reviewed
Vital Signs / I&O / Oxygen:
Vital Signs
Temp Pulse Resp BP Pulse Ox
97.6 F 78 19 109/55 97
09/28/24 08:16 09/28/24 08:57 09/28/24 08:57 09/28/24 08:57 09/28/24 08:57
Intake and Output
09/27/24 09/28/24 09/29/24
06:59 06:59 06:59
Intake Total 891.3 / 891.3 240 / 240 120 / 120
Output Total 1525 / 1525 800 / 800 200 / 200
Balance -633.7 / -633.7 -560 / -560 -80 / -80
SaO2 [NIV (Non Invasive 95
Ventilation)]
SaO2 97
Nasal Cannula flow liters per 3
minute
Physical Exam
General: Respiratory Distress (n), Comfortable, Chills (n) and Sweats (n)
HEENT: Normocephalic and Anicteric
Cardiovascular: S1-S2 and Peripheral Edema (n)
Respiratory: Wheeze (n), Crackles (bibasilar (L>R)), Rhonchi (bibasilar), Non-Labored Respirations, Accessory Resp Muscle Use (n), Stridor (n) and Other (Greatly diminished breath sounds bilaterally)
GI: Soft, Non Distended, Non Tender and Normal Bowel Sounds
Neurology: AO x 3 and Tremors (n)
Skin: Warm, Dry, Cyanosis (n) and Jaundice (n)
Labs/Micro/Reports
Lab Data
09/28/24 05:33
09/28/24 05:33
Microbiology
09/25/24 05:03 Blood/Venous Blood Culture - Preliminary
No Growth in 72 hours- Final report to follow
[2024-09-28] MEDS: PULMICORT 0.5 MG INH ×2 (08:28→19:36)
[2024-09-28] MEDS: SODIUM CHLORIDE 3% FOR INHALATION 1 VIAL INH ×4 (08:29→19:36)
[2024-09-28] MEDS: MUCINEX 600 MG PO ×2 (08:37→20:54)
[2024-09-28] MEDS: DELTASONE 40 MG PO (08:37)
[2024-09-28] MEDS: MAG-TAB SR 84 MG PO ×2 (08:37→20:53)
[2024-09-28] MEDS: ATARAX 12.5 MG PO ×2 (08:37→20:53)
[2024-09-28] MEDS: PROTONIX 40 MG PO (08:37)
--- NOTE | 2024-09-28 09:20 | PTCARENOTE ---
Patient resistant to some cares and interventions thru shifts. Patient refused to wear bipap for more than two hours. Refusing vest therapy this am with therapist. Presently remains on 3lpm n/c. Saturation 97% VSS as documented and follow up
ongoing. Holding skin cares and turns as per patient request secondary to fatigue and wishes to sleep in. Breakfast ordered for her, told patient about plan of mobility for dayshift. Presently wishes to be left alone. Continue to round, follow up
teaching and supportive cares.
--- NOTE | 2024-09-28 10:23 | PTCARENOTE ---
Hospitalist team at bedside. Update plan of cares, level of cares and patient wishes. Patient presently eating breakfast then reinforced need for PT/OT mobility. Continue follow up teaching.
--- NOTE | 2024-09-28 11:00 | W.PN.HOSP.TC ---
Today's Communication/Plan
-
Transfer out of ICU
Continue with BiPAP
Continue with prednisone
Out of bed with/PT/OT
Assessment / Plan
Assessment / Plan
General: No Apparent Distress and Appears Chronically Ill
HEENT: Normocephalic, Atraumatic, Moist Mucous Membranes and Oxygen 4L midflow
Respiratory: Wheezes and Decreased Breath Sounds (bilateral aeration)
Cardiac: Regular Rhythm and S1/S2
GI: Soft, Nontender and Nondistended
Musculoskeletal: No Clubbing, No Cyanosis and No Edema
Neuro: Awake, Alert, Oriented, AO x 3 and No Motor Deficits; Negative Slurred Speech or Facial Droop
Psych: Calm and Anxious
A/P
#Shortness of breath secondary to large LEFT sided pleural effusion likely 2/2 Adenocarcinoma
# Acute on chronic chronic hypoxic respiratory failure
# Chronic hypercapnic respiratory failure
#History of COPD/emphysema
#History of severe tobacco abuse
#History of pleural effusion status post recent thoracentesis-which was deemed parapneumonic
# History of lung nodules
iRad consulted for thoracentesis status post thoracentesis 650 cc of straw-colored pleural fluid removed. Further fluid removal was stopped as patient complained of pain.
Fluid culture remains negative
Doubt fungal infection-fluid in lab
Monitor off antibiotics
ESR/CRP elevated. CONRAD neg, CCP IgG/IgA Ab 78 (nl 0-19)
Continue with bronchodilators
CT was removed on 09/22 as not much output was noted
Cytology from 09/15 and 09/18 and resulted with adenocarcinoma
anxiety playing a huge role. Encourage patient to use incentive spirometry. Refusing at times.
Repeat CXR with Moderate loculated left pleural effusion. Rounded opacification in the left lower lung field possibly loculated fluid versus pneumonia or pulmonary masses. Stable
3% neb seems to be helping. Cont with Pulmicort. Plan for prolonged steroid slow taper regimen.
Off high flow nasal cannula to noninvasive. Patient back to baseline 4 L oxygen. Plan to wean off noninvasive with trial of BiPAP 12/5 nightly and as needed
May need to consider transition to high-dose steroids
# Leukocytosis likely secondary to steroids
Remains afebrile. UA negative. blood cultures remains negative. Monitor for now. WBC downtrending.
# Stage IV Non small cell lung adenocarcinoma
Oncology consulted and they requested further testing on cytologic tissue. No other biopsy required per oncology.
# Urinary retention status post straight catheterization x 1
Continue with protocol. If with persistent retention required [place] catheter placement
# Toxic metabolic encephalopathy likely secondary to chronic hypercapnic respiratory failure versus delirium
Continue to monitor mentation closely
Avoid benzos and opiates if possible
Improvement in mentation and seems back to baseline
# Hypotension
Status post Levophed. tolerating diet. DC fluids and observe
#Tachycardia
Hold Cardizem as with hypotension
HR stable so far.
Transaminitis
could be from recent infection
trend for now.
resolved.
Hx of Dizziness/?vertigo-meclizine prn
Severe anxiety-cont atarax
Mild hyponatremia
-Likely secondary to decreased p.o. intake
-Monitor for now. Improving
dvt ppx-lovenox
Updated patient daughter at bedside in detail on 09/26/24
PT/OT
Prognosis poor.
Anticipated Discharge: > 48 hours
Subjective/Interval History
-
Date of Service: September 28, 2024
states did not tolerate Bipap much overnight as was tired
will try for prolonged period of time today.
tolerating diet
Objective Data
-
Labs:
Laboratory Results
09/28/24
05:33
WBC 8.7
Hgb 11.6 L
Hct 35.6 L
Plt Count 299
Sodium 131 L
Potassium 4.2
Chloride 89 L
Carbon Dioxide 36 H
BUN 12
Creatinine 0.3 L
Glucose 81
Calcium 8.1 L
Vital Signs:
Vital Signs
Temp Pulse Resp BP Pulse Ox
97.6 F 78 19 109/55 97
09/28/24 08:16 09/28/24 08:57 09/28/24 08:57 09/28/24 08:57 09/28/24 08:57
I&O
09/27/24 09/28/24 09/29/24
06:59 06:59 06:59
Intake Total 891.3 / 891.3 240 / 240 120 / 120
Output Total 1525 / 1525 800 / 800 200 / 200
Balance -633.7 / -633.7 -560 / -560 -80 / -80
Data Reviewed
-
Total Time Spent with Patient (in minutes): 55
--- NOTE | 2024-09-28 13:21 | PTCARENOTE ---
Out of bed for lunch. Supervision only. Noted dizziness. VSS thru transfer. Monitoring saturation on 3lpm n/c. Continue with mobility program. Continue with teaching and follow up assessments. Will return to bed after lunch. All questions answered,
patient verbalizing satisfaction of cares, review plan of IMU/step down cares.
[2024-09-28] MEDS: LOVENOX 40 MG SC (18:28)
--- NOTE | 2024-09-28 20:45 | PTCARENOTE ---
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 B/L IV WNL. no gtt infusing. purewick in place. POC discussed, call yanez with pt.
[2024-09-28] MEDS: MELATONIN 5 MG PO (23:26)
[2024-09-29] VITALS (21 sets, daily range): BP systolic 94–135; BP diastolic 51–93; PULSE 2–104; O2SAT 96; BMI 22.6; BMI 22.3
[2024-09-29] MEDS: XOPENEX 0.63 MG INHALANT SOLUTION INH ×5 (01:28→23:18)
--- NOTE | 2024-09-29 02:52 | PTCARENOTE ---
pt wanting Bipap removed right now, back on 4LNC. no further changes in assessment.
[2024-09-29 05:21] LABS: Venous Blood Gas B.E. 15.5 mmol/L (-4 to +4); Venous Blood Gas HCO3 43.8 mmol/L (22-27); Venous Blood Gas O2 Sat % 98.8 %; Venous Blood Gas pH 7.38 (7.32-7.43); Venous Blood Gas pO2 182 mmHg (30-50)
[2024-09-29 05:24] LABS: % Basophils 0.3 % (0-2); % Eosinophils 0.1 % (0-6); % Immature Granulocytes 2.5 % (0-0.5); % Lymphocytes 10.9 % (20.5-51.1); % Monocytes 11.1 % (1.7-9.3); % Neutrophils 75.1 % (42.2-75.2); Absolute Immature Granulocytes 0.2 10^3/uL (0-0.05); Absolute Neutrophils 6.7 10^3/uL (1.4-6.5); Hematocrit 35.7 % (37.0-47.0); Mean Corp Hgb Conc. 30.8 g/dL (33.0-37.0); Mean Corpuscular Hgb 29.3 pg (27.0-31.0); Mean Corpuscular Volume 95.2 fL (81.0-99.0); Nucleated Red Blood Cells % 0 %; Platelet Count 285 10^3/uL (130-400); Red Blood Cell Count 3.75 10^6/uL (4.20-5.40); Red Cell Dist. Width 13.2 % (11.5-14.5); White Blood Cell Count 8.9 10^3/uL (4.8-10.8)
[2024-09-29 05:26] LABS: Venous Blood Gas O2 Therapy 4L/min
[2024-09-29 05:27] LABS: Venous Blood Gas pCO2 74 mmHg (35-48)
[2024-09-29 06:51] LABS: Blood Urea Nitrogen 15 mg/dl (7-17); Calcium 8.6 mg/dl (8.4-10.2); Chloride 87 mmol/L (98-107); Estimated Creatinine Clearance 71 ml/min; Glucose 106 mg/dl (70-99); Sodium 131 mmol/L (135-145); eGFR > 60.00
[2024-09-29 07:12] LABS: Carbon Dioxide 39 mmol/L (22-30)
[2024-09-29] MEDS: PULMICORT 0.5 MG INH ×2 (07:22→20:48)
[2024-09-29] MEDS: SODIUM CHLORIDE 3% FOR INHALATION 1 VIAL INH ×4 (07:22→20:48)
--- NOTE | 2024-09-29 09:00 | W.PN.PUL3 ---
Today's Communication / Plan
-
Changed from NIV to BiPAP 22/01 -patient again only tolerated bipap last night for 3.5 hours
Start sport bed
Trend pH and pCO2 with occasional a.m. blood gas
US of left pleural effusion today shows small amount of fluid, not amenable to thoracentesis or Pleurx catheter
She is currently thinking about the PleurX and discussing with her daughter if left-sided pleural fluid enlarges
If Pleurx is inserted then pulmonary office will manage
Oncology consulted on 09/25/2024, and recommendations appreciated
If additional tissue is needed then could always consider IR transthoracic needle aspiration of her lingula mass; she is too chronically ill and high risk for a bronchoscopy
patient is DNR/DNI
Patient is stable for downgrade to telemetry (-[place]). Pulmonary service will continue to follow along
Assessment
-
79-year-old woman with history of COPD, home oxygen 4 L who presented with shortness of breath. Discharged from the hospital 08/20/2024 after treated with pneumonia, left-sided parapneumonic effusion s/p thoracentesis. Negative cytology and
cultures.
Patient has pulmonary cachexia, prior tobacco abuse, presented for [facility] with worsening shortness of breath.
Impression:
Shortness of breath/hypoxemic respiratory failure due to large left pleural effusion-recurrent due to malignant pleural effusion-metastatic lung cancer-adenocarcinoma
Chest x-ray showed large left pleural effusion-repeat thoracentesis 09/13/2024: 650 cc straw-colored fluid. Severe pain after fluid drainage.
History of thoracentesis 08/18/2024-exudative with negative culture
Chest tube, left side 09/17/24 --> removed 09/22/2024
Discharged from the hospital 08/20/2024 with acute exacerbation of COPD and pneumonia and left pleural effusion
CT chest performed showing moderate to advanced emphysema with a mild�moderate left-sided pleural effusion which appears to be loculated with masslike opacities in the lingula + left lower lobe - suspected lung cancer
Ultrasound showed moderate size left pleural effusion 08/17/2020 24-450 mL. Exudate/culture negative/cytology atypical mesothelial cells. Favoring reactive process
#Chronic respiratory failure with hypercapnia
Discharged on trilogy ventilator 08/20/2024
Latest ABG 7.4/75/60 08/17/2024
#Acute on chronic respiratory failure with hypoxia due to above
#Elevated eosinophil count (mild at 500 from 09/18/2024)
#Metabolic alkalosis due to chronic hypercapnia
#Emphysema/COPD on Trelegy 200mcg at home + home O2 (4-6L/min ATC)
#History of multiple lung nodules with prior PET/CT negative with no uptake in 2020 (per her food photographer's last office visit note on 05/22/2024)
DNR
Chronic conditions [employer]: COPD on Trelegy 200mcg + home oxygen at 4-6 L/min ATC, chronic rhinitis, eczema, multiple lung nodules (PET/CT was negative with no uptake in 2020), former tobacco smoker (last smoked a cigarette in April 2024)
Plan
Respiratory status improved since being here in ICU on noninvasive ventilation
On 09/27 I changed her from NIV to BiPAP --> she only tolerated BiPAP on 09/27 evening for few hours, and this is with her own mask from home that her daughter brought in;used for 3.5 hours last night
Continue trending pH + pCO2 with occasional a.m. VBG
Supplemental O2 while keeping SpO2 88-95%
Xopenex and budesonide nebulizers
Mucinex
Vest therapy prn - pt afraid to use it again as she is afraid that she will bring up lots of phlegm and then get SOB
She is amenable to using the support
Prednisone 50 mg daily-decreased to 40 mg daily; recommend slow taper
Left side chest tube placed 09/17/24--> removed 09/22/2024
Nebulized budesonide - was on from 09/13 - 09/21/2024 --> resumed 09/23/2024
Takes Trelegy at home--resume Symbicort and Spiriva at the time of discharge
Steroids added 09/18/24, with persistent wheezing and hypoxemia-methylprednisolone 40 mg IV every 12 hours-subsequently transitioned to prednisone 40mg daily on 09/27
DNR/DNI
Chest x-ray 09/25/2024-elevation left hemidiaphragm, small left pleural effusion, slight improvement in atelectasis
Chest x-ray 09/28/2024- increased opacity again demonstrated left lung base. Obscuration left diaphragm. Blunting the lateral costophrenic angle. When correlated with previous imaging studies, increased opacity in this location was associated with
parenchymal consolidation and small pleural effusion. Overall, the appearance is stable.
Left-sided chest US (09/29/2024): Small pleural effusion
Blood cultures rechecked on 09/25/2024 (shows NGTD)
Low threshold for antibiotics if clinically indicated
Levophed weaned off and she remains HDN stable
Aspiration precautions.
Speech therapy following-correspondence reviewed.
Video swallow 09/15/24-recommend regular solids and thin liquids
Mucolytics with mucinex 600mg PO q12hr
On 09/22/2024, Dr. Oh started nebulized 3% as she is having difficulty with expectoration; raised from BID to QID as she feels a benefit with the medication; continue vest therapy prn after the 3% is given to help with expectoration
Case management consulted to see if they can get her the vest at home
Prior history of L thoracentesis 08/18/24--cyto + atypical meso cells
Chest x-ray 09/15/2447-[id number] left pleural effusion, mildly increased following thoracentesis, large left lower airspace disease and severe hyperinflation of the right.
Status post repeat left thoracentesis 09/13/2024-patient developed pain and thoracentesis was aborted after 650 cc of straw-colored fluid were drained
pH 7.44/wbc 3906/mononuclears 91%/glucose 116/total protein/LDH 143/amylase 41/triglycerides less than 30
Exudative
Cytology from [facility] on 09/13/2024 shows metastatic adenocarcinoma with suspected lung primary- prior cytology with atypical mesothelial cells
Left pleural fluid cytology 09/17/2024-metastatic adenocarcinoma
Oncology consultation following-correspondence reviewed-no need for additional biopsies, performance status currently too poor for therapeutics
Chest tube removed on 09/22/2024 as there was minimal output and recent CT chest from 09/20/2024 showed that the tip of the chest tube was no longer and a pocket of fluid and there was a small amount of residual left-sided pleural effusion
High risk for pleural fluid reaccumulation-Dr. Gómez discussed with daughter potential need for Pleurx catheter if reoccurs --> CXR this AM (09/28) shows stable size of L-effusion --> chest US from 09/29/2024 shows small left-sided pleural effusion,
not amenable to thoracentesis or Pleurx; continue to occasionally monitor with imaging
Anti- CCP IgG/IgA Ab elevated 78-can be elevated with rheumatoid arthritis-CONRAD Negative
DVT prophylaxis-on Lovenox.
GI prophylaxis-on pantoprazole..
Nutrition
Bedside range of motion
PT/OT --> PT/OT rec'd skilled rehab upon discharge; PT had rec'd SNF vs home PT during eval from 09/21/2024
Prognosis unfortunately poor with metastatic probable lung cancer and poor performance status
Dr. Gómez had lengthy discussion with daughter 09/26/2024 who joined on multidisciplinary rounds-told overall declining pulmonary status, metastatic lung cancer, likelihood of pleural fluid reaccumulation, options including palliation/comfort
care/hospice
Total time spent today was 41 minutes for this encounter. Time includes reviewing laboratory test/imaging results, reviewing pertinent medical records, obtaining and reviewing medical history, performing an appropriate exam, ordering medications,
tests and procedures. Time also includes documentation of this encounter, coordinating patient care and communicating with other healthcare professionals. Total time does not include separately billed tests performed on this date of service.
Family discussions:
Dr. Gómez called [facility]-[id number]-[phone] on 09/16/24-explained current clinical situation, potential etiologies, need for chest tube placement for pleural fluid evacuation with subsequent CT chest, also discussed pathology/cytology that is
pending-she is in agreement with chest tube placement-Dr. Gómez called interventional radiology and placed consult-we'll repeat cytology on additional fluid removed
Dr. Gómez had lengthy discussion with daughter 09/26/2024 who joined on multidisciplinary rounds-told overall declining pulmonary status, metastatic lung cancer, likelihood of pleural fluid reaccumulation, options including palliation/comfort
care/hospice
Data:
CXR 08/15/2024: Evidence for small to moderate left pleural effusion with mild lateral loculation. Patchy parenchymal opacity within the left mid to lower lung, suspicious for pneumonia, although there could also be a component of atelectasis. Also
of note, underlying mass/neoplasia cannot be excluded radiographically and radiographic follow-up is recommended.
CT chest 09/20/24-1. Smallbore left chest tube in position. Trace residual left pleural fluid.
2. Complete atelectasis of the left lower lobe. Left lower lobe bronchi filled with secretions. In addition to this, approximately 1.7 cm area of abnormally decreased attenuation in the posterior left lower lobe as above for this area, infectious
etiology considered most likely. Neoplasm cannot be definitively excluded.
3. Persistent area of masslike consolidation in the inferior left upper lobe measuring up to 5 cm in diameter. Given the remainder of the findings and absence of adenopathy, also favored to have infectious etiology. Neoplasm cannot be excluded,
follow-up to resolution is recommended.
4. Emphysema.
5. Coronary and aortic atherosclerosis.
CT chest without contrast 08/15/2024: Moderate to advanced emphysematous lung changes. Mild to moderate left pleural effusion. Masslike opacities in the lingula and left lower lobe. Probable round pneumonia. Follow-up recommended to assess for
resolution. Minor localized tree-in-bud attenuation in the superior segment of the right lower lobe, nonspecific bronchiolitis. 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
Left chest US 08/17/2024: Moderate left pleural effusion. Stable
Left chest US 09/29/2024: Small left pleural effusion.
Subjective Data
-
Date of Service:
Date of Service: September 29, 2024
Chief Complaint: Pulmonary Follow Up and Dyspnea Follow Up
Subjective:
Patient seen and evaluated today at bedside. Still not using the vest but he is interested in using this port bed. Currently on 4 L/min and saturating 96% with heart rate 94 and BP 109/54. Afebrile overnight. Used BiPAP overnight for about 3.5
hours on 15/5cmH2O bled with 6 L/min. Left-sided chest ultrasound this morning shows small pleural effusion. She currently denies chest pain, [place], nausea, fevers or chills. She has occasional chest tightness in her lower sternum.
Review of Systems
General: Other (Negative unless mentioned above)
Objective Data
Data Reviewed
Vital Signs / I&O / Oxygen:
Vital Signs
Temp Pulse Resp BP Pulse Ox
97.5 F 71 20 114/56 98
09/29/24 07:03 09/29/24 07:25 09/29/24 07:25 09/29/24 06:00 09/29/24 07:25
Intake and Output
09/28/24 09/29/24 09/30/24
06:59 06:59 06:59
Intake Total 240 / 240 600 / 600
Output Total 800 / 800 1050 / 1050
Balance -560 / -560 -450 / -450
SaO2 [NIV (Non Invasive 95
Ventilation)]
SaO2 98
Nasal Cannula flow liters per 4
minute
Physical Exam
General: Respiratory Distress (n), Comfortable, Chills (n) and Sweats (n)
HEENT: Normocephalic and Anicteric
Cardiovascular: Regular Rhythm, Peripheral Edema (n) and Other (Distant cardiac sounds)
Respiratory: Wheeze (n), Crackles (Bibasilar (L>R)), Rhonchi (n), Non-Labored Respirations, Accessory Resp Muscle Use (n) and Other (Diminished BS bilaterally)
GI: Soft, Non Distended, Non Tender and Normal Bowel Sounds
Neurology: Awake, Alert and Tremors (n)
Skin: Warm, Good Color, Cyanosis (n) and Jaundice (n)
Labs/Micro/Reports
Lab Data
09/29/24 05:14
09/29/24 06:26
Microbiology
09/25/24 05:03 Blood/Venous Blood Culture - Preliminary
No Growth in 4 days- Final report to follow
[2024-09-29] MEDS: DELTASONE 40 MG PO (09:39)
[2024-09-29] MEDS: MUCINEX 600 MG PO ×2 (09:39→19:40)
[2024-09-29] MEDS: MAG-TAB SR 84 MG PO ×2 (09:39→19:40)
[2024-09-29] MEDS: PROTONIX 40 MG PO (09:39)
[2024-09-29] MEDS: ATARAX 12.5 MG PO ×3 (09:39→21:16)
--- NOTE | 2024-09-29 11:16 | W.PN.HOSP.TC ---
Today's Communication/Plan
-
doubt will require pleureX
Encourage Bipap usage
PT/OT
Monitor mentation closely
Pulm recs
Assessment / Plan
Assessment / Plan
General: No Apparent Distress and Appears Chronically Ill
HEENT: Normocephalic, Atraumatic, Moist Mucous Membranes and Oxygen 4L midflow
Respiratory: Wheezes and Decreased Breath Sounds (bilateral aeration)
Cardiac: Regular Rhythm and S1/S2
GI: Soft, Nontender and Nondistended
Musculoskeletal: No Clubbing, No Cyanosis and No Edema
Neuro: Awake, Alert, Oriented, AO x 3 and No Motor Deficits; Negative Slurred Speech or Facial Droop
Psych: Calm and Anxious
A/P
#Shortness of breath secondary to large LEFT sided pleural effusion likely 2/2 Adenocarcinoma
# Acute on chronic chronic hypoxic respiratory failure
# Chronic hypercapnic respiratory failure
#History of COPD/emphysema
#History of severe tobacco abuse
#History of pleural effusion status post recent thoracentesis-which was deemed parapneumonic
# History of lung nodules
iRad consulted for thoracentesis status post thoracentesis 650 cc of straw-colored pleural fluid removed. Further fluid removal was stopped as patient complained of pain.
Fluid culture remains negative
Doubt fungal infection-fluid in lab
Monitor off antibiotics
ESR/CRP elevated. CONRAD neg, CCP IgG/IgA Ab 78 (nl 0-19)
Continue with bronchodilators, Afraid to go back on vest therapy.
CT was removed on 09/22 as not much output was noted
Cytology from 09/15 and 09/18 and resulted with adenocarcinoma
anxiety playing a huge role. Encourage patient to use incentive spirometry. Refusing at times.
Repeat CXR with Moderate loculated left pleural effusion. Rounded opacification in the left lower lung field possibly loculated fluid versus pneumonia or pulmonary masses. Stable
3% neb seems to be helping. Cont with Pulmicort. Plan for prolonged steroid slow taper regimen. Now on 40mg prednisone
Off high flow nasal cannula to noninvasive. Patient back to baseline 4 L oxygen. Plan to wean off noninvasive with trial of BiPAP 12/5 nightly and as needed
May need to consider transition to high-dose steroids
VBG with worsening hypercapnia.
Repeat Chest US with left-small pleural effusion.
# Leukocytosis likely secondary to steroids
Remains afebrile. UA negative. blood cultures remains negative. Monitor for now. WBC normalized
# Stage IV Non small cell lung adenocarcinoma
Oncology consulted and they requested further testing on cytologic tissue. No other biopsy required per oncology.
# Urinary retention status post straight catheterization x 1
Continue with protocol. If with persistent retention required Ventura catheter placement
# Toxic metabolic encephalopathy likely secondary to chronic hypercapnic respiratory failure versus delirium
Continue to monitor mentation closely
Avoid benzos and opiates if possible
Improvement in mentation and seems back to baseline
# Hypotension
Status post Levophed. tolerating diet. DC fluids and observe
#Tachycardia
Hold Cardizem as with hypotension
HR stable so far.
Transaminitis
could be from recent infection
trend for now.
resolved.
Hx of Dizziness/?vertigo-meclizine prn
Severe anxiety-cont atarax
Mild hyponatremia
-Likely secondary to decreased p.o. intake
-Monitor for now. Improving
dvt ppx-lovenox
Updated patient daughter at bedside in detail on 09/26/24
PT/OT
Prognosis poor.
Anticipated Discharge: > 48 hours
Subjective/Interval History
-
Date of Service: September 29, 2024
used bipap for few hours overnight
Objective Data
-
Labs:
Laboratory Results
09/29/24 09/29/24
05:14 06:26
WBC 8.9
Hgb 11.0 L
Hct 35.7 L
Plt Count 285
Sodium Cancelled 131 L
Potassium Cancelled 4.0
Chloride Cancelled 87 L
Carbon Dioxide Cancelled 39 H
BUN Cancelled 15
Creatinine Cancelled 0.3 L
Glucose Cancelled 106 H
Calcium Cancelled 8.6
Vital Signs:
Vital Signs
Temp Pulse Resp BP Pulse Ox
97.5 F 93 24 109/54 96
09/29/24 07:03 09/29/24 11:00 09/29/24 11:00 09/29/24 10:00 09/29/24 11:00
I&O
09/28/24 09/29/24 09/30/24
06:59 06:59 06:59
Intake Total 240 / 240 600 / 600 120 / 120
Output Total 800 / 800 1050 / 1050 500 / 500
Balance -560 / -560 -450 / -450 -380 / -380
--- NOTE | 2024-09-29 13:09 | PTCARENOTE ---
Update thru shift with hospitalist team. Glaze Maker/Pulmonary team in and out at bedside. Updated plan of cares. Discuss improvement in pulmonary status, compliance with Bipap. Will follow up plan of pulmonary cares and assessment trends. Will
await PT/OT when patient out of bed to attempt sport bed. Follow up with family, teaching ongoing.
--- NOTE | 2024-09-29 15:09 | CM ---
CM following re: discharge planning.
Reviewed pt's chart, met with p[t and spoke to p[t's daughter Emily to update on discharge plan progress.
PT and OT evaluations noted -SNF level of care recommended. Pt is aware, expressed her agreement with going to a SNF and pt asked to call her daughter Emily to discuss options of SNF.
CM spoke to pt's daughter Emily and she preferred following SNFs: [facility] and [facility]. A referral to above SNFs made. Awaiting for determination.
D/C plan: preferred SNF: [facility] or [facility].
CM will follow with discharge plan updates as hospitalization progresses.
--- NOTE | 2024-09-29 15:56 | PTCARENOTE ---
Patient out of bed to chair for lunch. Follow up working on sport bed for percussion. Follow up nebs, treatments and other pulmonary mechanics as needed thru shift. Hourly rounds ongoing. Skin cares as per unit based protocols. Continue to follow.
[2024-09-29] MEDS: LOVENOX 40 MG SC (19:39)
--- NOTE | 2024-09-29 20:51 | PTCARENOTE ---
pt transferred to without issue and all belongings with pt, respiratory made aware about BIPAP and vest to be moved.
[2024-09-30] VITALS (8 sets, daily range): BP systolic 105–156; BP diastolic 54–99; PULSE 2–92; O2SAT 94
[2024-09-30] MEDS: MELATONIN PO ×2 (02:16→22:40)
[2024-09-30] MEDS: XOPENEX 0.63 MG INHALANT SOLUTION INH ×5 (02:49→23:27)
[2024-09-30 07:00] LABS: % Basophils 0.8 % (0-2); % Eosinophils 0.3 % (0-6); % Immature Granulocytes 3.2 % (0-0.5); % Lymphocytes 14.3 % (20.5-51.1); % Monocytes 10.4 % (1.7-9.3); Absolute Basophils 0.1 10^3/uL (0-0.2); Absolute Immature Granulocytes 0.4 10^3/uL (0-0.05); Absolute Lymphocytes 1.7 10^3/uL (1.2-3.4); Absolute Monocytes 1.3 10^3/uL (0.1-0.6); Absolute Neutrophils 8.6 10^3/uL (1.4-6.5); Hematocrit 36.7 % (37.0-47.0); Hemoglobin 11.5 g/dL (12.0-16.0); Mean Corp Hgb Conc. 31.3 g/dL (33.0-37.0); Mean Corpuscular Volume 95.8 fL (81.0-99.0); Mean Platelet Volume 9.5 fL (7.4-10.4); Nucleated Red Blood Cells % 0 %; Platelet Count 342 10^3/uL (130-400); Red Blood Cell Count 3.83 10^6/uL (4.20-5.40); Red Cell Dist. Width 13.1 % (11.5-14.5); White Blood Cell Count 12.2 10^3/uL (4.8-10.8)
[2024-09-30 07:29] LABS: Blood Urea Nitrogen 15 mg/dl (7-17); Calcium 8.5 mg/dl (8.4-10.2); Chloride 85 mmol/L (98-107); Estimated Creatinine Clearance 71 ml/min; Glucose 75 mg/dl (70-99); Potassium 3.8 mmol/L (3.5-5.1); Sodium 131 mmol/L (135-145); eGFR > 60.00
[2024-09-30 08:02] LABS: Carbon Dioxide 40 mmol/L (22-30)
[2024-09-30] MEDS: PULMICORT 0.5 MG INH ×2 (08:06→19:11)
[2024-09-30] MEDS: SODIUM CHLORIDE 3% FOR INHALATION 1 VIAL INH ×4 (08:06→19:11)
[2024-09-30] MEDS: DELTASONE 40 MG PO (08:24)
[2024-09-30] MEDS: MUCINEX 600 MG PO ×2 (08:24→19:30)
[2024-09-30] MEDS: ATARAX 12.5 MG PO ×3 (08:24→19:30)
[2024-09-30] MEDS: PROTONIX 40 MG PO (08:24)
[2024-09-30] MEDS: MAG-TAB SR 84 MG PO ×2 (08:25→19:32)
--- NOTE | 2024-09-30 09:28 | W.PN.ONC ---
Today's Communication / Plan
-
Supportive measures per career and guidance counselor, and primary
Discussed possible therapy for lung cancer if PS improves and if patient desires treatment
She's not interested in further discussions at this time, does not want me to arrange oncology f/u
She was given our contact information/card, and instructed to call if she would like to consider options after discharge
Hospice is appropriate should she choose to forego cancer-directed treatment
Will sign off, please call w/ any questions
Impression
Impression
stage IV lung cancer
Recurrent pleural effusion are likely secondary to metastatic adenocarcinoma and or left upper lobe lobulated mass
Pending - PD-L1 and NGS testing on the adenocarcinoma in the pleural fluid
Poor performance status
Plan
Plan
Supportive measures per career and guidance counselor, and primary
Discussed possible therapy for lung cancer if PS improves and if patient desires treatment
She's not interested in further discussions at this time, does not want me to arrange oncology f/u
She was given our contact information/card, and instructed to call if she would like to consider options after discharge
Hospice is appropriate should she choose to forego cancer-directed treatment
Will sign off, please call w/ any questions
Subjective/Objective
Subjective/Objective
breathing okay, no new complaints
Vital Signs:
Vital Signs
Temp Pulse Resp BP Pulse Ox
97.7 F 102 24 105/56 91
09/30/24 07:00 09/30/24 08:07 09/30/24 08:07 09/30/24 07:00 09/30/24 08:07
Lab Results:
Laboratory Data
WBC 12.2 10^3/uL (4.8-10.8) H 09/30/24 05:37
Hgb 11.5 g/dL (12.0-16.0) L 09/30/24 05:37
Plt Count 342 10^3/uL (130-400) 09/30/24 05:37
PT 12.7 Sec (11.4-14.6) 09/12/24 15:58
INR 0.92 09/12/24 15:58
eGFR > 60.00 09/30/24 05:37
--- NOTE | 2024-09-30 11:34 | W.PN.HOSP.TC ---
Addendum entered and electronically signed by Anmol Macedo MD 09/30/24 13:14:
Hypovolemic shock likely secondary to dehydration with due to change in mental status. Improved with IV fluid with required Levophed.
Original Note:
Today's Communication/Plan
-
cont prednisone-slow taper regimen
Pulm recs
SNF on dc
OOB/PT/OT
Assessment / Plan
Assessment / Plan
General: No Apparent Distress and Appears Chronically Ill
HEENT: Normocephalic, Atraumatic, Moist Mucous Membranes and Oxygen 4L midflow
Respiratory: Wheezes and Decreased Breath Sounds (bilateral aeration)
Cardiac: Regular Rhythm and S1/S2
GI: Soft, Nontender and Nondistended
Musculoskeletal: No Clubbing, No Cyanosis and No Edema
Neuro: Awake, Alert, Oriented, AO x 3 and No Motor Deficits; Negative Slurred Speech or Facial Droop
Psych: Calm and Anxious
A/P
#Shortness of breath secondary to large LEFT sided pleural effusion likely 2/2 Adenocarcinoma
# Acute on chronic chronic hypoxic respiratory failure
# Chronic hypercapnic respiratory failure
#History of COPD/emphysema
#History of severe tobacco abuse
#History of pleural effusion status post recent thoracentesis-which was deemed parapneumonic
# History of lung nodules
[facility] consulted for thoracentesis status post thoracentesis 650 cc of straw-colored pleural fluid removed. Further fluid removal was stopped as patient complained of pain.
Fluid culture remains negative
Doubt fungal infection-fluid in lab -remains negative.
Monitor off antibiotics
ESR/CRP elevated. CONRAD neg, CCP IgG/IgA Ab 78 (nl 0-19)
Continue with bronchodilators, Afraid to go back on vest therapy.
CT was removed on 09/22 as not much output was noted
Cytology from 09/15 and 09/18 and resulted with adenocarcinoma
anxiety playing a huge role. Encourage patient to use incentive spirometry. Refusing at times.
Repeat CXR with Moderate loculated left pleural effusion. Rounded opacification in the left lower lung field possibly loculated fluid versus pneumonia or pulmonary masses. Stable
3% neb seems to be helping. Cont with Pulmicort. Plan for prolonged steroid slow taper regimen. Now on 40mg prednisone
Off high flow nasal cannula to noninvasive. Patient back to baseline 4 L oxygen. Plan to wean off noninvasive with trial of BiPAP 12/5 nightly and as needed
May need to consider transition to high-dose steroids
VBG with worsening hypercapnia. Check vbg intermittently.
Repeat Chest US with left-small pleural effusion. Not amenable to drainage or pleuraX catheter.
Probably will require BiPAP 12/5 at [facility] for qhs/prn.
# Leukocytosis likely secondary to steroids
Remains afebrile. UA negative. blood cultures remains negative. Monitor for now. WBC normalized
# Stage IV Non small cell lung adenocarcinoma
Oncology consulted and they requested further testing on cytologic tissue. No other biopsy required per oncology.
Did not want to further discuss about next step/cancer in general.
# Urinary retention status post straight catheterization x 1
Continue with protocol. If with persistent retention required Ventura catheter placement
# Toxic metabolic encephalopathy likely secondary to chronic hypercapnic respiratory failure versus delirium
Continue to monitor mentation closely
Avoid benzos and opiates if possible
Improvement in mentation and seems back to baseline
# Hypotension
Status post Levophed. tolerating diet. DC fluids and observe
#Tachycardia
Hold Cardizem as with hypotension
Can restart if BP can handle it. Currently soft 105/56
HR stable so far.
Transaminitis
could be from recent infection
trend for now.
resolved.
Hx of Dizziness/?vertigo-meclizine prn
Severe anxiety-cont atarax
Mild hyponatremia
-Likely secondary to decreased p.o. intake
-Monitor for now. Improving
dvt ppx-lovenox
PT/OT -SNF. CM aware.
Prognosis poor.
Anticipated Discharge: 24 - 48 hours
Subjective/Interval History
-
Date of Service: September 30, 2024
states breathing is worse in morning
used 3.5h of Bipap overnight
encourage to continue using it
appetite is good
worked with PT yesterday
Objective Data
-
Labs:
Laboratory Results
09/30/24
05:37
WBC 12.2 H
Hgb 11.5 L
Hct 36.7 L
Plt Count 342
Sodium 131 L
Potassium 3.8
Chloride 85 L
Carbon Dioxide 40 H
BUN 15
Creatinine 0.3 L
Glucose 75
Calcium 8.5
Vital Signs:
Vital Signs
Temp Pulse Resp BP Pulse Ox
97.7 F 102 22 105/56 94
09/30/24 07:00 09/30/24 11:15 09/30/24 11:15 09/30/24 07:00 09/30/24 11:15
I&O
09/29/24 09/30/24 10/01/24
06:59 06:59 06:59
Intake Total 600 / 600 600 / 600
Output Total 1050 / 1050 1450 / 1450
Balance -450 / -450 -850 / -850
Data Reviewed
-
Total Time Spent with Patient (in minutes): 55
--- NOTE | 2024-09-30 12:45 | PN.CDI ---
CDI
- -
CDI:
Physician Documentation Request
Admit Date: 09/12/24 18:20
Dear Doctor Remington,
Please review the following and provide your response in the progress notes.
Current documentation includes a diagnosis of hypotension.
Clinical Indicators:
PN Update, 09/25
#...Patient with hypotension and was started on IV fluid resuscitation.
PN, 09/27
# Hypotension
#...Status post Levophed. tolerating diet. DC fluids and observe
#09/25/24 MAPS: <70
Medications
#Norepinephrine Bitartrate (Levophed) 4 mg in 250 mls @ 0 mls/hr IV PER PROTOCOL KALEB; Protocol
Last Admin: 09/26/24 09:24 Dose: 250 mls
#Administered 09/25/24 23:19
#Administered 09/26/24 09:24
Selected Entries
09/25/24
13:45 09/25/24
14:00 09/25/24
14:15
MAP (cuff-Benedicto Monitor) 66 66 70
09/25/24
14:30 09/25/24
14:45 09/25/24
15:00
MAP (cuff-Benedicto Monitor) 65 61 69
Please clarify which of the following is the most likely etiology of the above symptoms and treatment rendered:
Septic shock
Hypovolemic shock - indicate if due to surgery, trauma or other etiology
Shock, unknown type
Postoperative shock, type unknown
Hypotension - indicate type/etiology, such as idiopathic, neurogenic or orthostatic, post-procedural, postoperative, due to hemodialysis, chronic, drug induced (indicate drug), etc.
Hypotension - unknown type/etiology
Other (please specify)
Use of terms such as suspected, likely, concern for, or probable (associated with a specific diagnosis that is being evaluated, monitored, or treated as if it exists) are acceptable and can be coded in the inpatient setting, when documented at the
time of discharge.
Thank you,
Hilary Perera RN BSN CCDS
CDI Specialist
please contact via tiger text
Please use your independent medical judgment in providing your response.
--- NOTE | 2024-09-30 13:18 | W.PN.PUL3 ---
Today's Communication / Plan
-
Repeat CXR in AM to eval fluid
Encouraged OOB, PT/ambulation
Prednisone taper
Wean O2 as tolerated
Assessment
-
79-year-old woman with history of COPD, home oxygen 4 L who presented with shortness of breath. Discharged from the hospital 08/20/2024 after treated with pneumonia, left-sided parapneumonic effusion s/p thoracentesis. Negative cytology and
cultures.
Patient has pulmonary cachexia, prior tobacco abuse, presented for [facility] with worsening shortness of breath.
Impression:
Shortness of breath/hypoxemic respiratory failure due to large left pleural effusion-recurrent due to malignant pleural effusion-metastatic lung cancer-adenocarcinoma
Chest x-ray showed large left pleural effusion-repeat thoracentesis 09/13/2024: 650 cc straw-colored fluid. Severe pain after fluid drainage.
History of thoracentesis 08/18/2024-exudative with negative culture
Chest tube, left side 09/17/24 --> removed 09/22/2024
Discharged from the hospital 08/20/2024 with acute exacerbation of COPD and pneumonia and left pleural effusion
CT chest performed showing moderate to advanced emphysema with a mild�moderate left-sided pleural effusion which appears to be loculated with masslike opacities in the lingula + left lower lobe - suspected lung cancer
Ultrasound showed moderate size left pleural effusion 08/17/2020 24-450 mL. Exudate/culture negative/cytology atypical mesothelial cells. Favoring reactive process
#Chronic respiratory failure with hypercapnia
Discharged on trilogy ventilator 08/20/2024
Latest ABG 7.4/75/60 08/17/2024
#Acute on chronic respiratory failure with hypoxia due to above
#Elevated eosinophil count (mild at 500 from 09/18/2024)
#Metabolic alkalosis due to chronic hypercapnia
#Emphysema/COPD on Trelegy 200mcg at home + home O2 (4-6L/min ATC)
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
DNR
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
Plan
Respiratory status improved since being here in ICU on noninvasive ventilation
On 09/27 I changed her from NIV to BiPAP --> she only tolerated BiPAP on 09/27 evening for few hours, and this is with her own mask from home that her daughter brought in;used for 3.5 hours last night
Continue trending pH + pCO2 with occasional a.m. VBG
Supplemental O2 while keeping SpO2 88-95%
Xopenex and budesonide nebulizers
Mucinex
Vest therapy prn
Prednisone 50 mg daily-decreased to 40 mg daily; recommend slow taper
Left side chest tube placed 09/17/24--> removed 09/22/2024
Chest x-ray 09/25/2024-elevation left hemidiaphragm, small left pleural effusion, slight improvement in atelectasis
Chest x-ray 09/28/2024- increased opacity again demonstrated left lung base. Obscuration left diaphragm. Stable
Left-sided chest US (09/29/2024): Small pleural effusion, too small for placement
Can repeat CXR in AM
Nebulized budesonide - was on from 09/13 - 09/21/2024 --> resumed 09/23/2024
Takes Trelegy at home--resume Symbicort and Spiriva at the time of discharge
Steroids added 09/18/24, with persistent wheezing and hypoxemia-methylprednisolone 40 mg IV every 12 hours-subsequently transitioned to prednisone 40mg daily on 09/27
DNR/DNI
Blood cultures rechecked on 09/25/2024 (shows NGTD)
Low threshold for antibiotics if clinically indicated
Levophed weaned off and she remains HDN stable
Aspiration precautions.
Speech therapy following-correspondence reviewed.
Video swallow 09/15/24-recommend regular solids and thin liquids
Mucolytics with mucinex 600mg PO q12hr
Continue nebulized 3% PRN
Continue vest therapy prn after the 3% is given to help with expectoration
Case management consulted to see if they can get her the vest at home
Prior history of L thoracentesis 08/18/24--cyto + atypical meso cells
Chest x-ray 09/15/2421-[id number] left pleural effusion, mildly increased following thoracentesis, large left lower airspace disease and severe hyperinflation of the right.
Status post repeat left thoracentesis 09/13/2024-patient developed pain and thoracentesis was aborted after 650 cc of straw-colored fluid were drained
pH 7.44/wbc 3906/mononuclears 91%/glucose 116/total protein/LDH 143/amylase 41/triglycerides less than 30
Exudative
Cytology from [facility] on 09/13/2024 shows metastatic adenocarcinoma with suspected lung primary- prior cytology with atypical mesothelial cells
Left pleural fluid cytology 09/17/2024-metastatic adenocarcinoma
Oncology consultation following-correspondence reviewed-no need for additional biopsies, performance status currently too poor for therapeutics
Chest tube removed on 09/22/2024 as there was minimal output and recent CT chest from 09/20/2024 showed that the tip of the chest tube was no longer and a pocket of fluid and there was a small amount of residual left-sided pleural effusion
High risk for pleural fluid reaccumulation-Dr. Gómez discussed with daughter potential need for Pleurx catheter if reoccurs --> CXR this AM (09/28) shows stable size of L-effusion --> chest US from 09/29/2024 shows small left-sided pleural effusion,
not amenable to thoracentesis or Pleurx; continue to occasionally monitor with imaging
Anti- CCP IgG/IgA Ab elevated 78-can be elevated with rheumatoid arthritis-CONRAD Negative
DVT prophylaxis-on Lovenox.
GI prophylaxis-on pantoprazole..
Nutrition
Bedside range of motion
PT/OT --> PT/OT rec'd skilled rehab upon discharge; PT had rec'd SNF vs home PT during eval from 09/21/2024
Prognosis unfortunately poor with metastatic probable lung cancer and poor performance status
Family Discussions
Dr. Gómez called [phone] on 09/16/24-explained current clinical situation, potential etiologies, need for chest tube placement for pleural fluid evacuation with subsequent CT chest, also discussed pathology/cytology that is
pending-she is in agreement with chest tube placement-Dr. Gómez called interventional radiology and placed consult-we'll repeat cytology on additional fluid removed
Dr. Gómez had lengthy discussion with daughter 09/26/2024 who joined on multidisciplinary rounds-told overall declining pulmonary status, metastatic lung cancer, likelihood of pleural fluid reaccumulation, options including palliation/comfort
care/hospice
Data:
CXR 08/15/2024: Evidence for small to moderate left pleural effusion with mild lateral loculation. Patchy parenchymal opacity within the left mid to lower lung, suspicious for pneumonia, although there could also be a component of atelectasis. Also
of note, underlying mass/neoplasia cannot be excluded radiographically and radiographic follow-up is recommended.
CT chest 09/20/24-1. Smallbore left chest tube in position. Trace residual left pleural fluid.
2. Complete atelectasis of the left lower lobe. Left lower lobe bronchi filled with secretions. In addition to this, approximately 1.7 cm area of abnormally decreased attenuation in the posterior left lower lobe as above for this area, infectious
etiology considered most likely. Neoplasm cannot be definitively excluded.
3. Persistent area of masslike consolidation in the inferior left upper lobe measuring up to 5 cm in diameter. Given the remainder of the findings and absence of adenopathy, also favored to have infectious etiology. Neoplasm cannot be excluded,
follow-up to resolution is recommended.
4. Emphysema.
5. Coronary and aortic atherosclerosis.
CT chest without contrast 08/15/2024: Moderate to advanced emphysematous lung changes. Mild to moderate left pleural effusion. Masslike opacities in the lingula and left lower lobe. Probable round pneumonia. Follow-up recommended to assess for
resolution. Minor localized tree-in-bud attenuation in the superior segment of the right lower lobe, nonspecific bronchiolitis. 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
Left chest US 08/17/2024: Moderate left pleural effusion. Stable
Left chest US 09/29/2024: Small left pleural effusion.
Total time spent today was 51 minutes for this encounter. Time includes reviewing laboratory test/imaging results, reviewing pertinent medical records, obtaining and reviewing medical history, performing an appropriate exam, ordering medications,
tests and procedures. Time also includes documentation of this encounter, coordinating patient care and communicating with other healthcare professionals. Total time does not include separately billed tests performed on this date of service.
Subjective Data
-
Date of Service:
Date of Service: September 30, 2024
Chief Complaint: Pulmonary Follow Up and Dyspnea Follow Up
Subjective:
No new events, remains on O2
Desats when she exerts herself but otherwise no new complaints
Objective Data
Data Reviewed
Vital Signs / I&O / Oxygen:
Vital Signs
Temp Pulse Resp BP Pulse Ox
97.9 F 94 16 122/68 93
09/30/24 11:22 09/30/24 11:22 09/30/24 11:22 09/30/24 11:22 09/30/24 11:22
Intake and Output
09/29/24 09/30/24 10/01/24
06:59 06:59 06:59
Intake Total 600 / 600 600 / 600
Output Total 1050 / 1050 1450 / 1450
Balance -450 / -450 -850 / -850
SaO2 [NIV (Non Invasive 95
Ventilation)]
SaO2 93
Nasal Cannula flow liters per 4
minute
Physical Exam
General: Respiratory Distress (n), Comfortable, Chills (n) and Sweats (n)
HEENT: Normocephalic and Anicteric
Cardiovascular: Regular Rhythm, Peripheral Edema (n) and Other (Distant cardiac sounds)
Respiratory: Wheeze (n), Rhonchi (n), Non-Labored Respirations, Accessory Resp Muscle Use (n) and Other (Diminished BS bilaterally)
GI: Soft, Non Distended, Non Tender and Normal Bowel Sounds
Neurology: Awake, Alert, Oriented and Tremors (n)
Skin: Warm, Good Color, Cyanosis (n) and Jaundice (n)
Labs/Micro/Reports
Lab Data
09/30/24 05:37
09/30/24 05:37
Microbiology
09/25/24 05:03 Blood/Venous Blood Culture - Final
No Growth - Final Report
09/13/24 11:52 Pleural Fluid Fungal Smear - Final
No yeast or fungal elements seen.
09/13/24 11:52 Pleural Fluid Fungal Culture - Preliminary
Culture in progress.
Positive cultures are reported as soon as detected.
Final report to follow in four to five weeks.
[2024-09-30] MEDS: LOVENOX 40 MG SC (18:20)
[2024-10-01] VITALS (9 sets, daily range): BP systolic 114–145; BP diastolic 55–88; PULSE 2–111; O2SAT 94
[2024-10-01] MEDS: ATARAX 12.5 MG PO ×2 (01:44→11:52)
--- NOTE | 2024-10-01 02:09 | DOWNTIME ---
There was a [employer] Client [employer] Hand Downtime on 10/01/2024 from 0100 to 10/01/2023 at 0205 . Downtime documentation of patient's care, including medication administrations, has been reconciled in the electronic record per guidelines. Refer to the
patient's paper chart under the miscellaneous tab to see printed paper medication records and downtime forms.
[2024-10-01] MEDS: XOPENEX 0.63 MG INHALANT SOLUTION INH ×4 (03:22→19:31)
[2024-10-01] MEDS: SODIUM CHLORIDE 3% FOR INHALATION 1 VIAL INH ×3 (07:54→19:31)
[2024-10-01] MEDS: PULMICORT 0.5 MG INH ×2 (07:54→19:30)
[2024-10-01 08:20] LABS: % Basophils 0.9 % (0-2); % Eosinophils 0.6 % (0-6); % Immature Granulocytes 3.6 % (0-0.5); % Lymphocytes 14.3 % (20.5-51.1); % Neutrophils 70.6 % (42.2-75.2); Absolute Basophils 0.1 10^3/uL (0-0.2); Absolute Eosinophils 0.1 10^3/uL (0-0.7); Absolute Immature Granulocytes 0.5 10^3/uL (0-0.05); Absolute Lymphocytes 1.8 10^3/uL (1.2-3.4); Absolute Monocytes 1.3 10^3/uL (0.1-0.6); Absolute Neutrophils 8.9 10^3/uL (1.4-6.5); Hematocrit 38.2 % (37.0-47.0); Hemoglobin 11.8 g/dL (12.0-16.0); Mean Corp Hgb Conc. 30.9 g/dL (33.0-37.0); Mean Corpuscular Hgb 30.1 pg (27.0-31.0); Mean Corpuscular Volume 97.4 fL (81.0-99.0); Mean Platelet Volume 9.1 fL (7.4-10.4); Nucleated Red Blood Cells % 0 %; Platelet Count 354 10^3/uL (130-400); Red Blood Cell Count 3.92 10^6/uL (4.20-5.40); Red Cell Dist. Width 13.5 % (11.5-14.5); White Blood Cell Count 12.6 10^3/uL (4.8-10.8)
[2024-10-01 08:39] LABS: Blood Urea Nitrogen 13 mg/dl (7-17); Calcium 8.7 mg/dl (8.4-10.2); Chloride 85 mmol/L (98-107); Estimated Creatinine Clearance 71 ml/min; Glucose 77 mg/dl (70-99); Potassium 4.1 mmol/L (3.5-5.1); Sodium 132 mmol/L (135-145); eGFR > 60.00
--- NOTE | 2024-10-01 08:44 | W.PN.PUL3 ---
Today's Communication / Plan
-
IR consult for pleurex, possibly tomorrow for fluoro
She has declined treatment and onc f/u, they signed off
Updated daughter on patient's decision-making, she has concerns for anxiety/competency, psych eval
I communicated this with care team
PT/OT, SNF recommended
Assessment
-
79-year-old woman with history of COPD, home oxygen 4 L who presented with shortness of breath. Discharged from the hospital 08/20/2024 after treated with pneumonia, left-sided parapneumonic effusion s/p thoracentesis. Patient has pulmonary
cachexia, prior tobacco abuse, presented from [facility] with worsening shortness of breath.
Chronic hypoxic respiratory failure on 4L/baseline use of 4L
Recurrent pleural effusion, malignant
s/p repeat thoracentesis 08/18/2024-exudative with negative culture/negative cyto
09/13/2024: 650 cc straw-colored fluid. + cyto for adeno
s/p Chest tube, left side 09/17/24 --> removed 09/22/2024, cyto + for adeno
Stage IV lung adenocarcinoma
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
Discharged from the hospital 08/20/2024 with acute exacerbation of COPD and pneumonia and left pleural effusion
Advanced emphysema
Recurrent left-sided pleural effusion/loculated + lung adenocarcinoma
Chronic respiratory failure with hypercapnia
Discharged on trilogy ventilator 08/20/2024
Latest ABG 7.4/75/60 08/17/2024
Emphysema/COPD on Trelegy 200mcg at home + home O2 (4-6L/min ATC)
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
Chronic rhinitis/eczema
Former tobacco smoker (last smoked a cigarette in April 2024)
Plan
Currently on 4L NC, which is her baseline
This did not change with subsequent thoras/chest tube placements
Supplemental O2 while keeping SpO2 88-95%
Xopenex and budesonide nebulizers
Mucinex
Vest therapy prn
Prednisone taper--decreased to 30mg daily
Left side chest tube placed 09/17/24--> removed 09/22/2024
Cytology from [facility] on 09/13/2024 shows metastatic adenocarcinoma with suspected lung primary- prior cytology with atypical mesothelial cells
Left pleural fluid cytology 09/17/2024-metastatic adenocarcinoma
She has stage IV diagnosis--reviewed with daughter
Left-sided chest US (09/29/2024): Small pleural effusion, too small for placement
Can repeat CXR in AM--showing stable size
I reviewed case with IR for pleurex, possibly can try tomorrow
Blood cultures rechecked on 09/25/2024 (shows NGTD)
Low threshold for antibiotics if clinically indicated
Levophed weaned off and she remains HDN stable
Aspiration precautions.
Speech therapy following-correspondence reviewed.
Video swallow 09/15/24-recommend regular solids and thin liquids
Mucolytics with mucinex 600mg PO q12hr
Continue nebulized 3% PRN
Continue vest therapy prn after the 3% is given to help with expectoration
Case management consulted to see if they can get her the vest at home
Oncology consultation reviewed, patient had declined treatment and did not want follow up
Hospice consult recommended
This was discussed with daughter, she has questioned her competency
Psych eval
DVT prophylaxis-on Lovenox.
GI prophylaxis-on pantoprazole.
Nutrition
Bedside range of motion
PT/OT --> PT/OT rec'd skilled rehab upon discharge
PT had rec'd SNF vs home PT during eval from 09/21/2024
Prognosis unfortunately poor with metastatic probable lung cancer and poor performance status
Family Discussions
Chirag 10/01/24- updated Emily on patient's diagnosis, stage IV cancer, she had declined treatment. Daughter was concerned regarding her competency, discussed obtaining psych eval. I communicated this with care team.
Dr. Gómez called [phone] on 09/16/24-explained current clinical situation, potential etiologies, need for chest tube placement for pleural fluid evacuation with subsequent CT chest, also discussed pathology/cytology that is
pending-she is in agreement with chest tube placement-Dr. Gómez called interventional radiology and placed consult-we'll repeat cytology on additional fluid removed
Dr. Gómez had lengthy discussion with daughter 09/26/2024 who joined on multidisciplinary rounds-told overall declining pulmonary status, metastatic lung cancer, likelihood of pleural fluid reaccumulation, options including palliation/comfort
care/hospice
Data:
CXR 08/15/2024: Evidence for small to moderate left pleural effusion with mild lateral loculation. Patchy parenchymal opacity within the left mid to lower lung, suspicious for pneumonia, although there could also be a component of atelectasis. Also
of note, underlying mass/neoplasia cannot be excluded radiographically and radiographic follow-up is recommended.
CT chest 09/20/24-1. Smallbore left chest tube in position. Trace residual left pleural fluid.
2. Complete atelectasis of the left lower lobe. Left lower lobe bronchi filled with secretions. In addition to this, approximately 1.7 cm area of abnormally decreased attenuation in the posterior left lower lobe as above for this area, infectious
etiology considered most likely. Neoplasm cannot be definitively excluded.
3. Persistent area of masslike consolidation in the inferior left upper lobe measuring up to 5 cm in diameter. Given the remainder of the findings and absence of adenopathy, also favored to have infectious etiology. Neoplasm cannot be excluded,
follow-up to resolution is recommended.
4. Emphysema.
5. Coronary and aortic atherosclerosis.
CT chest without contrast 08/15/2024: Moderate to advanced emphysematous lung changes. Mild to moderate left pleural effusion. Masslike opacities in the lingula and left lower lobe. Probable round pneumonia. Follow-up recommended to assess for
resolution. Minor localized tree-in-bud attenuation in the superior segment of the right lower lobe, nonspecific bronchiolitis. 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
Left chest US 08/17/2024: Moderate left pleural effusion. Stable
Left chest US 09/29/2024: Small left pleural effusion.
-----
Total time spent today was 55 minutes for this encounter. Time includes reviewing laboratory test/imaging results, reviewing pertinent medical records, obtaining and reviewing medical history, performing an appropriate exam, ordering medications,
tests and procedures. Time also includes documentation of this encounter, coordinating patient care and communicating with other healthcare professionals. Total time does not include separately billed tests performed on this date of service.
Subjective Data
-
Date of Service:
Date of Service: October 01, 2024
Chief Complaint: Pulmonary Follow Up and Dyspnea Follow Up
Subjective:
Remains unchanged, on 4L NC
Angry, does not wish to discuss her care, wants me to call her daughter
Objective Data
Data Reviewed
Vital Signs / I&O / Oxygen:
Vital Signs
Temp Pulse Resp BP Pulse Ox
97.7 F 74 24 122/55 96
10/01/24 07:30 10/01/24 07:55 10/01/24 07:55 10/01/24 07:30 10/01/24 07:55
Intake and Output
09/30/24 10/01/24 10/02/24
06:59 06:59 06:59
Intake Total 600 / 600 1200 / 1200
Output Total 1450 / 1450 1250 / 1250
Balance -850 / -850 -50 / -50
SaO2 [NIV (Non Invasive 95
Ventilation)]
SaO2 96
Nasal Cannula flow liters per 4
minute
Physical Exam
General: Respiratory Distress (n), Comfortable, Chills (n) and Sweats (n)
HEENT: Normocephalic and Anicteric
Cardiovascular: Regular Rhythm, Peripheral Edema (n) and Other (Distant cardiac sounds)
Respiratory: Wheeze (n), Rhonchi (n), Non-Labored Respirations, Accessory Resp Muscle Use (n) and Other (Diminished BS bilaterally)
GI: Soft, Non Distended, Non Tender and Normal Bowel Sounds
Neurology: Awake, Alert, Oriented and Tremors (n)
Skin: Warm, Good Color, Cyanosis (n) and Jaundice (n)
Labs/Micro/Reports
Lab Data
10/01/24 07:42
10/01/24 07:42
Microbiology
09/25/24 05:03 Blood/Venous Blood Culture - Final
No Growth - Final Report
09/13/24 11:52 Pleural Fluid Fungal Smear - Final
No yeast or fungal elements seen.
09/13/24 11:52 Pleural Fluid Fungal Culture - Preliminary
Culture in progress.
Positive cultures are reported as soon as detected.
Final report to follow in four to five weeks.
[2024-10-01] MEDS: MAG-TAB SR 84 MG PO ×2 (09:21→19:35)
[2024-10-01] MEDS: MUCINEX 600 MG PO ×2 (09:21→19:35)
[2024-10-01] MEDS: DELTASONE 40 MG PO (09:21)
[2024-10-01] MEDS: PROTONIX 40 MG PO (09:22)
[2024-10-01 10:49] LABS: Osmolality Serum 284 mOsm/kg (275-300)
[2024-10-01 11:32] LABS: Carbon Dioxide 40 mmol/L (22-30)
[2024-10-01 11:41] LABS: Cortisol, Random 5.4 ug/dl
[2024-10-01 12:08] LABS: Free T4 0.98 ng/dl (0.78-2.19)
--- NOTE | 2024-10-01 12:12 | W.PN.HOSP.TC ---
Today's Communication/Plan
-
Physical therapy evaluation
Psychiatric valuation
Assessment / Plan
Assessment / Plan
79-year-old female with recurrent pleural effusion
On examination awake alert
Cardiovascular system S1-S2 appreciated
Decreased breath sounds left chest
Abdomen soft and nontender
No pedal edema
# Acute on chronic chronic hypoxic respiratory failure
Shortness of breath secondary to large LEFT sided pleural effusion likely 2/2 Adenocarcinoma
Chronic hypercapnic respiratory failure
COPD/emphysema
History of severe tobacco abuse
History of lung nodules
S/P Thoracentesis status post thoracentesis 650 cc of straw-colored pleural fluid removed. (09/13/24) Further fluid removal was stopped as patient complained of pain.
( H/O Thoracentesis 450 cc of clear yellow pleural fluid 08/18/25)
Fluid culture remains negative
CT was removed on 09/22 as not much output was noted
Cytology from 09/15 and 09/18 and resulted with adenocarcinoma
Monitor off antibiotics
ESR/CRP elevated. CONRAD neg, CCP IgG/IgA Ab 78 (nl 0-19)
Continue with bronchodilators, Afraid to go back on vest therapy.
Encourage IS
Treat Anxiety
Repeat CXR with Moderate loculated left pleural effusion. Rounded opacification in the left lower lung field possibly loculated fluid versus pneumonia or pulmonary masses.
3% Saline neb seems to be helping. Cont with Pulmicort. Plan for prolonged steroid slow taper regimen. Now on 40mg prednisone
VBG with worsening hypercapnia. Check vbg intermittently.
Repeat Chest US with left-small pleural effusion. Not amenable to drainage or pleuraX catheter.
Probably will require BiPAP 08/[address] [facility] for QHS/Prn.
# Hypovolemic shock- Resolved (Status post Levophed. )
# TME due to above
Avoid Benzos and opiates if possible
Improvement in mentation and seems back to baseline
# Leukocytosis likely secondary to steroids
Remains afebrile. UA negative. Blood cultures remains negative. Monitor for now. WBC normalized.
# Stage IV Non small cell lung adenocarcinoma
Oncology consulted and they requested further testing on cytologic tissue. No other biopsy required per oncology.
PD-L1 and NGS testing on the adenocarcinoma in the pleural fluid pending.
Patient states that she wants to make sure that she is recovering before she can make any decisions regarding cancer treatments
# Urinary retention status post straight catheterization x 1
Continue with protocol. If with persistent retention required Ventura catheter placement .
# Transaminitis -Could be from recent infection . Better.
# Severe anxiety- Cont Atarax. Psychiatric evaluation
# Mild Hyponatremia- Check Serum /urine osm studies. TSH elevated. T4 pending. Low cortisol levels could be secondary to steroids suppressing it. Needs cosyntropin test once off of steroids.
# DVT ppx-Lovenox
Discussed with pulmonary
Discussed with nursing
Discussed with patient's daughter on the phone in detail. Discussed that patient has a lot of anxiety. She also noted that last time when she went to rehab she was not able to participate with physical therapy because she was desaturating.
She requested a call from hematology oncology and also from physical therapy. Discussed about office appointment needed to discuss further options for cancer treatments after she leaves the rehab.
I also discussed about her baseline oxygen requirement age and other comorbidities with daughter.
Daughter said patient declined treatment for cancer because of her anxiety.
Discussed about psychiatric evaluation, as I am not sure if she is also depressed.
I discussed about side effects of benzos.
I have sent a message for hematology oncology nurse practitioner regarding daughter wanting to communicate with them.
Also requested nursing to kindly have PT call the daughter as she requested.
Total time spent over 55 minutes
Anticipated Discharge: 24 - 48 hours
Subjective/Interval History
-
Date of Service: October 01, 2024
Objective Data
-
Labs:
Laboratory Results
10/01/24
07:42
WBC 12.6 H
Hgb 11.8 L
Hct 38.2
Plt Count 354
Sodium 132 L
Potassium 4.1
Chloride 85 L
Carbon Dioxide 40 H
BUN 13
Creatinine 0.4 L
Glucose 77
Calcium 8.7
Vital Signs:
Vital Signs
Temp Pulse Resp BP Pulse Ox
97.7 F 100 16 137/83 91
10/01/24 11:27 10/01/24 11:27 10/01/24 11:27 10/01/24 11:27 10/01/24 11:27
I&O
09/30/24 10/01/24 10/02/24
06:59 06:59 06:59
Intake Total 600 / 600 1200 / 1200
Output Total 1450 / 1450 1250 / 1250
Balance -850 / -850 -50 / -50
[2024-10-01 12:54] LABS: Osmolality Urine 675 mOsm/kg (300-900)
[2024-10-01 13:31] LABS: Urine Sodium 123 mmol/L (30-90)
--- NOTE | 2024-10-01 15:16 | CON.MD ---
Consultation - Medical
-
patient seen chart reviewed. discussed w nursing. daughter at bedside. the patient is a 79 year old woman who came to w sob and was found to have a large l pleural effusion. she was untimately dx with stage four lung cancer. she has had
several complications and a chest tube was required which has since been removed. she is very debilitated and extremely anxious. she had been here at in august also with a pleural effusion and had been dc to [facility] where she was prescribed
atarax for anxiety. she does not feel the atarax has been at all helpful. she has no hx of psychiatric issues. she has not been depressed or anxious requiring any rx until now. daughter says she was always a tomer capable person who worked took
care of her family etc. the patient's of many years in april. she was here visiting her d at [facility] when she fell ill and has been in [place] ever since. patient requesting something to allay her anxiety. she admits she feels
overwhelmed but she did not discuss her dx or prognosis with me today. it is noted in the record that she wants to see if she can get stronger before embarking on discussion of rx for her cancer. prior to recent illness patient reports she was not
able to enjoy activities and being w her family. there is nothing to suggest psychosis or suicidality.
past psych hx none
medical hx see above re recent dx of stage four non small cell adenocarcinoma l lung. patient with chronic hypoxemic respiratory failure. she has had periods of hypotension, urinary retention . hx tobacco use. transminitis. she was assessed
for dysphagia here and swallowing test was without evidence of aspiration
substance abuse none
fh non contributory
social hx patient was for many years h in april. she has two kids who are supportive one at bedside today and six grandkids. 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 she and her were born
and raised in [facility] which is where this selling underwriter was raised and notable when talking about [place] and engaged in retrieiving old memories she was able to relax and breathing seemed less labored. [place] an [place]
mse alert ox3 cooperative. patient is frail and was tachypneic for much of the time we talked although it improved when engaged in conversation. speech and thought process goal oriented no psychosis mood is anxious affect appropriate no si aver
intell insight judgment are adequate
dx adjustment d/o w anxious fx
plan patient is understandably very overwhelmed with the diagnosis of lung ca and even prior to the dx was struggling with baseline chrf. she could not to me today verbalize her concerns about her illness and i am not sure she has really processed
what this dx means in terms of life expectancy etc. would suggest trial of very small amounts of xanax o.125 mg q 8hprn anxiety which i discussed with patient and d. of course risk of fall and respiratory depression as well as changes in mentation.
spoke to pharmacy. they will have to split a o.25 mg pill. need to be careful to avoid oversedation given respiratory drive but in my opinion she needs some relief from anxiety. have dc'ed atarax and meclizine. it is my impression that patient
c/o of dizziness has to do with poor conditioning and orthostasis not clear whether that responds well to meclizine and i am concerned about further sedation. d asked me if she could bring her mrs smith's netti pot as that provides her with some
relief. asked nursing they did not see why not. psych will follow offering support.
[2024-10-01] MEDS: SODIUM CHLORIDE 3% FOR INHALATION INH (15:29)
[2024-10-01] MEDS: XANAX 0.125 MG PO (15:33)
--- NOTE | 2024-10-01 16:14 | CM ---
Patient seen at bedside with daughter Emily
PT rec SNF
[facility]
Discussed with daughter additional options for SNF's
psych consult today
PLAN: SNF, pending bed availability
--- NOTE | 2024-10-01 16:21 | W.PN.UPDATE ---
Update Note
Progress Note Update
Call placed to daughter, Emily, at the request of the hospitalist. Emily's questions were answered to her satisfaction and will reach out to me for any further questions or concern.
[2024-10-01] MEDS: LOVENOX 40 MG SC (16:50)
[2024-10-01] MEDS: MELATONIN PO (22:51)
[2024-10-02] VITALS (7 sets, daily range): BP systolic 106–134; BP diastolic 57–76; PULSE 2–88
[2024-10-02 06:14] LABS: % Basophils 0.6 % (0-2); % Immature Granulocytes 2.1 % (0-0.5); % Monocytes 8.7 % (1.7-9.3); % Neutrophils 76.6 % (42.2-75.2); Absolute Basophils 0.1 10^3/uL (0-0.2); Absolute Eosinophils 0.2 10^3/uL (0-0.7); Absolute Immature Granulocytes 0.3 10^3/uL (0-0.05); Absolute Lymphocytes 1.7 10^3/uL (1.2-3.4); Absolute Monocytes 1.3 10^3/uL (0.1-0.6); Absolute Neutrophils 11.9 10^3/uL (1.4-6.5); Hematocrit 38.7 % (37.0-47.0); Hemoglobin 12.1 g/dL (12.0-16.0); Mean Corp Hgb Conc. 31.3 g/dL (33.0-37.0); Mean Corpuscular Hgb 30.3 pg (27.0-31.0); Nucleated Red Blood Cells % 0 %; Platelet Count 371 10^3/uL (130-400); Red Blood Cell Count 3.99 10^6/uL (4.20-5.40); Red Cell Dist. Width 13.5 % (11.5-14.5); White Blood Cell Count 15.5 10^3/uL (4.8-10.8)
[2024-10-02 06:40] LABS: Blood Urea Nitrogen 17 mg/dl (7-17); Calcium 8.7 mg/dl (8.4-10.2); Chloride 86 mmol/L (98-107); Estimated Creatinine Clearance 71 ml/min; Glucose 81 mg/dl (70-99); Potassium 4.1 mmol/L (3.5-5.1); Sodium 133 mmol/L (135-145); eGFR > 60.00
[2024-10-02 06:52] LABS: Carbon Dioxide 43 mmol/L (22-30)
[2024-10-02] MEDS: SODIUM CHLORIDE 3% FOR INHALATION 1 VIAL INH ×3 (07:16→20:04)
[2024-10-02] MEDS: PULMICORT 0.5 MG INH ×2 (07:16→20:04)
[2024-10-02] MEDS: XOPENEX 0.63 MG INHALANT SOLUTION INH ×3 (07:16→20:04)
[2024-10-02] MEDS: XANAX 0.125 MG PO ×4 (07:47→22:37)
[2024-10-02] MEDS: PROTONIX 40 MG PO (07:47)
[2024-10-02] MEDS: MAG-TAB SR 84 MG PO ×2 (07:48→20:08)
[2024-10-02] MEDS: DELTASONE 30 MG PO (07:48)
[2024-10-02] MEDS: MUCINEX 600 MG PO ×2 (07:48→20:08)
--- NOTE | 2024-10-02 09:05 | W.PN.PUL3 ---
Today's Communication / Plan
-
Anything I ask her, her response is 'call my daughter'
Psych eval noted
Remains on 4L NC, she notes no new complaints
IR consulted for pleurex placement
Can assess for d/c pending placement
Assessment
-
79-year-old woman with history of COPD, home oxygen 4 L who presented with shortness of breath. Discharged from the hospital 08/20/2024 after treated with pneumonia, left-sided parapneumonic effusion s/p thoracentesis. Patient has pulmonary
cachexia, prior tobacco abuse, presented from [facility] with worsening shortness of breath.
Chronic hypoxic respiratory failure on 4L/baseline use of 4L
Recurrent pleural effusion, malignant
s/p repeat thoracentesis 08/18/2024-exudative with negative culture/negative cyto
09/13/2024: 650 cc straw-colored fluid. + cyto for adeno
s/p Chest tube, left side 09/17/24 --> removed 09/22/2024, cyto + for adeno
Stage IV lung adenocarcinoma
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
Discharged from the hospital 08/20/2024 with acute exacerbation of COPD and pneumonia and left pleural effusion
Advanced emphysema
Recurrent left-sided pleural effusion/loculated + lung adenocarcinoma
Chronic respiratory failure with hypercapnia
Discharged on trilogy ventilator 08/20/2024
Latest ABG 7.4/75/60 08/17/2024
Emphysema/COPD on Trelegy 200mcg at home + home O2 (4-6L/min ATC)
History of multiple lung nodules with prior PET/CT negative with no uptake in 2020 (per her visual merchandising director's last office visit note on 05/22/2024)
Chronic rhinitis/eczema
Former tobacco smoker (last smoked a cigarette in April 2024)
Plan
Currently on 4L NC, which is her baseline
This did not change with subsequent thoras/chest tube placements
Supplemental O2 while keeping SpO2 88-95%
Xopenex and budesonide nebulizers
Mucinex
Vest therapy prn
Prednisone taper--decreased to 30mg daily
Left side chest tube placed 09/17/24--> removed 09/22/2024
Cytology from [facility] on 09/13/2024 shows metastatic adenocarcinoma with suspected lung primary- prior cytology with atypical mesothelial cells
Left pleural fluid cytology 09/17/2024-metastatic adenocarcinoma
She has stage IV diagnosis--reviewed with daughter
Left-sided chest US (09/29/2024): Small pleural effusion, too small for placement
Can repeat CXR in AM--showing stable size
I reviewed case with IR for pleurex, consult placed
Blood cultures rechecked on 09/25/2024 (shows NGTD)
Low threshold for antibiotics if clinically indicated
Levophed weaned off and she remains HDN stable
Aspiration precautions.
Speech therapy following-correspondence reviewed.
Video swallow 09/15/24-recommend regular solids and thin liquids
Mucolytics with mucinex 600mg PO q12hr
Continue nebulized 3% PRN
Continue vest therapy prn after the 3% is given to help with expectoration
Case management consulted to see if they can get her the vest at home
Oncology consultation reviewed, patient had declined treatment and did not want follow up
Hospice consult recommended
This was discussed with daughter, she has questioned her competency
Psych eval
DVT prophylaxis-on Lovenox.
GI prophylaxis-on pantoprazole.
Nutrition
Bedside range of motion
PT/OT --> PT/OT rec'd skilled rehab upon discharge
PT had rec'd SNF vs home PT during eval from 09/21/2024
Prognosis unfortunately poor with metastatic probable lung cancer and poor performance status
Family Discussions
Chirag 10/01/24- updated Emily on patient's diagnosis, stage IV cancer, she had declined treatment. Daughter was concerned regarding her competency, discussed obtaining psych eval. I communicated this with care team.
Dr. Gómez called [phone] on 09/16/24-explained current clinical situation, potential etiologies, need for chest tube placement for pleural fluid evacuation with subsequent CT chest, also discussed pathology/cytology that is
pending-she is in agreement with chest tube placement-Dr. Gómez called interventional radiology and placed consult-we'll repeat cytology on additional fluid removed
Dr. Gómez had lengthy discussion with daughter 09/26/2024 who joined on multidisciplinary rounds-told overall declining pulmonary status, metastatic lung cancer, likelihood of pleural fluid reaccumulation, options including palliation/comfort
care/hospice
Data:
CXR 08/15/2024: Evidence for small to moderate left pleural effusion with mild lateral loculation. Patchy parenchymal opacity within the left mid to lower lung, suspicious for pneumonia, although there could also be a component of atelectasis. Also
of note, underlying mass/neoplasia cannot be excluded radiographically and radiographic follow-up is recommended.
CT chest 09/20/24-1. Smallbore left chest tube in position. Trace residual left pleural fluid.
2. Complete atelectasis of the left lower lobe. Left lower lobe bronchi filled with secretions. In addition to this, approximately 1.7 cm area of abnormally decreased attenuation in the posterior left lower lobe as above for this area, infectious
etiology considered most likely. Neoplasm cannot be definitively excluded.
3. Persistent area of masslike consolidation in the inferior left upper lobe measuring up to 5 cm in diameter. Given the remainder of the findings and absence of adenopathy, also favored to have infectious etiology. Neoplasm cannot be excluded,
follow-up to resolution is recommended.
4. Emphysema.
5. Coronary and aortic atherosclerosis.
CT chest without contrast 08/15/2024: Moderate to advanced emphysematous lung changes. Mild to moderate left pleural effusion. Masslike opacities in the lingula and left lower lobe. Probable round pneumonia. Follow-up recommended to assess for
resolution. Minor localized tree-in-bud attenuation in the superior segment of the right lower lobe, nonspecific bronchiolitis. 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
Left chest US 08/17/2024: Moderate left pleural effusion. Stable
Left chest US 09/29/2024: Small left pleural effusion.
-----
Total time spent today was 51 minutes for this encounter. Time includes reviewing laboratory test/imaging results, reviewing pertinent medical records, obtaining and reviewing medical history, performing an appropriate exam, ordering medications,
tests and procedures. Time also includes documentation of this encounter, coordinating patient care and communicating with other healthcare professionals. Total time does not include separately billed tests performed on this date of service.
Subjective Data
-
Date of Service:
Date of Service: October 02, 2024
Chief Complaint: Pulmonary Follow Up and Dyspnea Follow Up
Subjective:
No new complaints
Anything I asked her she just responds with 'call my daughter'
Objective Data
Data Reviewed
Vital Signs / I&O / Oxygen:
Vital Signs
Temp Pulse Resp BP Pulse Ox
98.1 F 92 18 134/70 95
10/02/24 07:31 10/02/24 07:31 10/02/24 07:31 10/02/24 07:31 10/02/24 07:31
Intake and Output
10/01/24 10/02/24 10/03/24
06:59 06:59 06:59
Intake Total 1200 / 1200 1320 / 1320
Output Total 1250 / 1250 850 / 850
Balance -50 / -50 470 / 470
SaO2 [NIV (Non Invasive 95
Ventilation)]
SaO2 95
Nasal Cannula flow liters per 4
minute
Physical Exam
General: Respiratory Distress (n), Comfortable, Chills (n) and Sweats (n)
HEENT: Normocephalic and Anicteric
Cardiovascular: Regular Rhythm, Peripheral Edema (n) and Other (Distant cardiac sounds)
Respiratory: Wheeze (n), Rhonchi (n), Non-Labored Respirations, Accessory Resp Muscle Use (n) and Other (Diminished BS bilaterally)
GI: Soft, Non Distended, Non Tender and Normal Bowel Sounds
Neurology: Awake, Alert, Oriented and Tremors (n)
Skin: Warm, Good Color, Cyanosis (n) and Jaundice (n)
Labs/Micro/Reports
Lab Data
10/02/24 05:39
10/02/24 05:39
Microbiology
09/25/24 05:03 Blood/Venous Blood Culture - Final
No Growth - Final Report
09/13/24 11:52 Pleural Fluid Fungal Smear - Final
No yeast or fungal elements seen.
09/13/24 11:52 Pleural Fluid Fungal Culture - Preliminary
Culture in progress.
Positive cultures are reported as soon as detected.
Final report to follow in four to five weeks.
--- NOTE | 2024-10-02 10:05 | CM ---
Spoke with daughter Emily regarding additional SNF's to add into [facility] as IR was consulted for Asept. Will need a facility who can accept Asept cath. Referral in [facility] for [facility] - spoke with the liaison's and they will
not accept.
Await daughter to get back to CM regarding additional referrals to be added.
PLAN: SNF, pending acceptance/bed availability.
--- NOTE | 2024-10-02 13:50 | W.PN.HOSP.TC ---
Today's Communication/Plan
-
Get VBG
Encourage patient to wear BiPAP at night
Case management arranging rehab
Interventional radiology consult for Pleurx
Assessment / Plan
Assessment / Plan
79-year-old female with recurrent pleural effusion
On examination awake alert
Cardiovascular system S1-S2 appreciated
Decreased breath sounds left chest
Abdomen soft and nontender
No pedal edema
# Acute on chronic chronic hypoxic respiratory failure
Shortness of breath secondary to large LEFT sided pleural effusion likely 2/2 Adenocarcinoma
Chronic hypercapnic respiratory failure
COPD/emphysema
History of severe tobacco abuse
History of lung nodules
S/P Thoracentesis status post thoracentesis 650 cc of straw-colored pleural fluid removed. (09/13/24) Further fluid removal was stopped as patient complained of pain.
( H/O Thoracentesis 450 cc of clear yellow pleural fluid 08/18/25)
Fluid culture remains negative
CT was removed on 09/22 as not much output was noted
Cytology from 09/15 and 09/18 and resulted with adenocarcinoma
Monitor off antibiotics
ESR/CRP elevated. CONRAD neg, CCP IgG/IgA Ab 78 (nl 0-19)
Continue with bronchodilators, Afraid to go back on vest therapy.
Encourage IS
Treat Anxiety
Repeat CXR with Moderate loculated left pleural effusion. Rounded opacification in the left lower lung field possibly loculated fluid versus pneumonia or pulmonary masses.
3% Saline neb seems to be helping. Cont with Pulmicort. Plan for prolonged steroid slow taper regimen. Now on 40mg prednisone
VBG with worsening hypercapnia. Check vbg intermittently.
Repeat Chest US with pleural effusion. IRAD consulted for PleuraX catheter.
Probably will require BiPAP 08/14 at [facility] for QHS/Prn.
# Hypovolemic shock- Resolved (Status post Levophed. )
# TME due to above
Improvement in mentation and seems back to baseline
# Elevated CO2 patient only wore-BiPAP for 2-1/2 hours. Discussed with patient's daughter that this is not enough. She also needs to have BiPAP at rehab
# Leukocytosis likely secondary to steroids
Remains afebrile. UA negative. Blood cultures remains negative. Monitor for now.
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
Oncology consulted and they requested further testing on cytologic tissue. No other biopsy required per oncology.
PD-L1 and NGS testing on the adenocarcinoma in the pleural fluid pending.
Patient states that she wants to make sure that she is recovering before she can make any decisions regarding cancer treatments.
# Urinary retention status post straight catheterization x 1
Continue with protocol. If with persistent retention required Ventura catheter placement .
# Transaminitis -Could be from recent infection . Better.
# Elevated TSH with normal T4-subclinical hypothyroidism. Needs repeat in 4 weeks
# Severe anxiety- Cont Atarax. Psychiatric evaluation appreciated. Xanax stared. May not be a good med moving forward.
# Mild Hyponatremia-likely SIADH
Also elevated TSH with normal T4,
Low cortisol levels could be secondary to steroids suppressing it. Needs cosyntropin test once off of steroids.
# DVT ppx-Lovenox
Discussed with pulmonary
Discussed with nursing
D/W Psychiatry
Total time spent over 50 minutes
Anticipated Discharge: Within 24 hours
Subjective/Interval History
-
Date of Service: October 02, 2024
Objective Data
-
Labs:
Laboratory Results
10/02/24
05:39
WBC 15.5 H
Hgb 12.1
Hct 38.7
Plt Count 371
Sodium 133 L
Potassium 4.1
Chloride 86 L
Carbon Dioxide 43 H
BUN 17
Creatinine 0.3 L
Glucose 81
Calcium 8.7
Vital Signs:
Vital Signs
Temp Pulse Resp BP Pulse Ox
98.1 F 118 24 122/76 92
10/02/24 11:50 10/02/24 12:22 10/02/24 12:22 10/02/24 11:50 10/02/24 12:22
I&O
10/01/24 10/02/24 10/03/24
06:59 06:59 06:59
Intake Total 1200 / 1200 1320 / 1320
Output Total 1250 / 1250 850 / 850
Balance -50 / -50 470 / 470
--- NOTE | 2024-10-02 14:19 | W.PN.UPDATE ---
Update Note
Progress Note Update
patient seen chart reviewed. daughter at bedside. spoke with nursing and with dr ch. patient remains very anxious. nursing reports that the current dose of xanax holds her only for less than four hours. patient according to nursing and d does
not appear sedated with this dosage and she is able to be much more interactive and motivated. would change dosage to q4 h hold for sedation which is a total of .750 mg daily. it is possible to divert patient attention with conversation for short
periods .. today we spoke again of a place familiar to her and this automobile service writer reminiscing about the way life used to be and that seemed to help but when conversation turns to more serious matters it is very difficult for her. we talked some of rx of
her lung ca vs hospice vs comfort care. patient said she feels she has 'life left' but d said unless she can be ambulatory chemo and radiation as explained to her by oncologist were not possibilities. neither patient nor d at this point seemed
comfortable w hospice consult . will continue to follow
--- NOTE | 2024-10-02 14:45 | CM ---
Case management consult completed for Discharge planning/pt will need BIPAP at night
Spoke with patient daughter and additional referrals sent.
IR consulted for Asept cath
Await accepting SNF that can can accept with regards to pulmonary needs
PLAN: SNF, pending acceptance and bed availability
[2024-10-02] MEDS: XANAX PO ×2 (15:14)
[2024-10-02 17:17] LABS: Venous Blood Gas B.E. 16.2 mmol/L (-4 to +4); Venous Blood Gas pH 7.38 (7.32-7.43); Venous Blood Gas pO2 151 mmHg (30-50)
[2024-10-02 17:19] LABS: Venous Blood Gas pCO2 76 mmHg (35-48)
--- NOTE | 2024-10-02 17:23 | W.PN.UPDATE ---
Update Note
Progress Note Update
VBG noted.
Pt needs to wear BIPAP through night .
Nursing notified.
If not this will get worse and she will have mental status change/TME
Start BIPAP early tonight
[2024-10-02] MEDS: LOVENOX 40 MG SC (18:08)
[2024-10-03] VITALS (9 sets, daily range): BP systolic 99–121; BP diastolic 52–77; PULSE 2–103; O2SAT 94
[2024-10-03] MEDS: MELATONIN PO ×2 (01:09→22:13)
[2024-10-03] MEDS: XANAX PO (02:50)
[2024-10-03] MEDS: XANAX 0.125 MG PO ×5 (04:24→22:12)
--- NOTE | 2024-10-03 07:07 | W.PN.HOSP.TC ---
Today's Communication/Plan
-
Start low dose Synthroid
BIPAP bedtime as tolerated
xanax as per Psych
Eventual Pleurx as per Pulm, awaiting confirmation accepting SNF can take care
Assessment / Plan
Assessment / Plan
Physical Exam
General: no acute distress, appears comfortable at this time.
HEENT: normocephalic atraumatic moist mucous membrane
Pulm: clear to auscultation b/l, purse lip breathing
Cardio: S1/S2 NSR no murmurs rubs gallops
Abd: soft nontender bowel sounds present
Neuro: Awake Alert Conversant Coherent
79F COPD4L Former smoker here with recurrent pleural effusion found to have stage IV NSCL cancer
# Acute on chronic chronic hypoxic respiratory failure
Shortness of breath secondary to large LEFT sided pleural effusion likely 2/2 Adenocarcinoma
Chronic hypercapnic respiratory failure
COPD/emphysema
History of severe tobacco abuse
History of lung nodules
S/P Thoracentesis status post thoracentesis 650 cc of straw-colored pleural fluid removed. (09/13/24) Further fluid removal was stopped as patient complained of pain.
( H/O Thoracentesis 450 cc of clear yellow pleural fluid 08/18/25)
Fluid culture remains negative
CT was removed on 09/22 as not much output was noted
Cytology from 09/15 and 09/18 and resulted with adenocarcinoma
Monitor off antibiotics
ESR/CRP elevated. CONRAD neg, CCP IgG/IgA Ab 78 (nl 0-19)
Continue with bronchodilators, Afraid to go back on vest therapy.
Encourage IS
Treat Anxiety
Repeat CXR with Moderate loculated left pleural effusion. Rounded opacification in the left lower lung field possibly loculated fluid versus pneumonia or pulmonary masses.
3% Saline neb seems to be helping. Cont with Pulmicort. Plan for prolonged steroid slow taper regimen. Now on 40mg prednisone
VBG with worsening hypercapnia. Check vbg intermittently.
Repeat Chest US with pleural effusion. IRAD consulted for PleuraX catheter.
Probably will require BiPAP / at [facility] for QHS/Prn.
# Hypovolemic shock- Resolved (Status post Levophed. )
# TME due to above
Improvement in mentation and seems back to baseline
# Elevated CO2 patient only wore-BiPAP for 2-1/[address] Mercedes discussed with patient's daughter that this is not enough. She also needs to have BiPAP at rehab
# Leukocytosis likely secondary to steroids
Remains afebrile. UA negative. Blood cultures remains negative. Monitor for now.
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
Oncology consulted and they requested further testing on cytologic tissue. No other biopsy required per oncology.
PD-L1 and NGS testing on the adenocarcinoma in the pleural fluid pending.
Patient states that she wants to make sure that she is recovering before she can make any decisions regarding cancer treatments.
# Urinary retention status post straight catheterization x 1
Continue with protocol. If with persistent retention required Ventura catheter placement .
# Transaminitis -Could be from recent infection. Resolved
# Elevated TSH with normal T4-
Subclinical Hypothyroidism TSH>10
Low dose Synthroid started 25 mcg daily
Repeat Thyroid Function Test in 1 month
# Severe anxiety- Psychiatric evaluation appreciated prn Atarax discontinued in favor of scheduled low dose Xanax, cont
# Mild Hyponatremia-likely SIADH
Also elevated TSH with normal T4,
Low cortisol levels could be secondary to steroids suppressing it. Needs cosyntropin test once off of steroids.
# DVT ppx-Lovenox
I spent a total of 40 minutes with the patient or on the floor. More than 50% of this time involved counseling and coordination of care.
Anticipated Discharge: 24 - 48 hours
Subjective/Interval History
-
Date of Service: October 03, 2024
No acute distress sitting up comfortably in bed on nasal cannula supplementation purse lip breathing. Denies new acute issues at this time.
Objective Data
-
Vital Signs:
Vital Signs
Temp Pulse Resp BP Pulse Ox
97.8 F 76 18 110/52 96
10/03/24 03:05 10/03/24 03:05 10/03/24 03:05 10/03/24 03:05 10/03/24 03:05
I&O
10/02/24 10/03/24 10/04/24
06:59 06:59 06:59
Intake Total 1320 / 1320 900 / 900
Output Total 850 / 850 350 / 350
Balance 470 / 470 550 / 550
[2024-10-03] MEDS: PULMICORT 0.5 MG INH ×2 (07:16→19:55)
[2024-10-03] MEDS: XOPENEX 0.63 MG INHALANT SOLUTION INH ×3 (07:16→19:55)
[2024-10-03] MEDS: SODIUM CHLORIDE 3% FOR INHALATION 1 VIAL INH ×3 (07:17→19:55)
[2024-10-03] MEDS: MAG-TAB SR 84 MG PO ×2 (08:56→19:52)
[2024-10-03] MEDS: PROTONIX 40 MG PO (08:56)
[2024-10-03] MEDS: DELTASONE 30 MG PO (08:56)
[2024-10-03] MEDS: MUCINEX 600 MG PO ×2 (08:56→19:52)
--- NOTE | 2024-10-03 09:18 | W.PN.PUL3 ---
Today's Communication / Plan
-
Remains the same, unchanged
Awaiting ASEPT placement, IR is awaiting approval from [facility] first of accepting indwelling pleural cath
This was reviewed with daughter
Continued on aggressive PT
Assessment
-
79-year-old woman with history of COPD, home oxygen 4 L who presented with shortness of breath. Discharged from the hospital 08/20/2024 after treated with pneumonia, left-sided parapneumonic effusion s/p thoracentesis. Patient has pulmonary
cachexia, prior tobacco abuse, presented from [employer] with worsening shortness of breath.
Chronic hypoxic respiratory failure on 4L/baseline use of 4L
Recurrent pleural effusion, malignant
s/p repeat thoracentesis 08/18/2024-exudative with negative culture/negative cyto
09/13/2024: 650 cc straw-colored fluid. + cyto for adeno
s/p Chest tube, left side 09/17/24 --> removed 09/22/2024, cyto + for adeno
Stage IV lung adenocarcinoma
Conditions present SOLE RUFFER
Discharged from the hospital 08/20/2024 with acute exacerbation of COPD and pneumonia and left pleural effusion
Advanced emphysema
Recurrent left-sided pleural effusion/loculated + lung adenocarcinoma
Chronic respiratory failure with hypercapnia
Discharged on trilogy ventilator 08/20/2024
Latest ABG 7.4/75/60 08/17/2024
Emphysema/COPD on Trelegy 200mcg at home + home O2 (4-6L/min ATC)
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
Chronic rhinitis/eczema
Former tobacco smoker (last smoked a cigarette in April 2024)
Plan
Currently on 4L NC, which is her baseline
Hypoxia did not change with subsequent thoras/chest tube placements
Supplemental O2 while keeping SpO2 88-95%
Xopenex and budesonide nebulizers
Mucinex
Vest therapy prn
Prednisone taper--decreased to 30mg daily
Left side chest tube placed 09/17/24--> removed 09/22/2024
Cytology from [facility] on 09/13/2024 shows metastatic adenocarcinoma with suspected lung primary- prior cytology with atypical mesothelial cells
Left pleural fluid cytology 09/17/2024-metastatic adenocarcinoma
She has stage IV diagnosis--reviewed with daughter
Left-sided chest US (09/29/2024): Small pleural effusion, too small for placement
Can repeat CXR in AM--showing stable size
I reviewed case with IR for pleurex, consult placed--awaiting approval from [facility] prior to placement
Blood cultures rechecked on 09/25/2024 (shows NGTD)
Low threshold for antibiotics if clinically indicated
Levophed weaned off and she remains HDN stable
Aspiration precautions.
Speech therapy following-correspondence reviewed.
Video swallow 09/15/24-recommend regular solids and thin liquids
Mucolytics with mucinex 600mg PO q12hr
Continue nebulized 3% PRN
Continue vest therapy prn after the 3% is given to help with expectoration
Case management consulted to see if they can get her the vest at home
Oncology consultation reviewed, patient had declined treatment and did not want follow up
Hospice consult recommended
This was discussed with daughter, she has questioned her competency
Psych following
DVT prophylaxis-on Lovenox.
GI prophylaxis-on pantoprazole.
Nutrition
Bedside range of motion
PT/OT --> PT/OT rec'd skilled rehab upon discharge
PT had rec'd SNF vs home PT during eval from 09/21/2024
Prognosis unfortunately poor with metastatic probable lung cancer and poor performance status
Family Discussions
Chirag 10/01/24- updated Emily on patient's diagnosis, stage IV cancer, she had declined treatment. Daughter was concerned regarding her competency, discussed obtaining psych eval. I communicated this with care team.
Dr. Gómez called [phone] on 09/16/24-explained current clinical situation, potential etiologies, need for chest tube placement for pleural fluid evacuation with subsequent CT chest, also discussed pathology/cytology that is
pending-she is in agreement with chest tube placement-Dr. Gómez called interventional radiology and placed consult-we'll repeat cytology on additional fluid removed
Dr. Gómez had lengthy discussion with daughter 09/26/2024 who joined on multidisciplinary rounds-told overall declining pulmonary status, metastatic lung cancer, likelihood of pleural fluid reaccumulation, options including palliation/comfort
care/hospice
Data:
CXR 08/15/2024: Evidence for small to moderate left pleural effusion with mild lateral loculation. Patchy parenchymal opacity within the left mid to lower lung, suspicious for pneumonia, although there could also be a component of atelectasis. Also
of note, underlying mass/neoplasia cannot be excluded radiographically and radiographic follow-up is recommended.
CT chest 09/20/24-1. Smallbore left chest tube in position. Trace residual left pleural fluid.
2. Complete atelectasis of the left lower lobe. Left lower lobe bronchi filled with secretions. In addition to this, approximately 1.7 cm area of abnormally decreased attenuation in the posterior left lower lobe as above for this area, infectious
etiology considered most likely. Neoplasm cannot be definitively excluded.
3. Persistent area of masslike consolidation in the inferior left upper lobe measuring up to 5 cm in diameter. Given the remainder of the findings and absence of adenopathy, also favored to have infectious etiology. Neoplasm cannot be excluded,
follow-up to resolution is recommended.
4. Emphysema.
5. Coronary and aortic atherosclerosis.
CT chest without contrast 08/15/2024: Moderate to advanced emphysematous lung changes. Mild to moderate left pleural effusion. Masslike opacities in the lingula and left lower lobe. Probable round pneumonia. Follow-up recommended to assess for
resolution. Minor localized tree-in-bud attenuation in the superior segment of the right lower lobe, nonspecific bronchiolitis. 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
Left chest US 08/17/2024: Moderate left pleural effusion. Stable
Left chest US 09/29/2024: Small left pleural effusion.
-----
Total time spent today was 41 minutes for this encounter. Time includes reviewing laboratory test/imaging results, reviewing pertinent medical records, obtaining and reviewing medical history, performing an appropriate exam, ordering medications,
tests and procedures. Time also includes documentation of this encounter, coordinating patient care and communicating with other healthcare professionals. Total time does not include separately billed tests performed on this date of service.
Subjective Data
-
Date of Service:
Date of Service: October 03, 2024
Chief Complaint: Pulmonary Follow Up and Dyspnea Follow Up
Subjective:
Still remains on 4L NC
Sitting in chair
Daughter at bedside
Objective Data
Data Reviewed
Vital Signs / I&O / Oxygen:
Vital Signs
Temp Pulse Resp BP Pulse Ox
97.7 F 93 16 114/68 97
10/03/24 07:25 10/03/24 07:25 10/03/24 07:25 10/03/24 07:25 10/03/24 07:25
Intake and Output
10/02/24 10/03/24 10/04/24
06:59 06:59 06:59
Intake Total 1320 / 1320 900 / 900
Output Total 850 / 850 350 / 350
Balance 470 / 470 550 / 550
SaO2 [NIV (Non Invasive 95
Ventilation)]
SaO2 97
Nasal Cannula flow liters per 4
minute
Physical Exam
General: Respiratory Distress (n), Comfortable, Chills (n) and Sweats (n)
HEENT: Normocephalic and Anicteric
Cardiovascular: Regular Rhythm, Peripheral Edema (n) and Other (Distant cardiac sounds)
Respiratory: Wheeze (n), Rhonchi (n), Non-Labored Respirations, Accessory Resp Muscle Use (n) and Other (Diminished BS bilaterally)
GI: Soft, Non Distended, Non Tender and Normal Bowel Sounds
Neurology: Awake, Alert, Oriented and Tremors (n)
Skin: Warm, Good Color, Cyanosis (n) and Jaundice (n)
Labs/Micro/Reports
Lab Data
10/02/24 05:39
10/02/24 05:39
Microbiology
09/25/24 05:03 Blood/Venous Blood Culture - Final
No Growth - Final Report
--- NOTE | 2024-10-03 12:00 | W.PN.UPDATE ---
Update Note
Progress Note Update
patient seen chart reviewed. spoke with nursing and with pt. the patient slept some according to her last evening. nursing reported very little sleep. she did eat all of her breakfast today which is a +. she was to use bipap over the night but says
she can't stand it on her face. o2 sats are down during the night. she was not sedated this am when i saw her. this needs to be monitored as she is on q 4h xanax o.125 which is admittedly a small dose but she is very fragile physically (respiratory
mancia). . in my opinion she looks much more comfortable on this scheduled dose which i would continue. she avoids the issue of hospice vs palliative care etc. which family may need to consider with her and treating staff. i would be willing to
broach the subject which i did yesterday but did not get very far. will check in with her tomorrow.
[2024-10-03] MEDS: LOVENOX 40 MG SC (17:08)
[2024-10-04] MEDS: XANAX 0.125 MG PO ×6 (01:47→22:31)
[2024-10-04 03:15] VITALS: BP 114/61
[2024-10-04] MEDS: SYNTHROID 25 MCG PO (05:58)
--- NOTE | 2024-10-04 07:19 | W.PN.HOSP.TC ---
Today's Communication/Plan
-
low dose Synthroid
BIPAP bedtime as tolerated
xanax as per Psych
Eventual Pleurx with IR, awaiting confirmation accepting SNF can take care
Assessment / Plan
Assessment / Plan
Physical Exam
General: no acute distress, appears comfortable at this time.
HEENT: normocephalic atraumatic moist mucous membrane
Pulm: clear to auscultation b/l, purse lip breathing
Cardio: S1/S2 NSR no murmurs rubs gallops
Abd: soft nontender bowel sounds present
Neuro: Awake Alert Conversant Coherent
79F COPD4L Former smoker here with recurrent pleural effusion found to have stage IV NSCL cancer
# Acute on chronic chronic hypoxic respiratory failure
Shortness of breath secondary to large LEFT sided pleural effusion likely 2/2 Adenocarcinoma
Chronic hypercapnic respiratory failure
COPD/emphysema
History of severe tobacco abuse
History of lung nodules
S/P Thoracentesis status post thoracentesis 650 cc of straw-colored pleural fluid removed. (09/13/24) Further fluid removal was stopped as patient complained of pain.
( H/O Thoracentesis 450 cc of clear yellow pleural fluid 08/18/25)
Fluid culture remains negative
CT was removed on 09/22 as not much output was noted
Cytology from 09/15 and 09/18 and resulted with adenocarcinoma
Monitor off antibiotics
ESR/CRP elevated. CONRAD neg, CCP IgG/IgA Ab 78 (nl 0-19)
Continue with bronchodilators, Afraid to go back on vest therapy.
Encourage IS
Treat Anxiety
Repeat CXR with Moderate loculated left pleural effusion. Rounded opacification in the left lower lung field possibly loculated fluid versus pneumonia or pulmonary masses.
3% Saline neb seems to be helping. Cont with Pulmicort. Plan for prolonged steroid slow taper regimen. Now on 40mg prednisone
VBG with worsening hypercapnia. Check vbg intermittently.
Repeat Chest US with pleural effusion. IRAD consulted for PleuraX catheter.
Probably will require BiPAP / at [facility] for QHS/Prn.
# Hypovolemic shock- Resolved (Status post Levophed. )
# TME due to above
Improvement in mentation and seems back to baseline
# Elevated CO2 patient only wore-BiPAP for 2-1/[address] Mercedes discussed with patient's daughter that this is not enough. She also needs to have BiPAP at rehab
# Leukocytosis likely secondary to steroids
Remains afebrile. UA negative. Blood cultures remains negative. Monitor for now.
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
Oncology consulted and they requested further testing on cytologic tissue. No other biopsy required per oncology.
PD-L1 and NGS testing on the adenocarcinoma in the pleural fluid pending.
Patient states that she wants to make sure that she is recovering before she can make any decisions regarding cancer treatments.
# Urinary retention status post straight catheterization x 1
Continue with protocol. If with persistent retention required Ventura catheter placement .
# Transaminitis -Could be from recent infection. Resolved
# Elevated TSH with normal T4-
Subclinical Hypothyroidism TSH>10
Low dose Synthroid started 25 mcg daily
Repeat Thyroid Function Test in 1 month
# Severe anxiety- Psychiatric evaluation appreciated prn Atarax discontinued in favor of scheduled low dose Xanax, cont
# Mild Hyponatremia-likely SIADH
Also elevated TSH with normal T4,
Low cortisol levels could be secondary to steroids suppressing it. Needs cosyntropin test once off of steroids.
# DVT ppx-Lovenox
Discussed with patient and patient's daughter Emily
I spent a total of 40 minutes with the patient or on the floor. More than 50% of this time involved counseling and coordination of care.
Anticipated Discharge: 24 - 48 hours
Subjective/Interval History
-
Date of Service: October 04, 2024
No acute distress. Appears comfortable. Denies new acute issues.
Objective Data
-
Labs:
Laboratory Results
10/04/24
07:06
WBC Pending
Hgb Pending
Hct Pending
Plt Count Pending
Sodium Pending
Potassium Pending
Chloride Pending
Carbon Dioxide Pending
BUN Pending
Creatinine Pending
Glucose Pending
Calcium Pending
Vital Signs:
Vital Signs
Temp Pulse Resp BP Pulse Ox
97.5 F 82 16 114/61 97
10/04/24 03:15 10/04/24 03:15 10/04/24 03:15 10/04/24 03:15 10/04/24 03:15
I&O
10/03/24 10/04/24 10/05/24
06:59 06:59 06:59
Intake Total 900 / 900 640 / 640
Output Total 350 / 350 475 / 475
Balance 550 / 550 165 / 165
[2024-10-04] MEDS: XOPENEX 0.63 MG INHALANT SOLUTION INH ×3 (07:45→19:58)
[2024-10-04] MEDS: SODIUM CHLORIDE 3% FOR INHALATION 1 VIAL INH ×3 (07:45→19:58)
[2024-10-04] MEDS: PULMICORT 0.5 MG INH ×2 (07:45→19:58)
[2024-10-04 07:50] VITALS: BP 116/59
[2024-10-04 08:14] LABS: Hematocrit 36.8 % (37.0-47.0); Hemoglobin 11.4 g/dL (12.0-16.0); Mean Corpuscular Volume 96.8 fL (81.0-99.0); Mean Platelet Volume 9.2 fL (7.4-10.4); Platelet Count 351 10^3/uL (130-400); Red Cell Dist. Width 13.6 % (11.5-14.5); White Blood Cell Count 12.7 10^3/uL (4.8-10.8)
[2024-10-04] MEDS: MUCINEX 600 MG PO ×2 (08:32→19:17)
[2024-10-04] MEDS: MAG-TAB SR 84 MG PO ×2 (08:32→19:17)
[2024-10-04] MEDS: DELTASONE 30 MG PO (08:32)
[2024-10-04] MEDS: PROTONIX 40 MG PO (08:32)
[2024-10-04 08:33] LABS: Blood Urea Nitrogen 17 mg/dl (7-17); Calcium 8.8 mg/dl (8.4-10.2); Chloride 85 mmol/L (98-107); Estimated Creatinine Clearance 71 ml/min; Glucose 74 mg/dl (70-99); Magnesium 2.2 mg/dl (1.6-2.3); Potassium 4.3 mmol/L (3.5-5.1); Sodium 132 mmol/L (135-145); eGFR > 60.00
--- NOTE | 2024-10-04 09:30 | W.PN.PUL3 ---
Today's Communication / Plan
-
Patient has agreed for ASEPT catheter this 10/06/2024
IR awaiting approval from [facility] first of accepting indwelling pleural cath
This was reviewed with daughter
Continued on aggressive PT
Maintain SpO2 88-95%
Encourage incentive spirometer
Up out of bed as tolerated
prn vest therapy
Recommend outpatient follow-up with oncology - not currently offering treatment for her cancer given her poor functional status
Pulmonary service will continue to follow along
Assessment
-
79-year-old woman with history of COPD, home oxygen 4 L who presented with shortness of breath. Discharged from the hospital 08/20/2024 after treated with pneumonia, left-sided parapneumonic effusion s/p thoracentesis. Patient has pulmonary
cachexia, prior tobacco abuse, presented from [facility] with worsening shortness of breath.
Impression:
Chronic hypoxic respiratory failure on 4L/baseline use of 4L
Recurrent left-sided pleural effusion, malignant
s/p repeat thoracentesis 08/18/2024-exudative with negative culture/negative cyto
09/13/2024: 650 cc straw-colored fluid. + cyto for adeno
s/p Chest tube, left side 09/17/24 --> removed 09/22/2024, cyto + for adeno
Stage IV lung adenocarcinoma
Conditions present [employer]
Discharged from the hospital 08/20/2024 with acute exacerbation of COPD and pneumonia and left pleural effusion
Advanced emphysema
Recurrent left-sided pleural effusion/loculated + lung adenocarcinoma
Chronic respiratory failure with hypercapnia
Discharged on trilogy ventilator 08/20/2024
Latest ABG 7.4/75/60 08/17/2024
Emphysema/COPD on Trelegy 200mcg at home + home O2 (4-6L/min ATC)
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
Chronic rhinitis/eczema
Former tobacco smoker (last smoked a cigarette in April 2024)
Plan
Currently on 4L NC, which is her baseline
Hypoxia did not change with subsequent thoras/chest tube placements
Supplemental O2 while keeping SpO2 88-95%
Xopenex and budesonide nebulizers
Mucinex
Vest therapy prn
Prednisone taper--decreased to 30mg daily
Left side chest tube placed 09/17/24--> removed 09/22/2024
Cytology from [facility] on 09/13/2024 showed metastatic adenocarcinoma with suspected lung primary- prior cytology with atypical mesothelial cells
Left pleural fluid cytology 09/17/2024-also showed metastatic adenocarcinoma
She has stage IV diagnosis--reviewed with daughter
Left-sided chest US (09/29/2024): Small pleural effusion, too small for placement
Last CXR on 10/01/2024 showed mildly increased left-sided pleural effusion
Patient has agreed for a send catheter this Sunday (10/06/2024)
Dr. Beard reviewed case with IR for ASEPT catheter, consult placed--awaiting approval from [facility] prior to placement
Blood cultures rechecked on 09/25/2024 (shows NGTD)
Low threshold for antibiotics if clinically indicated
Levophed weaned off and she remains HDN stable
Aspiration precautions.
Speech therapy following-correspondence reviewed.
Video swallow 09/15/24-recommend regular solids and thin liquids
Mucolytics with mucinex 600mg PO q12hr
Continue nebulized 3% PRN
Continue vest therapy prn after the 3% is given to help with expectoration
Case management consulted to see if they can get her the vest at home
Oncology consultation reviewed, patient had declined treatment and did not want follow up
Hospice consult recommended
This was discussed with daughter, she has questioned her mother's competency
Psych following
DVT prophylaxis-on Lovenox.
GI prophylaxis-on pantoprazole.
Nutrition
Bedside range of motion
PT/OT --> PT/OT rec'd skilled rehab upon discharge
PT had rec'd SNF vs home PT during eval from 09/21/2024
Prognosis unfortunately poor with metastatic probable lung cancer and poor performance status
Pulmonary service will continue to follow along.
Family Discussions
Chirag 10/01/24- updated Emily on patient's diagnosis, stage IV cancer, she had declined treatment. Daughter was concerned regarding her competency, discussed obtaining psych eval. I communicated this with care team.
Dr. Gómez called [phone] on 09/16/24-explained current clinical situation, potential etiologies, need for chest tube placement for pleural fluid evacuation with subsequent CT chest, also discussed pathology/cytology that is
pending-she is in agreement with chest tube placement-Dr. Gómez called interventional radiology and placed consult-we'll repeat cytology on additional fluid removed
Dr. Gómez had lengthy discussion with daughter 09/26/2024 who joined on multidisciplinary rounds-told overall declining pulmonary status, metastatic lung cancer, likelihood of pleural fluid reaccumulation, options including palliation/comfort
care/hospice
Data:
CXR 08/15/2024: Evidence for small to moderate left pleural effusion with mild lateral loculation. Patchy parenchymal opacity within the left mid to lower lung, suspicious for pneumonia, although there could also be a component of atelectasis. Also
of note, underlying mass/neoplasia cannot be excluded radiographically and radiographic follow-up is recommended.
CT chest 09/20/24-1. Smallbore left chest tube in position. Trace residual left pleural fluid.
2. Complete atelectasis of the left lower lobe. Left lower lobe bronchi filled with secretions. In addition to this, approximately 1.7 cm area of abnormally decreased attenuation in the posterior left lower lobe as above for this area, infectious
etiology considered most likely. Neoplasm cannot be definitively excluded.
3. Persistent area of masslike consolidation in the inferior left upper lobe measuring up to 5 cm in diameter. Given the remainder of the findings and absence of adenopathy, also favored to have infectious etiology. Neoplasm cannot be excluded,
follow-up to resolution is recommended.
4. Emphysema.
5. Coronary and aortic atherosclerosis.
CT chest without contrast 08/15/2024: Moderate to advanced emphysematous lung changes. Mild to moderate left pleural effusion. Masslike opacities in the lingula and left lower lobe. Probable round pneumonia. Follow-up recommended to assess for
resolution. Minor localized tree-in-bud attenuation in the superior segment of the right lower lobe, nonspecific bronchiolitis. 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
Left chest US 08/17/2024: Moderate left pleural effusion. Stable
Left chest US 09/29/2024: Small left pleural effusion.
-----
Total time spent today was 36 minutes for this encounter. Time includes reviewing laboratory test/imaging results, reviewing pertinent medical records, obtaining and reviewing medical history, performing an appropriate exam, ordering medications,
tests and procedures. Time also includes documentation of this encounter, coordinating patient care and communicating with other healthcare professionals. Total time does not include separately billed tests performed on this date of service.
Subjective Data
-
Date of Service:
Date of Service: October 04, 2024
Chief Complaint: Pulmonary Follow Up and Dyspnea Follow Up
Subjective:
Patient seen earlier today (late note entry). She feels okay. Still scared to use the vest as she is afraid she is going to have another event that led to her going to the ICU last week. Multiple family members at bedside. She has finally agreed
to get the ASEPT catheter on Sunday. All questions were answered in detail. She currently denies worsening SOB, abdominal pain, nausea, fevers or chills.
Review of Systems
General: Other (Negative unless mentioned above)
Objective Data
Data Reviewed
Vital Signs / I&O / Oxygen:
Vital Signs
Temp Pulse Resp BP Pulse Ox
97.5 F 82 16 114/61 97
10/04/24 03:15 10/04/24 03:15 10/04/24 03:15 10/04/24 03:15 10/04/24 03:15
Intake and Output
10/03/24 10/04/24 10/05/24
06:59 06:59 06:59
Intake Total 900 / 900 640 / 640
Output Total 350 / 350 475 / 475
Balance 550 / 550 165 / 165
SaO2 [NIV (Non Invasive 95
Ventilation)]
SaO2 97
Nasal Cannula flow liters per 4
minute
Physical Exam
General: Respiratory Distress (n), Comfortable, Chills (n) and Sweats (n)
HEENT: Normocephalic and Anicteric
Cardiovascular: Regular Rhythm, Peripheral Edema (n) and Other (Distant cardiac sounds)
Respiratory: Wheeze (n), Crackles (Bilateral), Rhonchi (n), Non-Labored Respirations, Accessory Resp Muscle Use (n) and Other (Diminished BS bilaterally)
GI: Soft, Non Distended, Non Tender and Normal Bowel Sounds
Neurology: Awake, Alert, Oriented and Tremors (n)
Skin: Warm, Good Color, Cyanosis (n) and Jaundice (n)
[2024-10-04 09:54] LABS: Carbon Dioxide 40 mmol/L (22-30)
[2024-10-04 11:08] VITALS: BP 113/68
--- NOTE | 2024-10-04 12:54 | W.PN.UPDATE ---
Update Note
Progress Note Update
patient seen chart reviewed discussed w nursing patient continues to look much the same. she does not appear overly sedated w current dose of xanax in fact looks more relaxed. it has not however helped her with being more active .she has not been
eager to be in the chair sitting or be up for pt c.o she is still sob. she told me she has not used the spirometer since day before yesterday. will continue to try to encourage her. she is looking forward to visits from two of her kids this
afternoon. she said she already 'placed an order' for what they should bring her. she did eat breakfast . will see her tomorrow and continue to encourage. could consider an antidepressant but they take a long time to be effective
[2024-10-04 15:41] VITALS: BP 129/62
[2024-10-04] MEDS: LOVENOX 40 MG SC (17:48)
[2024-10-04 19:30] VITALS: BP 116/60
[2024-10-04] MEDS: MELATONIN PO (22:08)
[2024-10-04 23:22] VITALS: BP 111/59
[2024-10-05] VITALS (8 sets, daily range): BP systolic 112–124; BP diastolic 61–75; PULSE 2–80
[2024-10-05] MEDS: XANAX 0.125 MG PO ×6 (01:28→22:47)
[2024-10-05] MEDS: SYNTHROID 25 MCG PO (05:09)
--- NOTE | 2024-10-05 07:48 | W.PN.HOSP.TC ---
Today's Communication/Plan
-
oxygen supplementation, BIPAP bedtime as tolerated
xanax as per Psych
Eventual Pleurx with IR, awaiting confirmation accepting SNF can take care
PT/OT
Assessment / Plan
Assessment / Plan
Physical Exam
General: no acute distress, appears comfortable at this time.
HEENT: normocephalic atraumatic moist mucous membrane
Pulm: clear to auscultation b/l
Cardio: S1/S2 NSR no murmurs rubs gallops
Abd: soft nontender bowel sounds present
Neuro: Awake Alert Conversant Coherent
79F COPD4L Former smoker here with recurrent pleural effusion found to have stage IV NSCL cancer
# Acute on chronic chronic hypoxic respiratory failure
Shortness of breath secondary to large LEFT sided pleural effusion likely 2/2 Adenocarcinoma
Chronic hypercapnic respiratory failure
COPD/emphysema
History of severe tobacco abuse
History of lung nodules
S/P Thoracentesis status post thoracentesis 650 cc of straw-colored pleural fluid removed. (09/13/24) Further fluid removal was stopped as patient complained of pain.
( H/O Thoracentesis 450 cc of clear yellow pleural fluid 08/18/25)
Fluid culture remains negative
CT was removed on 09/22 as not much output was noted
Cytology from 09/15 and 09/18 and resulted with adenocarcinoma
Monitor off antibiotics
ESR/CRP elevated. CONRAD neg, CCP IgG/IgA Ab 78 (nl 0-19)
Continue with bronchodilators, Afraid to go back on vest therapy.
Encourage IS
Treat Anxiety
Repeat CXR with Moderate loculated left pleural effusion. Rounded opacification in the left lower lung field possibly loculated fluid versus pneumonia or pulmonary masses.
3% Saline neb seems to be helping. Cont with Pulmicort. Plan for prolonged steroid slow taper regimen. Now on 40mg prednisone
VBG with worsening hypercapnia. Check vbg intermittently.
Repeat Chest US with pleural effusion. IRAD consulted for PleuraX catheter.
Probably will require BiPAP / at [facility] for QHS/Prn.
# Hypovolemic shock- Resolved (Status post Levophed. )
# TME due to above
Improvement in mentation and seems back to baseline
# Elevated CO2 patient only wore-BiPAP for 2-1/[address] Mercedes discussed with patient's daughter that this is not enough. She also needs to have BiPAP at rehab
# Leukocytosis likely secondary to steroids
Remains afebrile. UA negative. Blood cultures remains negative. Monitor for now.
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
Oncology consulted and they requested further testing on cytologic tissue. No other biopsy required per oncology.
PD-L1 and NGS testing on the adenocarcinoma in the pleural fluid pending.
Patient states that she wants to make sure that she is recovering before she can make any decisions regarding cancer treatments.
# Urinary retention status post straight catheterization x 1
Continue with protocol. If with persistent retention required Ventura catheter placement .
# Transaminitis -Could be from recent infection. Resolved
# Elevated TSH with normal T4-
Subclinical Hypothyroidism TSH>10
Low dose Synthroid started 25 mcg daily
Repeat Thyroid Function Test in 1 month
# Severe anxiety- Psychiatric evaluation appreciated prn Atarax discontinued in favor of scheduled low dose Xanax, cont
# Mild Hyponatremia-likely SIADH
Also elevated TSH with normal T4,
Low cortisol levels could be secondary to steroids suppressing it. Needs cosyntropin test once off of steroids.
# DVT ppx-Lovenox
Discussed with patient and patient's daughter Emily
I spent a total of 40 minutes with the patient or on the floor. More than 50% of this time involved counseling and coordination of care.
Anticipated Discharge: 24 - 48 hours
Subjective/Interval History
-
Date of Service: October 05, 2024
No acute distress. Appears comfortable at this time. Denies new acute issues.
Objective Data
-
Vital Signs:
Vital Signs
Temp Pulse Resp BP Pulse Ox
97.5 F 82 18 124/74 98
10/05/24 03:11 10/05/24 03:11 10/05/24 03:11 10/05/24 03:11 10/05/24 03:11
I&O
10/04/24 10/05/24 10/06/24
06:59 06:59 06:59
Intake Total 640 / 640 1330 / 1330
Output Total 475 / 475 1200 / 1200
Balance 165 / 165 130 / 130
[2024-10-05] MEDS: DELTASONE 30 MG PO (08:13)
[2024-10-05] MEDS: MAG-TAB SR 84 MG PO ×2 (08:13→21:05)
[2024-10-05] MEDS: MUCINEX 600 MG PO ×2 (08:13→21:05)
[2024-10-05] MEDS: PROTONIX 40 MG PO (08:13)
[2024-10-05] MEDS: XOPENEX 0.63 MG INHALANT SOLUTION INH ×4 (08:21→22:48)
[2024-10-05] MEDS: SODIUM CHLORIDE 3% FOR INHALATION 1 VIAL INH ×3 (08:21→18:04)
[2024-10-05] MEDS: PULMICORT 0.5 MG INH ×2 (08:21→18:04)
--- NOTE | 2024-10-05 09:57 | W.PN.PUL3 ---
Today's Communication / Plan
-
Patient has agreed for ASEPT catheter tomorrow 10/06/2024
I reviewed the case with IR today and she is on the schedule for tomorrow
Keep NPO p MN
IR awaiting approval from [facility] first of accepting indwelling pleural cath
This was reviewed with daughter
Continued on aggressive PT
Maintain SpO2 88-95%
Encourage incentive spirometer
Up out of bed as tolerated
prn CPT with chest percussor
Recommend outpatient follow-up with oncology - not currently offering treatment for her cancer given her poor functional status
Pulmonary service will continue to follow along
Assessment
-
79-year-old woman with history of COPD, home oxygen 4 L who presented with shortness of breath. Discharged from the hospital 08/20/2024 after treated with pneumonia, left-sided parapneumonic effusion s/p thoracentesis. Patient has pulmonary
cachexia, prior tobacco abuse, presented from [facility] with worsening shortness of breath.
Impression:
Chronic hypoxic respiratory failure on 4L/baseline use of 4L
Recurrent left-sided pleural effusion, malignant
s/p repeat thoracentesis 08/18/2024-exudative with negative culture/negative cyto
09/13/2024: 650 cc straw-colored fluid. + cyto for adeno
s/p Chest tube, left side 09/17/24 --> removed 09/22/2024, cyto + for adeno
Stage IV lung adenocarcinoma
Conditions present APPLICATION ASSISTANT:
Discharged from the hospital 08/20/2024 with acute exacerbation of COPD and pneumonia and left pleural effusion
Advanced emphysema
Recurrent left-sided pleural effusion/loculated + lung adenocarcinoma
Chronic respiratory failure with hypercapnia
Discharged on trilogy ventilator 08/20/2024
Latest ABG 7.4/75/60 08/17/2024
Emphysema/COPD on Trelegy 200mcg at home + home O2 (4-6L/min ATC)
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
Chronic rhinitis/eczema
Former tobacco smoker (last smoked a cigarette in April 2024)
Plan
Currently on 4L NC, which is her baseline
Hypoxia did not change with subsequent thoras/chest tube placements
Supplemental O2 while keeping SpO2 88-95%
Xopenex and budesonide nebulizers
Mucinex
Vest therapy will change to percussor per patient's request - use BID prn
Prednisone taper--decreased to 30mg daily
Left side chest tube placed 09/17/24--> removed 09/22/2024
Cytology from [facility] on 09/13/2024 showed metastatic adenocarcinoma with suspected lung primary- prior cytology with atypical mesothelial cells
Left pleural fluid cytology 09/17/2024-also showed metastatic adenocarcinoma
She has stage IV diagnosis--reviewed with daughter
Left-sided chest US (09/29/2024): Small pleural effusion, too small for placement
Last CXR on 10/01/2024 showed mildly increased left-sided pleural effusion
Patient has agreed for a send catheter this Sunday (10/06/2024)
Dr. Beard reviewed case with IR for ASEPT catheter, consult placed--awaiting approval from [facility] prior to placement
NPO p MN
Blood cultures rechecked on 09/25/2024 (shows NGTD)
Low threshold for antibiotics if clinically indicated
Levophed weaned off and she remains HDN stable
Aspiration precautions.
Speech therapy following-correspondence reviewed.
Video swallow 09/15/24-recommend regular solids and thin liquids
Mucolytics with mucinex 600mg PO q12hr
Continue nebulized 3% TID
Continue vest therapy prn after the 3% is given to help with expectoration
Case management consulted to see if they can get her the vest at home
Oncology consultation reviewed, patient had declined treatment and did not want follow up
Hospice consult recommended
This was discussed with daughter, she has questioned her mother's competency
Psych following
DVT prophylaxis-on Lovenox.
GI prophylaxis-on pantoprazole.
Nutrition
Bedside range of motion
PT/OT --> PT/OT rec'd skilled rehab upon discharge
PT had rec'd SNF vs home PT during eval from 09/21/2024
Prognosis unfortunately poor with metastatic probable lung cancer and poor performance status
Pulmonary service will continue to follow along.
Family Discussions
Chirag 10/01/24- updated Emily on patient's diagnosis, stage IV cancer, she had declined treatment. Daughter was concerned regarding her competency, discussed obtaining psych eval. I communicated this with care team.
Dr. Gómez called [phone] on 09/16/24-explained current clinical situation, potential etiologies, need for chest tube placement for pleural fluid evacuation with subsequent CT chest, also discussed pathology/cytology that is
pending-she is in agreement with chest tube placement-Dr. Gómez called interventional radiology and placed consult-we'll repeat cytology on additional fluid removed
Dr. Gómez had lengthy discussion with daughter 09/26/2024 who joined on multidisciplinary rounds-told overall declining pulmonary status, metastatic lung cancer, likelihood of pleural fluid reaccumulation, options including palliation/comfort
care/hospice
Data:
CXR 08/15/2024: Evidence for small to moderate left pleural effusion with mild lateral loculation. Patchy parenchymal opacity within the left mid to lower lung, suspicious for pneumonia, although there could also be a component of atelectasis. Also
of note, underlying mass/neoplasia cannot be excluded radiographically and radiographic follow-up is recommended.
CT chest 09/20/24-1. Smallbore left chest tube in position. Trace residual left pleural fluid.
2. Complete atelectasis of the left lower lobe. Left lower lobe bronchi filled with secretions. In addition to this, approximately 1.7 cm area of abnormally decreased attenuation in the posterior left lower lobe as above for this area, infectious
etiology considered most likely. Neoplasm cannot be definitively excluded.
3. Persistent area of masslike consolidation in the inferior left upper lobe measuring up to 5 cm in diameter. Given the remainder of the findings and absence of adenopathy, also favored to have infectious etiology. Neoplasm cannot be excluded,
follow-up to resolution is recommended.
4. Emphysema.
5. Coronary and aortic atherosclerosis.
CT chest without contrast 08/15/2024: Moderate to advanced emphysematous lung changes. Mild to moderate left pleural effusion. Masslike opacities in the lingula and left lower lobe. Probable round pneumonia. Follow-up recommended to assess for
resolution. Minor localized tree-in-bud attenuation in the superior segment of the right lower lobe, nonspecific bronchiolitis. 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
Left chest US 08/17/2024: Moderate left pleural effusion. Stable
Left chest US 09/29/2024: Small left pleural effusion.
-----
Total time spent today was 39 minutes for this encounter. Time includes reviewing laboratory test/imaging results, reviewing pertinent medical records, obtaining and reviewing medical history, performing an appropriate exam, ordering medications,
tests and procedures. Time also includes documentation of this encounter, coordinating patient care and communicating with other healthcare professionals. Total time does not include separately billed tests performed on this date of service.
Subjective Data
-
Date of Service:
Date of Service: October 05, 2024
Chief Complaint: Pulmonary Follow Up and Dyspnea Follow Up
Subjective:
Patient seen earlier today (late note entry). She is more interested in using the chest PT percussor instead of the vest. Currently on 3.5 L/min and has shortness of breath but is stable compared to yesterday. She denies chest pain, DEL TORO, nausea,
fevers or chills.
Review of Systems
General: Other (Negative unless mentioned above)
Objective Data
Data Reviewed
Vital Signs / I&O / Oxygen:
Vital Signs
Temp Pulse Resp BP Pulse Ox
97.9 F 68 22 112/61 92
10/05/24 07:00 10/05/24 08:25 10/05/24 08:25 10/05/24 07:00 10/05/24 08:25
Intake and Output
10/04/24 10/05/24 10/06/24
06:59 06:59 06:59
Intake Total 640 / 640 1330 / 1330
Output Total 475 / 475 1200 / 1200
Balance 165 / 165 130 / 130
SaO2 [NIV (Non Invasive 95
Ventilation)]
SaO2 92
Nasal Cannula flow liters per 3.5
minute
Physical Exam
General: Respiratory Distress (n), Comfortable, Chills (n) and Sweats (n)
HEENT: Normocephalic and Anicteric
Cardiovascular: S1-S2, Peripheral Edema (n) and Other (Distant cardiac sounds)
Respiratory: Wheeze (n), Crackles (Bilateral), Rhonchi (n), Non-Labored Respirations, Accessory Resp Muscle Use (n) and Other (Diminished BS bilaterally)
GI: Soft, Non Distended, Non Tender and Normal Bowel Sounds
Neurology: Awake, Alert, Oriented and Tremors (n)
Skin: Warm, Good Color, Cyanosis (n) and Jaundice (n)
Labs/Micro/Reports
Lab Data
10/04/24 07:06
10/04/24 07:06
--- NOTE | 2024-10-05 13:37 | W.PN.UPDATE ---
Update Note
Progress Note Update
patient seen chart reviewed spoke with nursing. patient does overall seem better vis a vis anxiety with the round the clock xanax but still it seems is not making much headway towards being more physically active with PT, being in a chair etc. she
tells me the pleural catheter is still being discussed and that the plan is for residential after and subsequently she will not return home but live w her d at least for the foreseeable future. i don't feel an antidepressant will make much
difference at this point as i see her debility as coming from a physical cause and also that she is still reeling from the dx. psych will offer support at this point.
[2024-10-05] MEDS: LOVENOX 40 MG SC (18:27)
[2024-10-05] MEDS: MELATONIN PO (22:39)
[2024-10-06] VITALS (8 sets, daily range): BP systolic 108–130; BP diastolic 60–72; PULSE 2–111; O2SAT 97
[2024-10-06] MEDS: XANAX 0.125 MG PO ×6 (03:03→21:27)
[2024-10-06] MEDS: SYNTHROID 25 MCG PO (05:57)
[2024-10-06 06:46] LABS: Hematocrit 36.8 % (37.0-47.0); Hemoglobin 11.2 g/dL (12.0-16.0); Mean Corp Hgb Conc. 30.4 g/dL (33.0-37.0); Mean Corpuscular Hgb 29.8 pg (27.0-31.0); Mean Corpuscular Volume 97.9 fL (81.0-99.0); Mean Platelet Volume 9.1 fL (7.4-10.4); Platelet Count 308 10^3/uL (130-400); Red Blood Cell Count 3.76 10^6/uL (4.20-5.40); Red Cell Dist. Width 13.8 % (11.5-14.5)
[2024-10-06 07:05] LABS: Blood Urea Nitrogen 16 mg/dl (7-17); Chloride 88 mmol/L (98-107); Estimated Creatinine Clearance 71 ml/min; Glucose 79 mg/dl (70-99); Magnesium 2.1 mg/dl (1.6-2.3); Phosphorus 4.4 mg/dl (2.5-4.5); Potassium 4.2 mmol/L (3.5-5.1); Sodium 134 mmol/L (135-145); eGFR > 60.00
[2024-10-06 07:25] LABS: Carbon Dioxide 38 mmol/L (22-30)
[2024-10-06] MEDS: PULMICORT 0.5 MG INH ×2 (07:32→20:30)
[2024-10-06] MEDS: SODIUM CHLORIDE 3% FOR INHALATION 1 VIAL INH ×3 (07:32→20:30)
[2024-10-06] MEDS: XOPENEX 0.63 MG INHALANT SOLUTION INH ×3 (07:32→20:30)
[2024-10-06] MEDS: MAG-TAB SR 84 MG PO ×2 (08:17→21:27)
[2024-10-06] MEDS: PROTONIX 40 MG PO (08:17)
[2024-10-06] MEDS: DELTASONE 30 MG PO (08:17)
[2024-10-06] MEDS: MUCINEX 600 MG PO ×2 (08:18→21:28)
--- NOTE | 2024-10-06 11:17 | W.PN.HOSP.TC ---
Today's Communication/Plan
-
CM ongoing dispo efforts-await SNF acceptance then pleurax placement
Psych recs
OOB
Assessment / Plan
Assessment / Plan
Physical Exam
General: no acute distress, appears comfortable at this time.
HEENT: normocephalic atraumatic moist mucous membrane
Pulm: clear to auscultation b/l, oxygen
Cardio: S1/S2 NSR no murmurs rubs gallops
Abd: soft nontender bowel sounds present
Neuro: Awake Alert Conversant Coherent
79F COPD4L Former smoker here with recurrent pleural effusion found to have stage IV NSCL cancer
# Acute on chronic chronic hypoxic respiratory failure
Shortness of breath secondary to large LEFT sided pleural effusion likely 2/2 Adenocarcinoma
Chronic hypercapnic respiratory failure
COPD/emphysema
History of severe tobacco abuse
History of lung nodules
S/P Thoracentesis status post thoracentesis 650 cc of straw-colored pleural fluid removed. (09/13/24) Further fluid removal was stopped as patient complained of pain.
( H/O Thoracentesis 450 cc of clear yellow pleural fluid 08/18/25)
Fluid culture remains negative
CT was removed on 09/22 as not much output was noted
Cytology from 09/15 and 09/18 and resulted with adenocarcinoma
Monitor off antibiotics
ESR/CRP elevated. CONRAD neg, CCP IgG/IgA Ab 78 (nl 0-19)
Continue with bronchodilators, Afraid to go back on vest therapy.
Encourage IS
Treat Anxiety
Repeat CXR with Moderate loculated left pleural effusion. Rounded opacification in the left lower lung field possibly loculated fluid versus pneumonia or pulmonary masses.
3% Saline neb seems to be helping. Cont with Pulmicort. Plan for prolonged steroid slow taper regimen. Now on 40mg prednisone
VBG with worsening hypercapnia. Check vbg intermittently.
Repeat Chest US with pleural effusion. IRAD consulted for PleuraX catheter. Plan for SNF accepting facility prior to PleraX placement.
Probably will require BiPAP / at [facility] for QHS/Prn.
# Hypovolemic shock- Resolved (Status post Levophed. )
# TME due to above
Improvement in mentation and seems back to baseline
# Elevated CO2 patient only wore-BiPAP for 2-1/[address] Mercedes discussed with patient's daughter that this is not enough. She also needs to have BiPAP at rehab
# Leukocytosis likely secondary to steroids
Remains afebrile. UA negative. Blood cultures remains negative. Monitor for now.
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
Oncology consulted and they requested further testing on cytologic tissue. No other biopsy required per oncology.
PD-L1 and NGS testing on the adenocarcinoma in the pleural fluid pending.
Patient states that she wants to make sure that she is recovering before she can make any decisions regarding cancer treatments.
# Urinary retention status post straight catheterization x 1
Continue with protocol. If with persistent retention required Ventura catheter placement .
# Transaminitis -Could be from recent infection. Resolved
# Elevated TSH with normal T4-
Subclinical Hypothyroidism TSH>10
Low dose Synthroid started 25 mcg daily
Repeat Thyroid Function Test in 1 month
# Severe anxiety- Psychiatric evaluation appreciated prn Atarax discontinued in favor of scheduled low dose Xanax, cont. on 0.125mg q4h.
# Mild Hyponatremia-likely SIADH
Also elevated TSH with normal T4,
Low cortisol levels could be secondary to steroids suppressing it. Needs cosyntropin test once off of steroids.
# DVT ppx-Lovenox
Anticipated Discharge: > 48 hours
Subjective/Interval History
-
Date of Service: October 06, 2024
no [facility] accepting facility yet
Objective Data
-
Labs:
Laboratory Results
10/06/24
05:51
WBC 12.0 H
Hgb 11.2 L
Hct 36.8 L
Plt Count 308
Sodium 134 L
Potassium 4.2
Chloride 88 L
Carbon Dioxide 38 H
BUN 16
Creatinine 0.4 L
Glucose 79
Calcium 9.0
Vital Signs:
Vital Signs
Temp Pulse Resp BP Pulse Ox
97.6 F 82 20 118/68 96
10/06/24 07:58 10/06/24 08:06 10/06/24 08:06 10/06/24 07:58 10/06/24 08:06
I&O
10/05/24 10/06/24 10/07/24
06:59 06:59 06:59
Intake Total 1330 / 1330 840 / 840
Output Total 1200 / 1200 800 / 800
Balance 130 / 130 40 / 40
--- NOTE | 2024-10-06 16:11 | CM ---
Met with patient at bedside. Asept cancelled
CM continues to obtain SNF who will accept ASEPT.
Spoke with daughter Emily and additional referrals sent
PLAN: SNF, pending acceptance/bed availability
--- NOTE | 2024-10-06 16:43 | W.PN.PUL3 ---
Today's Communication / Plan
-
Ultrasound with small left pleural effusion not amenable for IPC.
Continue nebulizer therapy upon discharge. Hold inhalers.
Prednisone taper decrease by 10 mg every 72 hours to off.
Mucolytics
Percussion therapy
Nutritional support
Discharged on BiPAP 22/01.
Will discharge to [facility] facility, can reassess pleural effusion in the future for intrapleural catheter.
Hopefully can discharge soon.
Assessment
-
79-year-old woman with history of COPD, home oxygen 4 L who presented with shortness of breath. Discharged from the hospital 08/20/2024 after treated with pneumonia, left-sided parapneumonic effusion s/p thoracentesis. Patient has pulmonary
cachexia, prior tobacco abuse, presented from [facility] with worsening shortness of breath.
Impression:
Chronic hypoxic respiratory failure on 4L/baseline use of 4L
Recurrent left-sided pleural effusion, malignant
s/p repeat thoracentesis 08/18/2024-exudative with negative culture/negative cyto
09/13/2024: 650 cc straw-colored fluid. + cyto for adeno
s/p Chest tube, left side 09/17/24 --> removed 09/22/2024, cyto + for adeno
Stage IV lung adenocarcinoma
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
Discharged from the hospital 08/20/2024 with acute exacerbation of COPD and pneumonia and left pleural effusion
Advanced emphysema
Recurrent left-sided pleural effusion/loculated + lung adenocarcinoma
Chronic respiratory failure with hypercapnia
Discharged on trilogy ventilator 08/20/2024
Latest ABG 7.4/75/60 08/17/2024
Emphysema/COPD on Trelegy 200mcg at home + home O2 (4-6L/min ATC)
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
Chronic rhinitis/eczema
Former tobacco smoker (last smoked a cigarette in April 2024)
Plan
Currently on 4L NC, which is her baseline
Hypoxia did not change with subsequent thoras/chest tube placements
-
Left side chest tube placed 09/17/24--> removed 09/22/2024
Cytology from [facility] on 09/13/2024 showed metastatic adenocarcinoma with suspected lung primary- prior cytology with atypical mesothelial cells
Left pleural fluid cytology 09/17/2024-also showed metastatic adenocarcinoma
She has stage IV diagnosis--reviewed with daughter
Left-sided chest US (09/29/2024): Small pleural effusion, too small for placement
Left-sided ultrasound 10/06/2024: Small pleural effusion, not amenable for thoracentesis.
Effusion too small for intrapleural catheter.
-
I would discharge patient to [facility] facility if necessary. If there is ongoing symptoms in the future can consider intrapleural catheter at that time. Pleural effusion has not reaccumulated significantly in 1 week.
We can reassess intrapleural catheter if there is rapid reaccumulation of fluid in the future.
-
Aspiration precautions.
Speech therapy following-correspondence reviewed.
Video swallow 09/15/24-recommend regular solids and thin liquids
-
Continue: Mucolytics with mucinex 600mg PO q12hr
Xopenex and budesonide nebulizers-may continue upon discharge.
Vest therapy will change to percussor per patient's request - use BID prn
Prednisone taper--decreased to 30mg daily, decrease by 10 mg every 72 hours to off.
Continue nebulized 3% TID
Continue vest therapy prn after the 3% is given to help with expectoration
Hopefully can be discharged on this regimen.
Chronic hypercapnic respiratory failure ABG 09/25/2024: 7.36/77/98-compensated.
Has been using BiPAP here in the hospital 22/01. Would continue upon discharge. High risk for readmission. Patient is debilitated with advanced COPD.
Continue physical therapy
Nutritional support
Avoid sedatives
Oncology consultation reviewed, patient had declined treatment and did not want follow up-no treatment has been offered due to debilitation. Poor performance status.
Hospice consult recommended
This was discussed with daughter, she has questioned her mother's competency
Psych following
DVT prophylaxis-on Lovenox.
GI prophylaxis-on pantoprazole.
PT/OT --> PT/OT rec'd skilled rehab upon discharge
Eventual discharge to [facility] facility.
Prognosis unfortunately poor with metastatic probable lung cancer and poor performance status
Continue with current care.
Discharge planning. Discussed with primary team.
Discussed with daughter Emily on 10/06/2024. She would like to follow-up locally. My information will be left in the chart.
Will continue follow
Family Discussions
Chirag 10/01/24- updated Emily on patient's diagnosis, stage IV cancer, she had declined treatment. Daughter was concerned regarding her competency, discussed obtaining psych eval. I communicated this with care team.
Dr. Gómez called [phone] on 09/16/24-explained current clinical situation, potential etiologies, need for chest tube placement for pleural fluid evacuation with subsequent CT chest, also discussed pathology/cytology that is
pending-she is in agreement with chest tube placement-Dr. Gómez called interventional radiology and placed consult-we'll repeat cytology on additional fluid removed
Dr. Gómez had lengthy discussion with daughter 09/26/2024 who joined on multidisciplinary rounds-told overall declining pulmonary status, metastatic lung cancer, likelihood of pleural fluid reaccumulation, options including palliation/comfort
care/hospice
Data:
CXR 08/15/2024: Evidence for small to moderate left pleural effusion with mild lateral loculation. Patchy parenchymal opacity within the left mid to lower lung, suspicious for pneumonia, although there could also be a component of atelectasis. Also
of note, underlying mass/neoplasia cannot be excluded radiographically and radiographic follow-up is recommended.
CT chest 09/20/24-1. Smallbore left chest tube in position. Trace residual left pleural fluid.
2. Complete atelectasis of the left lower lobe. Left lower lobe bronchi filled with secretions. In addition to this, approximately 1.7 cm area of abnormally decreased attenuation in the posterior left lower lobe as above for this area, infectious
etiology considered most likely. Neoplasm cannot be definitively excluded.
3. Persistent area of masslike consolidation in the inferior left upper lobe measuring up to 5 cm in diameter. Given the remainder of the findings and absence of adenopathy, also favored to have infectious etiology. Neoplasm cannot be excluded,
follow-up to resolution is recommended.
4. Emphysema.
5. Coronary and aortic atherosclerosis.
CT chest without contrast 08/15/2024: Moderate to advanced emphysematous lung changes. Mild to moderate left pleural effusion. Masslike opacities in the lingula and left lower lobe. Probable round pneumonia. Follow-up recommended to assess for
resolution. Minor localized tree-in-bud attenuation in the superior segment of the right lower lobe, nonspecific bronchiolitis. 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
Left chest US 08/17/2024: Moderate left pleural effusion. Stable
Left chest US 09/29/2024: Small left pleural effusion.
-----
Subjective Data
-
Date of Service:
Date of Service: October 06, 2024
Chief Complaint: Pulmonary Follow Up and Dyspnea Follow Up
Subjective:
No new complaints
Remains debilitated
Review of Systems
Cardiopulmonary: Dyspnea (n)
GI: Abdominal Pain (n)
Neuro: Headache
Objective Data
Data Reviewed
Vital Signs / I&O / Oxygen:
Vital Signs
Temp Pulse Resp BP Pulse Ox
98.2 F 102 16 108/60 95
10/06/24 15:29 10/06/24 15:29 10/06/24 15:29 10/06/24 15:29 10/06/24 15:29
Intake and Output
10/05/24 10/06/2425
06:59 06:59 06:59
Intake Total 1330 / 1330 840 / 840
Output Total 1200 / 1200 800 / 800
Balance 130 / 130 40 / 40
SaO2 [NIV (Non Invasive 95
Ventilation)]
SaO2 95
Nasal Cannula flow liters per 4
minute
Physical Exam
General: Respiratory Distress (n), Comfortable, Chills (n) and Sweats (n)
HEENT: Normocephalic and Anicteric
Cardiovascular: S1-S2, Peripheral Edema (n) and Other (Distant cardiac sounds)
Respiratory: Wheeze (n), Crackles (Bilateral), Rhonchi (n), Non-Labored Respirations, Accessory Resp Muscle Use (n) and Other (Diminished BS bilaterally)
GI: Soft, Non Distended, Non Tender and Normal Bowel Sounds
Neurology: Awake, Alert, Oriented and Tremors (n)
Skin: Warm, Good Color, Cyanosis (n) and Jaundice (n)
Labs/Micro/Reports
Lab Data
10/06/24 05:51
10/06/24 05:51
Microbiology
09/13/24 11:52 Pleural Fluid Fungal Smear - Final
No yeast or fungal elements seen.
09/13/24 11:52 Pleural Fluid Fungal Culture - Preliminary
Culture in progress.
Positive cultures are reported as soon as detected.
Final report to follow in four to five weeks.
[2024-10-06] MEDS: LOVENOX 40 MG SC (17:41)
[2024-10-06] MEDS: MELATONIN PO (22:51)
[2024-10-07] VITALS (8 sets, daily range): BP systolic 110–121; BP diastolic 58–73; PULSE 2–105; O2SAT 95
[2024-10-07] MEDS: XANAX 0.125 MG PO ×6 (01:42→22:38)
[2024-10-07] MEDS: SYNTHROID 25 MCG PO (05:34)
[2024-10-07] MEDS: XOPENEX 0.63 MG INHALANT SOLUTION INH ×3 (07:05→21:07)
[2024-10-07] MEDS: PULMICORT 0.5 MG INH ×2 (07:05→21:07)
[2024-10-07] MEDS: SODIUM CHLORIDE 3% FOR INHALATION 1 VIAL INH ×3 (07:05→21:07)
[2024-10-07] MEDS: MAG-TAB SR 84 MG PO ×2 (09:02→20:01)
[2024-10-07] MEDS: PROTONIX 40 MG PO (09:02)
[2024-10-07] MEDS: DELTASONE 30 MG PO (09:02)
[2024-10-07] MEDS: MUCINEX 600 MG PO ×2 (09:02→20:01)
[2024-10-07] MEDS: MIRALAX 17 GRAMS PO (09:52)
--- NOTE | 2024-10-07 11:17 | W.PN.HOSP.TC ---
Addendum entered and electronically signed by Anmol Macedo MD 10/07/24 11:57:
d/w with patient Son in law Eldon who called to d/w Dolores acevedo. Emily/Eldon to d/w with patient about next step moving forward-home with VN-If fails then hospice vs. SNF. Await family decision.
Original Note:
Today's Communication/Plan
-
wean steroids per pulm
no need for pleurax for now
Await placement
Assessment / Plan
Assessment / Plan
Physical Exam
General: no acute distress, appears comfortable at this time.
HEENT: normocephalic atraumatic moist mucous membrane
Pulm: clear to auscultation b/l, oxygen
Cardio: S1/S2 NSR no murmurs rubs gallops
Abd: soft nontender bowel sounds present
Neuro: Awake Alert Conversant Coherent
79F COPD4L Former smoker here with recurrent pleural effusion found to have stage IV NSCL cancer
# Acute on chronic chronic hypoxic respiratory failure
#Shortness of breath secondary to large LEFT sided pleural effusion likely 2/2 Adenocarcinoma
#Chronic hypercapnic respiratory failure
#COPD/emphysema
#History of severe tobacco abuse
#History of lung nodules
S/P Thoracentesis status post thoracentesis 650 cc of straw-colored pleural fluid removed. (09/13/24) Further fluid removal was stopped as patient complained of pain.
( H/O Thoracentesis 450 cc of clear yellow pleural fluid 08/18/25)
Fluid culture remains negative
CT was removed on 09/22 as not much output was noted
Cytology from 09/15 and 09/18 and resulted with adenocarcinoma
Monitor off antibiotics
ESR/CRP elevated. CONRAD neg, CCP IgG/IgA Ab 78 (nl 0-19)
Continue with bronchodilators, Afraid to go back on vest therapy.
Encourage IS
Treat Anxiety
Repeat CXR with Moderate loculated left pleural effusion. Rounded opacification in the left lower lung field possibly loculated fluid versus pneumonia or pulmonary masses.
3% Saline neb seems to be helping. Cont with Pulmicort. Plan for prolonged steroid slow taper regimen. Now on 20mg prednisone
VBG with worsening hypercapnia. Check vbg intermittently.
Repeat Chest US with Tiny left pleural effusion. Significantly improved. Too small for thoracentesis. No need for pleuralX for now. May require in future.
Probably will require BiPAP / at [facility] for QHS/Prn.
# Hypovolemic shock- Resolved (Status post Levophed. )
# TME due to above
Improvement in mentation and seems back to baseline
# Leukocytosis likely secondary to steroids
Remains afebrile. UA negative. Blood cultures remains negative. Monitor for now.
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
Oncology consulted and they requested further testing on cytologic tissue. No other biopsy required per oncology.
PD-L1 and NGS testing on the adenocarcinoma in the pleural fluid pending.
Patient states that she wants to make sure that she is recovering before she can make any decisions regarding cancer treatments.
# Urinary retention status post straight catheterization x 1
Continue with protocol. If with persistent retention required Ventura catheter placement .
# Transaminitis -Could be from recent infection. Resolved
# Elevated TSH with normal T4-
Subclinical Hypothyroidism TSH>10
Low dose Synthroid started 25 mcg daily
Repeat Thyroid Function Test in 1 month
# Severe anxiety- Psychiatric evaluation appreciated prn Atarax discontinued in favor of scheduled low dose Xanax, cont. on 0.125mg q4h.
# Mild Hyponatremia-likely SIADH
Also elevated TSH with normal T4,
Low cortisol levels could be secondary to steroids suppressing it. Needs cosyntropin test once off of steroids.
# DVT ppx-Lovenox
d/w with pulm.
d/w with CM
Await placement
Anticipated Discharge: Within 24 hours
Subjective/Interval History
-
Date of Service: October 07, 2024
Intermittently uses Bipap qhs
Objective Data
-
Vital Signs:
Vital Signs
Temp Pulse Resp BP Pulse Ox
97.4 F 86 18 110/58 98
10/07/24 07:00 10/07/24 07:05 10/07/24 07:05 10/07/24 07:00 10/07/24 09:47
I&O
10/06/24 10/07/24 10/08/24
06:59 06:59 06:59
Intake Total 840 / 840 960 / 960
Output Total 800 / 800 800 / 800
Balance 40 / 40 160 / 160
Data Reviewed
-
Total Time Spent with Patient (in minutes): 55
--- NOTE | 2024-10-07 16:39 | CM ---
Spoke with Ashly from [facility] & they can accept patient with BIPAP.
may have bed tomorrow.
Entered into [facility] bipap info.
Per pulmonary note 10/06-Ultrasound with small left pleural effusion not amenable for IPC.
Left voice message with daughter Emily to call CM
PLAN: SNF, pending bed availability
--- NOTE | 2024-10-07 17:14 | W.PN.PUL3 ---
Today's Communication / Plan
-
Continue with current care
Discharge planning
Assessment
-
79-year-old woman with history of COPD, home oxygen 4 L who presented with shortness of breath. Discharged from the hospital 08/20/2024 after treated with pneumonia, left-sided parapneumonic effusion s/p thoracentesis. Patient has pulmonary
cachexia, prior tobacco abuse, presented from [facility] with worsening shortness of breath.
Impression:
Chronic hypoxic respiratory failure on 4L/baseline use of 4L
Recurrent left-sided pleural effusion, malignant
s/p repeat thoracentesis 08/18/2024-exudative with negative culture/negative cyto
09/13/2024: 650 cc straw-colored fluid. + cyto for adeno
s/p Chest tube, left side 09/17/24 --> removed 09/22/2024, cyto + for adeno
Stage IV lung adenocarcinoma
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
Discharged from the hospital 08/20/2024 with acute exacerbation of COPD and pneumonia and left pleural effusion
Advanced emphysema
Recurrent left-sided pleural effusion/loculated + lung adenocarcinoma
Chronic respiratory failure with hypercapnia
Discharged on trilogy ventilator 08/20/2024
Latest ABG 7.4/75/60 08/17/2024
Emphysema/COPD on Trelegy 200mcg at home + home O2 (4-6L/min ATC)
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
Chronic rhinitis/eczema
Former tobacco smoker (last smoked a cigarette in April 2024)
Plan
Currently on 4L NC, which is her baseline
Hypoxia did not change with subsequent thoras/chest tube placements
-
Left side chest tube placed 09/17/24--> removed 09/22/2024
Cytology from [facility] on 09/13/2024 showed metastatic adenocarcinoma with suspected lung primary- prior cytology with atypical mesothelial cells
Left pleural fluid cytology 09/17/2024-also showed metastatic adenocarcinoma
She has stage IV diagnosis--this has been reviewed with daughter
Left-sided chest US (09/29/2024): Small pleural effusion, too small for placement
Left-sided ultrasound 10/06/2024: Small pleural effusion, not amenable for thoracentesis.
Effusion too small for intrapleural catheter.
-
[facility] would [facility] if [facility].
If there is ongoing symptoms in the future can consider intrapleural catheter at that time. Pleural effusion has not reaccumulated significantly in 1 week.
We can reassess intrapleural catheter if there is rapid reaccumulation of fluid in the future.
-
Aspiration precautions.
Speech therapy following-correspondence reviewed.
Video swallow 09/15/24-recommend regular solids and thin liquids
-
Continue: Mucolytics with mucinex 600mg PO q12hr
Xopenex and budesonide nebulizers-may continue upon discharge.
Vest therapy will change to percussor per patient's request - use BID prn
Prednisone taper--decreased to 30mg daily, decrease by 10 mg every 72 hours to off.
Continue nebulized 3% TID
Continue vest therapy prn after the 3% is given to help with expectoration
Hopefully can be discharged on this regimen.
Chronic hypercapnic respiratory failure ABG 09/25/2024: 7.36/77/98-compensated.
Has been using BiPAP here in the hospital 22/01. Would continue upon discharge. High risk for readmission. Patient is debilitated with advanced COPD.
Continue physical therapy
Nutritional support
Avoid sedatives
Oncology consultation reviewed, patient had declined treatment and did not want follow up-no treatment has been offered due to debilitation. Poor performance status.
Hospice consult recommended
This was discussed with daughter, she has questioned her mother's competency
Psych following
DVT prophylaxis-on Lovenox.
GI prophylaxis-on pantoprazole.
PT/OT --> PT/OT rec'd skilled rehab upon discharge
-
Prognosis unfortunately poor with metastatic probable lung cancer and poor performance status
Discharge planning. Discussed with primary team.
Discussed with daughter Emily on 10/06/2024. She would like to follow-up locally. My information will be left in the chart.
Case discussed with Dr. Macedo 10/06/2024 on 10/07/2024. Discharge planning ongoing.
Will continue follow
Family Discussions
Chirag 10/01/24- updated Emily on patient's diagnosis, stage IV cancer, she had declined treatment. Daughter was concerned regarding her competency, discussed obtaining psych eval. I communicated this with care team.
Dr. Gómez called [phone] on 09/16/24-explained current clinical situation, potential etiologies, need for chest tube placement for pleural fluid evacuation with subsequent CT chest, also discussed pathology/cytology that is
pending-she is in agreement with chest tube placement-Dr. Gómez called interventional radiology and placed consult-we'll repeat cytology on additional fluid removed
Dr. Gómez had lengthy discussion with daughter 09/26/2024 who joined on multidisciplinary rounds-told overall declining pulmonary status, metastatic lung cancer, likelihood of pleural fluid reaccumulation, options including palliation/comfort
care/hospice
Data:
CXR 08/15/2024: Evidence for small to moderate left pleural effusion with mild lateral loculation. Patchy parenchymal opacity within the left mid to lower lung, suspicious for pneumonia, although there could also be a component of atelectasis. Also
of note, underlying mass/neoplasia cannot be excluded radiographically and radiographic follow-up is recommended.
CT chest 09/20/24-1. Smallbore left chest tube in position. Trace residual left pleural fluid.
2. Complete atelectasis of the left lower lobe. Left lower lobe bronchi filled with secretions. In addition to this, approximately 1.7 cm area of abnormally decreased attenuation in the posterior left lower lobe as above for this area, infectious
etiology considered most likely. Neoplasm cannot be definitively excluded.
3. Persistent area of masslike consolidation in the inferior left upper lobe measuring up to 5 cm in diameter. Given the remainder of the findings and absence of adenopathy, also favored to have infectious etiology. Neoplasm cannot be excluded,
follow-up to resolution is recommended.
4. Emphysema.
5. Coronary and aortic atherosclerosis.
CT chest without contrast 08/15/2024: Moderate to advanced emphysematous lung changes. Mild to moderate left pleural effusion. Masslike opacities in the lingula and left lower lobe. Probable round pneumonia. Follow-up recommended to assess for
resolution. Minor localized tree-in-bud attenuation in the superior segment of the right lower lobe, nonspecific bronchiolitis. 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
Left chest US 08/17/2024: Moderate left pleural effusion. Stable
Left chest US 09/29/2024: Small left pleural effusion.
-----
Subjective Data
-
Date of Service:
Date of Service: October 07, 2024
Chief Complaint: Pulmonary Follow Up and Dyspnea Follow Up
Objective Data
Data Reviewed
Vital Signs / I&O / Oxygen:
Vital Signs
Temp Pulse Resp BP Pulse Ox
98.0 F 114 15 115/68 94
10/07/24 15:00 10/07/24 15:00 10/07/24 15:00 10/07/24 15:00 10/07/24 15:00
Intake and Output
10/06/24 10/07/24 10/08/24
06:59 06:59 06:59
Intake Total 840 / 840 960 / 960
Output Total 800 / 800 800 / 800 20 / 20
Balance 40 / 40 160 / 160 -20 / -20
SaO2 [NIV (Non Invasive 95
Ventilation)]
SaO2 94
Nasal Cannula flow liters per 4
minute
Physical Exam
General: Respiratory Distress (n), Comfortable, Chills (n) and Sweats (n)
HEENT: Normocephalic and Anicteric
Cardiovascular: S1-S2, Peripheral Edema (n) and Other (Distant cardiac sounds)
Respiratory: Wheeze (n), Crackles (Bilateral), Rhonchi (n), Non-Labored Respirations, Accessory Resp Muscle Use (n) and Other (Diminished BS bilaterally)
GI: Soft, Non Distended, Non Tender and Normal Bowel Sounds
Neurology: Awake, Alert, Oriented and Tremors (n)
Skin: Warm, Good Color, Cyanosis (n) and Jaundice (n)
Labs/Micro/Reports
Lab Data
10/06/24 05:51
10/06/24 05:51
Microbiology
09/13/24 11:52 Pleural Fluid Fungal Smear - Final
No yeast or fungal elements seen.
09/13/24 11:52 Pleural Fluid Fungal Culture - Preliminary
Culture in progress.
Positive cultures are reported as soon as detected.
Final report to follow in four to five weeks.
[2024-10-07] MEDS: LOVENOX 40 MG SC (17:46)
[2024-10-08] VITALS (7 sets, daily range): BP systolic 111–122; BP diastolic 57–66; PULSE 2–96
[2024-10-08] MEDS: XANAX 0.125 MG PO ×6 (02:12→22:20)
[2024-10-08] MEDS: MELATONIN PO ×2 (02:16→22:22)
[2024-10-08] MEDS: SYNTHROID 25 MCG PO (05:07)
[2024-10-08] MEDS: XOPENEX 0.63 MG INHALANT SOLUTION INH ×3 (09:17→20:43)
[2024-10-08] MEDS: PULMICORT 0.5 MG INH ×2 (09:17→20:43)
[2024-10-08] MEDS: SODIUM CHLORIDE 3% FOR INHALATION 1 VIAL INH ×3 (09:17→20:43)
[2024-10-08] MEDS: PROTONIX 40 MG PO (09:28)
[2024-10-08] MEDS: MUCINEX 600 MG PO ×2 (09:28→19:50)
[2024-10-08] MEDS: DELTASONE 20 MG PO (09:28)
[2024-10-08] MEDS: MAG-TAB SR 84 MG PO ×2 (09:29→19:49)
--- NOTE | 2024-10-08 11:07 | W.PN.HOSP.TC ---
Today's Communication/Plan
-
Await for equipment set up and then discharged home with VN
prognosis poor
Assessment / Plan
Assessment / Plan
Physical Exam
General: no acute distress, appears comfortable at this time.
HEENT: normocephalic atraumatic moist mucous membrane
Pulm: clear to auscultation b/l, oxygen
Cardio: S1/S2 NSR no murmurs rubs gallops
Abd: soft nontender bowel sounds present
Neuro: Awake Alert Conversant Coherent
79F COPD4L Former smoker here with recurrent pleural effusion found to have stage IV NSCL cancer
# Acute on chronic chronic hypoxic respiratory failure
#Shortness of breath secondary to large LEFT sided pleural effusion likely 2/2 Adenocarcinoma
#Chronic hypercapnic respiratory failure
#COPD/emphysema
#History of severe tobacco abuse
#History of lung nodules
S/P Thoracentesis status post thoracentesis 650 cc of straw-colored pleural fluid removed. (09/13/24) Further fluid removal was stopped as patient complained of pain.
( H/O Thoracentesis 450 cc of clear yellow pleural fluid 08/18/25)
Fluid culture remains negative
CT was removed on 09/22 as not much output was noted
Cytology from 09/15 and 09/18 and resulted with adenocarcinoma
Monitor off antibiotics
ESR/CRP elevated. CONRAD neg, CCP IgG/IgA Ab 78 (nl 0-19)
Continue with bronchodilators, Afraid to go back on vest therapy. Plan to continue Xopenex and dizziness and nebulizer on discharge.
Encourage IS
Treat Anxiety
Repeat CXR with Moderate loculated left pleural effusion. Rounded opacification in the left lower lung field possibly loculated fluid versus pneumonia or pulmonary masses.
3% Saline neb seems to be helping. Cont with Pulmicort. Plan for prolonged steroid slow taper regimen. Now on 20mg prednisone
VBG with worsening hypercapnia. Check vbg intermittently.
Repeat Chest US with Tiny left pleural effusion. Significantly improved. Too small for thoracentesis. No need for pleuralX for now. May require in future.
Probably will require BiPAP 15/ at SNF for QHS/Prn.
# Hypovolemic shock- Resolved (Status post Levophed. )
# TME due to above
Improvement in mentation and seems back to baseline
# Leukocytosis likely secondary to steroids
Remains afebrile. UA negative. Blood cultures remains negative. Monitor for now.
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
Oncology consulted and they requested further testing on cytologic tissue. No other biopsy required per oncology.
PD-L1 and NGS testing on the adenocarcinoma in the pleural fluid pending.
Patient states that she wants to make sure that she is recovering before she can make any decisions regarding cancer treatments.
# Urinary retention status post straight catheterization x 1
Continue with protocol. If with persistent retention required Ventura catheter placement .
# Transaminitis -Could be from recent infection. Resolved
# Elevated TSH with normal T4-
Subclinical Hypothyroidism TSH>10
Low dose Synthroid started 25 mcg daily
Repeat Thyroid Function Test in 1 month
# Severe anxiety- Psychiatric evaluation appreciated prn Atarax discontinued in favor of scheduled low dose Xanax, cont. on 0.125mg q4h.
# Mild Hyponatremia-likely SIADH
Also elevated TSH with normal T4,
Low cortisol levels could be secondary to steroids suppressing it. Needs cosyntropin test once off of steroids.
# DVT ppx-Lovenox
d/w with KENTRELL bijan [phone] on 10/07 and again on 10/08/2024 for prolonged period of time. Pt and family have decided against SNF and wants go to home with VN/Bipap/Hospital bed. CM aware.
Patient remains high risk of readmission as patient is debilitated with advanced COPD. Long-term prognosis significantly guarded.
Patient is in need of a semi-electric hospital bed with foam mattress due to the need to elevate head of bed above 30 degrees to prevent aspiration and to facilitate frequent repositioning to prevent bed ulcers and pressure points.
Anticipated Discharge: Within 24 hours
Subjective/Interval History
-
Date of Service: October 08, 2024
Remains on oxygen and with [place] with activity
Objective Data
-
Vital Signs:
Vital Signs
Temp Pulse Resp BP Pulse Ox
98.7 F 95 20 122/65 96
10/08/24 07:52 10/08/24 09:19 10/08/24 09:19 10/08/24 07:52 10/08/24 09:19
I&O
10/07/24 10/08/24 10/09/24
06:59 06:59 06:59
Intake Total 960 / 960 1440 / 1440
Output Total 800 / 800
Balance 160 / 160 1420 / 1420
Data Reviewed
-
Total Time Spent with Patient (in minutes): 55
--- NOTE | 2024-10-08 11:55 | W.PN.UPDATE ---
Update Note
Progress Note Update
patient seen chart reviewed. noted change in plan for patient's treatment. she will no longer be getting the pleural cath right now and will be referred to snf or she tells me possibly home with her d and son in law if snf cannot be arranged. she
was in pretty good sprits this am. she was realistic that in the end she may choose hospice. she has been trying to get out of bed for much of the late afternoon and evening. she feels too weak to be up walking but can transfer to commode. she
showed some of her feistiness this am (a very good thing) as she told me some of the things that have irked her in this stay. she reported them too with some sense of humor. she worries that ultimately going to her kids' home to live will burden
them. i pointed out that if they had to worry about her alone in [place] that would burden them more. would continue upon her dc to have her take round the clock xanax as currently ordered. i don't think it has sedated her and she looks much better to
me vis a vis anxiety. it is a very small dose. will see her tomorrow if she remains
--- NOTE | 2024-10-08 11:57 | CM ---
CM following re: discharge planning.
Reviewed pt's chart, met with pt, left a message to pt's daughter Emily and spoke to pt's son [phone].
CM spoke to [facility] SNF admissions liaison Shelia and she confirmed that pt is accepted for admission today.
Pt's son Eldon stated that plan has been changed and he is requested pt returns to his house at [address] [place], [place] [address]. pt's son requested [facility]. Also pt's son requested hospital bed, Bi-pp machine and suctioning
machine and pt's son requersted to use [facility].
A referral to [facility] made.
CM placed an order for Bi-pap machine, hospital bed and suctioning machine with [facility].
Pt's son made a strong request that pt will be discharge only when all DME delivered to his house.
D/C plan: home with [place] [facility], necessary DME and family support.
CM will follow to assist pt with discharge home with [place] [facility], necessary DME.
[2024-10-08] MEDS: LOVENOX 40 MG SC (17:14)
--- NOTE | 2024-10-08 17:57 | W.PN.PUL3 ---
Today's Communication / Plan
-
Discharge planning as noted
No additional recommendations
Sign off
Assessment
-
79-year-old woman with history of COPD, home oxygen 4 L who presented with shortness of breath. Discharged from the hospital 08/20/2024 after treated with pneumonia, left-sided parapneumonic effusion s/p thoracentesis. Patient has pulmonary
cachexia, prior tobacco abuse, presented from [facility] with worsening shortness of breath.
Impression:
Chronic hypoxic respiratory failure on 4L/baseline use of 4L
Recurrent left-sided pleural effusion, malignant
s/p repeat thoracentesis 08/18/2024-exudative with negative culture/negative cyto
09/13/2024: 650 cc straw-colored fluid. + cyto for adeno
s/p Chest tube, left side 09/17/24 --> removed 09/22/2024, cyto + for adeno
Stage IV lung adenocarcinoma
Conditions present CARD TABLE ATTENDANT:
Discharged from the hospital 08/20/2024 with acute exacerbation of COPD and pneumonia and left pleural effusion
Advanced emphysema
Recurrent left-sided pleural effusion/loculated + lung adenocarcinoma
Chronic respiratory failure with hypercapnia
Discharged on trilogy ventilator 08/20/2024
Latest ABG 7.4/75/60 08/17/2024
Emphysema/COPD on Trelegy 200mcg at home + home O2 (4-6L/min ATC)
History of multiple lung nodules with prior PET/CT negative with no uptake in 2020 (per her second baker's last office visit note on 05/22/2024)
Chronic rhinitis/eczema
Former tobacco smoker (last smoked a cigarette in April 2024)
Plan
Currently on 4L NC, which is her baseline
Hypoxia did not change with subsequent thoras/chest tube placements
-
Left side chest tube placed 09/17/24--> removed 09/22/2024
Cytology from [facility] on 09/13/2024 showed metastatic adenocarcinoma with suspected lung primary- prior cytology with atypical mesothelial cells
Left pleural fluid cytology 09/17/2024-also showed metastatic adenocarcinoma
She has stage IV diagnosis--this has been reviewed with daughter
Left-sided chest US (09/29/2024): Small pleural effusion, too small for placement
Left-sided ultrasound 10/06/2024: Small pleural effusion, not amenable for thoracentesis.
Effusion too small for intrapleural catheter.
-
Patient to be discharged to a facility.
If there is ongoing symptoms in the future can consider intrapleural catheter at that time. Pleural effusion has not reaccumulated significantly in 1 week.
We can reassess intrapleural catheter if there is rapid reaccumulation of fluid in the future.
-
Aspiration precautions.
Speech therapy following-correspondence reviewed.
Video swallow 09/15/24-recommend regular solids and thin liquids
-
Discharge plan:
Continue: Mucolytics with mucinex 600mg PO q12hr
Xopenex and budesonide nebulizers-may continue upon discharge.
Vest therapy - use BID prn
Prednisone taper--decreased to 30mg daily, decrease by 10 mg every 72 hours to off.
Continue nebulized 3% TID
Continue vest therapy prn after the 3% is given to help with expectoration
Hopefully can be discharged on this regimen.
Chronic hypercapnic respiratory failure ABG 09/25/2024: 7.36/77/98-compensated.
Has been using BiPAP here in the hospital 22/01. Would continue upon discharge. High risk for readmission. Patient is debilitated with advanced COPD.
Continue physical therapy
Nutritional support
Avoid sedatives
Oncology consultation reviewed, patient had declined treatment and did not want follow up-no treatment has been offered due to debilitation. Poor performance status.
Hospice consult recommended
This was discussed with daughter, she has questioned her mother's competency
Psych following
DVT prophylaxis-on Lovenox.
GI prophylaxis-on pantoprazole.
PT/OT --> PT/OT rec'd skilled rehab upon discharge
-
Prognosis unfortunately poor with metastatic probable lung cancer and poor performance status
Discharge planning. Discussed with primary team.
Discussed with daughter Emily on 10/06/2024. She would like to follow-up locally. My information will be left in the chart.
Case discussed with Dr. Macedo 10/06/2024 on 10/07/2024. Discharge planning ongoing.
-
No additional recommendations
Discharge planning ongoing
Sign off
Family Discussions
Chirag 10/01/24- updated Emily on patient's diagnosis, stage IV cancer, she had declined treatment. Daughter was concerned regarding her competency, discussed obtaining psych eval. I communicated this with care team.
Dr. Gómez called [phone] on 09/16/24-explained current clinical situation, potential etiologies, need for chest tube placement for pleural fluid evacuation with subsequent CT chest, also discussed pathology/cytology that is
pending-she is in agreement with chest tube placement-Dr. Gómez called interventional radiology and placed consult-we'll repeat cytology on additional fluid removed
Dr. Gómez had lengthy discussion with daughter 09/26/2024 who joined on multidisciplinary rounds-told overall declining pulmonary status, metastatic lung cancer, likelihood of pleural fluid reaccumulation, options including palliation/comfort
care/hospice
Data:
CXR 08/15/2024: Evidence for small to moderate left pleural effusion with mild lateral loculation. Patchy parenchymal opacity within the left mid to lower lung, suspicious for pneumonia, although there could also be a component of atelectasis. Also
of note, underlying mass/neoplasia cannot be excluded radiographically and radiographic follow-up is recommended.
CT chest 09/20/24-1. Smallbore left chest tube in position. Trace residual left pleural fluid.
2. Complete atelectasis of the left lower lobe. Left lower lobe bronchi filled with secretions. In addition to this, approximately 1.7 cm area of abnormally decreased attenuation in the posterior left lower lobe as above for this area, infectious
etiology considered most likely. Neoplasm cannot be definitively excluded.
3. Persistent area of masslike consolidation in the inferior left upper lobe measuring up to 5 cm in diameter. Given the remainder of the findings and absence of adenopathy, also favored to have infectious etiology. Neoplasm cannot be excluded,
follow-up to resolution is recommended.
4. Emphysema.
5. Coronary and aortic atherosclerosis.
CT chest without contrast 08/15/2024: Moderate to advanced emphysematous lung changes. Mild to moderate left pleural effusion. Masslike opacities in the lingula and left lower lobe. Probable round pneumonia. Follow-up recommended to assess for
resolution. Minor localized tree-in-bud attenuation in the superior segment of the right lower lobe, nonspecific bronchiolitis. 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
Left chest US 08/17/2024: Moderate left pleural effusion. Stable
Left chest US 09/29/2024: Small left pleural effusion.
-----
Subjective Data
-
Date of Service:
Date of Service: October 08, 2024
Chief Complaint: Pulmonary Follow Up and Dyspnea Follow Up
Subjective:
She offers no new complaints
Continues to report shortness of breath with activity
Objective Data
Data Reviewed
Vital Signs / I&O / Oxygen:
Vital Signs
Temp Pulse Resp BP Pulse Ox
97.9 F 112 28 113/66 95
10/08/24 15:17 10/08/24 15:17 10/08/24 15:17 10/08/24 15:17 10/08/24 15:17
Intake and Output
10/07/24 10/08/24 10/09/24
06:59 06:59 06:59
Intake Total 960 / 960 1440 / 1440
Output Total 800 / 800
Balance 160 / 160 1420 / 1420
SaO2 [NIV (Non Invasive 95
Ventilation)]
SaO2 95
Nasal Cannula flow liters per 4
minute
Physical Exam
General: Respiratory Distress (n), Comfortable, Chills (n) and Sweats (n)
HEENT: Normocephalic and Anicteric
Cardiovascular: S1-S2, Peripheral Edema (n) and Other (Distant cardiac sounds)
Respiratory: Wheeze (n), Crackles (Bilateral), Rhonchi (n), Non-Labored Respirations, Accessory Resp Muscle Use (n) and Other (Diminished BS bilaterally)
GI: Soft, Non Distended, Non Tender and Normal Bowel Sounds
Neurology: Awake, Alert, Oriented and Tremors (n)
Skin: Warm, Good Color, Cyanosis (n) and Jaundice (n)
Labs/Micro/Reports
Lab Data
10/06/24 05:51
10/06/24 05:51
Microbiology
09/13/24 11:52 Pleural Fluid Fungal Smear - Final
No yeast or fungal elements seen.
09/13/24 11:52 Pleural Fluid Fungal Culture - Preliminary
Culture in progress.
Positive cultures are reported as soon as detected.
Final report to follow in four to five weeks.
--- NOTE | 2024-10-08 22:57 | RESPNOTE ---
Order received for nocturnal pulse ox trending study. No modality listed on order for nocturnal study. Covering end finder twisting department hospitalist messaged. Per BATTALION FIRE CHIEF, initiate nocturnal pulse ox study on bipap 15/5 with 6L. Trending started at 10:45pm.
[2024-10-09] VITALS (9 sets, daily range): BP systolic 94–138; BP diastolic 55–77; PULSE 2–88
[2024-10-09] MEDS: XANAX 0.125 MG PO ×6 (01:08→22:33)
--- NOTE | 2024-10-09 01:15 | RESPNOTE ---
pt removed bipap mask for medication. removal of bipap mask and placing of pt back on bipap was approximently 10 minutes.
--- NOTE | 2024-10-09 05:18 | RESPNOTE ---
nocturnal study ended
[2024-10-09] MEDS: SYNTHROID 25 MCG PO (06:07)
[2024-10-09] MEDS: SODIUM CHLORIDE 3% FOR INHALATION 1 VIAL INH ×3 (07:12→19:36)
[2024-10-09] MEDS: PULMICORT 0.5 MG INH ×2 (07:12→19:35)
[2024-10-09] MEDS: XOPENEX 0.63 MG INHALANT SOLUTION INH ×3 (07:12→19:35)
[2024-10-09] MEDS: DELTASONE 20 MG PO (08:15)
[2024-10-09] MEDS: MAG-TAB SR 84 MG PO ×2 (08:16→20:36)
[2024-10-09] MEDS: PROTONIX 40 MG PO (08:16)
[2024-10-09] MEDS: MUCINEX 600 MG PO ×2 (08:16→20:37)
--- NOTE | 2024-10-09 09:16 | CM ---
Addendum entered by Brianne Pena 10/09/24 12:05:
tt from Lucila De Luna from [facility]. States patient does not qualify for the BIPAP through insurance.
tt hospitalist qualifying guidelines
Addendum entered by Brianne Pena 10/09/24 10:13:
Faxed a script to [facility] for BIPAP
Will get back to CM regarding equipment delivery
Original Note:
Spoke with Nadege at [facility] - faxed overnight 02 results to her at [phone].
Will get back to wrapper caser regarding when equpment will be delivered.
[facility]-accepted. fax #: [phone]
--- NOTE | 2024-10-09 09:30 | PTCARENOTE ---
AM meds administered, pt saying she has urinated. This RN in to clean up pt, pt refusing hygiene and to turn. This RN educated pt on risks of not being cleaned, pt still refusing hygiene. This RN instructed pt to be back soon to reattempt.
--- NOTE | 2024-10-09 10:49 | W.PN.HOSP.TC ---
Today's Communication/Plan
-
Awaiting for DME equipment to be set up hospital bed, BiPAP
Home with VNA
Continue with prednisone and bronchodilators
Long-term prognosis guarded
Assessment / Plan
Assessment / Plan
Physical Exam
General: no acute distress, appears comfortable at this time.
HEENT: normocephalic atraumatic moist mucous membrane
Pulm: dec bs b/l, oxygen
Cardio: S1/S2 NSR no murmurs rubs gallops
Abd: soft nontender bowel sounds present
Neuro: Awake Alert Conversant Coherent
79F COPD4L Former smoker here with recurrent pleural effusion found to have stage IV NSCL cancer
# Acute on chronic chronic hypoxic respiratory failure
#Shortness of breath secondary to large LEFT sided pleural effusion likely 2/2 Adenocarcinoma
#Chronic hypercapnic respiratory failure
#COPD/emphysema
#History of severe tobacco abuse
#History of lung nodules
S/P Thoracentesis status post thoracentesis 650 cc of straw-colored pleural fluid removed. (09/13/24) Further fluid removal was stopped as patient complained of pain.
( H/O Thoracentesis 450 cc of clear yellow pleural fluid 08/18/25)
Fluid culture remains negative
CT was removed on 09/22 as not much output was noted
Cytology from 09/15 and 09/18 and resulted with adenocarcinoma
Monitor off antibiotics
ESR/CRP elevated. CONRAD neg, CCP IgG/IgA Ab 78 (nl 0-19)
Continue with bronchodilators, Afraid to go back on vest therapy. Plan to continue Xopenex and dizziness and nebulizer on discharge.
Encourage IS
Treat Anxiety
Repeat CXR with Moderate loculated left pleural effusion. Rounded opacification in the left lower lung field possibly loculated fluid versus pneumonia or pulmonary masses.
3% Saline neb seems to be helping. Cont with Pulmicort. Plan for prolonged steroid slow taper regimen. Now on 20mg prednisone
VBG with worsening hypercapnia. Check vbg intermittently.
Repeat Chest US with Tiny left pleural effusion. Significantly improved. Too small for thoracentesis. No need for pleuralX for now. May require in future.
Continue with prednisone taper. Decrease 10 mg every 3 days and then off.
will require BiPAP 15/5 at SNF or home for QHS/Prn.
# Hypovolemic shock- Resolved (Status post Levophed. )
# TME due to above
Improvement in mentation and seems back to baseline
# Leukocytosis likely secondary to steroids
Remains afebrile. UA negative. Blood cultures remains negative. Monitor for now.
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
Oncology consulted and they requested further testing on cytologic tissue. No other biopsy required per oncology.
PD-L1 and NGS testing on the adenocarcinoma in the pleural fluid pending.
Patient states that she wants to make sure that she is recovering before she can make any decisions regarding cancer treatments.
# Urinary retention status post straight catheterization x 1
Continue with protocol. If with persistent retention required Ventura catheter placement .
# Transaminitis -Could be from recent infection. Resolved
# Elevated TSH with normal T4-
Subclinical Hypothyroidism TSH>10
Low dose Synthroid started 25 mcg daily
Repeat Thyroid Function Test in 1 month
# Severe anxiety- Psychiatric evaluation appreciated prn Atarax discontinued in favor of scheduled low dose Xanax, cont. on 0.125mg q4h.
# Mild Hyponatremia-likely SIADH
Also elevated TSH with normal T4,
Low cortisol levels could be secondary to steroids suppressing it. Needs cosyntropin test once off of steroids.
# DVT ppx-Lovenox
d/w with KENTRELL bijan [phone] on 10/07 and again on 10/08/2024 for prolonged period of time. Pt and family have decided against SNF and wants go to home with VN/Bipap/Hospital bed. CM aware.
Patient remains high risk of readmission as patient is debilitated with advanced COPD. Long-term prognosis significantly guarded.
Anticipated Discharge: Within 24 hours
Subjective/Interval History
-
Date of Service: October 09, 2024
States breathing remains the same
Objective Data
-
Vital Signs:
Vital Signs
Temp Pulse Resp BP Pulse Ox
97.9 F 84 22 125/55 98
10/09/24 07:36 10/09/24 07:36 10/09/24 07:36 10/09/24 07:36 10/09/24 07:36
I&O
10/08/24 10/09/24 10/10/24
06:59 06:59 06:59
Intake Total 1440 / 1440 960 / 960
Output Total
Balance 1420 / 1420 960 / 960
--- NOTE | 2024-10-09 11:40 | W.PN.UPDATE ---
Update Note
Progress Note Update
patient seen chart reviewed. discussed chela camara. mrs smith continues much the same. she is happy at this point to be headed toward dc to her d juan's home. she is realistic about prognosis. she acknowledges feeling much more comfortable with dc
to d's home rather than snf. will continue to offer support until she is dc'ed from . no changes made in her medications.
[2024-10-09] MEDS: LOVENOX 40 MG SC (17:16)
[2024-10-09] MEDS: MELATONIN PO (22:36)
[2024-10-10] VITALS (7 sets, daily range): BP systolic 104–121; BP diastolic 53–64; PULSE 2–81
[2024-10-10] MEDS: XANAX 0.125 MG PO ×6 (02:38→22:13)
[2024-10-10 04:58] LABS: B.E. 15.6 mmol/L; O2 Saturation % 96.8 % (94-98); PO2 75 mmHg (83-108); pH 7.34 (7.35-7.45)
[2024-10-10 05:06] LABS: O2 Therapy 4L NC
[2024-10-10 05:07] LABS: HCO3 44.8 mmol/L (21-28); PCO2 83 mmHg (32-35)
[2024-10-10] MEDS: SYNTHROID 25 MCG PO (05:46)
--- NOTE | 2024-10-10 06:21 | PTCARENOTE ---
Critical ABG results (PH 7.34/PCO2 83/HCO3 44.8/PO2 75) reported to Meghana Pitts, hospitalist NAVIGATION OFFICER. Of note ABG done on 4L O2 NC this AM and pt. refused bipap overnight (wore for approx 1 hour then asked to take it off). Per Meghana, place pt. back on
bipap but pt. is refusing. States she is comfortable on 4L NC. Rationale explained to patient but she still refuses. Pt. at baseline and not in any acute distress. Pulse ox 96% on 4L O2 NC. Meghana notified, now new orders at this time. Pt. is
on continuous pulse ox resting quietly.
[2024-10-10 08:10] LABS: % Basophils 0.2 % (0-2); % Eosinophils 2.3 % (0-6); % Immature Granulocytes 0.7 % (0-0.5); % Lymphocytes 15.7 % (20.5-51.1); % Monocytes 10.4 % (1.7-9.3); % Neutrophils 70.7 % (42.2-75.2); Absolute Eosinophils 0.2 10^3/uL (0-0.7); Absolute Immature Granulocytes 0.1 10^3/uL (0-0.05); Absolute Lymphocytes 1.4 10^3/uL (1.2-3.4); Absolute Neutrophils 6.5 10^3/uL (1.4-6.5); Hematocrit 38.5 % (37.0-47.0); Hemoglobin 11.6 g/dL (12.0-16.0); Mean Corp Hgb Conc. 30.1 g/dL (33.0-37.0); Mean Corpuscular Hgb 29.7 pg (27.0-31.0); Mean Corpuscular Volume 98.5 fL (81.0-99.0); Mean Platelet Volume 9.1 fL (7.4-10.4); Nucleated Red Blood Cells % 0 %; Platelet Count 278 10^3/uL (130-400); Red Blood Cell Count 3.91 10^6/uL (4.20-5.40); White Blood Cell Count 9.2 10^3/uL (4.8-10.8)
[2024-10-10] MEDS: PULMICORT 0.5 MG INH ×2 (08:12→20:05)
[2024-10-10] MEDS: SODIUM CHLORIDE 3% FOR INHALATION 1 VIAL INH ×3 (08:12→20:05)
[2024-10-10] MEDS: XOPENEX 0.63 MG INHALANT SOLUTION INH ×3 (08:13→20:05)
--- NOTE | 2024-10-10 08:50 | W.PN.HOSP.TC ---
Today's Communication/Plan
-
Increased BiPAP usage
Awaiting for medical equipment to be set up
DC home once equipment set up completed
Prognosis guarded�hospice appropriate
Assessment / Plan
Assessment / Plan
Physical Exam
General: no acute distress, appears comfortable at this time.
HEENT: normocephalic atraumatic moist mucous membrane
Pulm: dec bs b/l, oxygen
Cardio: S1/S2 NSR no murmurs rubs gallops
Abd: soft nontender bowel sounds present
Neuro: Awake Alert Conversant Coherent
79F COPD4L Former smoker here with recurrent pleural effusion found to have stage IV NSCL cancer
# Acute on chronic chronic hypoxic respiratory failure
#Shortness of breath secondary to large LEFT sided pleural effusion likely 2/2 Adenocarcinoma
#Chronic hypercapnic respiratory failure
#COPD/emphysema
#History of severe tobacco abuse
#History of lung nodules
S/P Thoracentesis status post thoracentesis 650 cc of straw-colored pleural fluid removed. (09/13/24) Further fluid removal was stopped as patient complained of pain.
( H/O Thoracentesis 450 cc of clear yellow pleural fluid 08/18/25)
Fluid culture remains negative
CT was removed on 09/22 as not much output was noted
Cytology from 09/15 and 09/18 and resulted with adenocarcinoma
Monitor off antibiotics
ESR/CRP elevated. CONRAD neg, CCP IgG/IgA Ab 78 (nl 0-19)
Continue with bronchodilators, Afraid to go back on vest therapy. Plan to continue Xopenex and dizziness and nebulizer on discharge.
Encourage IS
Treat Anxiety
Repeat CXR with Moderate loculated left pleural effusion. Rounded opacification in the left lower lung field possibly loculated fluid versus pneumonia or pulmonary masses.
3% Saline neb seems to be helping. Cont with Pulmicort. Plan for prolonged steroid slow taper regimen. Now on 10mg prednisone
VBG with worsening hypercapnia. Check vbg intermittently.
Repeat Chest US with Tiny left pleural effusion. Significantly improved. Too small for thoracentesis. No need for pleuralX for now. May require in future.
Continue with prednisone taper. Decrease 10 mg every 3 days and then off.
will require BiPAP 15/5 at SNF or home for QHS/Prn. Counseled patient to follow-up weight of time that she needs to increase the duration of BiPAP usage at bedtime. States the patient if She decreases timing of BiPAP usage then high risk of
toxic metabolic encephalopathy due to hypercapnic respiratory failure and . Patient verbalized understanding and says she will try to increase overnight however this seems to be an ongoing problem. Prognosis guarded.
# Hypovolemic shock- Resolved (Status post Levophed. )
# TME due to above
Improvement in mentation and seems back to baseline
# Leukocytosis likely secondary to steroids
Remains afebrile. UA negative. Blood cultures remains negative. Monitor for now.
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
Oncology consulted and they requested further testing on cytologic tissue. No other biopsy required per oncology.
PD-L1 and NGS testing on the adenocarcinoma in the pleural fluid pending.
Patient states that she wants to make sure that she is recovering before she can make any decisions regarding cancer treatments.
# Urinary retention status post straight catheterization x 1
Continue with protocol. If with persistent retention required Ventura catheter placement .
# Transaminitis -Could be from recent infection. Resolved
# Elevated TSH with normal T4-
Subclinical Hypothyroidism TSH>10
Low dose Synthroid started 25 mcg daily
Repeat Thyroid Function Test in 1 month
# Severe anxiety- Psychiatric evaluation appreciated prn Atarax discontinued in favor of scheduled low dose Xanax, cont. on 0.125mg q4h.
# Mild Hyponatremia-likely SIADH
Also elevated TSH with normal T4,
Low cortisol levels could be secondary to steroids suppressing it. Needs cosyntropin test once off of steroids.
# History of tachycardia
Heart rate mildly elevated which is multifactorial due to hypoxemia, anxiety
Will restart patient on Lopressor. Syed has interaction with Xanax.
# DVT ppx-Lovenox
d/w with KENTRELL thakkar [phone] on 10/07 and again on 10/08/2024 for prolonged period of time. Pt and family have decided against SNF and wants go to home with VN/Bipap/Hospital bed. CM aware.
Patient remains high risk of readmission as patient is debilitated with advanced COPD. Long-term prognosis significantly guarded.
Anticipated Discharge: Today
Subjective/Interval History
-
Date of Service: October 10, 2024
Refusing bipap at qhs at times
wore for short period of time
Objective Data
-
Labs:
Laboratory Results
10/10/24 10/10/24
04:51 07:49
WBC 9.2
Hgb 11.6 L
Hct 38.5
Plt Count 278
HCO3 44.8 H*
Sodium Pending
Potassium Pending
Chloride Pending
Carbon Dioxide Pending
BUN Pending
Creatinine Pending
Glucose Pending
Calcium Pending
Vital Signs:
Vital Signs
Temp Pulse Resp BP Pulse Ox
98.9 F 93 18 121/59 97
10/10/24 07:21 10/10/24 08:15 10/10/24 08:15 10/10/24 07:21 10/10/24 08:15
I&O
10/09/24 10/10/24 10/11/24
06:59 06:59 06:59
Intake Total 960 / 960 960 / 960
Balance 960 / 960 960 / 960
Data Reviewed
-
Total Time Spent with Patient (in minutes): 57
--- NOTE | 2024-10-10 08:50 | W.PN.UPDATE ---
Update Note
Progress Note Update
Patient needs a commode due to confinement to a single room.
OR
Patient needs a commode due to confinement to one level of the home environment and there is no toilet on the same level.
Patient is in need of a walker to prevent falls due to unsteady gait.
[2024-10-10 08:58] LABS: Blood Urea Nitrogen 9 mg/dl (7-17); Calcium 8.5 mg/dl (8.4-10.2); Chloride 88 mmol/L (98-107); Estimated Creatinine Clearance 71 ml/min; Glucose 76 mg/dl (70-99); Potassium 4.3 mmol/L (3.5-5.1); Sodium 137 mmol/L (135-145); eGFR > 60.00
[2024-10-10] MEDS: PROTONIX 40 MG PO (09:07)
[2024-10-10] MEDS: MUCINEX 600 MG PO ×2 (09:07→21:07)
[2024-10-10] MEDS: DELTASONE 20 MG PO (09:07)
[2024-10-10] MEDS: MAG-TAB SR 84 MG PO ×2 (09:07→21:07)
[2024-10-10 09:19] LABS: Carbon Dioxide 36 mmol/L (22-30)
--- NOTE | 2024-10-10 09:41 | CM ---
Eldon son-in-law called - hospital bed being delivered today from [facility].
He states the patient is in need of commode & walker.
tt hospitalist to add addendum in his progress note.
Per Yusra (manager client) from [facility] - patient does not qualify for BIPAP
Emily stated that her sleep oximetry did not meet qualifying guidelines (need all 3 components)
Patient would need to pay out of pocket for the BIPAP. Cost $205/mo. Discussed this cost with daughter Emily & son.
Discussed with daughter & son the suction machine not covered.
Per [facility] walker is not covered as she has a wheelchair.
PER patient she states she has a nebulizer, walker, wheelchair at her home.
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
Patient has oxygen through [employer]. Daughter states they have a concentrator & portable 02 at her home.
[facility]
CM to fax progress note for commode to [facility] [phone]
PLAN: Home with daughter & son-in-Law ([address] [facility], [place], [place]) with [facility] once equipment is in place.
fax #: [phone]
--- NOTE | 2024-10-10 11:29 | W.PN.UPDATE ---
Update Note
Progress Note Update
patient seen chart reviewed. spoke with nursing who tells me patient is refusing bipap at night hence not sleeping well. she told me she just will 'nap ' in the am. she is eager to be home with her family which she hopes will be on sunday. patient
should be dc on current dose of xanax. psych will sign off at this point as she will be leaving in the near future and it is unlikely we will make any med changes.
[2024-10-10] MEDS: TYLENOL 650 MG PO (12:22)
[2024-10-10] MEDS: LOVENOX 40 MG SC (17:17)
[2024-10-10] MEDS: LOPRESSOR 12.5 MG PO (21:07)
[2024-10-10] MEDS: MELATONIN PO (22:13)
[2024-10-11] MEDS: XANAX 0.125 MG PO ×6 (02:10→23:22)
[2024-10-11 03:12] VITALS: BP 117/61
[2024-10-11] MEDS: SYNTHROID 25 MCG PO (06:24)
[2024-10-11] MEDS: PULMICORT 0.5 MG INH ×2 (07:32→18:13)
[2024-10-11] MEDS: XOPENEX 0.63 MG INHALANT SOLUTION INH ×3 (07:32→18:14)
[2024-10-11] MEDS: SODIUM CHLORIDE 3% FOR INHALATION 1 VIAL INH ×3 (07:32→18:14)
[2024-10-11 08:00] VITALS: BP 116/76
[2024-10-11] MEDS: MUCINEX 600 MG PO ×2 (09:11→19:52)
[2024-10-11] MEDS: LOPRESSOR 12.5 MG PO ×2 (09:11→19:53)
[2024-10-11] MEDS: DELTASONE 10 MG PO (09:11)
[2024-10-11] MEDS: MAG-TAB SR 84 MG PO ×2 (09:11→19:53)
[2024-10-11] MEDS: PROTONIX 40 MG PO (09:11)
--- NOTE | 2024-10-11 10:15 | CM ---
Chart reviewed
Spoke with daughter Emily - [facility] delivered. Family planning to go to [facility] today to obtain DME needed
Requesting discharge tomorrow
Medical team updated
Plan - home with [facility] tomorrow - pend DME
fax #: [phone]
[2024-10-11 12:00] VITALS: BP 120/60
--- NOTE | 2024-10-11 13:36 | W.PN.HOSP.TC ---
Today's Communication/Plan
-
Increased BiPAP usage
Awaiting for medical equipment to be set up
DC home once equipment set up completed
Prognosis guarded�hospice appropriate
Assessment / Plan
Assessment / Plan
Physical Exam
General: no acute distress, appears comfortable at this time.
HEENT: normocephalic atraumatic moist mucous membrane
Pulm: dec bs b/l, oxygen
Cardio: S1/S2 NSR no murmurs rubs gallops
Abd: soft nontender bowel sounds present
Neuro: Awake Alert Conversant Coherent
79F COPD4L Former smoker here with recurrent pleural effusion found to have stage IV NSCL cancer
# Acute on chronic chronic hypoxic respiratory failure
#Shortness of breath secondary to large LEFT sided pleural effusion likely 2/2 Adenocarcinoma
#Chronic hypercapnic respiratory failure
#COPD/emphysema
#History of severe tobacco abuse
#History of lung nodules
S/P Thoracentesis status post thoracentesis 650 cc of straw-colored pleural fluid removed. (09/13/24) Further fluid removal was stopped as patient complained of pain.
( H/O Thoracentesis 450 cc of clear yellow pleural fluid 08/18/25)
Fluid culture remains negative
CT was removed on 09/22 as not much output was noted
Cytology from 09/15 and 09/18 and resulted with adenocarcinoma
Monitor off antibiotics
ESR/CRP elevated. CONRAD neg, CCP IgG/IgA Ab 78 (nl 0-19)
Continue with bronchodilators, Afraid to go back on vest therapy. Plan to continue Xopenex and dizziness and nebulizer on discharge.
Encourage IS
Treat Anxiety
Repeat CXR with Moderate loculated left pleural effusion. Rounded opacification in the left lower lung field possibly loculated fluid versus pneumonia or pulmonary masses.
3% Saline neb seems to be helping. Cont with Pulmicort. Plan for prolonged steroid slow taper regimen. Now on 10mg prednisone
VBG with worsening hypercapnia. Check vbg intermittently.
Repeat Chest US with Tiny left pleural effusion. Significantly improved. Too small for thoracentesis. No need for pleuralX for now. May require in future.
Continue with prednisone taper. Decrease 10 mg every 3 days and then off.
will require BiPAP 15/5 at SNF or home for QHS/Prn. Counseled patient to follow-up weight of time that she needs to increase the duration of BiPAP usage at bedtime. States the patient if She decreases timing of BiPAP usage then high risk of
toxic metabolic encephalopathy due to hypercapnic respiratory failure and . Patient verbalized understanding and says she will try to increase overnight however this seems to be an ongoing problem. Prognosis guarded.
# Hypovolemic shock- Resolved (Status post Levophed. )
# TME due to above
Improvement in mentation and seems back to baseline
# Leukocytosis likely secondary to steroids
Remains afebrile. UA negative. Blood cultures remains negative. Monitor for now.
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
Oncology consulted and they requested further testing on cytologic tissue. No other biopsy required per oncology.
PD-L1 and NGS testing on the adenocarcinoma in the pleural fluid pending.
Patient states that she wants to make sure that she is recovering before she can make any decisions regarding cancer treatments.
# Urinary retention status post straight catheterization x 1
Continue with protocol. If with persistent retention required Ventura catheter placement .
# Transaminitis -Could be from recent infection. Resolved
# Elevated TSH with normal T4-
Subclinical Hypothyroidism TSH>10
Low dose Synthroid started 25 mcg daily
Repeat Thyroid Function Test in 1 month
# Severe anxiety- Psychiatric evaluation appreciated prn Atarax discontinued in favor of scheduled low dose Xanax, cont. on 0.125mg q4h.
# Mild Hyponatremia-likely SIADH
Also elevated TSH with normal T4,
Low cortisol levels could be secondary to steroids suppressing it. Needs cosyntropin test once off of steroids.
# History of tachycardia
Heart rate mildly elevated which is multifactorial due to hypoxemia, anxiety
Will restart patient on Lopressor. Syed has interaction with Xanax.
# DVT ppx-Lovenox
d/w with KENTRELL thakkar [phone] on 10/07 and again on 10/08/2024 for prolonged period of time. Pt and family have decided against SNF and wants go to home with VN/Bipap/Hospital bed. CM aware.
Patient remains high risk of readmission as patient is debilitated with advanced COPD. Long-term prognosis significantly guarded.
Anticipated Discharge: Within 24 hours
Subjective/Interval History
-
Date of Service: October 11, 2024
Per RN, Pt used bipap for 3h
states breathing is same
hoping to go home tomm
Objective Data
-
Vital Signs:
Vital Signs
Temp Pulse Resp BP Pulse Ox
98.2 F 90 18 120/60 97
10/11/24 12:00 10/11/24 12:00 10/11/24 12:00 10/11/24 12:00 10/11/24 12:00
I&O
10/10/24 10/11/24 10/12/24
06:59 06:59 06:59
Intake Total 960 / 960 1560 / 1560
Balance 960 / 960 1560 / 1560
[2024-10-11 16:03] VITALS: BP 122/66
[2024-10-11] MEDS: LOVENOX 40 MG SC (17:06)
[2024-10-11 19:25] VITALS: BP 120/72
[2024-10-11 23:15] VITALS: BP 107/55
[2024-10-11] MEDS: MELATONIN 5 MG PO (23:22)
[2024-10-12] MEDS: XANAX 0.125 MG PO ×6 (02:55→22:10)
[2024-10-12] MEDS: TYLENOL 650 MG PO ×2 (02:55→19:43)
[2024-10-12 03:37] VITALS: BP 121/63
[2024-10-12] MEDS: SYNTHROID 25 MCG PO (06:21)
[2024-10-12 07:05] VITALS: BP 108/56
[2024-10-12] MEDS: XOPENEX 0.63 MG INHALANT SOLUTION INH ×3 (07:40→20:16)
[2024-10-12] MEDS: SODIUM CHLORIDE 3% FOR INHALATION 1 VIAL INH ×3 (07:40→20:16)
[2024-10-12] MEDS: PULMICORT 0.5 MG INH ×2 (07:40→20:16)
[2024-10-12] MEDS: MAG-TAB SR 84 MG PO ×2 (08:14→19:44)
[2024-10-12] MEDS: LOPRESSOR 12.5 MG PO ×2 (08:14→19:43)
[2024-10-12] MEDS: MUCINEX 600 MG PO ×2 (08:14→19:44)
[2024-10-12] MEDS: PROTONIX 40 MG PO (08:15)
[2024-10-12] MEDS: DELTASONE 10 MG PO (08:15)
[2024-10-12 11:03] VITALS: BP 110/57
--- NOTE | 2024-10-12 12:04 | W.PN.HOSP.TC ---
Today's Communication/Plan
-
Await for Bipap at home set up to be completed
encourage to increase bipap at home
labs in am
oob/pt
Assessment / Plan
Assessment / Plan
Physical Exam
General: no acute distress, appears comfortable at this time.
HEENT: normocephalic atraumatic moist mucous membrane
Pulm: dec bs b/l, oxygen
Cardio: S1/S2 NSR no murmurs rubs gallops
Abd: soft nontender bowel sounds present
Neuro: Awake Alert Conversant Coherent
79F COPD4L Former smoker here with shortness of breath. Patient was found to have pleural effusion. Underwent thoracentesis. Patient fluid cytology came back positive for malignancy. Patient also had a chest tube placed for persistent pleural
effusion. After few days a chest tube was removed. Patient underwent repeat ultrasound initially which showed persistent pleural effusion. Autoimmune workup was started per pulmonary. ESR CRP was elevated. Bronchodilators were adjusted.
Patient with improvement with 3% saline neb. Anxiety also plays a huge component and patient with severe shortness of breath. Psych was consulted. Oncology was consulted. Patient also had episode of toxic metabolic encephalopathy which was
deemed secondary to hypercapnic respiratory failure and patient was transferred to the ICU. Patient also with hypovolemic shock due to decreased p.o. intake secondary to change in mental status. Received IV fluids. Was able to be weaned off
Levophed. Patient was monitored on noninvasive. Patient with significant improvement in mentation. Patient was transferred out of ICU. Patient will need to continue on BiPAP 15/5. Vest therapy was discontinued. Patient was started on high dose
stress dose steroids which was eventually decreased from IV to oral prednisone taper regimen. Repeat ultrasound of the chest was performed by interventional radiology and no significant pleural effusion was noted and not a candidate for Pleurx for
now. Patient fluid cytology with adenocarcinoma and per oncology patient has have stage IV NSCL cancer. Psychiatry was consulted and recommended to discontinue hydroxyzine and start patient on Xanax. Due to interaction of Xanax with Cardizem
Cardizem was discontinued. Patient was started on Lopressor for tachycardia. Patient with significantly poor functional capability. Physical and Occupational Therapy was consulted. Initially patient and family agreed for [facility]
facility. After prolonged period of time SNF was found and then patient and family refused SNF and wants to go home with VN. Awaiting for DME equipment set up to be completed including BiPAP.
# Acute on chronic chronic hypoxic respiratory failure
#Shortness of breath secondary to large LEFT sided pleural effusion likely 2/2 Adenocarcinoma
#Chronic hypercapnic respiratory failure
#COPD/emphysema
#History of severe tobacco abuse
#History of lung nodules
S/P Thoracentesis status post thoracentesis 650 cc of straw-colored pleural fluid removed. (09/13/24) Further fluid removal was stopped as patient complained of pain.
( H/O Thoracentesis 450 cc of clear yellow pleural fluid 08/18/25)
Fluid culture remains negative
CT was removed on 09/22 as not much output was noted
Cytology from 09/15 and 09/18 and resulted with adenocarcinoma
Monitor off antibiotics
ESR/CRP elevated. CONRAD neg, CCP IgG/IgA Ab 78 (nl 0-19)
Continue with bronchodilators, Afraid to go back on vest therapy. Plan to continue Xopenex and dizziness and nebulizer on discharge.
Encourage IS
Treat Anxiety
Repeat CXR with Moderate loculated left pleural effusion. Rounded opacification in the left lower lung field possibly loculated fluid versus pneumonia or pulmonary masses.
3% Saline neb seems to be helping. Cont with Pulmicort. Plan for prolonged steroid slow taper regimen. Now on 10mg prednisone
VBG with worsening hypercapnia. Check vbg intermittently.
Repeat Chest US with Tiny left pleural effusion. Significantly improved. Too small for thoracentesis. No need for pleuralX for now. May require in future.
Continue with prednisone taper. Decrease 10 mg every 3 days and then off.
Repeat ABG was performed for BiPAP testing requirement as outpatient.
will require BiPAP 15/5 at SNF or home for QHS/Prn. Counseled patient to increase amount of time that she needs to increase the duration of BiPAP usage at bedtime. Stated to patient if She decreases timing of BiPAP usage then high risk of
toxic metabolic encephalopathy due to hypercapnic respiratory failure and . Patient verbalized understanding and says she will try to increase overnight however this seems to be an ongoing problem. Prognosis guarded.
# Hypovolemic shock- Resolved (Status post Levophed. )
# TME due to above
Improvement in mentation and seems back to baseline
# Leukocytosis likely secondary to steroids
Remains afebrile. UA negative. Blood cultures remains negative. Monitor for now.
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
Oncology consulted and they requested further testing on cytologic tissue. No other biopsy required per oncology.
PD-L1 and NGS testing on the adenocarcinoma in the pleural fluid pending.
Patient states that she wants to make sure that she is recovering before she can make any decisions regarding cancer treatments.
# Urinary retention status post straight catheterization x 1
Continue with protocol. If with persistent retention required Ventura catheter placement .
# Transaminitis -Could be from recent infection. Resolved
# Elevated TSH with normal T4-
Subclinical Hypothyroidism TSH>10
Low dose Synthroid started 25 mcg daily
Repeat Thyroid Function Test in 1 month
# Severe anxiety- Psychiatric evaluation appreciated prn Atarax discontinued in favor of scheduled low dose Xanax, cont. on 0.125mg q4h.
# Mild Hyponatremia-likely SIADH
Also elevated TSH with normal T4,
Low cortisol levels could be secondary to steroids suppressing it. Needs cosyntropin test once off of steroids.
# History of tachycardia
Heart rate mildly elevated which is multifactorial due to hypoxemia, anxiety
Will restart patient on Lopressor. Syed has interaction with Xanax.
# DVT ppx-Lovenox
Disp-remains for home with DME set up/vn. Process was started early in the week and still not completed. Still awaiting for BiPAP and patient requires BiPAP at home.
Patient remains high risk of readmission as patient is debilitated with advanced COPD. Long-term prognosis significantly guarded.
Anticipated Discharge: Within 24 hours
Subjective/Interval History
-
Date of Service: October 12, 2024
Pt refused bipap overnight
completed breakfast
states breathing feels same
Objective Data
-
Vital Signs:
Vital Signs
Temp Pulse Resp BP Pulse Ox
98.6 F 86 16 110/57 96
10/12/24 11:03 10/12/24 11:03 10/12/24 11:03 10/12/24 11:03 10/12/24 11:03
I&O
10/11/24 10/12/24 10/13/24
06:59 06:59 06:59
Intake Total 1560 / 1560 1440 / 1440
Balance 1560 / 1560 1440 / 1440
Data Reviewed
-
Total Time Spent with Patient (in minutes): 55
--- NOTE | 2024-10-12 12:57 | PTCARENOTE ---
pt and pt's daughter Emily aware pt will not be getting d/c today, per CM Bipap is not set up for home. Dr. rojas. plan of care ongoing.
--- NOTE | 2024-10-12 14:41 | CM ---
Spoke with pts daughter - have DME. Do not have BiPap - pt cont to require
Discussed with Team - Pt will need BiPap for discharge
CM to follow in AM
Plan - home with family when BiPAp availble
[2024-10-12 15:48] VITALS: BP 121/66
[2024-10-12] MEDS: LOVENOX 40 MG SC (17:57)
[2024-10-12 19:21] VITALS: BP 122/62
[2024-10-12] MEDS: MELATONIN PO (22:20)
[2024-10-12 23:25] VITALS: BP 113/64
[2024-10-13 00:39] VITALS: PULSE 2
[2024-10-13 03:25] VITALS: BP 109/63
[2024-10-13] MEDS: XANAX PO (04:18)
[2024-10-13] MEDS: SYNTHROID 25 MCG PO (05:52)
[2024-10-13] MEDS: XANAX 0.125 MG PO ×4 (05:52→17:02)
[2024-10-13 06:52] LABS: % Basophils 0.3 % (0-2); % Eosinophils 5.2 % (0-6); % Immature Granulocytes 0.3 % (0-0.5); % Monocytes 12.4 % (1.7-9.3); % Neutrophils 63.8 % (42.2-75.2); Absolute Eosinophils 0.4 10^3/uL (0-0.7); Absolute Lymphocytes 1.3 10^3/uL (1.2-3.4); Absolute Monocytes 0.9 10^3/uL (0.1-0.6); Absolute Neutrophils 4.6 10^3/uL (1.4-6.5); Hematocrit 36.2 % (37.0-47.0); Hemoglobin 10.6 g/dL (12.0-16.0); Mean Corp Hgb Conc. 29.3 g/dL (33.0-37.0); Mean Corpuscular Hgb 29.9 pg (27.0-31.0); Mean Platelet Volume 9.3 fL (7.4-10.4); Nucleated Red Blood Cells % 0 %; Platelet Count 249 10^3/uL (130-400); Red Blood Cell Count 3.55 10^6/uL (4.20-5.40); Red Cell Dist. Width 13.9 % (11.5-14.5); White Blood Cell Count 7.3 10^3/uL (4.8-10.8)
[2024-10-13 07:12] LABS: Blood Urea Nitrogen 15 mg/dl (7-17); Calcium 8.6 mg/dl (8.4-10.2); Chloride 87 mmol/L (98-107); Estimated Creatinine Clearance 71 ml/min; Glucose 78 mg/dl (70-99); Potassium 3.9 mmol/L (3.5-5.1); Sodium 138 mmol/L (135-145); eGFR > 60.00
[2024-10-13 07:15] VITALS: BP 119/55
[2024-10-13 07:22] LABS: Carbon Dioxide 43 mmol/L (22-30)
[2024-10-13] MEDS: XOPENEX 0.63 MG INHALANT SOLUTION INH ×2 (07:45→11:23)
[2024-10-13] MEDS: PULMICORT 0.5 MG INH (07:45)
[2024-10-13] MEDS: SODIUM CHLORIDE 3% FOR INHALATION 1 VIAL INH ×2 (07:45→11:24)
[2024-10-13] MEDS: DELTASONE 10 MG PO (10:18)
[2024-10-13] MEDS: PROTONIX 40 MG PO (10:18)
[2024-10-13] MEDS: LOPRESSOR 12.5 MG PO (10:18)
[2024-10-13] MEDS: MAG-TAB SR 84 MG PO (10:18)
[2024-10-13] MEDS: MUCINEX 600 MG PO (10:18)
[2024-10-13 11:00] VITALS: BP 109/64
--- NOTE | 2024-10-13 13:52 | CM ---
Met with patient
IMM explained & signed. In chart.
BIPAP not delivered. Pt did not qualify/out of pocket expense discussed on Sunday with daughter/son-in-law - CM spoke with hospitalist regarding this.
Hospitalist spoke with son-in-law Eldon regarding BIPAP and patient being discharged today.
[facility] home health referral in [facility]. Notified of discharge.
PLAN: Home to daughter home with [facility].
[facility] fax #: [phone]
transportation forms on chart
--- NOTE | 2024-10-13 14:01 | W.PN.HOSP.TC ---
Today's Communication/Plan
-
discharge planning for home
Assessment / Plan
Assessment / Plan
#Acute on chronic chronic hypoxic respiratory failure
#Shortness of breath secondary to large LEFT sided pleural effusion likely 2/2 Adenocarcinoma
#Chronic hypercapnic respiratory failure
#COPD/emphysema
#History of severe tobacco abuse
#History of lung nodules
S/P Thoracentesis status post thoracentesis 650 cc of straw-colored pleural fluid removed. (09/13/24) Further fluid removal was stopped as patient complained of pain.
( H/O Thoracentesis 450 cc of clear yellow pleural fluid 08/18/25)
Fluid culture remains negative
CT was removed on 09/22 as not much output was noted
Cytology from 09/15 and 09/18 and resulted with adenocarcinoma
ESR/CRP elevated. CONRAD neg, CCP IgG/IgA Ab 78 (nl 0-19)
Continue with bronchodilators, Afraid to go back on vest therapy. Plan to continue Xopenex and dizziness and nebulizer on discharge.
Encourage IS
Initially recommended for having BiPAP use at nighttime although nocturnal oxygen testing did not show any apnea hypopnea episode and does not qualify. Discussed with family and understands this. Family planning to check VBG if there is concern of
CO2 narcosis. This patient overall prognosis remains guarded family is considering hospice and should be ideal to transition to hospice if develops CO2 narcosis at home. Of note [id number] BiPAP option has been discussed and financially not
feasible. Also discussed with son-in-law/POA regarding, need of a full sleep study in pulmonology office although patient will likely not willing to follow-up.
# Hypovolemic shock- Resolved (Status post Levophed. )
# TME due to above
Improvement in mentation and seems back to baseline
# Leukocytosis likely secondary to steroids
Remains afebrile. UA negative. Blood cultures remains negative. Monitor for now.
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
Oncology consulted and they requested further testing on cytologic tissue. No other biopsy required per oncology.
PD-L1 and NGS testing on the adenocarcinoma in the pleural fluid pending.
Patient has declined any further workup. Oncology provided contact details to patient if changes decision.
# Urinary retention status post straight catheterization x 1
Continue with protocol. If with persistent retention required Vnetura catheter placement .
# Transaminitis -Could be from recent infection. Resolved
# Elevated TSH with normal T4-
Subclinical Hypothyroidism TSH>10
Low dose Synthroid started 25 mcg daily
Repeat Thyroid Function Test in 1 month
# Severe anxiety- Psychiatric evaluation appreciated prn Atarax discontinued in favor of scheduled low dose Xanax, cont. on 0.125mg q4h.
# Mild Hyponatremia-likely SIADH
Also elevated TSH with normal T4,
Low cortisol level with need of steroid use.
# History of tachycardia
Heart rate mildly elevated which is multifactorial due to hypoxemia, anxiety
Will restart patient on Lopressor. Syed has interaction with Xanax.
# DVT ppx-Lovenox
Discharge planning for home with care.
Discussed with Son in law - 10/13 today
Anticipated Discharge: Today
Subjective/Interval History
-
Date of Service: October 13, 2024
no issues overnight
Objective Data
-
Labs:
Laboratory Results
10/13/24
05:35
WBC 7.3
Hgb 10.6 L
Hct 36.2 L
Plt Count 249
Sodium 138
Potassium 3.9
Chloride 87 L
Carbon Dioxide 43 H
BUN 15
Creatinine 0.4 L
Glucose 78
Calcium 8.6
Vital Signs:
Vital Signs
Temp Pulse Resp BP Pulse Ox
98.5 F 114 18 109/64 95
10/13/24 11:00 10/13/24 11:00 10/13/24 11:00 10/13/24 11:00 10/13/24 11:00
I&O
10/12/24 10/13/24 10/14/24
06:59 06:59 06:59
Intake Total 1440 / 1440 1000 / 1000
Balance 1440 / 1440 1000 / 1000
Review of Systems
-
Respiratory: Reports No Symptoms
Cardiac: Reports No Symptoms
Abdomen/GI: Reports No Symptoms
Physical Exam
-
HEENT: Moist Mucous Membranes and Oxygen
Respiratory: Clear to Auscultation and Decreased Breath Sounds (bilateral decreased BS, )
Cardiac: Regular Rhythm and S1/S2
GI: Soft, Nontender and Nondistended
Musculoskeletal: No Edema
Neuro: Awake, Alert, Oriented, AO x 3 and No Motor Deficits; Negative Slurred Speech or Facial Droop
Psych: Calm and Anxious
[2024-10-13 15:00] VITALS: BP 104/60
[2024-10-13 18:54] VITALS: BP 104/65
--- NOTE | 2024-10-13 19:00 | PTCARENOTE ---
Patient discharged home, transported by ambulance stretcher. IV removed previously in shift by IV nurse. Tele pack removed, patient changed, and belongings gathered in room by this RN and tech. This RN reviewed discharge instructions with patient's
son-in-law. Son-in-law requesting scripts be sent to different pharmacy than one on file, this RN communicated with MD, scripts sent to correct pharmacy. Son-in-law then asking for protonix, magnesium tab, and all resp treatment scripts to be sent
to pharm; son-in-law states patient does not have any resp treatments at home. This RN communicated with , not in hospital at this time, cross-coverage hospitalist sent all scripts to pharmacy except ipatropium-albuterol 0.5-3mg. Cross-coverage
hospitalist not in hospital at this time, covering SECURITY NURSE not able to send scripts to pharm. This RN ensured son that all scheduled resp treatments patient was receiving in hospital have been sent over to pharm including albuterol, Combivent, Flonase,
and Trelegy Ellipta.
== END 2024-10-13 19:24 | disposition home health service (06) | DRG 180 ==
LOC: 2 NORTH 18:20
PROVIDERS: Family Medicine; Hospitalist; Internal Medicine; Internal Medicine Critical Care Medicine; Nurse Practitioner Gerontology; Nurse Practitioner Primary Care; Physician Assistant; Radiology Vascular & Interventional Radiology; Registered Nurse; ADMITTING PHYSICIAN Hospitalist; ATTENDING PHYSICIAN Hospitalist; CONSULT PHYSICIAN Internal Medicine Critical Care Medicine; CONSULT PHYSICIAN Psychiatry & Neurology Psychiatry; EMERGENCY PHYSICIAN Emergency Medicine; OTHER PHYSICIAN Internal Medicine Hematology & Oncology
PROC: 0W9B3ZZ Drainage of Left Pleural Cavity, Percutaneous Approach (ICD-10-PCS; 2024-09-13)
PROC: 0W9B30Z Drainage of Left Pleural Cavity with Drainage Device, Percutaneous Approach (ICD-10-PCS; 2024-09-17)
PROC: 5A09357 Assistance with Respiratory Ventilation, Less than 24 Consecutive Hours, Continuous Positive Airway Pressure (ICD-10-PCS; 2024-09-25)
PROC: 5A0935A Assistance with Respiratory Ventilation, Less than 24 Consecutive Hours, High Flow/Velocity Cannula (ICD-10-PCS; 2024-09-25)
DX: C34.12 Malignant neoplasm of upper lobe, left bronchus or lung (principal); G92.8 Other toxic encephalopathy; J96.21 Acute and chronic respiratory failure with hypoxia; R57.1 Hypovolemic shock; J91.0 Malignant pleural effusion; R64 Cachexia; C79.9 Secondary malignant neoplasm of unspecified site; J96.12 Chronic respiratory failure with hypercapnia; E87.3 Alkalosis; Z66 Do not resuscitate; J43.9 Emphysema, unspecified; J44.9 Chronic obstructive pulmonary disease, unspecified; E86.0 Dehydration; F41.9 Anxiety disorder, unspecified; R00.0 Tachycardia, unspecified; R74.01 Elevation of levels of liver transaminase levels; D72.828 Other elevated white blood cell count; T38.0X5A Adverse effect of glucocorticoids and synthetic analogues, initial encounter; R33.8 Other retention of urine; I10 Essential (primary) hypertension; E03.8 Other specified hypothyroidism; Z99.81 Dependence on supplemental oxygen; Z87.891 Personal history of nicotine dependence; Z79.899 Other long term (current) drug therapy; Z79.51 Long term (current) use of inhaled steroids; Z87.01 Personal history of pneumonia (recurrent); Z68.22 Body mass index [BMI] 22.0-22.9, adult
CPT/HCPCS: 88305; 32555; 32557; 36600; 71045; 71046; 71260; 74230; 76604; 80048; 80053; 81003; 81459; 82150; 82533; 82805; 82945; 83605; 83615; 83735; 83930; 83935; 83986; 84100; 84157; 84300; 84439; 84443; 84478; 85025; 85027; 85610; 85652; 86038; 86140; 86200; 87015; 87040; 87070; 87102; 87116; 87205; 87206; 88112; 88313; 88341; 88342; 88360; 89051; 92526; 92610; 92611; 93005; 94640; 94660; 94667; 94669; 94762; 97161; 97164; 97166; 97530; 97535; 99152; 99153; 99284; C1729; C1769; Q9967